=== PATIENT | male | born 1975 | race Caucasian/White ===

== ENCOUNTER 2021-07-09 10:58 | Emergency (ER) | payer MEDICARE, OTHER, SELFPAY ==
[2021-07-09 11:11] VITALS: BP 105/74; PULSE 68; RESP 16; TEMP 36.2; O2SAT 98
--- NOTE | 2021-07-09 11:12 | ED.GENADULT ---
HPI - General Adult General Chief complaint: Upper Respiratory Infection Stated complaint: sinus infection Time Seen by Provider: 07/09/21 11:20 Source: patient, family (mother) and RN notes reviewed Mode of arrival: ambulatory Limitations: other (Down's Syndrome) History of Present Illness HPI narrative: 46-year-old male presents with mother, who complains of upper respiratory infection, sneezing, some facial congestion, facial pressure, and intermittent headache (not the worst of his life) for the past 2 days. Mother reports Armin has constant URI symptoms with increasing sore throat and sinus drainage. Advil and Sinus PE last given today at 02:00 with relief until medication wear off. No facial swelling. Dry cough, intermittent productive cough, without chest congestion. Nasal congestion and rhinorrhea. Sore throat. Pain is bilateral. Hurts to swallow. No high fevers, drooling, neck or throat swelling. No voice change. No nausea, vomiting, or abdominal pain. Tolerating liquids well. Denies chills, dyspnea, difficulty swallowing, jaw pain, dental pain, foreign body sensation, and rash. No chest pain or shortness of breath. Immunizations up-to-date. Remains active. The patient's mother reports they were diagnosed with COVID-20 July 2020 in which her spouse . The patient's mother reports they received 2 Moderna COVID-19 vaccines. The patient's mother reports they are not waiting for the results of a COVID-19 lab test. The patient's mother reports Armin was COVID-19 tested at home on 07/08/2021 with a NEGATIVE result. The patient's mother reports they do not have weakness, fatigue, or myalgia. The patient's mother reports they do not have a worsening cough. The patient's mother reports they do not have any loss of taste or smell and diarrhea. Denies recent traveling. Denies concerns for COVID-19 or exposures. At this time, the patient is not suspected of having COVID-19. Some parts of this dictation were generated by voice recognition software and may contain typographical and/or grammatical inaccuracies. Related Data Home Medications Medication Instructions Recorded Confirmed aspirin 81 mg PO DAILY 07/09/21 07/09/21 cetirizine [Zyrtec] 10 mg PO DAILY 07/09/21 07/09/21 Allergies Allergy/AdvReac Type Severity Reaction Status Date / Time meperidine [From Demerol] Allergy Fainting Verified 07/09/21 11:24 morphine Allergy Anaphylaxis Verified 07/09/21 11:24 Review of Systems Review of Systems: CONSTITUTIONAL: Denies chills, sweats. Complains of low-grade fever. EYES: Denies visual changes, redness, discharge. ENT: Complains of rhinorrhea, congestion, facial congestion and pressure, sore throat. Denies otalgia. CARDIOVASCULAR: Denies chest pain, palpitations, edema. RESPIRATORY: Denies dyspnea, wheezing. Complaints of dry cough. GASTROINTESTINAL: Denies abdominal pain, nausea, vomiting, diarrhea. GENITOURINARY: Denies dysuria, hematuria, abnormal discharge SKIN: Denies rash or itching. MUSCULOSKELETAL: Denies acute back pain, joint pain, or myalgia. NEUROLOGIC: Denies numbness or focal weakness. Complains of intermittent WRIGHT. PSYCHIATRIC: Denies anxiety or depression. All other systems reviewed & are unremarkable except as noted in HPI and below. [facility] Past Medical History Medical History (Updated 07/10/21 @ 00:01 by Mauro Wilder) Acute sinus infection COVID-19 07/2020 Down syndrome VSD (ventricular septal defect) Surgical History Surgical History (Updated 07/09/21 @ 12:03 by HEMANT Portillo) History of adenoidectomy History of cholecystectomy History of hand surgery extra digit removed from right hand History of tonsillectomy History of tympanostomy Family History Family History (Updated 07/09/21 @ 12:04 by HEMANT Portillo) Father , related to COVID-19 per spouse Heart disease COVID-19 Mother COVID-19 Social History Social History (Updated
== END 2021-07-09 11:47 | disposition home or self-care (01) ==
PROVIDERS: Emergency Provider Nurse Practitioner Family; PCP Family Medicine
DX: J01.90 Acute sinusitis, unspecified (principal); Z86.16 Personal history of COVID-19; Q90.9 Down syndrome, unspecified; Z79.82 Long term (current) use of aspirin
CPT/HCPCS: 99202; G0463

== ENCOUNTER 2021-09-07 10:02 | Emergency (ER) | payer MEDICARE, OTHER, SELFPAY ==
--- NOTE | ~2021-09-07 | XR_ITS ---
EXAMINATION: XR tibia fibula LT 2V DATE: 09/07/2021 10:35 INDICATION: Left lower leg pain. TECHNIQUE: 2 views of left tibia and fibula were obtained. COMPARISON: None. FINDINGS: Bone alignment is normal. No fracture. There is mild osteoarthritis of left knee joint. The re is mild midfoot osteoarthritis. Prominent superficial veins are noted. IMPRESSION: 1. Mild polyarticular osteoarthritis. Reviewed, dictated and finalized at location A.
[2021-09-07 10:13] VITALS: BP 104/73; PULSE 69; RESP 18; TEMP 36.5; O2SAT 98
--- NOTE | 2021-09-07 10:53 | ED.LOWEXIN ---
HPI - Extremity Injury (Lower) General Chief Complaint: Extremity Injury, Lower Stated Complaint: Lt leg pain Time Seen by Provider: 09/07/21 10:30 Source: patient, family and RN notes reviewed Mode of arrival: ambulatory Limitations: no limitations History of Present Illness HPI Narrative: Mother presents patient today complaining of left lateral leg pain intermittently x1 month. Denies any traumatic injury, but does report increased pain while walking and exercising. Patient has been elevating and taking ibuprofen for pain, which does help. Mother is concerned because family is getting ready to go on vacation with lots of walking and wanted to make sure patient was okay. History of Down syndrome MD complaint: leg injury Related Data Home Medications Medication Instructions Recorded Confirmed aspirin 81 mg PO DAILY 07/09/21 09/07/21 cetirizine [Zyrtec] 10 mg PO DAILY 07/09/21 09/07/21 ergocalciferol (vitamin D2) 1,000 unit PO DAILY 09/07/21 09/07/21 Allergies Allergy/AdvReac Type Severity Reaction Status Date / Time morphine Allergy Severe Anaphylaxis Verified 09/07/21 10:20 meperidine [From Demerol] Allergy Intermediate Fainting Verified 09/07/21 10:20 Review of Systems Review of Systems: CONSTITUTIONAL: Denies body aches, fever, chills, or sweats. EYES: Denies visual changes, redness, or discharge. ENT: Denies rhinorrhea, congestion, sore throat, or otalgia. CARDIOVASCULAR: Denies chest pain, palpitations, or edema. RESPIRATORY: Denies cough or dyspnea. GASTROINTESTINAL: Denies abdominal pain, nausea, vomiting, or diarrhea. GENITOURINARY: Denies dysuria or hematuria. SKIN: Denies rash, itching, or wounds. MUSCULOSKELETAL: Denies back pain, joint pain. + Left leg pain NEUROLOGIC: Denies headache, numbness, tingling, or weakness. PSYCH: Denies depression or anxiety. [facility] Past Medical History Medical History Acute sinus infection COVID-19 07/2020 Down syndrome VSD (ventricular septal defect) Surgical History Surgical History History of adenoidectomy History of cholecystectomy History of hand surgery extra digit removed from right hand History of tonsillectomy History of tympanostomy Family History Family History Father , related to COVID-19 per spouse Heart disease COVID-19 Mother COVID-19 Social History Social History Social History: Mother denies smoke expsoure Smoking status: Never smoker Tobacco type: cigarettes Second hand tobacco smoke exposure: No Alcohol intake: never Substance use: never Substance use type: does not use Additional occupation/education comments: disable Gender identity (if verbalized by the patient): Male Comments At time of signature, I have reviewed and agree with nursing past medical, surgical, social and family history unless otherwise noted. Please see nursing chart for further information. There is no relevant family history pertinent to the presenting complaint Exam Narrative: GENERAL: Well-appearing, well-nourished, and in no acute distress. HEAD: Normocephalic, atraumatic. EYES: EOMI. No redness or drainage. Conjunctivae normal. ENT: Mucous membranes pink and moist. NECK: Normal AROM. Supple. No lymphadenopathy. CHEST: No respiratory distress. Clear to auscultation. HEART: Regular rate and rhythm. No murmur appreciated. Normal peripheral pulses. ABDOMEN: Soft, nontender, nondistended, normal active bowel sounds. MUSCULOSKELETAL: No bony tenderness. EXTREMITIES: Left leg: Muscular tenderness along the lateral left calf. No bony tenderness to the tibia or fibula. No edema noted. No erythema or ecchymosis noted. Full range of motion of the ankle and knee without pain. Distal sen
== END 2021-09-07 11:05 | disposition home or self-care (01) ==
PROVIDERS: Emergency Provider Nurse Practitioner; PCP Family Medicine
DX: S86.912A Strain of unspecified muscle(s) and tendon(s) at lower leg level, left leg, initial encounter (principal); X58.XXXA Exposure to other specified factors, initial encounter; Q90.9 Down syndrome, unspecified; Z86.16 Personal history of COVID-19
CPT/HCPCS: 73590; 99213; G0463

== ENCOUNTER 2021-11-23 13:44 | Emergency (ER) | payer MEDICARE, OTHER, SELFPAY ==
[2021-11-23 14:25] VITALS: BP 112/45; PULSE 81; RESP 20; TEMP 36.6; O2SAT 98
--- NOTE | 2021-11-23 15:38 | ED.EAR ---
HPI - Ear Problem General Chief complaint: Ear Stated complaint: Rt Ear Pain Time Seen by Provider: 11/23/21 15:20 Source: patient, family and RN notes reviewed Mode of arrival: ambulatory Limitations: no limitations History of Present Illness HPI Narrative: 46 year old male who has Downs syndrome accompanied by his mother with complaints of 3 day history of right ear discomfort with decreased hearing. 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 She also reports that he is presently on Doxycycline for sinus infection and has 4 days left of his antibiotic. Mother reports that son still has some nasal drainage which is clear but symptoms have improved. Patient did have COVID in 2019. He has been vaccinated for COVID and Flu and mother reports home COVID test today which was negative. MD Complaint: ear pain and decreased hearing Location: right ear Related Data Home Medications Medication Instructions Recorded Confirmed aspirin 81 mg PO DAILY 07/09/21 11/23/21 cetirizine [Zyrtec] 10 mg PO DAILY 07/09/21 11/23/21 ergocalciferol (vitamin D2) 1,000 unit PO DAILY 09/07/21 11/23/21 Allergies Allergy/AdvReac Type Severity Reaction Status Date / Time morphine Allergy Severe Anaphylaxis Verified 11/23/21 14:36 meperidine [From Demerol] Allergy Intermediate Fainting Verified 11/23/21 14:36 Review of Systems Review of Systems: CONSTITUTIONAL: Denies fever, chills, or sweats. EYES: Denies visual changes, redness, or discharge. ENT:Positive rhinorrhea,no congestion, sore throat, mild right otalgia, positive for decreased hearing in right ear, left ear mother reports he is deaf. CARDIOVASCULAR: Denies chest pain, palpitations, or edema. RESPIRATORY: Denies cough or dyspnea. GASTROINTESTINAL: Denies abdominal pain, nausea, vomiting, or diarrhea. GENITOURINARY: Denies dysuria or hematuria. SKIN: Denies rash or itching. MUSCULOSKELETAL: Denies back pain, joint pain, or myalgia. NEUROLOGIC: Denies headache, numbness, or weakness. PSYCHIATRIC: Denies anxiety or depression. All systems reviewed & are unremarkable except as noted in HPI and below PMFSH Past Medical History Medical History Acute sinus infection COVID-19 07/2020 Down syndrome VSD (ventricular septal defect) Surgical History Surgical History History of adenoidectomy History of cholecystectomy History of hand surgery extra digit removed from right hand History of tonsillectomy History of tympanostomy Family History Family History Father , related to COVID-19 per spouse Heart disease COVID-19 Mother COVID-19 Social History Social History Social History: Mother denies smoke expsoure Smoking status: Never smoker Tobacco type: cigarettes Second hand tobacco smoke exposure: No Alcohol intake: never Substance use: never Substance use type: does not use Additional occupation/education comments: disable Gender identity (if verbalized by the patient): Male Comments At time of signature, agree with nursing past medical, surgical, social and family history. There is no relevant family history pertinent to the presenting complaint Exam Narrative: GENERAL: Well-appearing, well-nourished, and in no acute distress. HEAD: Normocephalic, atraumatic. EYES: PERRLA and EOMI. ENT: Nares mild redness with some clear rhinorrhea no epistaxis. Mucous membranes moist.TM's impacted with wax, once cleansed no redness or bulging of TM;s noted, throat pink with no exudates or lesions, tonsils absent. NECK: Supple.no lymphadenopathy CHEST: Clear to auscultation. No respiratory distress.SAO2 98% on room air, no cough noted or dyspnea. HEART: Regular rate and rhythm. No murmur heard. Normal peripheral pulses. ABDOMEN: Soft, nonte
== END 2021-11-23 16:18 | disposition home or self-care (01) ==
PROVIDERS: Emergency Provider Registered Nurse; PCP Family Medicine
DX: H61.23 Impacted cerumen, bilateral (principal); Q90.9 Down syndrome, unspecified; Z86.16 Personal history of COVID-19
CPT/HCPCS: 69210; 99213; A9270; G0463

== ENCOUNTER 2021-11-28 18:22 | Inpatient (IN) | payer MEDICARE, OTHER, SELFPAY ==
[2021-11-28] VITALS (30 sets, daily range): BP systolic 88–158; BP diastolic 55–132; PULSE 88–115; RESP 16–33; TEMP 36.4–37.9; O2SAT 91–100
--- NOTE | ~2021-11-28 | XR_ITS ---
EXAMINATION: XR chest 1V portable EXAM DATE: 11/29/2021 11:46 INDICATION: Possible COVID. TECHNIQUE: Portable AP frontal chest x-ray was obtained. Correlation is made to CT abdomen pelvis fro m yesterday. FINDINGS: Possible development of small amount of ill-defined bibasilar airspace disease. Mid and upp er lung zones are clear. No pneumothorax or pleural effusion. The cardiomediastinal silhouette is pro minent but magnified on this AP technique. There are no osseous abnormalities identified. IMPRESSION: Possible developing pneumonia. Follow-up can be obtained if symptoms persist. Reviewed, dictated and finalized at location A. PRESIDENT OF SALES IMPRESSION: Possible developing pneumonia. Follow-up can be obtained if sympto ms persist.
--- NOTE | ~2021-11-28 | XR_ITS ---
EXAMINATION: XR lumbar spine min 4V DATE: 11/28/2021 19:13 INDICATION: Low back pain TECHNIQUE: Anteroposterior, lateral, and bilateral oblique views of the lumbar spine, and cone-down l ateral view of the lumbosacral junction were obtained. COMPARISON: None. FINDINGS: There are 3 mm of anterolisthesis of L5 on S1. Vertebral body alignment is otherwise mainta ined. No fracture is identified. There is mild loss of intervertebral disc space height at L1-2, L2-3 , and L5-S1. The vertebral body heights are maintained. There is severe bilateral facet osteoarthriti s at L5-S1. Surgical clips in the right upper quadrant are likely from prior cholecystectomy. IMPRESSION: 1. Mild lumbar spondylosis without acute findings. Reviewed, dictated and finalized at location F. ETCHER HELPER
--- NOTE | ~2021-11-28 | CT_ITS ---
EXAMINATION: CT abdomen pelvis w con INDICATION: Abdominal pain TECHNIQUE: Computed tomographic images of the abdomen and pelvis were obtained after the administrati on of 100 cc of Omnipaque 350 intravenous contrast. The dose-length product (DLP) was 502.17 mGy-cm. Automated exposure control and iterative reconstruction technique were employed. COMPARISON: None available FINDINGS: The lung bases are clear. The heart size is normal. The gallbladder is surgically absent. T here is mild enlargement of the common bile duct and central intrahepatic ducts which is likely due t o post cholecystectomy state. The liver, spleen, pancreas, adrenal glands, and kidneys are unremarkab le. No pathologically enlarged abdominal or pelvic lymph nodes are identified. There is no free intra peritoneal gas or evidence of bowel obstruction. There is diffuse circumferential wall thickening of the urinary bladder. There is mild lumbar spondylosis. IMPRESSION: 1. Circumferential wall thickening of the urinary bladder which could reflect cystitis. Reviewed, dictated and finalized at location F. S MAINTAINER IMPRESSION: 1. Circumferential wall thickening of the urinary bladder which could reflect c ystitis.
--- NOTE | 2021-11-28 18:52 | ED.GENADULT ---
HPI - General Adult General Chief complaint: Nausea/Vomiting/Diarrhea Stated complaint: Vomiting, diarrhea, back pain Time Seen by Provider: 11/28/21 18:34 History of Present Illness HPI narrative: 46-year-old male with history of Down syndrome presents emergency department for evaluation of nausea vomiting diarrhea and back pain. Patient does have multiple sick contacts that had similar illness of nausea vomiting and diarrhea. Patient brother and another member of the household had the illness and improved. They were tested for Covid and were negative. Patient did have Covid previously and is currently vaccinated. At approximately 330 patient had onset of nausea vomiting and diarrhea. At approximately 445 patient was sitting on the toilet and fell to the floor complaining of pain. Related Data Home Medications Medication Instructions Recorded Confirmed aspirin 81 mg PO DAILY 07/09/21 11/23/21 cetirizine [Zyrtec] 10 mg PO DAILY 07/09/21 11/23/21 ergocalciferol (vitamin D2) 1,000 unit PO DAILY 09/07/21 11/23/21 Allergies Allergy/AdvReac Type Severity Reaction Status Date / Time morphine Allergy Severe Anaphylaxis Verified 11/28/21 18:41 meperidine [From Demerol] Allergy Intermediate Fainting Verified 11/28/21 18:41 Review of Systems Review of Systems: CONSTITUTIONAL: Denies fever, chills, or sweats. EYES: Denies visual changes, redness, or discharge. ENT: Denies rhinorrhea, congestion, sore throat, or otalgia. CARDIOVASCULAR: Denies chest pain RESPIRATORY: Denies cough or dyspnea. GASTROINTESTINAL: Patient has had nausea vomiting diarrhea and does report abdominal pain GENITOURINARY: No hematuria. MUSCULOSKELETAL: Reports lower back pain NEUROLOGIC: Denies headache, numbness, or weakness. [facility] Past Medical History Medical History Acute sinus infection COVID-19 07/2020 Down syndrome VSD (ventricular septal defect) Surgical History Surgical History History of adenoidectomy History of cholecystectomy History of hand surgery extra digit removed from right hand History of tonsillectomy History of tympanostomy Family History Family History Father , related to COVID-19 per spouse Heart disease COVID-19 Mother COVID-19 Social History Social History Social History: Mother denies smoke expsoure Smoking status: Never smoker Tobacco type: cigarettes Second hand tobacco smoke exposure: No Alcohol intake: never Substance use: never Substance use type: does not use Additional occupation/education comments: disable Gender identity (if verbalized by the patient): Male Exam Narrative: APPEARANCE: Well appearing, well-nourished. HEAD: normocephalic, atraumatic. EYES: PERRLA/EOMI, conjunctivae clear. NECK: Supple. No adenopathy, no masses. RESPIRATORY: Airway patent, respirations nonlabored. Clear to auscultation bilaterally, no rales, rhonchi, wheezing. CARDIOVASCULAR: Regular rate and rhythm without murmurs rubs or gallops. ABDOMINAL: Soft, nondistended, normal bowel sounds-generalized abdominal pain to palpation MUSCULOSKELETAL: Moves all extremities. Strength/ROM intact, No edema, No calf tenderness. NEURO: Alert. Cranial nerves II through XII intact. Good gait. Good coordination SKIN: Warm, dry. Normal Color PSYCHIATRIC: Normal affect/mood. Course Course Emergency Course: Patient and mother were updated on the plan for labs and imaging. CT scan did show some circumferential thickening of the bladder. Mother stated that he has had this finding before. Urine did not reflect any evidence of cystitis. Patient did have a moderate leukocytosis. Patient did have a lactic acid of 2.0 but was treated with 2 L of lactated Ringer's for rehydration. Patient is deedee
[2021-11-28] MEDS: LACTATED RINGERS 1,000 ML 999 ML IV CONT ×2 (19:36→21:32)
[2021-11-28] MEDS: ONDANSETRON INJ 4 MG/2 ML VIAL IV PUSH ×2 (19:39→23:06)
[2021-11-28 19:42] LABS: Basophils Absolute Auto 0.1 K/mm3 (0.0-0.1); Basophils Percent Auto 0.5 % (0.2-1.2); Eosinophils Absolute Auto 0.1 K/mm3 (0-0.3); Eosinophils Percent Auto 0.5 % (0-4.4); Hematocrit 49.1 % (42.0-52.0); Hemoglobin 17.2 g/dL (14.0-18.0); Immature Granulocyte Absolute 0.05 K/mm3 (0.00-0.031); Immature Granulocyte Percent A 0.5 % (0-0.5); Lymphocytes Absolute Auto 0.74 K/mm3 (0.9-3.2); Lymphocytes Percent Auto 7.2 % (18.3-44.2); Mean Corpuscular Hemoglobin 33.5 pg (26-34); Mean Corpuscular Volume 95.7 fl (80-100); Mean Platelet Volume 9.1 fl (7.4-10.4); Monocytes Absolute Auto 0.7 K/mm3 (0.1-0.6); Monocytes Percent Auto 6.4 % (2.6-8.5); Neutrophils Absolute Auto 8.7 K/mm3 (1.3-6.7); Neutrophils Percent Auto 84.9 % (45.5-73.1); Platelet Count Result 232 k/mm3 (150-375); Red Blood Count 5.13 M/mm3 (4.6-6.20); Red Cell Distribution Width 13.6 % (11.5-14.5); White Blood Count 10.2 K/mm3 (4.5-10.0)
[2021-11-28 20:03] LABS: Alanine Aminotransferase 38 U/L (4-50); Albumin Level 4.1 g/dL (3.5-5.1); Alkaline Phosphatase 89 U/L (38-126); Anion Gap 4 mmol/L (8-16); Aspartate Amino Transferase 40 U/L (17-59); Bilirubin,Total 0.5 mg/dL (0.2-1.3); Blood Urea Nitrogen 17 mg/dL (9-20); Calcium 8.5 mg/dL (8.4-10.2); Carbon Dioxide 26 mmol/L (22-30); Chloride 107 mmol/L (98-107); Estimated Glomerular Filt Rate > 60; Glucose 123 mg/dL (65-110); Lipase 55 U/L (23-300); Potassium 4.2 mmol/L (3.4-5.0); Sodium 137 mmol/L (137-145)
[2021-11-28 20:04] LABS: Lactic Acid Reflex 2.2 mmol/L (0.7-2.1)
[2021-11-28 21:39] LABS: Add Urine Microscopic? NO; Appearance Urine Clear (Clear); Bilirubin Urine Negative (Negative); Blood Urine Negative (Negative); Color Urine Yellow (Yellow); Glucose Urine UA Negative (Negative); Ketones Urine Negative (Negative); Leukocyte Esterase Ur Negative LEU/UL (Negative); Nitrate Urine Negative (Negative); Protein Urine Negative (Negative); Urobilinogen Urine Negative mg/dL (<2.0)
[2021-11-28 21:49] LABS: Specific Grav Ur > 1.060 (1.001-1.035)
[2021-11-28 22:47] LABS: Reflex Lactic Acid Yes or No Add Lactic
[2021-11-28 23:21] LABS: Lactic Acid 3.7 mmol/L (0.7-2.1)
[2021-11-29] VITALS (20 sets, daily range): BP systolic 96–116; BP diastolic 55–77; PULSE 91–113; RESP 16–34; TEMP 36.6–36.8; O2SAT 90–98; BMI 34.0
[2021-11-29] MEDS: SODIUM CHLORIDE 0.9% IV 1,000 ML 999 ML IV CONT (00:22)
[2021-11-29] MEDS: METOCLOPRAMIDE HCL INJ 10 MG/2 ML VIAL IV PUSH (00:22)
[2021-11-29 00:27] LABS: EDCOVIDSCREEN Negative (Negative)
[2021-11-29] MEDS: SODIUM CHLORIDE 0.9% IV 1,000 ML 125 ML IV CONT ×3 (03:19→21:11)
--- NOTE | 2021-11-29 03:36 | ADMGEN ---
This patient, Armin Rico, was admitted to [facility] Surg Room 333-01. Patient/family oriented to hospital policies and general routines including ID bracelet, bed and alarms, visiting hours, pain management, procedures, bathroom and other care routines, personal items, smoking policy, room service/diet, and visiting hours. Information on how to activate the Rapid Response Team has been discussed. Patient/Family are encouraged to report perceived risks to care and to ask questions if they do not understand what they are told or what they should do.
--- NOTE | 2021-11-29 08:42 | PM.IMHP ---
H&P: HPI History of Present Illness Date/Time: 11/29/21 08:42 Chief Complaint: Nausea/Vomiting/Diarrhea Narrative: Armin Rico is a 46 year old man with a Down's Syndrome, VSD, and COVID-19 who has been admitted after presenting to the ED with complaints of nausea, vomiting and diarrhea. The patient is a poor historian and history obtained per chart review. His symtoms began around 0330 this morning and about an hour later he was found sitting on the toilet and fell to the floor complaining of pain. Apparently he has had multiple sick contacts in the household with similar symptoms.They were all tested for COVID and results were negative. The patient was diagnosed with COVID-19 last year and since then has been fully vaccinated. While in the ED the patient had worsening symptoms and an elevated Lactic. He denied any chills, WRIGHT, SOB, CP, N/VD during interview and exam. ED evaluation included and revealed: He was febrile and Lactic acid was elevated at 2.2-->3.7. WBC slightly elevated at 10.2; Neut elevated at 84.9; CT of A/P showed circumferential wall thickening of the urinary bladder which could reflect cystitis; UA was not suggestive of infection. COVID -19 pcr was collected and the patient has been admitted to observation status for further evaluation and treatment. Review of Systems Review of Systems: All systems reviewed & are unremarkable except as noted in HPI and below PMFSH Past Medical History Medical History Acute sinus infection COVID-19 07/2020 Down syndrome VSD (ventricular septal defect) Surgical History Surgical History History of adenoidectomy History of cholecystectomy History of hand surgery extra digit removed from right hand History of tonsillectomy History of tympanostomy Family History Family History Father , related to COVID-19 per spouse Heart disease COVID-19 Mother COVID-19 Social History Social History Social History: Mother denies smoke expsoure Smoking status: Never smoker Tobacco type: cigarettes Second hand tobacco smoke exposure: No Alcohol intake: never Substance use: never Substance use type: does not use Additional occupation/education comments: disable Gender identity (if verbalized by the patient): Male Spiritual care concerns: No Meds Home Medications and Allergies Home Medications Medication Instructions Recorded Confirmed Type aspirin 81 mg PO DAILY 07/09/21 11/29/21 History cetirizine [Zyrtec] 10 mg PO DAILY 07/09/21 11/29/21 History ergocalciferol (vitamin D2) 1,000 unit PO DAILY 09/07/21 11/29/21 History ondansetron 4 mg PO Q8H PRN #14 tablet 11/28/21 Rx Allergies Allergy/AdvReac Type Severity Reaction Status Date / Time morphine Allergy Severe Anaphylaxis Verified 11/28/21 18:41 meperidine [From Demerol] Allergy Intermediate Fainting Verified 11/28/21 18:41 Vital Signs Vital Signs - 24 hr 11/28/21 18:37 11/28/21 19:22 11/28/21 19:23 Temperature 36.4 C L Pulse Rate 88 95 96 Respiratory Rate 20 33 H 21 H Blood Pressure 158/132 H 106/69 Pulse Oximetry 93 100 99 11/28/21 19:30 11/28/21 19:31 11/28/21 19:45 Temperature Pulse Rate 115 H 104 H 97 Respiratory Rate 16 24 H 21 H Blood Pressure 129/95 H Pulse Oximetry 98 96 96 11/28/21 20:00 11/28/21 20:25 11/28/21 20:26 Temperature Pulse Rate 102 H 110 H 112 H Respiratory Rate 18 26 H Blood Pressure 117/55 L Pulse Oximetry 91 94 93 11/28/21 20:31 11/28/21 20:35 11/28/21 20:45 Temperature 37.9 C H Pulse Rate 110 H 101 H Respiratory Rate 22 H 25 H Blood Pressure 99/74 L Pulse Oximetry 100 97 11/28/21 20:46 11/28/21 20:49 11/28/21 20:50 Temperature Pulse Rate 105 H 102 H 102 H
[2021-11-29 13:33] LABS: SARS-CoV-2 RNA PCR Positive
[2021-11-29] MEDS: ACETAMINOPHEN 325 MG TABLET 650 MG PO (19:04)
[2021-11-30] VITALS: BP 108/75; PULSE 91; RESP 18; TEMP 36.8; O2SAT 96
[2021-11-30] MEDS: ACETAMINOPHEN 325 MG TABLET 650 MG PO (03:10)
[2021-11-30 06:00] VITALS: BP 112/82; PULSE 89; RESP 18; TEMP 36.8; O2SAT 96
[2021-11-30 08:00] VITALS: BP 108/67; PULSE 58; RESP 19; TEMP 36.2; O2SAT 96
[2021-11-30 08:52] LABS: Hematocrit 42.3 % (42.0-52.0); Hemoglobin 14.5 g/dL (14.0-18.0); Mean Corpuscular HGB Conc 34.3 g/dl (32-36); Mean Corpuscular Hemoglobin 33.5 pg (26-34); Mean Corpuscular Volume 97.7 fl (80-100); Mean Platelet Volume 9.6 fl (7.4-10.4); Platelet Count Result 167 k/mm3 (150-375); Red Blood Count 4.33 M/mm3 (4.6-6.20); Red Cell Distribution Width 13.9 % (11.5-14.5); White Blood Count 4.9 K/mm3 (4.5-10.0)
[2021-11-30] MEDS: ENOXAPARIN 40 MG/0.4 ML SYRINGE SUB-Q (08:58)
[2021-11-30 09:02] LABS: Lactic Acid Reflex 0.8 mmol/L (0.7-2.1)
[2021-11-30 09:05] LABS: Anion Gap 6 mmol/L (8-16); Blood Urea Nitrogen 6 mg/dL (9-20); Calcium 7.2 mg/dL (8.4-10.2); Carbon Dioxide 26 mmol/L (22-30); Chloride 108 mmol/L (98-107); Estimated CRCL calculation 80 ml/min; Estimated Glomerular Filt Rate > 60; Glucose 92 mg/dL (65-110); Potassium 3.4 mmol/L (3.4-5.0); Sodium 140 mmol/L (137-145)
--- NOTE | 2021-11-30 11:56 | PM.DS ---
DS: Admitting Diagnosis Discharge Date 11/30/21 Admitting Diagnosis Gastroenteritis COVID-19 PUI Lactic acidosis DS: Discharge Diagnosis Discharge Diagnosis (1) COVID-19: Code(s): U07.1 - COVID-19 Status: Acute Assessment and Plan: Despite having COVID-19 last year and being vaccinated COVID-19. Patient PCR resulted positive for COVID-19. With no respiratory symptoms only requires supportive care. (2) Lactic acidosis: Code(s): E87.2 - Acidosis Status: Acute Assessment and Plan: Secondary to dehydration from gastroenteritis. Lactic acid normalized by discharge 0.8 (3) Gastroenteritis and colitis, viral: Code(s): A08.4 - Viral intestinal infection, unspecified Status: Acute Assessment and Plan: Likely secondary to viral infection, COVID-19 positive. Patient is clinically stable to go, advised to stay hydrated. DS: Summary Hospital Course Reason for hospitalization: Lactic acidosis, nausea vomiting diarrhea Hospital Course: Patient is a 46-year-old male past medical history of Down syndrome, VSD, COVID-19 last year presents to the ED with complaints of nausea vomiting diarrhea. His COVID-19 PCR test resulted in positive which would mean he has a reinfection. Whole household has similar symptoms however they tested negative. Since patient had COVID-19 last year and he has been vaccinated, is unclear accurate his PCR test is. Either way supportive care is indicated as he is not having respiratory symptoms. Lactic acid was elevated up to 3.7 improved with IV fluids. At time of discharge his labs stabilized, vitals stable, patient stable for discharge home. Patient advised of supportive care continue staying hydrated. He will follow-up with PCP in 1-2 weeks. Family understand adn agree with plan. Status at Discharge Cognitive/behavioral status at discharge: At baseline, down syndrome Functional status at discharge: independent ambulation Overall status at discharge: patient is back to baseline Time Spent with Patient Time attestation: Total time spent providing and/or coordinating discharge services:35 Time spent: Greater than 30 minutes Exam Narrative: - GENERAL: No acute distress. Well-nourished. Down syndrome features - EYES: EOMI. Anicteric. Dysconjugate gaze - HENT: Moist mucous membranes. No scleral icterus. Webbed neck - LUNGS: Clear to auscultation bilaterally, no wheezing, rhonchi, or rales. - CARDIOVASCULAR: Regular rate and rhythm. - ABDOMEN: Soft, non-tender and non-distended. No palpable masses. - EXTREMITIES: No edema. Peripheral pulses 2+. Non-tender. - NEUROLOGIC: No focal neurological deficits. CN II-XII grossly intact. - PSYCHIATRIC: Awake, Alert. Appropriate mood and affect. At baseline - SKIN: No rashes or lesions. Warm. - LYMPH: No cervical lymphadenopathy. DS: Data Data Completed and Pending Labs on day of discharge: Labs from last 24 hours 11/30/21 11/30/21 11/30/21 08:11 08:11 08:11 WBC 4.9 RBC 4.33 L Hgb 14.5 Hct 42.3 MCV 97.7 MCH 33.5 MCHC 34.3 RDW 13.9 Plt Count 167 MPV 9.6 Sodium 140 Potassium 3.4 Chloride 108 H Carbon Dioxide 26 Anion Gap 6 L BUN 6 L D Creatinine 0.90 Estim Creat Clear Calc 80 Estimated GFR > 60 Glucose 92 Lactic Acid 0.8 Calcium 7.2 L SARS-CoV-2 RNA (RT-PCR) 11/29/21 05:12 WBC RBC Hgb Hct MCV MCH MCHC RDW Plt Count MPV Sodium Potassium Chloride Carbon Dioxide Anion Gap BUN Creatinine Estim Creat Clear Calc Estimated GFR Glucose Lactic Acid Calcium SARS-CoV-2 RNA (RT-PCR) Positive A Preliminary micro results at discharge 11/29/21 00:33 Blood Culture - Preliminary Blood 11/29/21 00:33 Blood Culture - Preliminary Blood Discharge Plan Discharge Attending physician on discharge: Arpita Hayes Discharging Clinician: Arpita Hayes Anticipate
== END 2021-11-30 12:40 | disposition home or self-care (01) | DRG 178 ==
LOC: ANHED 23:30 → ANH3MEDSUR 11-29 00:19
PROVIDERS: Admitting Provider Internal Medicine; Emergency Provider Emergency Medicine; PCP Family Medicine; Visit Provider Student in an Organized Health Care Education/Training Program
DX: U07.1 COVID-19 (principal); E87.2 Acidosis; A08.39 Other viral enteritis; Q21.0 Ventricular septal defect; A08.4 Viral intestinal infection, unspecified; E86.0 Dehydration; Q90.9 Down syndrome, unspecified; Z90.49 Acquired absence of other specified parts of digestive tract
CPT/HCPCS: 36415; 71045; 72110; 74177; 80048; 80053; 81003; 83605; 83690; 85025; 85027; 87015; 87040; 87269; 87272; 87324; 87426; 87804; 96361; 96375; 96376; 99285; A9270; C9803; G0378; J0131; J1650; J2405; J2765; J7030; J7120; Q9967; U0003; U0005

== ENCOUNTER 2021-12-13 10:04 | Outpatient (CLI) | payer MEDICARE, OTHER, SELFPAY ==
--- NOTE | ~2021-12-13 | XR_ITS ---
EXAMINATION: XR chest 2V DATE: 12/13/2021 10:24 INDICATION: COVID with possible pneumonia. TECHNIQUE: PA and lateral views of the chest were obtained. COMPARISON: Chest radiograph dated 11/29/2021 FINDINGS: Mild streaky opacity left midlung zone with appearance favoring atelectasis/scarring over pneumonia. Resolution of prior opacities at the lung bases. No pulmonary edema, pleural effusion or pneumothorax . The cardiomediastinal silhouette is normal. Mild thoracic spondylosis. IMPRESSION: 1. Resolution of prior basilar opacities which may have represented atelectasis or pneumonia. 2. Mild streaky opacities at the lateral left midlung zone with appearance favoring atelectasis over pneumonia. Reviewed, dictated and finalized at location A. IC[employer] THER[employer]IST TECHNICIAN IMPRESSION: 1. Resolution of prior basilar opacities which may have represented atelectasis or pneumonia. 2. Mild streaky opacities at the lateral left midlung zone with appearance favo ring atelectasis over pneumonia.
== END 2021-12-13 10:05 | disposition home or self-care (01) ==
PROVIDERS: PCP Family Medicine; Visit Provider Family Medicine
DX: U07.1 COVID-19 (principal); J12.82 Pneumonia due to coronavirus disease 2019; M47.816 Spondylosis without myelopathy or radiculopathy, lumbar region
CPT/HCPCS: 71046

== ENCOUNTER 2022-02-01 10:02 | Emergency (ER) | payer MEDICARE, OTHER, SELFPAY ==
[2022-02-01 10:12] VITALS: BP 105/66; PULSE 87; RESP 18; TEMP 36.1; O2SAT 98
--- NOTE | 2022-02-01 10:19 | ED.EAR ---
HPI - Ear Problem General Chief complaint: Ear Stated complaint: Rt Ear Irritation Time Seen by Provider: 02/01/22 10:19 Source: patient Mode of arrival: ambulatory Limitations: no limitations History of Present Illness HPI Narrative: 46 yo M with hx of down syndrome presents with Mom with c/o sinus congestion/pressure, runny nose, mild cough for 2 to 3 days. Mom has been giving zyrtec and flonase. Last night pt began c/o bilateral ear pain, worse to R ear. afebrile. pt has his of sinusitis/seasonal allergies. he is alert and talkative. All systems reviewed and negative except as noted above. Related Data Home Medications Medication Instructions Recorded Confirmed aspirin 81 mg PO DAILY 07/09/21 02/01/22 cetirizine [Zyrtec] 10 mg PO DAILY 07/09/21 02/01/22 ergocalciferol (vitamin D2) 1,000 unit PO DAILY 09/07/21 02/01/22 fluticasone propionate 50 mcg INTRANASAL DAILY PRN 02/01/22 02/01/22 Allergies Allergy/AdvReac Type Severity Reaction Status Date / Time morphine Allergy Severe Anaphylaxis Verified 02/01/22 10:09 meperidine [From Demerol] Allergy Intermediate Fainting Verified 02/01/22 10:09 Review of Systems Review of Systems: CONSTITUTIONAL: Denies fever, chills, or sweats. EYES: Denies visual changes, redness, or discharge. ENT: Reports rhinorrhea, congestion, sore throat, or otalgia, sinus pressure. CARDIOVASCULAR: Denies chest pain, palpitations, or edema. RESPIRATORY: Reports cough. Denies dyspnea. GASTROINTESTINAL: Denies abdominal pain, nausea, vomiting, or diarrhea. GENITOURINARY: Denies dysuria or hematuria. SKIN: Denies rash or itching. MUSCULOSKELETAL: Denies back pain, joint pain, or myalgia. NEUROLOGIC: Denies headache, numbness, or weakness. PSYCHIATRIC: Denies anxiety or depression. All other systems reviewed are negative, except as documented in HPI. [facility] Past Medical History Medical History Acute sinus infection COVID-19 07/2020 Down syndrome VSD (ventricular septal defect) Surgical History Surgical History History of adenoidectomy History of cholecystectomy History of hand surgery extra digit removed from right hand History of tonsillectomy History of tympanostomy Family History Family History Father , related to COVID-19 per spouse Heart disease COVID-19 Mother COVID-19 Social History Social History Social History: Mother denies smoke expsoure Smoking status: Never smoker Tobacco type: cigarettes Second hand tobacco smoke exposure: No Alcohol intake: never Substance use: never Substance use type: does not use Additional occupation/education comments: disable Gender identity (if verbalized by the patient): Male Spiritual care concerns: No Comments At time of signature, agree with nursing past medical, surgical, social and family history. There is no relevant family history pertinent to the presenting complaint. Exam Narrative: GENERAL: This is a well-nourished, well-developed patient, in no apparent distress. HEAD: normocephalic, atraumatic. EYES: PERRL. Sclera clear/white. Vision is grossly intact. EARS: External ears normal, auditory canals clear and without drainage. Hearing grossly intact. Fluid to bilateral TMs with air bubbles. TMs mildly injected. NOSE: External nose normal. Clear nasal drainage with erythematous nares. THROAT: Mucous membranes moist, posterior pharynx clear. NECK: Neck supple, non-tender without lymphadenopathy, masses or thyromegaly. CARDIOVASCULAR: Regular rate and rhythm without murmurs, gallops, or rubs. RESPIRATORY: Clear to auscultation. Breath sounds equal bilaterally. No wheezes, rales, or rhonchi. GASTROINTESTINAL: Abdomen soft, non-tender, nondistended. [place]
== END 2022-02-01 10:31 | disposition home or self-care (01) ==
PROVIDERS: Emergency Provider Nurse Practitioner Family; PCP Family Medicine
DX: H65.03 Acute serous otitis media, bilateral (principal); J01.91 Acute recurrent sinusitis, unspecified; Q90.9 Down syndrome, unspecified; Z86.16 Personal history of COVID-19; Q21.0 Ventricular septal defect; Z79.82 Long term (current) use of aspirin
CPT/HCPCS: 99213; G0463

== ENCOUNTER 2022-06-19 10:01 | Emergency (ER) | payer MEDICARE, OTHER, SELFPAY ==
--- NOTE | 2022-06-19 10:08 | ED.URI ---
HPI - URI/Sore Throat General Chief Complaint: Upper Respiratory Infection Stated Complaint: cough,nasal congestion Time Seen by Provider: 06/19/22 10:08 Source: patient Mode of arrival: ambulatory Limitations: no limitations History of Present Illness HPI Narrative: Mr. Rico is a 46-year-old male patient presenting to the clinic today with complaints of cough and nasal congestion times. Mother reports that she thinks that he may have a sinus infection as he gets this every year Related Data Home Medications Medication Instructions Recorded Confirmed aspirin 81 mg tablet 81 mg PO DAILY 07/09/21 06/19/22 cetirizine 10 mg tablet (Zyrtec) 10 mg PO DAILY 07/09/21 06/19/22 ergocalciferol (vitamin D2) 1,000 1,000 unit PO DAILY 09/07/21 06/19/22 unit capsule fluticasone propionate 50 50 mcg intranasal DAILY PRN Sinus 02/01/22 06/19/22 mcg/actuation nasal Symptoms spray,suspension Allergies Allergy/AdvReac Type Severity Reaction Status Date / Time morphine Allergy Severe Anaphylaxis Verified 06/19/22 10:09 meperidine [From Demerol] Allergy Intermediate Fainting Verified 06/19/22 10:09 Review of Systems Review of Systems: Pertinent positives per HPI. Patient denies any fever, chills, rash, headache, visual changes, dizziness, sore throat, shortness of breath, chest pain, palpitations, nausea, vomiting, diarrhea, constipation, abdominal pain, or any urinary issues. PMFSH Past Medical History Medical History Acute sinus infection COVID-19 07/2020 Down syndrome VSD (ventricular septal defect) Surgical History Surgical History History of adenoidectomy History of cholecystectomy History of hand surgery extra digit removed from right hand History of tonsillectomy History of tympanostomy Family History Family History Father , related to COVID-19 per spouse Heart disease COVID-19 Mother COVID-19 Social History Social History Social History: Mother denies smoke expsoure Smoking status: Never smoker Tobacco type: cigarettes Second hand tobacco smoke exposure: No Alcohol intake: never Substance use: never Substance use type: does not use Additional occupation/education comments: disable Gender identity (if verbalized by the patient): Male Spiritual care concerns: No Comments At the time of my signature, I reviewed and agree with the nursing past medical, surgical, social, and family history. There is no relevant family history pertinent to the patient complaint. Exam Narrative: General: Well-developed, well nourished, in no apparent distress Head: Normocephalic, atraumatic, down syndrome facial features Eyes: Pupils equally round and reactive to light bilaterally, EOM intact, sclera and conjunctive clear, no discharge, lids normal Ears: TMs intact and opaque, ear canals clear, no drainage, grossly hearing normal. Nose: Nares patent, clear nasal discharge, moderate inflammation to anterior and posterior turbinates, no sinus tenderness. Mouth: Oropharynx without lesions or masses, good dentition, MMM. PND Neck: Supple, trachea midline, no enlargement of anterior or posterior cervical nodes, no thyroid masses or goiter palpable. Cardio: Regular rate and rhythm, s1 and s2 normal, no murmur appreciated. Resp: Clear to auscultation bilaterally anteriorly and posteriorly, no rhonchi, rales, wheezing or rubs Course Course Emergency Course: Portions of this record may have been created with voice recognition software. Level of Care: Express Care Visit Vital Signs Vital signs: Vital signs reviewed MDM - URI/Sore Throat MDM Narrative Medical decision making narrative: At the time of visit patient is resting comfortably on t
[2022-06-19 10:17] VITALS: BP 109/55; PULSE 81; RESP 18; TEMP 36.6; O2SAT 98
== END 2022-06-19 10:28 | disposition home or self-care (01) ==
PROVIDERS: Emergency Provider Nurse Practitioner Family; PCP Family Medicine
DX: R09.82 Postnasal drip (principal); J06.9 Acute upper respiratory infection, unspecified; Q90.9 Down syndrome, unspecified; Z86.16 Personal history of COVID-19; Z79.82 Long term (current) use of aspirin
CPT/HCPCS: 99213; G0463

== ENCOUNTER 2022-08-27 10:12 | Outpatient (CLI) | payer MEDICARE, OTHER, SELFPAY ==
--- NOTE | ~2022-08-27 | XR_ITS ---
EXAMINATION: XR chest 2V 08/27/2022 10:35 INDICATION: History of Covid pneumonia. PROCEDURE: 2 view chest COMPARISON: Comparison to multiple prior studies sequentially, with oldest reviewed study dated 11/02. FINDINGS: Decreased linear atelectasis/scarring left mid lung. No focal pneumonia, edema, pleural eff usion. The cardiomediastinal silhouette is within normal limits. There are no pleural effusions. Th ere is no pneumothorax suspected. IMPRESSION: 1: Decreased linear atelectasis/scarring left mid lung. 2: No acute cardiopulmonary disease. Reviewed, dictated and finalized at location B.
== END 2022-08-27 10:13 | disposition home or self-care (01) ==
PROVIDERS: PCP Family Medicine; Visit Provider Family Medicine
DX: R93.89 Abnormal findings on diagnostic imaging of other specified body structures (principal)
CPT/HCPCS: 71046

== ENCOUNTER 2022-09-18 17:57 | Emergency (ER) | payer MEDICARE, OTHER, SELFPAY ==
[2022-09-18 18:09] VITALS: BP 117/71; PULSE 83; RESP 18; TEMP 36.3; O2SAT 100
--- NOTE | 2022-09-18 18:51 | ED.URI ---
HPI - URI/Sore Throat General Chief Complaint: Upper Respiratory Infection Stated Complaint: congestion,cough Source: family Mode of arrival: ambulatory Limitations: language barrier and physical limitation History of Present Illness HPI Narrative: This is a 47-year-old male patient has down syndrome he has been sick for the past 6 day nasal drainage cough ear pain mom who had copious secretions he was here with his nieces and nephews last week because they were sick of bronchitis the following day he got sick in his legs get any better study coughing he has been taking cough medicine allergy medicine the decongestants Related Data Home Medications Medication Instructions Recorded Confirmed albuterol 90 mcg/actuation aerosol 90 mcg inhalation DIRECTED 09/18/22 09/18/22 inhaler loratadine 10 mg tablet 10 mg DAILY 09/18/22 09/18/22 Allergies Allergy/AdvReac Type Severity Reaction Status Date / Time morphine Allergy Severe Anaphylaxis Verified 09/18/22 18:17 meperidine [From Demerol] Allergy Intermediate Fainting Verified 09/18/22 18:17 Review of Systems Review of Systems: Cough congestion All systems reviewed & are unremarkable except as noted in HPI and below PMFSH Past Medical History Medical History Acute sinus infection COVID-19 07/2020 Down syndrome VSD (ventricular septal defect) Surgical History Surgical History History of adenoidectomy History of cholecystectomy History of hand surgery extra digit removed from right hand History of tonsillectomy History of tympanostomy Family History Family History Father , related to COVID-19 per spouse Heart disease COVID-19 Mother COVID-19 Social History Social History Social History: Mother denies smoke expsoure Smoking status: Never smoker Tobacco type: cigarettes Second hand tobacco smoke exposure: No Alcohol intake: never Substance use: never Substance use type: does not use Additional occupation/education comments: disable Gender identity (if verbalized by the patient): Male Spiritual care concerns: No Comments At time as signature, I have reviewed and agree with nursing past medical, social, surgical and family history. Please see nursing chart for further information. There is no relevant family history pertinent to the presenting complaint. Exam Narrative: GENERAL:Well-appearing, well-nourished, and in no acute distress. HEAD:Normocephalic, EYES: PERRLA ENT: Nares clear, copious rhinorrhea Mucous membranes moist. Pharyngeal erythema no tonsil uvula swollen and erythema with sore noted CHEST: Clear to auscultation. No respiratory distress. HEART: Regular rate and rhythm. EXTREMITIES: Normal range of motion. No edema. SKIN: Warm, dry, no rash. NEURO: No focal deficits. Alert and oriented x3. Course Course Level of Care: Express Care Visit Vital Signs Vital signs: Vital Signs Temperature 97.3 F L 09/18/22 18:09 Pulse Rate 83 09/18/22 18:09 Respiratory Rate 18 09/18/22 18:09 Blood Pressure 117/71 09/18/22 18:09 Pulse Oximetry 100 09/18/22 18:09 Oxygen Delivery Room Air 09/18/22 18:09 Temperature 97.3 F L 09/18/22 18:09 Pulse Rate 83 09/18/22 18:09 Respiratory Rate 18 09/18/22 18:09 Blood Pressure 117/71 09/18/22 18:09 Pulse Oximetry 100 09/18/22 18:09 Oxygen Delivery Room Air 09/18/22 18:09 MDM - URI/Sore Throat Differential Diagnosis Differential diagnosis: Likely upper respiratory infection, sinusitis, viral infection, bronchitis, influenza and pharyngitis Lab Data Labs: Influenza A Screen Negative Reference Range: Negative Influenza B Screen Negat
== END 2022-09-18 19:02 | disposition home or self-care (01) ==
PROVIDERS: Emergency Provider Nurse Practitioner Family; PCP Family Medicine
DX: B34.9 Viral infection, unspecified (principal); J02.9 Acute pharyngitis, unspecified; K12.2 Cellulitis and abscess of mouth; J06.9 Acute upper respiratory infection, unspecified; Q90.9 Down syndrome, unspecified; Q21.0 Ventricular septal defect; Z86.16 Personal history of COVID-19
CPT/HCPCS: 87804; 99213; G0463

== ENCOUNTER 2023-02-19 00:11 | Emergency (ER) | payer MEDICARE, OTHER, SELFPAY ==
--- NOTE | ~2023-02-19 | CT_ITS ---
CT scan of the Neck And Chest Technique: 2.5 mm axial scans were obtained through the neck and chest after intravenous administrati on of 100 cc Omnipaque 350. Coronal and sagittal reconstructions of the neck were obtained. Dose redu ction technique was used on this scan by utilizing automated exposure control and iterative reconstru ction technique. The dose-length product (DLP) was 1067.35 mGy-cm. Clinical History: Food bolus stuck in throat CT neck Findings: There is no evidence of any significant cervical lymphadenopathy. Several small, no nenlarged jugulo- digastric and posterior cervical lymph nodes are noted bilaterally. Parapharyngeal spaces appear normal bilaterally. The parotid and submandibular glands appear normal. The pharyngeal mucosal spaces appear normal. No soft tissue masses are seen in the neck. Visualized a erodigestive tract is unremarkable. The thyroid gland appears normal. There is reversal normal cervical lordosis with diffuse degenerativ e disc disease in the cervical spine. CT chest findings: No mediastinal, hilar, or axillary lymphadenopathy. Aberrant right subclavian rasheed ry is incidentally noted. There is suggestion of mild esophageal wall thickening diffusely, which cou ld reflect esophagitis. Minimal pericardial fluid noted. No pleural effusions. There is probable minimal pulmonary scarring at the right lung base. No consolidation or pulmonary no dule seen. No endobronchial lesion or foreign body identified. Visualized upper abdomen is unremarkable. Impression: No foreign body/food bolus identified in the airways or esophagus. Findings suggestive of esophagitis. Minimal pericardial fluid. Reviewed, dictated and finalized at [facility]. Impression: No foreign body/food bolus identified in the airways or esophagus. Findings suggestive of esophagitis. Minimal pericardial fluid.
[2023-02-19 00:16] VITALS: BP 116/70; PULSE 84; RESP 20; TEMP 36.7; O2SAT 95
[2023-02-19 00:38] VITALS: PULSE 71; RESP 18; O2SAT 98
--- NOTE | 2023-02-19 00:45 | ED.GENADULT ---
HPI - General Adult General Chief complaint: Unspecified Stated complaint: SOB/something in throat Time Seen by Provider: 02/19/23 00:45 History of Present Illness HPI narrative: Is a 47-year-old male with Down syndrome and developmental delay presenting to ED with possible food impaction. The patient had dinner around 730 which include ice cream and ice cream cone. He then went to bed and was awoke around 11 30. That time he was retching and complaining of a sensation in his throat. Now complaining if patient is complaining of pain in his chest. The patient has Down syndrome and has a child-like mentation and is unable to characterize his symptoms very well. He denies fever URI symptoms abdominal pain. There is a family member in the household who has strep throat. Related Data Home Medications Medication Instructions Recorded Confirmed albuterol 90 mcg/actuation aerosol 90 mcg inhalation DIRECTED 09/18/22 09/18/22 inhaler loratadine 10 mg tablet 10 mg DAILY 09/18/22 09/18/22 Allergies Allergy/AdvReac Type Severity Reaction Status Date / Time morphine Allergy Severe Anaphylaxis Verified 09/18/22 18:17 meperidine [From Demerol] Allergy Intermediate Fainting Verified 09/18/22 18:17 [facility] Past Medical History Medical History Acute sinus infection COVID-19 07/2020 Down syndrome VSD (ventricular septal defect) Surgical History Surgical History History of adenoidectomy History of cholecystectomy History of hand surgery extra digit removed from right hand History of tonsillectomy History of tympanostomy Family History Family History Father , related to COVID-19 per spouse Heart disease COVID-19 Mother COVID-19 Social History Social History Social History: Mother denies smoke expsoure Smoking status: Never smoker Tobacco type: cigarettes Second hand tobacco smoke exposure: No Alcohol intake: never Substance use: never Substance use type: does not use Living arrangements: with family Occupation/Education: other Additional occupation/education comments: disable Gender identity (if verbalized by the patient): Male Spiritual care concerns: No Exam Narrative: APPEARANCE: No apparent distress. Head: atraumatic. EYES: [place] NOSE: Atraumatic NECK: Trachea midline, no areas of tenderness, there is redundant skin but no masses, no stridor in the neck RESPIRATORY: No increased rate of breathing , clear auscultation CARDIOVASCULAR: RRR, normal pulses ABDOMINAL: Non-distended soft nontender no guarding or rebound MUSCULOSKELETAl: No obvious deformities NEURO: Alert. Moving 4/4 extremities SKIN:: Warm, dry. Normal color PSYCHIATRIC: Normal affect Course Vital Signs Vital signs: Vital Signs Temperature 98.1 F 02/19/23 00:16 Pulse Rate 84 02/19/23 00:16 Respiratory Rate 20 02/19/23 00:16 Blood Pressure 116/70 02/19/23 00:16 Pulse Oximetry 95 02/19/23 00:16 Oxygen Delivery Room Air 02/19/23 00:16 Temperature 98.1 F 02/19/23 00:16 Pulse Rate 71 02/19/23 05:02 Respiratory Rate 18 02/19/23 05:02 Blood Pressure 102/67 02/19/23 05:02 Pulse Oximetry 97 02/19/23 05:02 Oxygen Delivery Room Air 02/19/23 00:16 Medical Decision Making [facility] Narrative Medical decision making narrative: -Presentation: 47-year-old male with Down syndrome and developmental delay presenting with retching at home. Possible food impaction. Patient is unable to provide much history due to Down syndrome and developmental delay So a CT of the neck and chest has been ordered to evaluate for impaction. Patient will be swabbed for COVID flu and strep as well as he has a sick family members home. -DDX includes but is not limited to: Food
[2023-02-19] MEDS: SODIUM CHLORIDE 0.9% IV 1,000 ML 999 ML IV CONT (01:46)
[2023-02-19 01:51] VITALS: BP 111/71; PULSE 76; RESP 18; O2SAT 97
[2023-02-19 01:58] LABS: Basophils Absolute Auto 0.1 K/mm3 (0.0-0.1); Basophils Percent Auto 1.6 % (0.2-1.2); Eosinophils Absolute Auto 0.1 K/mm3 (0-0.3); Eosinophils Percent Auto 1.9 % (0-4.4); Hematocrit 47.9 % (42.0-52.0); Hemoglobin 16.5 g/dL (14.0-18.0); Immature Granulocyte Absolute 0.02 K/mm3 (0.00-0.031); Immature Granulocyte Percent A 0.5 % (0-0.5); Lymphocytes Absolute Auto 1.89 K/mm3 (0.9-3.2); Lymphocytes Percent Auto 44.3 % (18.3-44.2); Mean Corpuscular HGB Conc 34.4 g/dl (32-36); Mean Corpuscular Hemoglobin 33.1 pg (26-34); Mean Corpuscular Volume 96.2 fl (80-100); Mean Platelet Volume 9.3 fl (7.4-10.4); Monocytes Absolute Auto 0.6 K/mm3 (0.1-0.6); Monocytes Percent Auto 14.3 % (2.6-8.5); Neutrophils Absolute Auto 1.6 K/mm3 (1.3-6.7); Neutrophils Percent Auto 37.4 % (45.5-73.1); Platelet Count Result 260 k/mm3 (150-375); Red Blood Count 4.98 M/mm3 (4.6-6.20); Red Cell Distribution Width 13.7 % (11.5-14.5); White Blood Count 4.3 K/mm3 (4.5-10.0)
[2023-02-19 02:10] LABS: Anion Gap 5 mmol/L (8-16); Blood Urea Nitrogen 20 mg/dL (9-20); Calcium 8.9 mg/dL (8.4-10.2); Carbon Dioxide 28 mmol/L (22-30); Chloride 106 mmol/L (98-107); Estimated CRCL calculation 77 ml/min; Estimated Glomerular Filt Rate > 60; Glucose 97 mg/dL (65-110); Potassium 4.4 mmol/L (3.4-5.0); Sodium 139 mmol/L (137-145)
[2023-02-19 02:23] LABS: Strep Group A RT-PCR NOT DETECTED (Negative)
[2023-02-19 02:35] LABS: Influenza A QL RT-PCR Negative (Negative); Influenza B QL RT-PCR Negative (Negative); RSV RNA, RT-PCR Negative (Negative); SARS-CoV-2 RNA PCR Negative
--- NOTE | 2023-02-19 03:16 | PC.NURSE ---
Pt states It went down and reports his throat doesn't hurt anymore.
[2023-02-19 04:00] VITALS: PULSE 64; RESP 16; O2SAT 94
[2023-02-19 05:02] VITALS: BP 102/67; PULSE 71; RESP 18; O2SAT 97
[2023-02-19 05:33] VITALS: BP 102/67; PULSE 78; O2SAT 99
== END 2023-02-19 05:34 | disposition home or self-care (01) ==
PROVIDERS: Emergency Provider Emergency Medicine; PCP Family Medicine
DX: T18.128A Food in esophagus causing other injury, initial encounter (principal); Q90.9 Down syndrome, unspecified; Q21.0 Ventricular septal defect; Z79.51 Long term (current) use of inhaled steroids; Z20.822 Contact with and (suspected) exposure to COVID-19
CPT/HCPCS: 36415; 70491; 71260; 80048; 85025; 87637; 87651; 96360; 99284; J2405; J7030; Q9967

== ENCOUNTER 2023-03-11 14:08 | Emergency (ER) | payer MEDICARE, OTHER, SELFPAY ==
[2023-03-11 14:21] VITALS: BP 114/58; PULSE 66; RESP 16; TEMP 36.4; O2SAT 97
--- NOTE | 2023-03-11 14:46 | ED.URI ---
HPI - URI/Sore Throat General Chief Complaint: Upper Respiratory Infection Stated Complaint: cough,nasal drainage Time Seen by Provider: 03/11/23 14:46 Source: patient and RN notes reviewed Mode of arrival: ambulatory Limitations: no limitations History of Present Illness HPI Narrative: 47-year-old male with history of Down's Syndrome presented with mother for complaint of sinus congestion and cough for almost a week. Mother reports she is given [id number] medication without relief. He is also scheduled for an EGD next week after recent choking episode. Denies shortness of breath, wheezing, nausea, vomiting, diarrhea, fevers or chills. MD elicited complaint: cough Related Data Home Medications Medication Instructions Recorded Confirmed albuterol 90 mcg/actuation aerosol 90 mcg inhalation DIRECTED 09/18/22 03/11/23 inhaler loratadine 10 mg tablet 10 mg DAILY 09/18/22 03/11/23 aspirin 81 mg capsule 81 mg PO DAILY 03/11/23 03/11/23 Allergies Allergy/AdvReac Type Severity Reaction Status Date / Time morphine Allergy Severe Anaphylaxis Verified 03/11/23 14:29 meperidine [From Demerol] Allergy Intermediate Fainting Verified 03/11/23 14:29 Review of Systems Review of Systems: CONSTITUTIONAL: Denies malaise, chills, sweats, fever EYES: Denies visual changes, redness, or discharge ENT: Reports rhinorrhea, congestion, sinus pain, otalgia CARDIOVASCULAR: Denies chest pain, palpitations, edema RESPIRATORY: Reports cough, post nasal drainage. Denies dyspnea GASTROINTESTINAL: Denies abdominal pain, nausea, vomiting, diarrhea SKIN: Denies rash or itching MUSCULOSKELETAL: Denies myalgia NEUROLOGIC: Denies headache PMFSH Past Medical History Medical History Acute sinus infection COVID-19 07/2020 Down syndrome Down syndrome Dysphagia Regurgitation and rechewing VSD (ventricular septal defect) Surgical History Surgical History History of adenoidectomy History of cholecystectomy History of hand surgery extra digit removed from right hand History of tonsillectomy History of tympanostomy Family History Family History Father , related to COVID-19 per spouse Heart disease COVID-19 Mother COVID-19 Social History Social History Social History: Mother denies smoke expsoure Smoking status: Never smoker Tobacco type: cigarettes Second hand tobacco smoke exposure: No Alcohol intake: never Substance use: never Substance use type: does not use Living arrangements: with family Occupation/Education: other Additional occupation/education comments: disable Gender identity (if verbalized by the patient): Male Spiritual care concerns: No Exam Narrative: GENERAL: mildly Ill-appearing, nontoxic EYES: PERRLA, conjunctivae clear ENT: Mucous membranes moist. TMs pearly hilliard with dull light reflex bilaterally; no tragal tenderness. Oropharynx erythematous without lesions or exudate, tonsils absent; no drooling, no hoarseness, no trismus, uvula midline. CHEST: Clear to auscultation, breath sounds equal. Frequent moist nonproductive cough. no wheezing, rhonchi, rales, or stridor. No respiratory distress, speaks in full sentences. HEART: Regular rate and rhythm. No murmur heard. SKIN: Warm, dry, no rash. NEURO: Alert and oriented x3. PSYCH: Normal mood and affect Course Course Emergency Course: Patient is aware of diagnosis, understands and agrees to treatment plan. Anticipatory guidance given. Patient agrees to follow-up as directed and is aware of reasons to seek care at the emergency department. Portions of this record may have been created with voice recognition software Level of Care: Express Care Visit Vital Signs Vital signs: Vital Signs T
== END 2023-03-11 15:00 | disposition home or self-care (01) ==
PROVIDERS: Emergency Provider Nurse Practitioner Family; PCP Family Medicine
DX: J06.9 Acute upper respiratory infection, unspecified (principal); Q90.9 Down syndrome, unspecified; Q21.0 Ventricular septal defect; Z86.16 Personal history of COVID-19; Z79.82 Long term (current) use of aspirin
CPT/HCPCS: 99213; G0463

== ENCOUNTER 2023-03-13 16:52 | Emergency (ER) | payer MEDICARE, OTHER, SELFPAY ==
[2023-03-13 17:01] VITALS: BP 118/65; PULSE 72; RESP 16; TEMP 36.6; O2SAT 98
--- NOTE | 2023-03-13 17:32 | ED.EAR ---
HPI - Ear Problem General Chief complaint: Ear Stated complaint: Bilateral Ear Irritation Time Seen by Provider: 03/13/23 17:14 Source: patient and family (mother) Mode of arrival: ambulatory Limitations: no limitations History of Present Illness HPI Narrative: With mother presents patient today complaining of bilateral ear pain since yesterday with blood in the left ear since this morning. Patient was seen at [facility] 2 days ago and placed on azithromycin and prednisone related to cough and sinus issues. Patient continues to take this. Mother states she has been attempting to clean wax out of patient's ears as well. History of down syndrome Related Data Home Medications Medication Instructions Recorded Confirmed albuterol 90 mcg/actuation aerosol 90 mcg inhalation DIRECTED PRN 09/18/22 03/13/23 inhaler Shortness Of Breath loratadine 10 mg tablet 10 mg PO DAILY 09/18/22 03/13/23 aspirin 81 mg capsule 81 mg PO DAILY 03/11/23 03/13/23 fluticasone propionate 50 2 spray intranasal DAILY PRN 03/12/23 03/13/23 mcg/actuation nasal Allergy Symptoms spray,suspension (Flonase Allergy Relief) azithromycin 250 mg tablet 250 mg DIRECTED 03/13/23 03/13/23 prednisone 50 mg tablet 50 mg DIRECTED 03/13/23 03/13/23 Allergies Allergy/AdvReac Type Severity Reaction Status Date / Time morphine Allergy Severe Anaphylaxis Verified 03/12/23 15:53 meperidine [From Demerol] Allergy Intermediate Fainting Verified 03/12/23 15:53 Review of Systems Review of Systems: CONSTITUTIONAL: Denies body aches, fever, chills, or sweats. EYES: Denies visual changes, redness, or discharge. ENT: Denies rhinorrhea, congestion, sore throat. + bilateral ear pain CARDIOVASCULAR: Denies chest pain, palpitations, or edema. RESPIRATORY: Denies cough or dyspnea. GASTROINTESTINAL: Denies abdominal pain, nausea, vomiting, or diarrhea. GENITOURINARY: Denies dysuria or hematuria. SKIN: Denies rash, itching, or wounds. MUSCULOSKELETAL: Denies back pain, joint pain, or myalgia. NEUROLOGIC: Denies headache, numbness, tingling, or weakness. PSYCH: Denies depression or anxiety. [facility] [place] Past Medical History Medical History Acute sinus infection COVID-19 07/2020 Down syndrome Down syndrome Dysphagia Regurgitation and rechewing VSD (ventricular septal defect) Surgical History Surgical History History of adenoidectomy History of cholecystectomy History of hand surgery extra digit removed from right hand History of tonsillectomy History of tympanostomy Family History Family History Father , related to COVID-19 per spouse Heart disease COVID-19 Mother COVID-19 Social History Social History Social History: Mother denies smoke expsoure Smoking status: Never smoker Tobacco type: cigarettes Second hand tobacco smoke exposure: No Alcohol intake: never Substance use: never Substance use type: does not use Living arrangements: with family Occupation/Education: other Additional occupation/education comments: disable Gender identity (if verbalized by the patient): Male Spiritual care concerns: No Comments At time of signature, I have reviewed and agree with nursing past medical, surgical, social and family history unless otherwise noted. Please see nursing chart for further information. There is no relevant family history pertinent to the presenting complaint Exam Narrative: GENERAL: Well-appearing, well-nourished, and in no acute distress. HEAD: Normocephalic, atraumatic. EYES: EOMI. No redness or drainage. Conjunctivae normal. ENT: Mucous membranes pink and moist. Nares clear. No rhinorrhea. TMs normal bilaterally with mild bilateral effusions without evidence
== END 2023-03-13 17:40 | disposition home or self-care (01) ==
PROVIDERS: Emergency Provider Nurse Practitioner; PCP Family Medicine
DX: S00.412A Abrasion of left ear, initial encounter (principal); X58.XXXA Exposure to other specified factors, initial encounter; H65.03 Acute serous otitis media, bilateral; Q90.9 Down syndrome, unspecified; Z86.16 Personal history of COVID-19
CPT/HCPCS: 99211; 99212; G0463

== ENCOUNTER 2023-03-19 13:23 | Emergency (ER) | payer MEDICARE, OTHER, SELFPAY ==
--- NOTE | 2023-03-19 13:34 | ED.URI ---
HPI - URI/Sore Throat General Chief Complaint: Upper Respiratory Infection Stated Complaint: cough,rt ear pain,wheezing Time Seen by Provider: 03/19/23 13:34 Source: patient Mode of arrival: ambulatory Limitations: no limitations History of Present Illness HPI Narrative: 47-year-old male with history of down syndrome presents with mom today with complaint of bilateral ear pain, nasal congestion, sinus congestion, intermittent headaches for the past several weeks. Mother reports that patient was on a Z-Lew and steroids symptoms got a little bit better and then worse again. Patient has no chest pain or shortness of breath. Afebrile. All systems reviewed and negative except as noted above. Related Data Home Medications Medication Instructions Recorded Confirmed albuterol 90 mcg/actuation aerosol 90 mcg inhalation DIRECTED PRN 09/18/22 03/13/23 inhaler Shortness Of Breath loratadine 10 mg tablet 10 mg PO DAILY 09/18/22 03/13/23 aspirin 81 mg capsule 81 mg PO DAILY 03/11/23 03/13/23 fluticasone propionate 50 2 spray intranasal DAILY PRN 03/12/23 03/13/23 mcg/actuation nasal Allergy Symptoms spray,suspension (Flonase Allergy Relief) azithromycin 250 mg tablet 250 mg DIRECTED 03/13/23 03/13/23 prednisone 50 mg tablet 50 mg DIRECTED 03/13/23 03/13/23 Allergies Allergy/AdvReac Type Severity Reaction Status Date / Time morphine Allergy Severe Anaphylaxis Verified 03/19/23 13:32 meperidine [From Demerol] Allergy Intermediate Fainting Verified 03/19/23 13:32 Review of Systems Review of Systems: CONSTITUTIONAL: Denies fever, chills, or sweats. EYES: Denies visual changes, redness, or discharge. ENT: Report rhinorrhea, congestion, sinus congestion, sinus headaches, bilateral ear pain. Denies sore throat CARDIOVASCULAR: Denies chest pain, palpitations, or edema. RESPIRATORY: Denies cough or dyspnea. GASTROINTESTINAL: Denies abdominal pain, nausea, vomiting, or diarrhea. GENITOURINARY: Denies dysuria or hematuria. SKIN: Denies rash or itching. MUSCULOSKELETAL: Denies back pain, joint pain, or myalgia. NEUROLOGIC: Denies headache, numbness, or weakness. PSYCHIATRIC: Denies anxiety or depression. All other systems reviewed are negative, except as documented in HPI. [facility] Past Medical History Medical History Acute sinus infection COVID-19 07/2020 Down syndrome Down syndrome Dysphagia Regurgitation and rechewing VSD (ventricular septal defect) Surgical History Surgical History History of adenoidectomy History of cholecystectomy History of hand surgery extra digit removed from right hand History of tonsillectomy History of tympanostomy Family History Family History Father , related to COVID-19 per spouse Heart disease COVID-19 Mother COVID-19 Social History Social History Social History: Mother denies smoke expsoure Smoking status: Never smoker Tobacco type: cigarettes Second hand tobacco smoke exposure: No Alcohol intake: never Substance use: never Substance use type: does not use Living arrangements: with family Occupation/Education: other Additional occupation/education comments: disable Gender identity (if verbalized by the patient): Male Spiritual care concerns: No Comments At time of signature, agree with nursing past medical, surgical, social and family history. There is no relevant family history pertinent to the presenting complaint. Exam Narrative: GENERAL: This is a well-nourished, well-developed patient, in no apparent distress. HEAD: normocephalic, atraumatic. EYES: PERRL. Sclera clear/white. Vision is grossly intact. EARS: External ears normal, auditory canals clear and without drainage, fluid bi
[2023-03-19 13:36] VITALS: BP 116/67; PULSE 77; RESP 18; TEMP 36.6; O2SAT 100
== END 2023-03-19 13:54 | disposition home or self-care (01) ==
PROVIDERS: Emergency Provider Nurse Practitioner Family; PCP Family Medicine
DX: J01.90 Acute sinusitis, unspecified (principal); H65.03 Acute serous otitis media, bilateral; Q90.9 Down syndrome, unspecified; Z86.16 Personal history of COVID-19
CPT/HCPCS: 99213; G0463

== ENCOUNTER 2023-04-23 00:17 | Day surgery (SDC) | payer MEDICARE, OTHER, SELFPAY ==
[2023-03-12 15:55] VITALS: BMI 31.4
--- NOTE | 2023-03-20 16:05 | PC.NURSE ---
pts mother trang called. requests egd be rescheduled due to she and patient both have bronchitis. pt is still coughing and she said he is on his second round of antibiotics. she requests that we call back in the afternoon in the next few days to reschedule sons procedure.
[2023-04-08 09:06] VITALS: BMI 31.4
[2023-04-23 08:19] VITALS: BP 108/67; PULSE 73; RESP 18; TEMP 36.2; O2SAT 98; BMI 31.5
[2023-04-23] MEDS: LACTATED RINGERS 1,000 ML 150 ML IV CONT (08:29)
--- NOTE | 2023-04-23 08:45 | WPDANESEPPF ---
Anes - Initial Pre Proc Eval Procedure: Operation Date: 04/23/23 09:30 Proposed Procedures p Esophagogastroduodenoscopy - Emerson Ortega MD Date/Time: 04/23/23 08:45 Surgeon: Emerson Ortega MD Pre Op Diagnosis: dysphagia Patient Data Age: 47 Gender: M Height: 1.52 m Weight: 73.3 kg Last Vital Signs Temp 97.2 F L 04/23/23 08:19 Pulse 73 04/23/23 08:19 Resp 18 04/23/23 08:19 BP 108/67 04/23/23 08:19 Pulse Ox 98 04/23/23 08:19 O2 Del Method Room Air 04/23/23 08:19 Allergies Allergy/AdvReac Type Severity Reaction Status Date / Time morphine Allergy Severe Anaphylaxis Verified 04/08/23 09:04 meperidine [From Demerol] Allergy Intermediate Fainting Verified 04/08/23 09:04 Home Medications Medication Instructions Recorded Confirmed Type albuterol 90 mcg/actuation aerosol 90 mcg inhalation DIRECTED PRN 09/18/22 04/08/23 History inhaler Shortness Of Breath loratadine 10 mg tablet 10 mg PO DAILY 09/18/22 04/08/23 History pantoprazole 40 mg tablet,delayed 40 mg PO QAM #30 tabs 02/27/23 04/08/23 Rx release aspirin 81 mg capsule 81 mg PO DAILY 03/11/23 04/08/23 History fluticasone propionate 50 2 spray intranasal DAILY PRN 03/12/23 04/08/23 History mcg/actuation nasal Allergy Symptoms spray,suspension (Flonase Allergy Relief) Vitamin D3 1 tab-cap PO DAILY 04/08/23 04/08/23 History Patient hx anesthesia problems: none Family hx anesthesia problems: none Results Review: All pre-operative results and documents have been reviewed as part of the pre-operative evaluation. [facility] Past Medical History Medical History Acute sinus infection COVID-19 07/2020 Down syndrome Down syndrome Dysphagia Regurgitation and rechewing VSD (ventricular septal defect) Surgical History Surgical History History of adenoidectomy History of cholecystectomy History of hand surgery extra digit removed from right hand History of tonsillectomy History of tympanostomy Family History Family History Father , related to COVID-19 per spouse Heart disease COVID-19 Mother COVID-19 Social History Social History Social History: Mother denies smoke expsoure Smoking status: Never smoker Tobacco type: cigarettes Second hand tobacco smoke exposure: No Alcohol intake: never Substance use: never Substance use type: does not use Living arrangements: with family Occupation/Education: other Additional occupation/education comments: disable Gender identity (if verbalized by the patient): Male Spiritual care concerns: No Anes - Eval Final PreProcedure Day of Procedure 04/23/23 08:45 Patient weight: obese Heart: regular rate and rhythm and murmur Lungs: clear to auscultation Airway: Mallampati scale class III Neurological: alert and oriented Last oral intake: >/= 8 hours ASA classification: III Emergent: no Anesthetic plan: proceed Anesthesia type and monitoring: general GIVS and standard monitoring Results Review: All pre-operative results and documents have been reviewed as part of the pre-operative evaluation. Informed Consent: The patient's anesthetic plan and its attendant risks and benefits were discussed with the patient/family/POA. Questions were solicited and answers provided to the satisfaction of the patient/family/POA.
--- NOTE | 2023-04-23 08:51 | PM.HPGS ---
History of Present Illness History of Present Illness Consent: Risks, benefits, and alternatives have been discussed and questions answered. Patient agrees to proceed with procedure. Chief complaint: dysphagia Narrative: Armin Rico is a 47 year old male Presents for EGD. Patient has a history of Down syndrome. Patient has been noted to have frequent regurgitation. No specific complaints of heartburn or noted. Over the last 2 months patient has been treated empirically with pantoprazole 40mg p.o. daily. Patient did have 1 episode of difficulty swallowing. It was felt as though a piece of food was caught. Patient pointed to his throat. He went to the emergency room but it passed spontaneously. For this reason patient is referred for ENT to evaluate for possible esophageal narrowing. Patient currently comfortable at rest. As in child patient swallowed a battery. An endoscopy was performed at that time patient was described as having a bezoar. Patient's mother states no specific therapy was given at that time. Review of Systems Review of Systems: Review of systems noncontributory. [facility] Past Medical History Medical History Acute sinus infection COVID-19 07/2020 Down syndrome Down syndrome Dysphagia Regurgitation and rechewing VSD (ventricular septal defect) Surgical History Surgical History History of adenoidectomy History of cholecystectomy History of hand surgery extra digit removed from right hand History of tonsillectomy History of tympanostomy Family History Family History Father , related to COVID-19 per spouse Heart disease COVID-19 Mother COVID-19 Social History Social History Social History: Mother denies smoke expsoure Smoking status: Never smoker Tobacco type: cigarettes Second hand tobacco smoke exposure: No Alcohol intake: never Substance use: never Substance use type: does not use Living arrangements: with family Occupation/Education: other Additional occupation/education comments: disable Gender identity (if verbalized by the patient): Male Spiritual care concerns: No Meds Home Medications and Allergies Home Medications Medication Instructions Recorded Confirmed Type albuterol 90 mcg/actuation aerosol 90 mcg inhalation DIRECTED PRN 09/18/22 04/08/23 History inhaler Shortness Of Breath loratadine 10 mg tablet 10 mg PO DAILY 09/18/22 04/08/23 History pantoprazole 40 mg tablet,delayed 40 mg PO QAM #30 tabs 02/27/23 04/08/23 Rx release aspirin 81 mg capsule 81 mg PO DAILY 03/11/23 04/08/23 History fluticasone propionate 50 2 spray intranasal DAILY PRN 03/12/23 04/08/23 History mcg/actuation nasal Allergy Symptoms spray,suspension (Flonase Allergy Relief) Vitamin D3 1 tab-cap PO DAILY 04/08/23 04/08/23 History Allergies Allergy/AdvReac Type Severity Reaction Status Date / Time morphine Allergy Severe Anaphylaxis Verified 04/08/23 09:04 meperidine [From Demerol] Allergy Intermediate Fainting Verified 04/08/23 09:04 Vital Signs Vital Signs - 24 hr 04/23/23 08:19 Temperature 97.2 F L Pulse Rate 73 Respiratory Rate 18 Blood Pressure 108/67 Pulse Oximetry 98 Oxygen Delivery Room Air Exam Narrative: Physical exam reveals patient be alert comfortable. Vital signs stable. HEENT exam reveals Wide set eyes. Lungs are clear. Heart without murmur. Abdomen bowel sounds present soft nontender with no organomegaly. Assessment and Plan Assessment and plan (1) Dysphagia: Code(s): R13.10 - Dysphagia, unspecified Status: Acute Assessment and Plan: Patient with episode of dysphagia. Plan for EGD to exclude esophageal narrowing. (2) Regu
[2023-04-23 09:49] VITALS: BP 89/60; PULSE 74; RESP 22; O2SAT 95
[2023-04-23 09:59] VITALS: BP 94/74; PULSE 66; RESP 18; O2SAT 100
[2023-04-23 10:09] VITALS: BP 110/78; PULSE 70; RESP 18; O2SAT 100
== END 2023-04-23 10:29 | disposition home or self-care (01) ==
PROVIDERS: PCP Family Medicine; Visit Provider Internal Medicine Gastroenterology
PROC: 0DJ08ZZ Inspection of Upper Intestinal Tract, Via Natural or Artificial Opening Endoscopic (ICD-10-PCS; CPT 43235; principal; 2023-04-23 09:30)
DX: R13.10 Dysphagia, unspecified (principal); R11.10 Vomiting, unspecified; Q90.9 Down syndrome, unspecified; Q21.0 Ventricular septal defect; Z90.49 Acquired absence of other specified parts of digestive tract; Z79.82 Long term (current) use of aspirin
CPT/HCPCS: 43239; 43450; 87081; J2704; J7120

== ENCOUNTER 2023-10-31 09:40 | Emergency (ER) | payer MEDICARE, OTHER, SELFPAY ==
--- NOTE | 2023-10-31 09:41 | ED.URI ---
HPI - URI/Sore Throat General Chief Complaint: Upper Respiratory Infection Stated Complaint: Cough,Runny Nose Time Seen by Provider: 10/31/23 09:41 Source: patient and family Mode of arrival: ambulatory Limitations: no limitations History of Present Illness HPI Narrative: Armin is a 48-year-old male patient presenting to the clinic today with complaints of a cough and runny nose x4 days. Mother/patient reports they have done 2 at home COVID test last 1 was yesterday and was negative. MD elicited complaint: cough, rhinorrhea and nasal congestion Related Data Home Medications Medication Instructions Recorded Confirmed albuterol 90 mcg/actuation aerosol 90 mcg inhalation DIRECTED PRN 09/18/22 04/08/23 inhaler Shortness Of Breath loratadine 10 mg tablet 10 mg PO DAILY 09/18/22 04/08/23 aspirin 81 mg capsule 81 mg PO DAILY 03/11/23 04/08/23 fluticasone propionate 50 2 spray intranasal DAILY PRN 03/12/23 04/08/23 mcg/actuation nasal Allergy Symptoms spray,suspension (Flonase Allergy Relief) Vitamin D3 1 tab-cap PO DAILY 04/08/23 04/08/23 Allergies Allergy/AdvReac Type Severity Reaction Status Date / Time morphine Allergy Severe Anaphylaxis Verified 04/08/23 09:04 meperidine [From Demerol] Allergy Intermediate Fainting Verified 04/08/23 09:04 Review of Systems Review of Systems: Pertinent positives per HPI. Patient denies any fever, chills, rash, headache, visual changes, dizziness, shortness of breath, chest pain, palpitations, nausea, vomiting, diarrhea, constipation, abdominal pain, or any urinary issues. [facility] Past Medical History Medical History Acute sinus infection COVID-19 07/2020 Down syndrome Down syndrome Dysphagia Regurgitation and rechewing VSD (ventricular septal defect) Surgical History Surgical History History of adenoidectomy History of cholecystectomy History of hand surgery extra digit removed from right hand History of tonsillectomy History of tympanostomy Family History Family History Father , related to COVID-19 per spouse Heart disease COVID-19 Mother COVID-19 Social History Social History Social History: Mother denies smoke expsoure Smoking status: Never smoker Tobacco type: cigarettes Second hand tobacco smoke exposure: No Alcohol intake: never Substance use: never Substance use type: does not use Living arrangements: with family Occupation/Education: other Additional occupation/education comments: disable Gender identity (if verbalized by the patient): Male Spiritual care concerns: No Comments At the time of my signature, I reviewed and agree with the nursing past medical, surgical, social, and family history. There is no relevant family history pertinent to the patient complaint. Exam Narrative: General: Well-developed, well nourished, in no apparent distress Head: Normocephalic, atraumatic Eyes: Pupils equally round and reactive to light bilaterally, EOM intact, sclera and conjunctive clear, no discharge, lids normal Ears: TMs intact and clear, ear canals clear, no drainage, grossly hearing normal. Nose: Nares patent, clear nasal discharge, moderate inflammation, no sinus tenderness. Mouth: Oral pharynx without lesions or masses, good dentition, MMM. Postnasal drip Neck: Supple, trachea midline, no enlargement of anterior or posterior cervical nodes, no thyroid masses or goiter palpable. Cardio: Regular rate and rhythm, s1 and s2 normal, no murmur appreciated. Resp: Clear to auscultation bilaterally, no rhonchi, rales, wheezing or rubs Course Course Emergency Course: Portions of this record may have been created with voice recognition software. Level of Care: Express Care
[2023-10-31 09:50] VITALS: BP 109/65; PULSE 75; RESP 18; TEMP 36.2; O2SAT 97
== END 2023-10-31 10:07 | disposition home or self-care (01) ==
PROVIDERS: Emergency Provider Nurse Practitioner Family; PCP Family Medicine
DX: J06.9 Acute upper respiratory infection, unspecified (principal); R09.82 Postnasal drip; Q90.9 Down syndrome, unspecified; Z86.16 Personal history of COVID-19; Z79.82 Long term (current) use of aspirin
CPT/HCPCS: 99213; G0463

== ENCOUNTER 2023-10-31 21:18 | Emergency (ER) | payer MEDICARE, OTHER, SELFPAY ==
--- NOTE | ~2023-10-31 | XR_ITS ---
EXAMINATION: XR chest 2V DATE: 10/31/2023 21:52 INDICATION: Productive cough and congestion TECHNIQUE: PA and lateral views of the chest were obtained. COMPARISON: Chest radiograph dated 08/27/2022 FINDINGS: Mild elevation of the left hemidiaphragm which is new since prior study. No focal airspace opacities, pulmonary edema, pleural effusion or pneumothorax. The cardiomediastinal silhouette is normal. Demi cystectomy clips in right upper quadrant. Unchanged mild reversal of the normal thoracic kyphosis wit h mild spondylosis. IMPRESSION: 1. New mild elevation the left hemidiaphragm. No other acute cardiopulmonary disease. Reviewed, dictated and finalized at location A. R RACER IMPRESSION: 1. New mild elevation the left hemidiaphragm. No other acute cardiopulmonary di sease.
[2023-10-31 21:22] VITALS: BP 129/71; PULSE 63; RESP 15; TEMP 36.1; O2SAT 98
--- NOTE | 2023-10-31 23:21 | PC.NURSE ---
THis RN assumed care of patient. This RN took patient report from VICKY Hayden.
[2023-10-31 23:38] VITALS: O2SAT 98
[2023-10-31 23:56] LABS: Influenza A QL RT-PCR Negative (Negative); Influenza B QL RT-PCR Negative (Negative); RSV RNA, RT-PCR Positive (Negative); SARS-CoV-2 RNA PCR Negative (Negative)
[2023-11-01] MEDS: BENZONATATE 100 MG CAPSULE 200 MG PO (00:34)
[2023-11-01] MEDS: IPRATROPIUM BR 0.02% INH SOLN 0.5 MG/2.5 ML VIAL INHALATION (00:51)
[2023-11-01] MEDS: LEVALBUTEROL NEB 1.25 MG/3 ML INHALATION (00:51)
--- NOTE | 2023-11-01 01:13 | ED.URI ---
HPI - URI/Sore Throat General Chief Complaint: Upper Respiratory Infection Stated Complaint: cough Time Seen by Provider: 10/31/23 23:08 Source: patient and family Mode of arrival: ambulatory Limitations: clinical condition History of Present Illness HPI Narrative: Patient is a 48-year-old male with past medical history of Down syndrome, who presents the ED with report of URI symptoms. Patient's mother at bedside assisted in providing information. Mother reports patient has had URI symptoms for the past 4 days. Complains of cough, congestion, sore throat, intermittent wheezing. Patient was seen at an urgent care and diagnosed with a sinus infection, started on prednisone. Mother reports today, patient coughed up slightly pink tinged sputum. Then prompted here for further evaluation. Denies any fever. Denies nausea, vomiting, shortness of breath. Related Data Home Medications Medication Instructions Recorded Confirmed albuterol 90 mcg/actuation aerosol 90 mcg inhalation DIRECTED PRN 09/18/22 04/08/23 inhaler Shortness Of Breath loratadine 10 mg tablet 10 mg PO DAILY 09/18/22 04/08/23 aspirin 81 mg capsule 81 mg PO DAILY 03/11/23 04/08/23 fluticasone propionate 50 2 spray intranasal DAILY PRN 03/12/23 04/08/23 mcg/actuation nasal Allergy Symptoms spray,suspension (Flonase Allergy Relief) Vitamin D3 1 tab-cap PO DAILY 04/08/23 04/08/23 Allergies Allergy/AdvReac Type Severity Reaction Status Date / Time morphine Allergy Severe Anaphylaxis Verified 04/08/23 09:04 meperidine [From Demerol] Allergy Intermediate Fainting Verified 04/08/23 09:04 Review of Systems Review of Systems: CONSTITUTIONAL: Denies fever, chills, or sweats. ENT: See HPI. CARDIOVASCULAR: Denies chest pain, palpitations, or edema. RESPIRATORY: See HPI. GASTROINTESTINAL: Denies abdominal pain, nausea, vomiting, or diarrhea. All systems reviewed & are unremarkable except as noted in HPI and below PMFSH Past Medical History Medical History Acute sinus infection COVID-19 07/2020 Down syndrome Down syndrome Dysphagia Regurgitation and rechewing VSD (ventricular septal defect) Surgical History Surgical History History of adenoidectomy History of cholecystectomy History of hand surgery extra digit removed from right hand History of tonsillectomy History of tympanostomy Family History Family History Father , related to COVID-19 per spouse Heart disease COVID-19 Mother COVID-19 Social History Social History Social History: Mother denies smoke expsoure Smoking status: Never smoker Tobacco type: cigarettes Second hand tobacco smoke exposure: No Alcohol intake: never Substance use: never Substance use type: does not use Living arrangements: with family Occupation/Education: other Additional occupation/education comments: disable Gender identity (if verbalized by the patient): Male Spiritual care concerns: No Exam Narrative: GENERAL: Well appearing, well-nourished, non-toxic, in no acute distress. HEAD: Normocephalic, atraumatic. Dysmorphology, consistent with known Hx of Down Syndrome. EENT: R eye strabismus. Mucous membranes slightly dry. No significant posterior pharynx erythema. NECK: Supple. No adenopathy, no masses. RESPIRATORY: Airway patent, respirations nonlabored. Lung sounds are coarse bilaterally, no significant wheezing. CARDIOVASCULAR: Regular rate and rhythm without murmurs, rubs, or gallops. Radial pulses 2+ and equal bilaterally. MUSCULOSKELETAL: Moves all extremities. No gross deformities. SKIN: Warm, dry, normal color. No rashes. NEURO: A&O X3. Speech clear. Cranial nerves II-XII grossly intact. Steady gait. No ataxic movement
== END 2023-11-01 01:40 | disposition home or self-care (01) ==
PROVIDERS: Emergency Provider Physician Assistant; PCP Family Medicine
DX: R05.1 Acute cough (principal); B97.4 Respiratory syncytial virus as the cause of diseases classified elsewhere; Q90.9 Down syndrome, unspecified; Z20.822 Contact with and (suspected) exposure to COVID-19
CPT/HCPCS: 71046; 87637; 94640; 99283; A9270

== ENCOUNTER 2023-11-02 15:07 | Emergency (ER) | payer MEDICARE, OTHER, SELFPAY ==
--- NOTE | ~2023-11-02 | XR_ITS ---
XR chest 2V 11/02/2023 15:38 Indication: Productive cough. RSV. Procedure: 2 view chest Comparison: Comparison to multiple prior studies sequentially, with oldest reviewed study dated 11/02. Findings: Heart size normal. No focal air space disease, pulmonary edema, pleural effusion or suspect ed pneumothorax. Impression: 1: No acute cardiopulmonary disease. Reviewed, dictated and finalized at location A. PECTING OBSERVER Impression: 1: No acute cardiopulmonary disease.
[2023-11-02 15:18] VITALS: BP 110/73; PULSE 77; RESP 18; TEMP 36.4
--- NOTE | 2023-11-02 16:02 | ED.URI ---
HPI - URI/Sore Throat General Chief Complaint: Upper Respiratory Infection Stated Complaint: Cough,Wheezing,RSV Time Seen by Provider: 11/02/23 15:24 Source: patient, family (mother) and RN notes reviewed Mode of arrival: ambulatory Limitations: no limitations History of Present Illness HPI Narrative: Mother presents patient today complaining of cough. Patient was diagnosed with RSV 2 days ago in the ER. Earlier that day he was seen at [facility] and placed on Prednisone for URI. He was discharged from the ER with albuterol inhaler and nebs. Chest xray at that time was negative. Mother states since that time, patient continues to cough during the day, but not much at night. States the albuterol isn't helping much and she has noticed some wheezing. No recent fever. States patient is eating and drinking normally. She has been using Vicks Vaporub and cough drops, which have been helping with the cough. Mother states patient's symptoms initially began 6-7 days ago. She is requesting a chest x-ray today. Related Data Home Medications Medication Instructions Recorded Confirmed loratadine 10 mg tablet 10 mg PO DAILY 09/18/22 11/02/23 aspirin 81 mg capsule 81 mg PO DAILY 03/11/23 11/02/23 fluticasone propionate 50 2 spray intranasal DAILY PRN 03/12/23 11/02/23 mcg/actuation nasal Allergy Symptoms spray,suspension (Flonase Allergy Relief) albuterol sulfate 90 mcg/actuation 2 puff inhalation PRN PRN 11/02/23 11/02/23 aerosol inhaler Shortness Of Breath Or Wheezing prednisone 20 mg tablet 40 mg PO DAILY 11/02/23 11/02/23 Allergies Allergy/AdvReac Type Severity Reaction Status Date / Time morphine Allergy Severe Anaphylaxis Verified 11/02/23 15:11 meperidine [From Demerol] AdvReac Intermediate Fainting Verified 11/02/23 15:11 Review of Systems Review of Systems: CONSTITUTIONAL: Denies body aches, fever, chills, or sweats. EYES: Denies visual changes, redness, or discharge. ENT: Denies rhinorrhea, congestion, sore throat, or otalgia. CARDIOVASCULAR: Denies chest pain, palpitations, or edema. RESPIRATORY: + cough, wheezing GASTROINTESTINAL: Denies abdominal pain, nausea, vomiting, or diarrhea. GENITOURINARY: Denies dysuria or hematuria. SKIN: Denies rash, itching, or wounds. MUSCULOSKELETAL: Denies back pain, joint pain, or myalgia. NEUROLOGIC: Denies headache, numbness, tingling, or weakness. PSYCH: Denies depression or anxiety. [facility] Past Medical History Medical History Acute sinus infection COVID-19 07/2020 Down syndrome Down syndrome Dysphagia Regurgitation and rechewing VSD (ventricular septal defect) Surgical History Surgical History History of adenoidectomy History of cholecystectomy History of hand surgery extra digit removed from right hand History of tonsillectomy History of tympanostomy Family History Family History Father , related to COVID-19 per spouse Heart disease COVID-19 Mother COVID-19 Social History Social History Social History: Mother denies smoke expsoure Smoking status: Never smoker Tobacco type: cigarettes Second hand tobacco smoke exposure: No Alcohol intake: never Substance use: never Substance use type: does not use Living arrangements: with family Occupation/Education: other Additional occupation/education comments: disable Gender identity (if verbalized by the patient): Male Spiritual care concerns: No Comments At time of signature, I have reviewed and agree with nursing past medical, surgical, social and family history unless otherwise noted. Please see nursing chart for further information. There is no relevant family history pertinent to the presenting complaint Exam Narrative
== END 2023-11-02 16:06 | disposition home or self-care (01) ==
PROVIDERS: Emergency Provider Nurse Practitioner; PCP Family Medicine
DX: R05.9 Cough, unspecified (principal); B97.4 Respiratory syncytial virus as the cause of diseases classified elsewhere; Q90.9 Down syndrome, unspecified; Z79.82 Long term (current) use of aspirin
CPT/HCPCS: 71046; 99213; G0463

== ENCOUNTER 2024-11-23 05:09 | Emergency (ER) | payer MEDICARE, OTHER, SELFPAY ==
--- NOTE | ~2024-11-23 | CT_ITS ---
EXAMINATION: CT abdomen pelvis w con DATE: 11/23/2024 06:21 INDICATION: Epigastric abdominal pain. TECHNIQUE: Computed tomography (CT) of the abdomen and pelvis was performed with 100 mL Omnipaque 350 intravenous contrast. Automated exposure control and iterative reconstruction technique were employe d. The dose-length product was 630.30 mGy-cm. COMPARISON: CT abdomen and pelvis 11/28/2021 FINDINGS: The visualized portions of the lung bases demonstrate minimal atelectasis. No pleural effus ion. The heart size is normal. No pericardial effusion. The liver is normal. There are changes of cho lecystectomy. The spleen, pancreas, adrenal glands, and kidneys are normal. There are bilateral ingui nal hernias containing fat. There is diffuse bladder wall thickening. There are no dilated loops of b owel. The appendix is normal. There are no pathologically enlarged lymph nodes. There is no free intr aperitoneal fluid. There is mild thoracic and lumbar spondylosis. Thoracolumbar levoscoliosis is note d. IMPRESSION: 1. Bladder wall thickening again noted, which may be seen with cystitis or neurogenic bladder. 2. Bilateral inguinal hernias containing fat. Reviewed, dictated and finalized at location A. [employer] IMPRESSION: 1. Bladder wall thickening again noted, which may be seen with cystitis or neur ogenic bladder. 2. Bilateral inguinal hernias containing fat.
[2024-11-23 05:12] VITALS: BP 122/78; PULSE 105; RESP 20; TEMP 36.3; O2SAT 99
[2024-11-23] MEDS: ONDANSETRON INJ 4 MG/2 ML VIAL IV PUSH (05:31)
[2024-11-23] MEDS: FAMOTIDINE 20 MG/2 ML VIAL IV PUSH (05:33)
[2024-11-23] MEDS: SODIUM CHLORIDE 0.9% IV 1,000 ML 999 ML IV CONT (05:33)
[2024-11-23 05:36] LABS: Basophils Percent Auto 0.4 % (0.2-1.2); Eosinophils Absolute Auto 0.1 K/mm3 (0-0.3); Eosinophils Percent Auto 0.9 % (0-4.4); Hemoglobin 17.4 g/dL (14.0-18.0); Immature Granulocyte Absolute 0.04 K/mm3 (0.00-0.031); Immature Granulocyte Percent A 0.5 % (0-0.5); Lymphocytes Percent Auto 9.4 % (18.3-44.2); Mean Corpuscular HGB Conc 34.8 g/dl (32-36); Mean Corpuscular Hemoglobin 33.4 pg (26-34); Mean Platelet Volume 9.6 fl (7.4-10.4); Monocytes Absolute Auto 0.5 K/mm3 (0.1-0.6); Monocytes Percent Auto 7.2 % (2.6-8.5); Neutrophils Absolute Auto 6.1 K/mm3 (1.3-6.7); Neutrophils Percent Auto 81.6 % (45.5-73.1); Platelet Count Result 213 k/mm3 (150-375); Red Blood Count 5.21 M/mm3 (4.6-6.20); Red Cell Distribution Width 13.5 % (11.5-14.5); White Blood Count 7.5 K/mm3 (4.5-10.0)
--- NOTE | 2024-11-23 05:37 | ED_ITS ---
HPI - Abdominal Pain General Chief Complaint: Abdominal Pain Stated Complaint: ABD pain Time Seen by Provider: 11/23/24 05:11 History of Present Illness HPI narrative: Patient is a 49-year-old male who presents to the emergency department this morning complaining of epigastric abdominal pain, nausea and vomiting. Patient states that the pain will come up from sleep. The mother is present with patient at bedside. Patient does have a history of a down a syndrome. Admits that he did have a bowel movement this morning before coming into the emergency department. Mother was present at bedside denies any additional symptoms and states that the patient was feeling well prior to going to sleep. No sick contacts at home. No additional symptoms or concerns at this time. Related Data Home Medications ?Medication ?Instructions ?Recorded ?Confirmed ?Last Taken ?Type loratadine 10 mg tablet 10 mg PO DAILY 09/18/22 11/02/23 Unknown History aspirin 81 mg capsule 81 mg PO DAILY 03/11/23 11/02/23 Unknown History fluticasone propionate 50 2 spray intranasal DAILY PRN 03/12/23 11/02/23 Unknown History mcg/actuation nasal Allergy Symptoms spray,suspension (Flonase Allergy Relief) albuterol sulfate 90 mcg/actuation 2 puff inhalation PRN PRN 11/02/23 11/02/23 Unknown History aerosol inhaler Shortness Of Breath Or Wheezing prednisone 20 mg tablet 40 mg PO DAILY 11/02/23 11/02/23 Unknown History Allergies Allergy/AdvReac Type Severity Reaction Status Date / Time morphine Allergy Severe Anaphylaxis Verified 11/02/23 15:11 meperidine (From Demerol) AdvReac Intermediate Fainting Verified 11/02/23 15:11 Review of Systems 2 Review of Systems: All systems are reviewed and are negative unless stated otherwise in the HPI. [facility] Past Medical History Medical History Down syndrome Regurgitation and rechewing Dysphagia VSD (ventricular septal defect) COVID-19 07/2020 Acute sinus infection Down syndrome Surgical History Surgical History History of hand surgery extra digit removed from right hand History of adenoidectomy History of tonsillectomy History of tympanostomy History of cholecystectomy Family History Family History Father , related to COVID-19 per spouse Heart disease COVID-19 Mother COVID-19 Social History Social History Social History: Mother denies smoke expsoure Smoking status: Never smoker Tobacco type: cigarettes Second hand tobacco smoke exposure: No Alcohol intake: never Substance use: never Substance use type: does not use Living arrangements: with family Occupation/Education: other Additional occupation/education comments: disable Gender identity (if verbalized by the patient): Male Spiritual care concerns: No Exam 2 Narrative: General: Alert, awake, afebrile, in mild distress. HEENT: PERRL, no rhinorrhea, no post nasal drip, oropharynx clear. Neck: Trachea midline, no JVD, no lymphadenopathy. Cardiovascular: Regular rate and rhythm, no murmurs, rubs or gallops, no peripheral edema. Respiratory: Clear to auscultation bilaterally, no tachypnea, no wheezing, no rhonchi, no rubs, no respiratory distress. Abdomen: Soft, nontender, mildly distended, no rebound, no guarding, no peritoneal signs. Musculoskeletal: No joint swelling or deformity, normal muscle tone. Skin: No rashes or petechia, no signs of infection. Psychiatric: Alert and oriented, normal behavior and judgment for situation. Neurological: Alert and oriented to person, place, and time. Follows all commands. No focal deficits, speech is clear and fluent. Course Vital Signs Vital signs: Vital Signs Temperature 97.4 F L 11/23/24 05:12 Pulse Rate 105 H 11/23/24 05:12 Respiratory Rate 20 11/23/24 05:12 Blood Pressure 122/78 11/23/24 05:12 Pulse Oximetry 99 11/23/24 05:12 Oxygen Delivery Room Air 11/23/24 05:12 Temperature 97.4 F L 11/23/24 05:12 Pulse Rate 89 11/23/24 06:50 Respiratory Rate 15 11/23/24 06:50 Blood Pressure 96/56 L 11/23/24 06:50 Pulse Oximetry 99 11/23/24 06:50 Oxygen Delivery Room Air 11/23/24 05:12 MDM - Abdominal Pain MDM Narrative Medical decision making narrative: The patient was evaluated by myself in the emergency department. History is obtained from patient who is an independent historian and physical exam was performed. External medical records were reviewed at this time. IV was established and pertinent tests were ordered. Patient was administered 20 mg of IV Pepcid, 4 mg of IV Zofran and 1 L IV fluid bolus with normal saline. Patient continues to complain of nausea and at this time he was administered 10 mg of IV Reglan and 25 mg of IV Benadryl with improvement of his symptoms. Laboratory results obtained revealing no acute process. Urinalysis unremarkable. Imaging studies obtained included CT abdomen pelvis with IV contrast which was independently interpreted by me revealin. Bladder wall thickening again noted, which may be seen with cystitis or neurogenic bladder. 2. Bilateral inguinal hernias containing fat. Patient and mother were informed of these findings at bedside, mother did states that his bladder has always looked this way. Differential diagnosis considerations include peptic ulcer disease, pancreatitis, gastritis, small-bowel obstruction, pancreatitis. Comorbidities impacting this visit include none. I have evaluated and discussed social determinants of health with the patient that could potentially impact subsequent diagnosis and treatment plans. On repeat assessment of the patient, reevaluation revealed that the patient is doing well and is in no acute distress. Patient symptoms have improved since arrived to our emergency department. Patient is now resting comfortably in bed denying any abdominal pain. Repeat vital signs were all reviewed and noted to be stable. Differential diagnosis and treatment plan were discussed with the patient at bedside. Patient agrees with discussion and after shared medical decision making agrees with discharge. All questions were answered to the patient's satisfaction. Patient will follow up with his PCP in 3-5 days. Script for Zofran was sent to patient's pharmacy to use as needed for nausea /vomiting. Patient was provided with strict return precautions and instructed to return to the emergency department if any new or worsening symptoms develop. The patient was discharged in stable condition. Lab Data 11/23/24 05:25 11/23/24 05:25 Labs: Lab Results 11/23/24 11/23/24 Range/Units 05:25 06:54 WBC 7.5 (4.5-10.0) K/mm3 RBC 5.21 (4.6-6.20) M/mm3 Hgb 17.4 (14.0-18.0) g/dL Hct 50.0 (42.0-52.0) % MCV 96.0 (80-100) fl MCH 33.4 (26-34) pg MCHC 34.8 (32-36) g/dl RDW 13.5 (11.5-14.5) % Plt Count 213 (150-375) k/mm3 MPV 9.6 (7.4-10.4) fl Immature Gran % (Auto) 0.5 (0-0.5) % Neut % (Auto) 81.6 H (45.5-73.1) % Lymph % (Auto) 9.4 L (18.3-44.2) % [place] % (Auto) 7.2 (2.6-8.5) % Eos % (Auto) 0.9 (0-4.4) % Baso % (Auto) 0.4 (0.2-1.2) % Lymph # (Auto) 0.70 L (0.9-3.2) K/mm3 [place] # (Auto) 0.5 (0.1-0.6) K/mm3 Eos # (Auto) 0.1 (0-0.3) K/mm3 Baso # (Auto) 0.0 (0.0-0.1) K/mm3 Abs Immat Gran (auto) 0.04 H (0.00-0.031) K/mm3 Absolute Neuts (auto) 6.1 (1.3-6.7) K/mm3 Absolute Nucleated RBC 0.000 (0.0-0.012) K/mm3 Nucleated RBC % 0.0 (0.0-0.2) % Sodium 141 (137-145) mmol/L Potassium 3.8 (3.4-5.0) mmol/L Chloride 109 H (98-107) mmol/L Carbon Dioxide 27 (22-30) mmol/L Anion Gap 5 (4-12) mmol/L BUN 21 H (9-20) mg/dL Creatinine 1.10 (0.7-1.3) mg/dL Estim Creat Clear Calc Not Reportable Estimated GFR > 60 (59 - ) Glucose 109 (65-110) mg/dL Calcium 8.7 (8.4-10.2) mg/dL Total Bilirubin 0.8 (0.2-1.3) mg/dL AST 26 (17-59) U/L ALT 22 (6-50) U/L Alkaline Phosphatase 78 (38-126) U/L Total Protein 7.0 (6.3-8.2) g/dL Albumin 4.0 (3.5-5.1) g/dL Lipase 91 (23-300) U/L Urine Color Yellow (Yellow) Urine Appearance Clear (Clear) Urine pH 6.0 (5.0-9.0) Ur Specific [place] > 1.045 H (1.001-1.035) Urine Protein Negative (Negative) mg/dL Urine Glucose (UA) Negative (Negative) mg/dL Urine Ketones Negative (Negative) mg/dL Ur Blood (Man) Negative (Negative) Urine Nitrate Negative (Negative) Urine Bilirubin Negative (Negative) Urine Urobilinogen 0.2 (<2.0) mg/dL Leukocyte Esterase Rfl Negative (Negative) JULIET/UL Imaging Data Radiologist's impression: ITS Impressions Abdomen/Pelvis CT 11/23/24 06:25 IMPRESSION: 1. Bladder wall thickening again noted, which may be seen with cystitis or neurogenic bladder. 2. Bilateral inguinal hernias containing fat. Discharge Plan Discharge Clinical Impression: Abdominal pain Nausea & vomiting Qualifiers: Vomiting type: unspecified Qualified Code(s): R11.2 - Nausea with vomiting, unspecified Patient Disposition: Home, Self-Care Condition: Improved Instructions: Antibiotic Form, Acute Nausea and Vomiting (DC), Abdominal Pain (ED) Additional Instructions: Please follow-up with your family doctor in the next 3-5 days. Return to the emergency department if any new or worsening symptoms develop. Use the prescribed Zofran as needed for nausea and vomiting. Patient Language: Kyrgyz Prescriptions: No Action loratadine 10 mg tablet 10 mg PO DAILY aspirin 81 mg Capsule 81 mg PO DAILY prednisone 20 mg tablet 40 mg PO DAILY albuterol sulfate 90 mcg/actuation HFA aerosol inhaler 2 puff INHALATION PRN PRN (Reason: Shortness Of Breath Or Wheezing) pantoprazole 40 mg tablet,delayed release (DR/EC) 40 mg PO QAM Qty: 30 3RF fluticasone propionate [Flonase Allergy Relief] 50 mcg/actuation spray,suspension 2 spray intranasal DAILY PRN (Reason: Allergy Symptoms) Rx Instructions: administer into each nostril Follow-up/Referrals: Salvador,MD Zoraida [Primary Care Provider] - 3 Days Time of Disposition: 06:55
[2024-11-23 05:48] LABS: Alanine Aminotransferase 22 U/L (6-50); Alkaline Phosphatase 78 U/L (38-126); Anion Gap 5 mmol/L (4-12); Aspartate Amino Transferase 26 U/L (17-59); Bilirubin,Total 0.8 mg/dL (0.2-1.3); Blood Urea Nitrogen 21 mg/dL (9-20); Calcium 8.7 mg/dL (8.4-10.2); Carbon Dioxide 27 mmol/L (22-30); Chloride 109 mmol/L (98-107); Estimated Glomerular Filt Rate > 60; Glucose 109 mg/dL (65-110); Lipase 91 U/L (23-300); Potassium 3.8 mmol/L (3.4-5.0); Sodium 141 mmol/L (137-145)
--- NOTE | 2024-11-23 06:37 | PC.NURSE ---
Patient denies nausea at this time. Mother requests holding off on medications for nausea. This RN drops the Benadryl on the ground; to which it cracked- disposed of correctly. Shell returned to [facility].
[2024-11-23 06:50] VITALS: BP 96/56; PULSE 89; RESP 15; O2SAT 99
[2024-11-23 07:00] LABS: Add Urine Microscopic? NO; Appearance Urine Clear (Clear); Bilirubin Urine Negative (Negative); Blood Urine Negative (Negative); Color Urine Yellow (Yellow); Glucose Urine UA Negative (Negative); Ketones Urine Negative (Negative); Leukocyte Esterase Ur Negative LEU/UL (Negative); Nitrate Urine Negative (Negative); Protein Urine Negative (Negative); Specific Grav Ur > 1.045 (1.001-1.035); Urobilinogen Urine 0.2 mg/dL (<2.0)
--- OUTSIDE RECORDS SUMMARY | 2024-11-30 06:07 | XMS_ITS | Referral Summary ---
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 Name Role Phone Zoraida Franco MD Primary Care Provi selvin Encounters Date Type Department Care Team Description 11/17/2024 1:30 PM FACULTY I ON CALL MEDICAL ASSISTANT - 11/17/2024 11:59 PM FACULTY I ON CALL MEDICAL ASSISTANT Hospital Encounter [facility] [address] [place] [address] VSD (ventricular septal defect) Discharge Disposition: Discharge to home or self care 10/15/2024 8:40 AM FACULTY I ON CALL MEDICAL ASSISTANT Lab [facility] OP Lab [address] [place] [id number] Encounter for Medicare annual wellness exam; Elevated glucose; Screening for thyroid disorder; Need for hepatitis C screening test; Screening for prostate cancer 10/15/2024 7:30 AM FACULTY I ON CALL MEDICAL ASSISTANT Office Visit [facility] [address] [place] [phone] Zoraida Franco MD Encounter for Medicare annual wellness exam (Primary Dx); Down syndrome; Other decreased white blood cell (WBC) count; Vasomotor rhinitis; VSD (ventricular septal defect); NILA (obstructive sleep apnea); PLMD (periodic limb movement disorder); Elevated glucose; Bilateral impacted cerumen; Class 1 obesity due to excess calories without serious comorbidity with body mass index (BMI) of 31.0 to 31.9 in adult; Screening for prostate cancer; Need for hepatitis C screening test; Screening for thyroid disorder 09/30/2024 Telephone [facility] Family [facility] [address] [phone] Zoraida Franco MD Labs Only from Last 3 Months Allergies Active Allergy Reactions Criticality Noted Date Comments Atropine Hives Medium 09/28/2022 Was told not to have by product assurance engineer Meperidine Unknown 10/26/2020 Morphine Sulfate Unknown 10/26/2020 Medications cholecalciferol , vitamin D3, (VITAMIN D3 ORAL) Take 2,000 Units by mouth daily Active ipratropium (ATROVENT) 21 mcg (0.03 %) nasal spray Administer 2 sprays into each nostril 2 (two) times a day 4 Active Active Problems Problem Noted Date Diagnosed Date Vasomotor rhinitis 08/23/2022 Assessment & Plan (10/15/2023 3:12 PM FACULTY I ON CALL MEDICAL ASSISTANT): Chronic, stable Continue Flonase as needed Assessment & Plan (08/23/2022 10:02 AM CDT): Chronic, stable Continue current regimen Class 1 obesity due to exces s calories without serious comorbidity with body mass index (BMI) of 31.0 to 31.9 in adult 08/23/2022 Assessment & Plan (10/15/2024 7:50 AM FACULTY I ON CALL MEDICAL ASSISTANT): Chronic, slight progression BMI Follow-up includes: nutrition counseling and exercise counseling. Assessment & Plan (10/15/2023 3:13 PM FACULTY I ON CALL MEDICAL ASSISTANT): Chronic, stable BMI Follow-up includes: nutrition counseling. Assessment & Plan (08/23/2022 10:26 AM CDT): BMI Follow-up includes: nutrition counseling. Down syndrome 07/21/2021 Assessment & Plan (10/15/2023 3:11 PM FACULTY I ON CALL MEDICAL ASSISTANT): Chronic, stable Continue to monitor Update me with any changes in his behavior or health Assessment & Plan (08/23/2022 9:59 AM CDT): Chronic, stable Continue to monitor Encounter for Medicare annual wellness exam 07/02 Overview (10/15/2024): Encouraged healthy habits He has a guardianship, but reviewed POA/living will PMH updated: Last colonoscopy/cologuard:cologuard 08/23- Neg Last PSA: 08/24- WNL Last Tdap: encouraged Last Flu: up to date Last COVID: encouraged Assessment & Plan (10/15/2024 7:45 AM FACULTY I ON CALL MEDICAL ASSISTANT): Encouraged healthy habits He has a guardianship, but reviewed POA/living will PMH updated: Last colonoscopy/cologuard:cologuard 08/23- Neg Last PSA: 08/24- WNL Last Tdap: encouraged Last Flu: up to date Last COVID: encouraged Assessment & Plan (10/15/2023 3:52 PM FACULTY I ON CALL MEDICAL ASSISTANT): Encouraged healthy habits He has a guardianship PMH updated: Last colonoscopy/cologuard:cologuard 08/23- Neg Last PSA: WNL Last Tdap: encouraged Last Flu: up to date Last COVID: encouraged Assessment & Plan (08/23/2022 9:58 AM CDT): Encouraged a healthy diet, and regular physical activity to his level Wear sun screen, seat belts No texting/drinking and driving PMH updated: Last colonoscopy/cologuard:@45-we discussed the options Last PSA: @45 Last Tdap: check with the pharmacist Last Flu: encouraged Last COVID: encouraged Assessment & Plan (07/20/2021 2:37 PM CDT): Encouraged a healthy diet, and regular physical activity to his level Wear sun screen, seat belts No texting/drinking and driving PMH updated: Last colonoscopy/cologuard:@45 Last PSA: @45 Last Tdap: check with the pharmacist Last Flu: encouraged Last COVID: encouraged Joint pain 03/07/2021 Assessment & Plan (10/15/2023 3:12 PM FACULTY I ON CALL MEDICAL ASSISTANT): Chronic, stable Continue to monitor symptoms Assessment & Plan (08/23/2022 10:00 AM CDT): Chronic, stable Continue to monitor Assessment & Plan (07/20/2021 2:40 PM CDT): Doing well Will recheck labs Assessment & Plan (03/07/2021 2:08 PM CDT): I did order an iron and ferritin level. NILA (obstructive sleep apnea) 03/07/2021 Assessment & Plan (10/15/2023 3:12 PM FACULTY I ON CALL MEDICAL ASSISTANT): Chronic, stable Unable to tolerate CPAP Reviewed a referral to sleep Medicine Assessment & Plan (08/23/2022 10:01 AM CDT): Chronic, but is not using it We discussed a referral to sleep medicine-mom will consider Assessment & Plan (07/20/2021 2:41 PM CDT): Continue to follow with sleep medicine Assessment & Plan (07/18/2021 10:52 AM CDT): Patient continue to wear CPAP at 6 cm water pressure while sleeping. His DME is [employer]. I have ordered new supplies. Assessment & Plan (03/07/2021 2:08 PM CDT): Due to the patient's difficulty adjusting to the CPAP I will decrease the pressure to 6 cm of water pressure while sleeping. His DME is [employer]. The patient was encouraged to try his CPAP at the new pressure. The patient verbalized understanding. PLMD (periodic limb movement disorder) Assessment & Plan (10/15/2023 3:13 PM FACULTY I ON CALL MEDICAL ASSISTANT): Chronic, stable Currently not on medication Consider referral to sleep Medicine for further guidance Call for questions Assessment & Plan (08/23/2022 10:00 AM CDT): Chronic, stable Continue to monitor Assessment & Plan (07/20/2021 2:40 PM CDT): Continue to monitor Assessment & Plan (07/18/2021 10:52 AM CDT): Patient is unaware that his limbs are moving at night when he sleeps. Assessment & Plan (03/07/2021 2:07 PM CDT): The patient's limb movements are not affecting his sleep at night. VSD (ventricular septal defect) 10/26/2020 Assessment & Plan (10/15/2023 3:53 PM FACULTY I ON CALL MEDICAL ASSISTANT): Chronic, stable Will be due repeat echo in 2023 Update me with any concerns Assessment & Plan (08/23/2022 10:01 AM CDT): Chronic, stable Continue to monitor Assessment & Plan (07/20/2021 2:42 PM CDT): Echo reviewed Assessment & Plan (10/26/2020 1:29 PM FACULTY I ON CALL MEDICAL ASSISTANT): Will refer to cardiology- Dr Campo Will be due for an echo Continue aspirin Update me with any changes Call for questions or concerns Leukopenia 10/26/2020 Assessment & Plan (10/15/2023 3:12 PM FACULTY I ON CALL MEDICAL ASSISTANT): Chronic, stable Managed by Hematology Update me with any changes or concerns Assessment & Plan (08/23/2022 10:00 AM CDT): Chronic, stable Continue to follow with heme Assessment & Plan (07/20/2021 2:40 PM CDT): Will check labs Assessment & Plan (10/26/2020 1:33 PM FACULTY I ON CALL MEDICAL ASSISTANT): Referral placed to [facility] Will consider labs for further guidance Update me after the visit Call for questions or concerns Resolved Problems Problem Noted Date Diagnosed Date Resolved Date Other acute sinusitis 09/03/20232022 Assessment & Plan (10/15/2023 3:12 PM FACULTY I ON CALL MEDICAL ASSISTANT): Acute, resolved Update me if symptoms reoccur Assessment & Plan (09/03/2023 11:40 AM CDT): Will start Doxy Tylenol/ibuprofen as needed, and can use medicine like mucinex or robitussin to help with the cough Increase fluids, rest and handwashing Warm saltwater gargles Consider a hot drink with honey Cool mist humidifier Please call if symptoms change or worsen, to the ER for anything emergent Immunizations Name Administration Dates Next Due Influenza, Quadrivalent, Yumi l Culture-based MDCK, Preservative Free, Antibiotic Free, Intramuscular 08/27/2022,09/04/2017 Influenza, Quadrivalent, Rec ombinant, Egg Free, Preservative Free, Intramuscular 09/22/2020 Influenza, Quadrivalent, Spl it, Intramuscular 10/09/2019 Influenza, Quadrivalent, Spl it, Preservative Free, Intramuscular 09/16/2023,09/18/2021,09/09/2018 Influenza, Trivalent, Preser vative Free, Intramuscular 09/11/2024 Influenza, Unspecified 09/03/2023(Deferred: Ashley ent Refused) Moderna SARS-CoV-2 Monovalen t Vaccination (12+ YRS) 02/06/2021,01/10/2021 Pneumococcal Conjugate PCV 13 02/27/2022 TD Preservative Free 11/27/2023 Social History Tobacco Use Types Packs/Day Years Used Date Smoking Tobacco: Never Smokeless Tobacco: Never Tobacco Cessation:Counseling Given: Not Answered Alcohol Use Standard Drinks/Week Comments Not Currently 0 (1 standard drink = 0.6 oz pur e alcohol) AUDIT-C Answer Date Recorded Q1: How often do you have a drink containing alcohol? Never 10/15/2024 Q2: How many drinks containi ng alcohol do you have on a typical day when you are drinking? Patient does not drink Q3: How often do you have si x or more drinks on one occasion? Never 10/15/2024 PHQ-2 Answer Date Recorded PHQ-2 Total Score (If total score is 3 or more points, staff should administer the PHQ-9) 0 10/15/2024 Sex and Gender Information Value Date Recorded Sex Assigned at Not on file Legal Sex Male 7:51 PM FACULTY I ON CALL MEDICAL ASSISTANT Gender Identity Not on file Sexual Orientation Not on file Occupation Industry Job Start Date Job End Date Disabled Not on file Not on file Not on file Last Filed Vital Signs Vital Sign Reading Time Taken Comments Blood Pressure 118/72 10/15/2024 7:21 AM FACULTY I ON CALL MEDICAL ASSISTANT Pulse 88 10/15/2024 7:21 AM FACULTY I ON CALL MEDICAL ASSISTANT Temperature 36.6 ??C (97.9 ??F) 10/15/2024 7:21 AM CS T Respiratory Rate 16 10/15/2024 7:21 AM FACULTY I ON CALL MEDICAL ASSISTANT Oxygen Saturation 98% 10/15/2024 7:21 AM FACULTY I ON CALL MEDICAL ASSISTANT Inhaled Oxygen Concentration - - Weight 71.8 kg (158 lb 4.8 oz) 10/15/2024 7:21 A M FACULTY I ON CALL MEDICAL ASSISTANT Height 153.7 cm (5' 0.5 ) 10/15/2024 7:21 AM FACULTY I ON CALL MEDICAL ASSISTANT Body Mass Index 30.41 10/15/2024 7:21 AM FACULTY I ON CALL MEDICAL ASSISTANT Plan of Treatment Not on file Procedures Procedure Name Priority Date/Time Associated Diagnosis Comments TRANSTHORACIC ECHO (TTE) LIMITED/FOLLOW UP W LTD DOPPLER/CF WO CONTRAST Routine 11/17/2024 2:31 PM FACULTY I ON CALL MEDICAL ASSISTANT VSD (ventricular septal defect) PSA SCREEN Routine 10/15/2024 8:46 AM FACULTY I ON CALL MEDICAL ASSISTANT Screening for prostate cancer HEMOGLOBIN A1C Routine 10/15/2024 8:46 AM FACULTY I ON CALL MEDICAL ASSISTANT Encounter for Medicare annual wellness exam Elevated glucose LIPID PANEL Routine 10/15/2024 8:46 AM FACULTY I ON CALL MEDICAL ASSISTANT Encounter for Medicare annual wellness exam Elevated glucose Screening for thyroid disorder THYROID FUNCTION CASCADE Routine 10/15/2024 8:46 AM FACULTY I ON CALL MEDICAL ASSISTANT Encounter for Medicare annual wellness exam Elevated glucose HEPATITIS C ANTIBODY Routine 10/15/2024 8:46 AM FACULTY I ON CALL MEDICAL ASSISTANT Need for hepatitis C screening test COMPREHENSIVE METABOLIC PANEL Routine 10/05/2024 7:17 AM FACULTY I ON CALL MEDICAL ASSISTANT Screening for diabetes mellitus STOOL DNA ? COLOGUARD Routine 08/30/2022 12:55 PM CDT Colon cancer screening from Last 3 Months or Most Recently Relevant to Health Maintenance Results * TRANSTHORACIC ECHO (TTE) LIMITED/FOLLOW UP W LTD DOPPLER/CF WO CONTRAST (11/17/2024 2:31 PM FACULTY I ON CALL MEDICAL ASSISTANT) Anatomical Region Laterality Modality Ultrasound 11/17/2024 2:00 PM FACULTY I ON CALL MEDICAL ASSISTANT Narrative 11/23/2024 8:17 AM FACULTY I ON CALL MEDICAL ASSISTANT ? Adult Echocardiogram + ----- ---+ :Name: HAL FERNANDO Luz ?Study Date: 11/17/2024 ?Status: MHE ?: : ?[facility] ?: : ?Weight: 158 lbBP: 118/72 mmHg: :: 1975 ? Gender: Male ?BSA: 1.7 m2 ?: :Reason For Study: Ventricular Septal Defect ?: :Ordering Physician: ?: :ZORAIDA FRANCO ? : :Referring Physician: ? : :ZORAIDA FRANCO TRISTAN ? : :Performed By: Tena ? : :Tesfaye, RDCS ? : + ----- ---+ Procedure A two-dimensional transthoracic echocardiogram with color flow and Doppler was performed in limited views only. The study was technically difficult. Left Ventricle Left ventricular chamber size is normal. Left ventricular systolic function is normal. The left ventricular ejection fraction is normal. Ejection Fraction = 55-60%. The left ventricular wall motion is normal. There is no ventricular septal defect visualized. Right Ventricle The right ventricle is normal in size and function. Atria The left atrial size is normal. Right atrial size is normal. There is no Doppler evidence for an atrial septal defect. Mitral Valve The mitral valve is normal. Tricuspid Valve The tricuspid valve is not well visualized, but is grossly normal. TR noted by spectral doppler but not seen with color flow. Right ventricular systolic pressure is normal. Aortic Valve The aortic valve is not well visualized. No aortic stenosis . No aortic regurgitation is present. Pulmonic Valve The pulmonic valve is not well visualized. Great Vessels The aortic root is normal size. Interpretation Summary The study was technically difficult. Left ventricular systolic function is normal. Ejection Fraction = 55-60%. TR noted by spectral doppler but not seen with color flow. Right ventricular systolic pressure is normal. There is no ventricular septal defect visualized. + + :Measurements with Normals ?: :IVSd: ?(0.6-1.2 ?? LVIDd: ?(3.5-5.7 ? : :0.72 cm ?cm) ?4.4 cm ?cm) ?: :LVPWd: ? (0.6-1.1 ?? LVIDs: ?(3.1-4.6 ?? LA dimension: ?(1.9-4.0 ?? : :0.77 cm ?cm) ?2.6 cm ?cm) ?2.9 cm ? cm) ?: + + MMode/2D Measurements & Calculations RVDd: 1.7 cm ? FS: 40.3 % ?LVOT diam: 2.1 cm ? EDV(Teich): 88.6 ml ? ESV(Teich): 25.6 ml ? LVOT area: 3.5 cm2 Doppler Measurements & Calculations Ao V2 max: ? LV V1 max PG: ? SV(LVOT): ?TR max castillo: 97.4 cm/sec ?2.2 mmHg ?47.8 ml ?250.0 cm/sec Ao max P.8 mmHg ??LV V1 mean PG: ? TR max P.0 mmHg Ao V2 mean: ?1.0 mmHg ? RVSP(TR): 28.0 mmHg 73.0 cm/sec ?LV V1 max: Ao mean P.0 mmHg 73.8 cm/sec Ao V2 VTI: 17.7 cm ?? LV V1 mean: ? 51.5 cm/sec JARRETT(I,D): 2.7 cm2 ?LV V1 VTI: 13.8 cm JARRETT(V,D): 2.6 cm2 ? RAP systole: 3.0 mmHg Electronically signed by: Zev Campo MD 11/23/2024 08:17 AM Procedure Note Zev Campo MD - 11/23/2024 Adult Echocardiogram + ----- ---+ :Name: HAL FERNANDO Study Date: 11/17/2024 Status: JANESSA: : Patient Location: [facility]^^^MHEHeight: 60 in: : Weight: 158lbBP: 118/72 mmHg: :: 1975 Gender: Male BSA: 1.7 m2: :Reason For Study: Ventricular Septal Defect: :Ordering Physician:: :ZORAIDA FRANCO: :Referring Physician:: :ZORAIDA FRANCO: :Performed By: Tena: :MANE Carlin: + ----- ---+ Procedure A two-dimensional transthoracic echocardiogram with color flow and Dopplerwas performed in limited views only. The study was technically difficult. Left Ventricle Left ventricular chamber size is normal. Left ventricular systolicfunction is normal. The left ventricular ejection fraction is normal. EjectionFraction = 55-60%. The left ventricular wall motion is normal. There is noventricular septal defect visualized. Right Ventricle The right ventricle is normal in size and function. Atria The left atrial size is normal. Right atrial size is normal. There is no Doppler evidence for an atrial septal defect. Mitral Valve The mitral valve is normal. Tricuspid Valve The tricuspid valve is not well visualized, but is grossly normal. TRnoted by spectral doppler but not seen with color flow. Right ventricularsystolic pressure is normal. Aortic Valve The aortic valve is not well visualized. No aortic stenosis . No aortic regurgitation is present. Pulmonic Valve The pulmonic valve is not well visualized. Great Vessels The aortic root is normal size. Interpretation Summary The study was technically difficult. Left ventricular systolic function is normal. Ejection Fraction = 55-60%. TR noted by spectral doppler but not seen with color flow. Right ventricular systolic pressure is normal. There is no ventricular septal defect visualized. + + :Measurements with Normals: :IVSd: (0.6-1.2 LVIDd: (3.5-5.7: :0.72 cm cm) 4.4 cm cm): :LVPWd: (0.6-1.1 LVIDs: (3.1-4.6 LA dimension:(1.9-4.0 : :0.77 cm cm) 2.6 cm cm) 2.9 cm cm): + + MMode/2D Measurements & Calculations RVDd: 1.7 cm FS: 40.3 % LVOT diam: 2.1 cm EDV(Teich): 88.6 ml ESV(Teich): 25.6 ml LVOT area: 3.5 cm2 Doppler Measurements & Calculations Ao V2 max: LV V1 max PG: SV(LVOT): TR max castillo: 97.4 cm/sec 2.2 mmHg 47.8 ml 250.0 cm/sec Ao max P.8 mmHg LV V1 mean PG: TR max P.0mmHg Ao V2 mean: 1.0 mmHg RVSP(TR): 28.0mmHg 73.0 cm/sec LV V1 max: Ao mean P.0 mmHg 73.8 cm/sec Ao V2 VTI: 17.7 cm LV V1 mean: 51.5 cm/sec JARRETT(I,D): 2.7 cm2 LV V1 VTI: 13.8 cm JARRETT(V,D): 2.6 cm2 RAP systole: 3.0 mmHg Electronically signed by: Zev Campo MD 11/23/2024 08:17 AM us Zoraida Franco MD CV ECHO PROCEDURES Final Result * Thyroid Function [place] (10/15/2024 8:46 AM FACULTY I ON CALL MEDICAL ASSISTANT) Pathologist [facility] [place] TSH 4.08 0.30 - 4.20 mcIUnit/mL Comment:Testing performed by : [facility], [address] [place] [address]., [id number] Blood 10/15/2024 8:46 AM FACULTY I ON CALL MEDICAL ASSISTANT 10/15/2024 12:25 PM FACULTY I ON CALL MEDICAL ASSISTANT us Zoraida Franco MD LAB BLOOD ORDERABLE S Final Result Performing Organization Address City/State/[facility] Phone Number [phone] [place] [address] * PSA screen (10/15/2024 8:46 AM FACULTY I ON CALL MEDICAL ASSISTANT) PSA-Total 0.26 ng/mL Comment: Interpretive Data ?AGE ? SEX ?REFERENCE INTERVAL 0 minutes-150 years ?Female ?None 0 minutes-49 years ? Male ?None ? 50-59 years ? Male ?0-3.90 ? 60-69 years ? Male ?0-5.40 ? 70-79 years ? Male ?0-6.20 ? 80-150 years ?Male ?0-6.20 The Brayan PSA Total assay procedure was used. Results from different manufacturers or methods may not be comparable. Serial testing should be performed using the same method. Current interpretive data last revised 22. Testing performed by: [facility], [address] [place] [address]., [id number] Blood 10/15/2024 8:46 AM FACULTY I ON CALL MEDICAL ASSISTANT 10/15/2024 12:25 PM FACULTY I ON CALL MEDICAL ASSISTANT Zoraida Franco MD LAB BLOOD ORDERABLE S Final Result Performing Organization Address [facility] de Phone Number ANALIA [address] [place] [address] * Hepatitis C antibody Blood (10/15/2024 8:46 AM FACULTY I ON CALL MEDICAL ASSISTANT) Hep C Ab Nonreactive Nonreactive Comment: Antibodies to HCV not detected. Does NOT exclude the possibility of recent exposure to HCV. Current interpretive data was last revised on 22 Interpretive Data Nonreactive: Antibodies to HCV not detected. Does NOT exclude the possibility of recent exposure to HCV. Equivocal: Equivocal for HCV antibodies. Supplemental molecular testing will be automatically performed to determine infection status in accordance with current CDC screening recommendations. ?? Reactive: Positive for HCV antibodies. ??This may represent current or past HCV infection. Supplemental molecular testing will be automatically performed to determine ??current infection status in accordance with current CDC screening recommendations. Interpretive data was last revised on 2020. Blood 10/15/2024 8:46 AM FACULTY I ON CALL MEDICAL ASSISTANT 10/15/2024 2:28 PM FACULTY I ON CALL MEDICAL ASSISTANT Zoraida Franco MD LAB MICROBIOLOGY - GENERAL ORDERABLES Final Result ANALIA [address] Department [place] [address] * (ABNORMAL) Hemoglobin A1c (10/15/2024 8:46 AM FACULTY I ON CALL MEDICAL ASSISTANT) Pathologist [facility] [place] Hgb A1C 5.7(H) 4.0 - 5.6 % Comment:Testing performed by : [address] [address] Estimated Average Glucose 117 mg/dL ANALIA Comment: The ADA recommends reporting an estimated Average Glucose (eAG) with all Hemoglobin A1c results using the equation derived from a study of 507 normal and diabetic adults. ??Minority populations were underrepresented and children were not included. ?? (Diabetes Care 31:5896-8728, 2008). ??The eAG is not equivalent to a fasting glucose. Testing performed by: [address] [address] Blood 10/15/2024 8:46 AM FACULTY I ON CALL MEDICAL ASSISTANT 10/15/2024 12:21 PM FACULTY I ON CALL MEDICAL ASSISTANT us Zoraida Franco MD LAB BLOOD ORDERABLE S Final Result Performing Organization Address [facility]/State/[facility] Co de Phone Number ANALIA [facility] Department [place] [address] * Lipid panel (10/15/2024 8:46 AM FACULTY I ON CALL MEDICAL ASSISTANT) [facility] Cholesterol 171 30 - 199 mg/dL Comment: Interpretive Data Ages < or = 19 years ??Acceptable: ? <170 mg/dL ??Borderline high: ??170-199 mg/dL ??High: ? >or= 200 mg/dL Ages > or = 20 years ??Desirable: ?<200 mg/dL ??Borderline high: ??200-239 mg/dL ??High: ? >or= 240 mg/dL Literature References: 1. Expert Panel on Integrated Guidelines for Cardiovascular Health and Risk Reduction in Children and Adolescents. Pediatrics 2011;128:S213 2. NCEP Expert Panel. Circulation 2004;110:227 Current Interpretive Data was last revised on 2018. Testing performed by: [address] [address] Triglycerides 47 <=149 mg/dL ANALIA Comment: Interpretive Data Ages < or = 9 years ??Acceptable: ? <75 mg/dL ??Borderline high: ??75-99 mg/dL ??High: ? >or= 100 mg/dL Ages 10 to 20 years ??Acceptable: ? <90 mg/dL ??Borderline high: ??90-129 mg/dL ??High: ? >or= 130 mg/dL Ages > or = 20 years ??Desirable: ?<150 mg/dL ??Borderline high: ??150-199 mg/dL ??High: ? 200-499 mg/dL ?Very high: ?? >or= 499 mg/dL Literature References: 1. Expert Panel on Integrated Guidelines for Cardiovascular Health and Risk Reduction in Children and Adolescents. Pediatrics 2011;128:S213 2. NCEP Expert Panel. Circulation 2004;110:227 Current Interpretive Data was last revised on 2018. Testing performed by: [address] [address] HDL 79 >=40 mg/dL ANALIA Comment: Interpretive Data Ages < or = 19 years ??Acceptable: ? >45 mg/dL ??Borderline low: ?? 40-45 mg/dL ??Low: ? <40 mg/dL Ages > or = 20 years ??Desirable: ?>or= 60 mg/dL ??Low: ? <40 mg/dL Literature References: 1. Expert Panel on Integrated Guidelines for Cardiovascular Health and Risk Reduction in Children and Adolescents. Pediatrics 2011;128:S213 2. NCEP Expert Panel. Circulation 2004;110:227 Current Interpretive Data was last revised on 2018. Testing performed by: [address], [place]., [address] LDL, calculated 82 <=129 mg/dL ANALIA Comment: Interpretive Data Ages < or = 19 years ??Acceptable: ? <110 mg/dL ??Borderline high: ??110-129 mg/dL ??High: ?>or= 130 mg/dL Ages > or = 20 years ??Optimal: ? <100 mg/dL ??Near optimal: ?100-129 mg/dL ??Borderline high: ?? 130-159 mg/dL ??High: ?>160 mg/dL Calculated using the Zaire LDL-C estimating equation. This equation was implemented on 2024. Prior to this date LDL-C was estimated using the Friedewald equation. Literature References: 1. Expert Panel on Integrated Guidelines for Cardiovascular Health and Risk Reduction in Children and Adolescents. Pediatrics 2011;128:S213 2. NCEP Expert Panel. Circulation 2004;110:227 3. Zaire Blount et al. RAYMON Cardiol. 2020 April 01;5(5):540-548. doi: 10.1001/[email or web address].2020.0013 Current Interpretive Data was last revised on 2024. Testing performed by: [address] [address] Non-HDL Cholesterol 92 mg/dL [facility] Comment: Interpretive Data Ages < or = 19 years ??Acceptable: ?<120 mg/dL ??Borderline high: ??120-144 mg/dL ??High: ?>145 mg/dL Ages > or = 20 years ??When triglycerides are >200 mg/dL, Non-HDL cholesterol is a secondary target of ? therapy with treatment goals that are 30 mg/dL greater than the LDL cholesterol target. ? Literature References: 1. Expert Panel on Integrated Guidelines for Cardiovascular Health and Risk Reduction in Children and Adolescents. Pediatrics 2011;128:S213 2. NCEP Expert Panel. Circulation 2004;110:227 Current Interpretive Data was last revised on 2018. Testing performed by: [facility] [address] [place] [address]., [address] Chol/HDL ratio 2 [facility] Comment:Testing performed by : [facility], [address] [place] [address]., [address] Blood 10/15/2024 8:46 AM FACULTY I ON CALL MEDICAL ASSISTANT 10/15/2024 12:25 PM FACULTY I ON CALL MEDICAL ASSISTANT us Zoraida Franco MD LAB BLOOD ORDERABLE S Final Result [facility] [address] [place] [address] * (ABNORMAL) Comprehensive metabolic panel (10/05/2024 7:17 AM FACULTY I ON CALL MEDICAL ASSISTANT) Glucose 102(H) 65 - 99 mg/dL [facility] Comment: ? Fasting reference interval For someone without known diabetes, a glucose value between 100 and 125 mg/dL is consistent with prediabetes and should be confirmed with a follow-up test. BUN 16 7 - 25 mg/dL [facility] Creatinine 1.05 0.60 - 1.29 mg/dL [facility] eGFR 88 > OR = 60 mL/min/1.7 3m2 [facility] BUN/creat ratio SEE NOTE: 6 22 (calc) [facility] Comment: ?? Not Reported: BUN and Creatinine are within ?? reference range. ? Sodium 141 135 - 146 mmol/L [facility] Potassium, pl 4.0 3.5 - 5.3 mmol/L [facility] Chloride 105 98 - 110 mmol/L [facility] CO2 30 20 - 32 mmol/L [facility] Calcium 8.8 8.6 - 10.3 mg/dL [facility] Protein, sr 6.2 6.1 - 8.1 g/dL [facility] Albumin 3.9 3.6 - 5.1 g/dL [facility] GLOBULIN 2.3 1.9 - 3.7 g/dL (calc) [facility] Alb/glob ratio 1.7 1.0 - 2.5 (calc) [facility] Bilirubin, total 0.6 0.2 - 1.2 mg/dL [facility] Alk phos 66 36 - 130 U/L [facility] AST 21 10 - 40 U/L [facility] ALT (SGPT) 22 9 - 46 U/L [facility] Blood 10/05/2024 7:17 AM FACULTY I ON CALL MEDICAL ASSISTANT 10/05/2024 7:19 AM FACULTY I ON CALL MEDICAL ASSISTANT Narrative [facility] - 10/06/2024 5:26 AM FACULTY I ON CALL MEDICAL ASSISTANT FASTING:YES PATIENT REFUSED SOME TESTING; PATIENT ENCOURAGED TO RETURN. FASTING: YES us Zoraida Franco MD LAB BLOOD ORDERABLE S Final Result [facility] [address] [place] [address] * Stool DNA - Cologuard (08/30/2022 12:55 PM CDT) Stool DNA - Cologuard Negative Negative [facility] (CLIA #:[id number]) Comment: NEGATIVE TEST RESULT. A negative Cologuard result indicates a low likelihood that a colorectal cancer (CRC) or advanced adenoma (adenomatous polyps with more advanced pre-malignant features) ??is present. The chance that a person with a negative Cologuard test has a colorectal cancer is less than 1 in 1500 (negative predictive value >99.9%) or has an ??advanced adenoma is less than ??5.3% (negative predictive value 94.7%). These data are based on a prospective cross-sectional study of 10,000 individuals at average risk for colorectal cancer who were screened with both Cologuard and colonoscopy. (Ignacia Morales al, N Engl J Med 2014;370(14):1286- 1297) The normal value (reference range) for this assay is negative. COLOGUARD RE-SCREENING RECOMMENDATION: Periodic colorectal cancer screening is an important part of preventive healthcare for asymptomatic individuals at average risk for colorectal cancer. ??Following a negative Cologuard result, the [employer] and U.S. Multi-Society Task Force screening guidelines recommend a Cologuard re-screening interval of 3 years. References: [employer] Guideline for Colorectal Cancer Screening: https://www.cancer.org/cancer/qskff-rspfkz-trwdrj/bfxckrcld-oaekshmqh-aykoslp/ac s-rec ommendations.html.; Nicolas DK, Kylah CR, Madhu TerrazasK, Colorectal Cancer Screening: Recommendations for Physicians and Patients from the U.S. Multi-Society Task Force on Colorectal Cancer Screening , Am J Gastroenterology 2017; 112:5605-6570. TEST DESCRIPTION: Composite algorithmic analysis of stool DNA-biomarkers with hemoglobin immunoassay. ?? Quantitative values of individual biomarkers are not reportable and are not associated with individual biomarker result reference ranges. Cologuard is intended for colorectal cancer screening of adults of either sex, 45 years or older, who are at average-risk for colorectal cancer (CRC). Cologuard has been approved for use by the U.S. FDA. The performance of Cologuard was established in a cross sectional study of average-risk adults aged 50-84. Cologuard performance in patients ages 45 to 49 years was estimated by sub-group analysis of near-age groups. Colonoscopies performed for a positive result may find as the most clinically significant lesion: colorectal cancer [4.0%], advanced adenoma (including sessile serrated polyps greater than or equal to 1cm diameter) [20%] or non- advanced adenoma [31%]; or no colorectal neoplasia [45%]. These estimates are derived from a prospective cross-sectional screening study of 10,000 individuals at average risk for colorectal cancer who were screened with both Cologuard and colonoscopy. (Ignacia Morales al, N Engl J Med 2014;370(14):2630-2523.) Cologuard may produce a false negative or false positive result (no colorectal cancer or precancerous polyp present at colonoscopy follow up). A negative Cologuard test result does not guarantee the absence of CRC or advanced adenoma (pre-cancer). The current Cologuard screening interval is every 3 years. ([employer] and U.S. Multi-Society Task Force). Cologuard performance data in a 10,000 patient pivotal study using colonoscopy as the reference method can be accessed at the following location: www.Precyse.Glipho/results. Additional description of the Cologuard test process, warnings and precautions can be found at [email or web address]. Stool 08/30/2022 12:5 5 PM CDT 08/31/2022 12:25 PM CDT Zoraida Franco MD LAB BODY FLUIDS AND STOOLS ORDERABLES Final Result [facility] (CLIA #:[id number]) [address] [place] [address] from Last 3 Months or Most Recently Relevant to Health Maintenance Insurance MEDICARE [facility] MEDICARE [employer] [place] [employer]IC[employer] [place] Care Teams [employer] Relationship Specialty Start Date End Date Zoraida Franco MD [address] [place] [address] PCP - General Family Medicine 06/20/21
--- OUTSIDE RECORDS SUMMARY | 2024-11-30 06:07 | XMS_ITS | Encounter Summary ---
Author Organization [facility] Healthcare Address [address] [place] [address] Care Team Providers Care Deputy General Counsel Name Role Phone Zoraida Franco MD Primary Care Provi selvin Reason for Referral * Cardiology (Routine) - Closed Specialty Diagnoses / Procedures Referred By Contmarcelino t Referred To Contact Diagnoses VSD (ventricular septal defect) Procedures Transthoracic Echo (TTE) Limited/Followup Zoraida Franco MD [address] [place] [address] Phone: tel: fax: [address] [phone] Referral ID Status Reason Start Date Expiration Date Visits Re quested Visits Authorized [id number] Closed 10/15/2024 11/14/2025 1 1 MATIC QUILLING MACHINE OPERATOR Reason for Visit * Reason Comments Medicare Wellness Patient arrives for Medicare wellness. 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 Gender Identity Not on file Sexual Orientation Not on file Occupation Industry Job Start Date Job End Date Disabled Not on file Not on file Not on file documented as of this encounter Last Filed Vital Signs Vital Sign Reading Time Taken Comments Blood Pressure 118/72 10/15/2024 7:21 AM AUTOMATIC QUILLING MACHINE OPERATOR Pulse 88 10/15/2024 7:21 AM AUTOMATIC QUILLING MACHINE OPERATOR Temperature 36.6 ??C (97.9 ??F) 10/15/2024 7:21 AM CS T Respiratory Rate 16 10/15/2024 7:21 AM AUTOMATIC QUILLING MACHINE OPERATOR Oxygen Saturation 98% 10/15/2024 7:21 AM AUTOMATIC QUILLING MACHINE OPERATOR Inhaled Oxygen Concentration - - Weight 71.8 kg (158 lb 4.8 oz) 10/15/2024 7:21 A M AUTOMATIC QUILLING MACHINE OPERATOR Height 153.7 cm (5' 0.5 ) 10/15/2024 7:21 AM AUTOMATIC QUILLING MACHINE OPERATOR Body Mass Index 30.41 10/15/2024 7:21 AM AUTOMATIC QUILLING MACHINE OPERATOR documented in this encounter Patient Instructions * Patient Instructions* Zoraida Franco MD - 10/15/2024 7:30 AM AUTOMATIC QUILLING MACHINE OPERATOR Health Maintenance Topic Date Due Hepatitis C Screening Never done Hepatitis B Screening Never done DTaP/Tdap/Td Vaccine (1 - Tdap) 11/28/2023 Covid-19 Vaccine ( season) 2024 Colon Cancer Screening-DNA Stool 08/30/2025 Depression Screening 10/15/2025 Regular Well Visit/Exam 18-64 10/15/2025 Influenza Vaccine Completed Pneumococcal vaccine <65 Aged Out MATIC QUILLING MACHINE OPERATOR documented in this encounter Progress Notes * Zoraida Franco MD - 10/15/2024 7:30 AM CST Images from the original note were not included. Hal Fernando is a 49 y.o. year old White Non- male here an for Annual Wellness Visit. Medicare Health Risk Assessment Basic Information In general, would you say your health is: Excellent Do you have an advance directive, such as a living will or durable power of regulatory attorney?: (!) No Would you like information regarding Advanced Directive (Living Will) and/or Durable Power of Co Supervisor Grounds And Landscape?: No Do you have to strain or struggle to hear/understand conversations?: No Over the last 2 weeks, how often have you been bothered by any of the following problems? Little Interest or Pleasure in Doing Things: Not at all Feeling Down, Depressed, or Hopeless: Not at all PHQ-2 Total Score (If total score is 3 or more points, staff should administer the PHQ-9): 0 In the past year, patient experienced: One or more falls in the last year: No Do you feel unsteady when standing or walking?: No Do you worry about falling?: No Safety Do you have a working smoke detector in your home?: Yes Does your home have throw rugs, poor lighting, or a slippery bath tub/shower?: (!) Yes Do you always fasten your seatbelt when you are in a vehicle?: Yes What is your typical mode of transportation: Car Physical Activity How many days a week do you usually exercise?: 0 - I do not exercise How intense is your typical exercise?: I am currently not exercising Nutrition How would you rate your appetite?: Good How would you describe the condition of your mouth and teeth/dentures?: Good On a typical day, how many servings of fruits and vegetables do you eat?: 2 On a typical day, how many servings of high fiber/whole-grain foods do you eat?: 1 On a typical day, how many servings of high fat/fried foods do you eat?: 1 Have you experienced any of the following problems currently or recently? Eating: No Grooming: No Bathing: No Walking: No Using the toilet: No Memory problems: No Difficulty speaking: No Dressing: No Balance: No Pain: No Sexual Health: No Fatigue: No Depression: No Life Satisfaction: No Stress: No Anger: No Loneliness or Social Isolation: No Suicide: No Have you experienced any of the following problems currently or recently? Laundry and/or housekeeping: No Handling money: No Shopping: No Using the Phone: No Food preparation: No Transportation: No Taking and/or getting your own medications: No Do you use prescription drugs that are not prescribed for you?: No Based on my observation of the patient, review of Health Risk Assessment (HRA) and other records, this is my assessment and recommendation regarding fall risk, hearing impairment, home safety, ADLs, or any other issues identified in the HRA: reviewed POA/Living will History of Present Illness The patient, with Down syndrome, presents with his wellness The patient's guardian reports that the patient has been doing well overall. However, the patient has been experiencing a constant runny nose, which has been diagnosed as vasomotor rhinitis. Despite allergy testing, no allergies were identified. The patient also has leukopenia and is scheduled to see a blood specialist in December. The patient has a history of a ventricular septal defect, which appears to be getting smaller. The last echocardiogram was performed in 2019, and the next one is due this year. The patient has sleep apnea but has been resistant to using a CPAP machine, particularly after yosvany COVID-19. The patient's guardian also mentions that the patient has developed a sweet tooth recently. The patient's blood sugar was slightly elevated at 102, and the doctor suggests monitoring the patient's sugar intake. Problem List, Past Medical and Surgical History: Patient Active Problem List Diagnosis VSD (ventricular septal defect) Leukopenia Joint pain NILA (obstructive sleep apnea) PLMD (periodic limb movement disorder) Encounter for Medicare annual wellness exam Down syndrome Vasomotor rhinitis Class 1 obesity due to excess calories without serious comorbidity with body mass index (BMI) of 31.0 to 31.9 in adult Past Medical History: Diagnosis Date COVID-19 08/2020 Down syndrome History of laparoscopic cholecystectomy Past Surgical History: Procedure Laterality Date CATARACT EXTRACTION 11/2001 LAPAROSCOPIC CHOLECYSTECTOMY TONSILLECTOMY TYMPANOSTOMY TUBE PLACEMENT Family History: Family History Problem Relation Age of Onset Thyroid cancer Mother Other (heart issue s) Mother Coronary artery disease Father Other (covid) Father Breast cancer Other Lymphoma Other Social History: Social History Tobacco Use Smoking status: Never Smokeless tobacco: Never Substance and Sexual Activity Drug use: Never Sexual activity: Defer Alcohol Use: Not At Risk (10/15/2024) AUDIT-C Frequency of Alcohol Consumption: Never Average Number of Drinks: Patient does not drink Frequency of Binge Drinking: Never Allergies: Allergies Allergen Reactions Atropine Hives Was told not to have by cabinet worker Demerol [Meperidine] Unknown Morphine Sulfate Unknown Medications: Current Outpatient Medications: cholecalciferol, vitamin D3, (VITAMIN D3 ORAL), Take 2,000 Units by mouth daily, Disp: , Rfl: ipratropium (ATROVENT) 21 mcg (0.03 %) nasal spray, Administer 2 sprays into each nostril 2 (two) times a day, Disp: , Rfl: Depression Screen: PHQ Screening Over the past 2 weeks, how often have you been bothered by any of the following problems? Little Interest or Pleasure in Doing Things: Not at all Feeling Down, Depressed, or Hopeless: Not at all PHQ-2 Total Score (If total score is 3 or more points, staff should administer the PHQ-9): 0 Trouble Falling or Staying Asleep, or Sleeping too Much: Not at all Feeling Tired or Having Little Energy: Not at all Poor Appetite or Overeating: Not at all Feeling Bad About Yourself - or That You are a Failure or Have Let Yourself or Your Family Down: Not at all Trouble Concentrating on Things, Such as Reading the Newspaper or Watching Television: Not at all Moving or Speaking so Slowly That Other People Could Have Noticed, or the Opposite - Being so Fidgety or Restless That You Have Been Moving Around a lot More Than Usual: Not at all Thoughts That You Would be Better off , or of Hurting Yourself in Some Way: Not at all PHQ-9 Total Score: 0 Vitals: Vitals BP 118/72 (BP Location: Left arm, Patient Position: Sitting) Pulse 88 Temp 36.6 ??C (97.9 ??F) (Oral) Resp 16 Ht 153.7 cm (5' 0.5 ) Wt 71.8 kg (158 lb 4.8 oz) SpO2 98% BMI 30.41 kg/m?? Body mass index is 30.41 kg/m??. Exam: Physical Exam Vitals and nursing note reviewed. Constitutional: General: He is not in acute distress. Appearance: Normal appearance. He is well-developed. He is obese. He is not ill-appearing. HENT: Head: Normocephalic and atraumatic. Right Ear: Tympanic membrane, ear canal and external ear normal. Left Ear: Tympanic membrane, ear canal and external ear normal. Nose: Nose normal. Mouth/Throat: Mouth: Mucous membranes are moist. Eyes: Extraocular Movements: Extraocular movements intact. Cardiovascular: Rate and Rhythm: Normal rate and regular rhythm. Heart sounds: Normal heart sounds. No murmur heard. Pulmonary: Effort: Pulmonary effort is normal. No respiratory distress. Breath sounds: Normal breath sounds. Abdominal: General: Bowel sounds are normal. There is no distension. Palpations: Abdomen is soft. Tenderness: There is no abdominal tenderness. Musculoskeletal: Cervical back: Neck supple. Skin: General: Skin is warm and dry. Neurological: Mental Status: He is alert and oriented to person, place, and time. Motor: No abnormal muscle tone. Psychiatric: Mood and Affect: Mood normal. Behavior: Behavior normal. Thought Content: Thought content normal. Care Team Providers: Patient Care Team: Zoraida Franco MD as PCP - General (Family Medicine) Primary Pharmacy/DME suppliers: [id number] - [place], [place] - [address] [facility] [id number] I reviewed the patient???s home and community safety, including driving, and made the following recommendations he lives with his mother, who has guardianship. Detection of Cognitive Impairment: The patient does not have cognitive impairment based on direct observation, discussion with patientor family, or review of medical records. Health Maintenance: Health Maintenance Topics with due status: Overdue Topic Date Due Hepatitis C Screening Never done Hepatitis B Screening Never done DTaP/Tdap/Td Vaccine 11/28/2023 Covid-19 Vaccine 08/02/2024 Health Maintenance Topics with due status: Not Due Topic Last Completion Date Colon Cancer Screening-DNA Stool 08/30/2022 Depression Screening 10/15/2024 Regular Well Visit/Exam 18-64 10/15/2024 Health Maintenance Topics with due status: Completed Topic Last Completion Date Influenza Vaccine 09/11/2024 Health Maintenance Topics with due status: Aged Out Topic Date Due Pneumococcal vaccine <65 Aged Out Counseling and Referral of Preventative Services: Lifestyle Recommendations Increase Physical Activity, Increase Social Engagement, Reduce Weight, and Improve Diet Advanced Directive Durable Power of Co Supervisor Grounds And Landscape: No Living Will: No Assessment and Plan: Diagnoses and all orders for this visit: Encounter for Medicare annual wellness exam (Primary) Assessment & Plan: Encouraged healthy habits He has a guardianship, but reviewed POA/living will PMH updated: Last colonoscopy/cologuard:cologuard 08/23- Neg Last PSA: 08/24- WNL Last Tdap: encouraged Last Flu: up to date Last COVID: encouraged Orders: - Hemoglobin A1c; Future - Lipid panel; Future - Thyroid Function [place]; Future Down syndrome Other decreased white blood cell (WBC) count Vasomotor rhinitis VSD (ventricular septal defect) - Transthoracic Echo (TTE) Limited/Followup; Future NILA (obstructive sleep apnea) PLMD (periodic limb movement disorder) Elevated glucose - Hemoglobin A1c; Future - Lipid panel; Future - Thyroid Function [place]; Future Bilateral impacted cerumen Comments: acute, new mom will do debrox update me with any changes Class 1 obesity due to excess calories without serious comorbidity with body mass index (BMI) of 31.0 to 31.9 in adult Assessment & Plan: Chronic, slight progression BMI Follow-up includes: nutrition counseling and exercise counseling. Screening for prostate cancer - PSA screen; Future Need for hepatitis C screening test - Hepatitis C antibody Blood; Future Screening for thyroid disorder - Lipid panel; Future Assessment & Plan ncounter for Medicare annual wellness exam (Primary) Assessment & Plan: Encouraged healthy habits He has a guardianship, but reviewed POA/living will PMH updated: Last colonoscopy/cologuard:cologuard 08/23- Neg Last PSA: 08/24- WNL Last Tdap: encouraged Last Flu: up to date Last COVID: encouraged Down Syndrome Stable, no new concerns. -Continue current management and follow-up as needed. Leukopenia Follow-up with block cuber scheduled for December. -Continue current management and follow-up with block cuber. Vasomotor Rhinitis Chronic rhinitis with no identified allergies. CT of sinuses showed no abnormalities. -Continue Atrovent as needed. -Follow-up with outsole skiver in November. Ventricular Septal Defect Last echo in 2019 showed defect was getting smaller. -Next echo due in 2024. Sleep Apnea Non-compliant with CPAP therapy due to COVID-19 fears. -Encourage patient to try using CPAP mask again. Elevated Blood Sugar Recent blood sugar of 102. -Order A1C. -Encourage healthy diet, limit sweets. Class 1 obesity due to excess calories without serious comorbidity with body mass index (BMI) of 31.0 to 31.9 in adult Assessment & Plan: Chronic, slight progression BMI Follow-up includes: nutrition counseling and exercise counseling. Bilateral impacted cerumen Comments: acute, new mom will do debrox update me with any changes General Health Maintenance -Order labs including cholesterol and hepatitis C screening. -Continue healthy lifestyle habits including diet and exercise. -Plan for COVID-19 booster shot. -Consider adding daughter to guardianship papers. Patient here for annual Medicare wellness visit and for review of complete medical problem list. All the elements of the plan were completed as outlined by CMS. A copy of the prevention plan was given to the patient. I reviewed Medicare Wellness Questionnaire (other physicians involved in care, depression screen, advanced directives), cognitive/memory, and functional assessment. I reviewed and updated the complete problem list, medication list, family history, and immunization records with the patient. I provided preventive counseling and early detection interventions to the patient through health maintenance update and summary of today's office visit. Zoraida Franco MD MATIC QUILLING MACHINE OPERATOR documented in this encounter Miscellaneous Notes * Assessment & Plan Note - Zoraida Franco MD - 10/15/2024 7:50 AM CSTAssociated Problem(s): Class 1 obesity due to excess calories without serious comorbidity with bodymass index (BMI) of 31.0 to 31.9 in adult Chronic, slight progression BMI Follow-up includes: nutrition counseling and exercise counseling. MATIC QUILLING MACHINE OPERATOR * Assessment & Plan Note - Zoraida Franco MD - 10/15/2024 7:45 AM CSTAssociated Problem(s): Encounter for Medicare annual wellness exam Encouraged healthy habits He has a guardianship, but reviewed POA/living will PMH updated: Last colonoscopy/cologuard:cologuard 08/23- Neg Last PSA: 08/24- WNL Last Tdap: encouraged Last Flu: up to date Last COVID: encouraged MATIC QUILLING MACHINE OPERATOR documented in this encounter Plan of Treatment Not on file documented as of this encounter Results * TRANSTHORACIC ECHO (TTE) LIMITED/FOLLOW UP W LTD DOPPLER/CF WO CONTRAST (11/17/2024 2:31 PM AUTOMATIC QUILLING MACHINE OPERATOR) Anatomical Region Laterality Modality Ultrasound 11/17/2024 2:00 PM AUTOMATIC QUILLING MACHINE OPERATOR Narrative 11/23/2024 8:17 AM AUTOMATIC QUILLING MACHINE OPERATOR ? Adult Echocardiogram + ----- ---+ :Name: HAL FERNANDO ?Study Date: 11/17/2024 ?Status: MHE ?: : ?Patient Location: MHE CARD^^^MHEHeight: 60 in ?: : ?Weight: 158 lbBP: 118/72 mmHg: :: 1975 ? Gender: Male ?BSA: 1.7 m2 ?: :Reason For Study: Ventricular Septal Defect ?: :Ordering Physician: ?: :ZORAIDA FRANCO ? : :Referring Physician: ? : :ZORAIDA FRANCO TRISTAN ? : :Performed By: Tena ? : :MANE Carlin ? : + ----- ---+ Procedure A [...] :Name: HAL FERNANDO Study Date: 11/17/2024 Status: E: : Patient Location: [facility]^^^MHEHeight: 60 in: : Weight: 158lbBP: 118/72 mmHg: [...] ECHO PROCEDURES Final Result * Thyroid Function [place] (10/15/2024 8:46 AM AUTOMATIC QUILLING MACHINE OPERATOR) Pathologist [facility] TSH 4.08 0.30 - 4.20 mcIUnit/mL Comment:Testing performed by : [facility], [address] [place] [address], [id number] Blood 10/15/2024 8:46 AM AUTOMATIC QUILLING MACHINE OPERATOR 10/15/2024 12:25 PM AUTOMATIC QUILLING MACHINE OPERATOR us Zoraida Franco MD LAB BLOOD ORDERABLE S Final Result [facility] [id number] [facility] Department [place] [address] * Lipid panel (10/15/2024 8:46 AM AUTOMATIC QUILLING MACHINE OPERATOR) [facility] Signature Cholesterol 171 30 - 199 mg/dL Comment: [...] last revised on 2018. Testing performed by: [facility], [address] [place] [address]., [address] Triglycerides 47 <=149 mg/dL ANALIA DODD Comment: Interpretive Data Ages < or = [...] last revised on 2018. Testing performed by: [facility], [address] [place] [address]., [address] HDL 79 >=40 mg/dL ANALIA Comment: Interpretive [...] last revised on 2018. Testing performed by: [facility], [address] [place] [address]., [address] LDL, calculated 82 <=129 mg/dL ANALIA Comment: Interpretive Data Ages < or = 19 years ??Acceptable: ? <110 mg/dL ??Borderline high: ??110-129 mg/dL ??High: ?>or= 130 mg/dL Ages > or = 20 years ??Optimal: ? <100 mg/dL ??Near optimal: ?100-129 mg/dL ??Borderline high: ?? 130-159 mg/dL ??High: ?>160 mg/dL Calculated using the Tai LDL-C estimating equation. This equation was implemented on 2024. Prior to this date LDL-C was estimated using the Friedewald equation. Literature References: 1. Expert Panel on Integrated Guidelines for Cardiovascular Health and Risk Reduction in Children and Adolescents. Pediatrics 2011;128:S213 2. NCEP Expert Panel. Circulation 2004;110:227 3. Zaire M et al. RAYMON Cardiol. 2020 April 01;5(5):540-548. doi: 10.1001/jamacardio.2020.0013 Current Interpretive Data was last revised on 2024. Testing performed by: [address] [address] Non-HDL Cholesterol 92 mg/dL ANALIA DODD Comment: Interpretive Data Ages < or = [...] last revised on 2018. Testing performed by: [address] [address] Chol/HDL ratio 2 ANALIA Comment:Testing performed by : [address] [address] Blood 10/15/2024 8:46 AM AUTOMATIC QUILLING MACHINE OPERATOR 10/15/2024 12:25 PM AUTOMATIC QUILLING MACHINE OPERATOR us Zoraida Franco MD LAB BLOOD ORDERABLE S Final Result [facility] [address] [facility] Department [place] [address] * (ABNORMAL) Hemoglobin A1c (10/15/2024 8:46 AM AUTOMATIC QUILLING MACHINE OPERATOR) Hgb A1C 5.7(H) 4.0 - 5.6 % Comment:Testing performed by : [address] [address] Estimated Average Glucose 117 mg/dL ANALIA Comment: The ADA recommends reporting an estimated Average Glucose (eAG) with all Hemoglobin A1c results using the equation derived from a study of 507 normal and diabetic adults. ??Minority populations were underrepresented and children were not included. ?? (Diabetes Care 31:2502-3040, 2008). ??The eAG is not equivalent to a fasting glucose. Testing performed by: [facility], [address] [place] [address], [place]., [address] Blood 10/15/2024 8:46 AM AUTOMATIC QUILLING MACHINE OPERATOR 10/15/2024 12:21 PM AUTOMATIC QUILLING MACHINE OPERATOR us Zoraida Franco MD LAB BLOOD ORDERABLE S Final Result Performing Organization Address [facility] Co de Phone Number [place] [phone] [facility] [place] [address] * Hepatitis C antibody Blood (10/15/2024 8:46 AM AUTOMATIC QUILLING MACHINE OPERATOR) Hep C Ab Nonreactive Nonreactive Comment: Antibodies [...] revised on 2020. Blood 10/15/2024 8:46 AM AUTOMATIC QUILLING MACHINE OPERATOR 10/15/2024 2:28 PM AUTOMATIC QUILLING MACHINE OPERATOR us Zoraida Franco MD LAB MICROBIOLOGY - GENERAL ORDERABLES Final Result Performing Organization Address [facility] Co de Phone Number [facility] [address] [facility] [place] [address] * PSA screen (10/15/2024 8:46 AM AUTOMATIC QUILLING MACHINE OPERATOR) PSA-Total 0.26 ng/mL Comment: Interpretive Data ?AGE ? SEX ?REFERENCE INTERVAL 0 minutes-150 years ?Female ?None 0 minutes-49 years ? Male ?None ? 50-59 years ? Male ?0-3.90 ? 60-69 years ? Male ?0-5.40 ? 70-79 years ? Male ?0-6.20 ? 80-150 years ?Male ?0-6.20 The [employer] PSA Total assay procedure was used. Results from different manufacturers or methods may not be comparable. Serial testing should be performed using the same method. Current interpretive data last revised 22. Testing performed by: [facility], [address] [place] [address]., [id number] Blood 10/15/2024 8:46 AM AUTOMATIC QUILLING MACHINE OPERATOR 10/15/2024 12:25 PM AUTOMATIC QUILLING MACHINE OPERATOR us Zoraida Franco MD LAB BLOOD ORDERABLE S Final Result Performing Organization Address City/State/[facility] [place] Phone Number [facility] [phone] [facility] Department [place] [address] documented in this encounter Visit Diagnoses Diagnosis Encounter for Medicare annual wellness exam- Primary Down syndrome Down's syndrome Other decreased white blood cell (WBC) count Vasomotor rhinitis Allergic rhinitis, cause unspecified VSD (ventricular septal defect) Ventricular septal defect NILA (obstructive sleep apnea) Obstructive sleep apnea (adult) (pediatric) PLMD (periodic limb movement disorder) Periodic limb movement disorder Elevated glucose Other abnormal glucose Bilateral impacted cerumen Impacted cerumen Class 1 obesity due to excess calories without serious comorbidity with body mass index (BMI) of 31.0 to 31.9 in adult Screening for prostate cancer Special screening for malignant neoplasm of prostate Need for hepatitis C screening test Special screening examination for other specified viral diseases Screening for thyroid disorder VSD (ventricular septal defect) Ventricular septal defect documented in this encounter Discontinued Medications Medication Sig Discontinue Reason Start Date End Da te albuterol HFA (PROVENTIL HFA,VENTOLIN HFA,PROAIR HFA) 90 mcg/actuation inhaler INHALE 2 PUFFS BY MOUTH FOUR TIMES DAILY NEEDED FOR SHORTNESS OF BREATH OR WHEEZING Therapy completed 11/01/2023 10/15/2024 ascorbic acid (vitamin C) 1,000 mg tablet Take 1 tablet (1,000 mg total) by mouth daily Therapy completed 10/15/2024 azelastine (ASTELIN) 137 mcg (0.1 %) nasal sprayIndications:Chron ic rhinitis Administer 1 spray into each nostril 2 (two) times a day Use in each nostril as directed Therapy completed 08/18/2024 10/15/2024 cetirizine (ZyrTEC) 10 mg tablet Take 1 tablet (10 mg total) by mouth daily Therapy completed 10/15/2024 fluticasone propionate (FLONASE) 50 mcg/actuation nasal sprayIndications:Chron ic rhinitis Administer 2 sprays into each nostril daily Therapy completed 08/18/2024 10/15/2024 documented as of this encounter Historical Medications * This list may reflect changes made after this encounter. ipratropium (ATROVENT) 21 mcg (0.03 %) nasal spray Administer 2 sprays into each nostril 2 (two) times a day 09/28/2024 added in this encounter Care Teams Deputy General Counsel Relationship Specialty Start Date End Date Zoraida Franco MD [address] [place] [address] PCP - General Family Medicine 06/20/21 documented as of this encounter
--- OUTSIDE RECORDS SUMMARY | 2024-11-30 06:07 | XMS_ITS | Encounter Summary ---
Author Organization [facility] Healthcare Address [address] [place] [address] Care Team Providers Care Interactive Video Technician Name Role Phone Dennis Franco MD Primary Care Provi selvin Reason for Referral * Cardiology (Routine) - Closed Specialty Diagnoses / Procedures Referred By Contac t Referred To Contact Diagnoses VSD (ventricular septal defect) Procedures Transthoracic Echo (TTE) Limited/Followup Dennis Franco MD [address] [place] [address] Phone: tel: fax: [address] [phone] Referral ID Status Reason Start Date Expiration Date Visits Re quested Visits Authorized [id number] Closed 10/15/2024 11/14/2025 1 1 URAL ANTHROPOLOGY PROFESSOR Reason for Visit * Cardiology (Routine) - Closed Specialty Diagnoses / Procedures Referred By Contac t Referred To Contact Diagnoses VSD (ventricular septal defect) Procedures Transthoracic Echo (TTE) Limited/Followup Dennis Franco MD [address] [place] [address] Phone: tel: fax: [address] [phone] Referral ID Status Reason Start Date Expiration Date Visits Re quested Visits Authorized [id number] Closed 10/15/2024 11/14/2025 1 1 Encounter Details Date Type Department Care Team (Latest Contact Info) Description 11/17/2024 1:30 PM CULTURAL ANTHROPOLOGY PROFESSOR - 11/17/2024 11:59 PM CULTURAL ANTHROPOLOGY PROFESSOR Hospital Encounter [facility] Cardiac Testing [address] [place] [address] VSD (ventricular septal defect) Discharge Disposition: Discharge to home or self care Social History Tobacco Use Types Packs/Day Years Used Date Smoking Tobacco: Never Smokeless Tobacco: Never Alcohol Use Standard Drinks/Week Comments Not Currently [...] on file Legal Sex Male 7:51 PM CULTURAL ANTHROPOLOGY PROFESSOR Gender Identity Not on file Sexual Orientation Not on file Occupation Industry Job Start Date Job End Date Disabled Not on file Not on file Not on file documented as of this encounter Medications at Time of Discharge cholecalciferol, vitamin D3, (VITAMIN D3 ORAL) Take 2,000 Units by mouth daily ipratropium (ATROVENT) 21 mcg (0.03 %) nasal spray Administer 2 sprays into each nostril 2 (two) times a day 09/28/2024 documented as of this encounter Discharge Disposition Disposition Code Departure Means Destination Discharge to home or self care documented in this encounter Plan of Treatment Not on file documented as of this encounter Procedures Procedure Name Priority Date/Time Associated Diagnosis Comments TRANSTHORACIC ECHO (TTE) LIMITED/FOLLOW UP W LTD DOPPLER/CF WO CONTRAST Routine 11/17/2024 2:31 PM CULTURAL ANTHROPOLOGY PROFESSOR VSD (ventricular septal defect) documented in this encounter Results * TRANSTHORACIC ECHO (TTE) LIMITED/FOLLOW UP W LTD DOPPLER/CF WO CONTRAST (11/17/2024 2:31 PM CULTURAL ANTHROPOLOGY PROFESSOR) Anatomical Region Laterality Modality Ultrasound 11/17/2024 2:00 PM CULTURAL ANTHROPOLOGY PROFESSOR Narrative 11/23/2024 8:17 AM CULTURAL ANTHROPOLOGY PROFESSOR ? Adult Echocardiogram + ----- ---+ :Name: ARMIN FERNANDO ?Study Date: 11/17/2024 ?Status: MHE ?: : ?Patient Location: MHE CARD^^^MHEHeight: 60 in ?: : ?Weight: 158 lbBP: 118/72 mmHg: :: 1975 ? Gender: Male ?BSA: 1.7 m2 ?: :Reason For Study: Ventricular Septal Defect ?: :Ordering Physician: ?: :DENNIS FRANCO ? : :Referring Physician: ? : :DENNIS FRANCO TRISTAN ? : :Performed By: Tena [...] 11/23/2024 Adult Echocardiogram + ----- ---+ :Name: ARMIN FERNANDO Study Date: 11/17/2024 Status: [facility]: : Patient Location: [facility] CARD^^^MHEHeijarodt: 60 in: : Weight: 158lbBP: 118/72 mmHg: :: 1975 Gender: Male BSA: 1.7 m2: :Reason For Study: Ventricular Septal Defect: :Ordering Physician:: :DENNIS FRANCO: :Referring Physician:: :DENNIS FRANCO: :Performed By: Tena: :MANE Carlin: + [...] Zev Campo MD 11/23/2024 08:17 AM us Dennis Franco MD CV ECHO PROCEDURES Final Result documented in this encounter Visit Diagnoses Diagnosis VSD (ventricular septal defect) Ventricular septal defect documented in this encounter Care Teams Interactive Video Technician Relationship Specialty Start Date End Date Dennis Franco MD [address] [place] [address] PCP - General Family Medicine 06/20/21 documented as of this encounter
--- OUTSIDE RECORDS SUMMARY | 2024-11-30 06:07 | XMS_ITS | Continuity of Care Document ---
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 Atrial septal defect (disorder) Active Condition Leukopenia (disorder) Active Condition followed by Dr Cassidy Allergies, Adverse Reactions, Alerts Substance Category Reaction Severity Reaction type Status Date Reported Comments Source morphine Assertion Drug allergy Active [facility] Demerol Assertion Drug allergy Active [facility] Encounters Location Location Details Encounter Type Encounter Number Reason For Visit Attending Provider ADM Date DC Date Status Source PL10 PL10 Outpatient [id number] 23:59 :59 Discharge d [facility] Outpatient [id number] See Comments [facility] OUTPATIENT [id number] CHRONIC NEUTROPEN IA/RECS IMAG 10/15 Leonardo Goldberg [facility] Outpatient [id number] [facility] Pulmonol ogy LRLO LRLO Outpatient [id number] See Comments [facility] Outpatient [id number] [facility] Pulmonol ogy Procedures Procedure Code Date Perfomer Comments Source Cataract extraction [id number] [facility] Cholecystectomy [id number] [facility] ear tubes [facility] T and A (tonsillectomy and adenoidectomy) postoperative education [id number] [facility]
--- OUTSIDE RECORDS SUMMARY | 2024-11-30 06:07 | XMS_ITS | Encounter Summary ---
Author Organization [facility] Address [address] [place] [address] Care Team Providers Care Gauge Operator Name Role Phone Unavailable Primary Care Provider Unavailabl e Encounter Details Date Type Department Care Team (Late st Contact Info) Description 11/30/2021 Lab Requisition [facility] [address] [place], [place] [id number] Xander Sifuentes MD [address] [place] [address] [place] [address] Social History Tobacco Use Types Packs/Day Years Used Date Smoking Tobacco: Never Assessed Sex and Gender Information Value Date Recorded Sex Assigned at Not on file Legal Sex Male 12:22 PM ANESTHESIOLOGIST Gender Identity Not on file Sexual Orientation Not on file documented as of this encounter Plan of Treatment Not on file documented as of this encounter Procedures Procedure Name Priority Date/Time Associated Diagnosis Comments SARS-COV-2 PCR [facility] ONLY Routine 11/30/2021 3:21 PM ANESTHESIOLOGIST documented in this encounter Visit Diagnoses Not on filedocumented in this encounter
--- OUTSIDE RECORDS SUMMARY | 2024-11-30 06:07 | XMS_ITS | Clinical Summary ---
Author Organization [address] Address [address] [place] [phone] Care Team Providers Care Nuclear Radiologist Name Role Phone Zoraida Franco MD Primary Care Provi selvin Allergies Active Allergy Reactions Criticality Noted Date Comments Atropine Hives Medium 09/28/2022 Was told not to have by woodwind instrument repairer Meperidine Unknown 10/26/2020 Morphine Sulfate Unknown 10/26/2020 Medications cholecalciferol , vitamin D3, (VITAMIN D3 ORAL) Take 2,000 Units by mouth daily Active ipratropium (ATROVENT) 21 mcg (0.03 %) nasal spray Administer 2 sprays into each nostril 2 (two) times a day 4 Active Active Problems Problem Noted Date Diagnosed Date Vasomotor rhinitis 08/23/2022 Assessment & Plan (10/15/2023 3:12 PM SURGERY ATTENDANT): Chronic, stable Continue Flonase as needed Assessment & Plan (08/23/2022 10:02 AM CDT): Chronic, stable Continue current regimen Class 1 obesity due to exces s calories without serious comorbidity with body mass index (BMI) of 31.0 to 31.9 in adult 08/23/2022 Assessment & Plan (10/15/2024 7:50 AM SURGERY ATTENDANT): Chronic, slight progression BMI Follow-up includes: nutrition counseling and exercise counseling. Assessment & Plan (10/15/2023 3:13 PM SURGERY ATTENDANT): Chronic, stable BMI Follow-up includes: nutrition counseling. Assessment & Plan (08/23/2022 10:26 AM CDT): BMI Follow-up includes: nutrition counseling. Down syndrome 07/21/2021 Assessment & Plan (10/15/2023 3:11 PM SURGERY ATTENDANT): Chronic stable Continue to monitor Update me with any changes in his behavior or health Assessment & Plan (08/23/2022 9:59 AM CDT): Chronic stable Continue to monitor Encounter for Medicare annual wellness exam 07/02 Overview (10/15/2024): Encouraged healthy habits He has a guardianship, but reviewed POA/living will PMH updated: Last colonoscopy/cologuard:cologuard 08/23- Neg Last PSA: 08/24- WNL Last Tdap: encouraged Last Flu: up to date Last COVID: encouraged Assessment & Plan (10/15/2024 7:45 AM SURGERY ATTENDANT): Encouraged healthy habits He has a guardianship, but reviewed POA/living will PMH updated: Last colonoscopy/cologuard:cologuard 08/23- Neg Last PSA: 08/24- WNL Last Tdap: encouraged Last Flu: up to date Last COVID: encouraged Assessment & Plan (10/15/2023 3:52 PM SURGERY ATTENDANT): Encouraged healthy habits He has a guardianship [...] 03/07/2021 Assessment & Plan (10/15/2023 3:12 PM SURGERY ATTENDANT): Chronic, stable Continue to monitor symptoms Assessment & Plan (08/23/2022 10:00 AM CDT): Chronic, stable Continue to monitor Assessment & Plan (07/20/2021 2:40 PM CDT): Doing well Will recheck labs Assessment & Plan (03/07/2021 2:08 PM CDT): I did order an iron and ferritin level. NILA (obstructive sleep apnea) 03/07/2021 Assessment & Plan (10/15/2023 3:12 PM SURGERY ATTENDANT): Chronic, stable Unable to tolerate CPAP Reviewed [...] disorder) Assessment & Plan (10/15/2023 3:13 PM SURGERY ATTENDANT): Chronic, stable Currently not on medication Consider [...] 10/26/2020 Assessment & Plan (10/15/2023 3:53 PM SURGERY ATTENDANT): Chronic, stable Will be due repeat echo in 2023 Update me with any concerns Assessment & Plan (08/23/2022 10:01 AM CDT): Chronic, stable Continue to monitor Assessment & Plan (07/20/2021 2:42 PM CDT): Echo reviewed Assessment & Plan (10/26/2020 1:29 PM SURGERY ATTENDANT): Will refer to cardiology- Dr Campo Will be due for an echo Continue aspirin Update me with any changes Call for questions or concerns Leukopenia 10/26/2020 Assessment & Plan (10/15/2023 3:12 PM SURGERY ATTENDANT): Chronic, stable Managed by Hematology Update me with any changes or concerns Assessment & Plan (08/23/2022 10:00 AM CDT): Chronic, stable Continue to follow with heme Assessment & Plan (07/20/2021 2:40 PM CDT): Will check labs Assessment & Plan (10/26/2020 1:33 PM SURGERY ATTENDANT): [facility] Will consider labs for further guidance Update me after the visit Call for questions or concerns Resolved Problems Problem Noted Date Diagnosed Date Resolved Date Other acute sinusitis 09/03/20232022 Assessment & Plan (10/15/2023 3:12 PM SURGERY ATTENDANT): Acute, resolved Update me if symptoms reoccur Assessment & Plan (09/03/2023 11:40 AM CDT): Will start Doxy Tylenol/ibuprofen as needed, and can use medicine like mucinex or robitussin to help with the cough Increase fluids, rest and handwashing Warm saltwater gargles Consider a hot drink with honey Cool mist humidifier Please call if symptoms change or worsen, to the ER for anything emergent Encounters Date Type Department Care Team Description 11/17/2024 1:30 PM SURGERY ATTENDANT - 11/17/2024 11:59 PM SURGERY ATTENDANT Hospital Encounter [facility] Cardiac Testing [address] [place] [address] VSD (ventricular septal defect) Discharge Disposition: Discharge to home or self care 10/15/2024 8:40 AM SURGERY ATTENDANT Lab [facility] OP Lab [address] [place] [address] Encounter for Medicare annual wellness exam; Elevated glucose; Screening for thyroid disorder; Need for hepatitis C screening test; Screening for prostate cancer 10/15/2024 7:30 AM SURGERY ATTENDANT Office Visit [facility] Family Medicine [address] [phone] Zoraida Franco MD Encounter for Medicare annual [...] test; Screening for thyroid disorder 09/30/[address] [facility] Family Medicine [address] [place] [phone] Zoraida Franco MD Labs Only from Last 3 Months Immunizations Name Administration Dates Next Due Influenza, [...] PCV 13 02/27/2022 TD Preservative Free 11/27/2023 Surgical History Surgery Date Site/Laterality Comments LAPAROSCOPIC CHOLECYSTECTOMY TONSILLECTOMY TYMPANOSTOMY TUBE PLACEMENT CATARACT EXTRACTION 11/2001 Medical History Medical History Date Comments Down syndrome History of laparoscopic cholecystectomy Covid-19 08/2020 Family History Medical History Relation Name Comments Coronary artery disease Father covid Father Thyroid cancer Mother heart issue s Mother Breast cancer Other Lymphoma Other Relation Name Status Comments Father (Age 64) COVID Maternal Grandfather Maternal Grandmother Alive Mother Alive Other Paternal Grandfather Paternal Grandmother Sister Alive Social History Tobacco Use Types Packs/Day Years [...] on file Legal Sex Male 7:51 PM SURGERY ATTENDANT Gender Identity Not on file Sexual Orientation Not on file Occupation Industry Job Start Date Job End Date Disabled Not on file Not on file Not on file Obstetrics History Last Filed Vital Signs Vital Sign Reading Time Taken Comments Blood Pressure 118/72 10/15/2024 7:21 AM SURGERY ATTENDANT Pulse 88 10/15/2024 7:21 AM SURGERY ATTENDANT Temperature 36.6 ??C (97.9 ??F) 10/15/2024 7:21 AM CS T Respiratory Rate 16 10/15/2024 7:21 AM SURGERY ATTENDANT Oxygen Saturation 98% 10/15/2024 7:21 AM SURGERY ATTENDANT Inhaled Oxygen Concentration - - Weight 71.8 kg (158 lb 4.8 oz) 10/15/2024 7:21 A M SURGERY ATTENDANT Height 153.7 cm (5' 0.5 ) 10/15/2024 7:21 AM SURGERY ATTENDANT Body Mass Index 30.41 10/15/2024 7:21 AM SURGERY ATTENDANT Plan of Treatment Health Maintenance Due Date Last Done Comments Hepatitis B Screening 1995 DTaP/Tdap/Td Vaccine (1 - Tdap) 11/28/2023 11/27/2023 Covid-19 Vaccine ( season) 2024 12/09/2023, 02/06/2021, 01/10/2021 Colon Cancer Screening-DNA Stool 08/30/2025 08/30/2022 Depression Screening 10/15/2025 10/15/2024, 10/15/2024, 05/29/2024, Additional history exists Regular Well Visit/Exam 18-64 10/15/2025 10/15/2024, 10/15/2023, 10/15/2023, Additional history exists Pneumococcal vaccine <65 Aged Out 02/27/2022 No longer eligible based on patient's age to complete this topic Influenza Vaccine Completed 09/11/2024, , 08/27/2022, Additional history exists Hepatitis C Screening Completed 10/15/2024 Procedures Procedure Name Priority Date/Time Associated Diagnosis Comments TRANSTHORACIC ECHO (TTE) LIMITED/FOLLOW UP W LTD DOPPLER/CF WO CONTRAST Routine 11/17/2024 2:31 PM SURGERY ATTENDANT VSD (ventricular septal defect) PSA SCREEN Routine 10/15/2024 8:46 AM SURGERY ATTENDANT Screening for prostate cancer HEMOGLOBIN A1C Routine 10/15/2024 8:46 AM SURGERY ATTENDANT Encounter for Medicare annual wellness exam Elevated glucose LIPID PANEL Routine 10/15/2024 8:46 AM SURGERY ATTENDANT Encounter for Medicare annual wellness exam Elevated glucose Screening for thyroid disorder THYROID FUNCTION CASCADE Routine 10/15/2024 8:46 AM SURGERY ATTENDANT Encounter for Medicare annual wellness exam Elevated glucose HEPATITIS C ANTIBODY Routine 10/15/2024 8:46 AM SURGERY ATTENDANT Need for hepatitis C screening test COMPREHENSIVE METABOLIC PANEL Routine 10/05/2024 7:17 AM SURGERY ATTENDANT Screening for diabetes mellitus STOOL DNA ? COLOGUARD Routine 08/30/2022 12:55 PM CDT Colon cancer screening from Last 3 Months or Most Recently Relevant to Health Maintenance Results * TRANSTHORACIC ECHO (TTE) LIMITED/FOLLOW UP W LTD DOPPLER/CF WO CONTRAST (11/17/2024 2:31 PM SURGERY ATTENDANT) Anatomical Region Laterality Modality Ultrasound 11/17/2024 2:00 PM SURGERY ATTENDANT Narrative 11/23/2024 8:17 AM SURGERY ATTENDANT ? Adult Echocardiogram + ----- ---+ :Name: HAL FERNANDO ?Study Date: 11/17/2024 ?Status: MHE ?: : ?Patient Location: [facility] CARD^^^EHeijarodt: 60 in ?: : ?Weight: 158 lbBP: 118/72 mmHg: :: 1975 ? Gender: Male ?BSA: 1.7 m2 ?: :Reason For Study: Ventricular Septal Defect ?: :Ordering Physician: ?: :ZORAIDA FRANCO ? : :Referring Physician: ? : :ZORAIDA FRANCO ? : :Performed By: Tena ? : [...] Date: 11/17/2024 Status: E: : Patient Location: [facility] CARD^^^MHEHeight: 60 in: : Weight: 158lbBP: 118/72 [...] ECHO PROCEDURES Final Result * Thyroid Function [place] (10/15/2024 8:46 AM SURGERY ATTENDANT) Pathologist [facility] TSH 4.08 0.30 - 4.20 mcIUnit/mL Comment:Testing performed by : [facility], [address] [place] [address]., [id number] Blood 10/15/2024 8:46 AM SURGERY ATTENDANT 10/15/2024 12:25 PM SURGERY ATTENDANT us Zoraida Franco MD LAB BLOOD ORDERABLE S Final Result Performing Organization Address City/State/[facility] Co de Phone Number KENDRAUHZ [address] [facility] Department [place] [address] * PSA screen (10/15/2024 8:46 AM SURGERY ATTENDANT) Pathologist [facility] PSA-Total 0.26 ng/mL Comment: Interpretive Data ?AGE [...] revised 24. Testing performed by: [facility], [address] [place] [address]., [id number] Blood 10/15/2024 8:4 6 AM SURGERY ATTENDANT 10/15/2024 12:25 PM SURGERY ATTENDANT Zoraida Franco MD LAB BLOOD ORDERABLE S Final Result Performing Organization Address [facility] Co de Phone Number ANALIA [address] [place] [address] * Hepatitis C antibody Blood (10/15/2024 8:46 AM SURGERY ATTENDANT) Pathologist [facility] Hep C Ab Nonreactive Nonreactive Comment: Antibodies [...] revised on 2020. Blood 10/15/2024 8:46 AM SURGERY ATTENDANT 10/15/2024 2:28 PM SURGERY ATTENDANT Zoraida Franco MD LAB MICROBIOLOGY - GENERAL ORDERABLES Final Result Performing Organization Address [facility] Co de Phone Number [place] [address] [place] [address] * (ABNORMAL) Hemoglobin A1c (10/15/2024 8:46 AM SURGERY ATTENDANT) [facility] Hgb A1C 5.7(H) 4.0 - 5.6 % Comment:Testing performed by : [facility], [address] [place] [address]., [id number] Estimated Average Glucose 117 mg/dL ANALIA Comment: The ADA recommends reporting an estimated Average Glucose (eAG) with all Hemoglobin A1c results using the equation derived from a study of 507 normal and diabetic adults. ??Minority populations were underrepresented and children were not included. ?? (Diabetes Care 31:0874-1387, 2008). ??The eAG is not equivalent to a fasting glucose. Testing performed by: [facility], [address] [place] [address]., [id number] Blood 10/15/2024 8:46 AM SURGERY ATTENDANT 10/15/2024 12:21 PM SURGERY ATTENDANT us Zoraida Franco MD LAB BLOOD ORDERABLE S Final Result ANALIA [address] [facility] Department [place] [address] * Lipid panel (10/15/2024 8:46 AM SURGERY ATTENDANT) Cholesterol 171 30 - 199 mg/dL Comment: [...] last revised on 2018. Testing performed by: [facility], [address] [place] [address]., [id number] Triglycerides 47 <=149 mg/dL ANALIA Comment: Interpretive [...] last revised on 2018. Testing performed by: [address] [address] HDL 79 >=40 mg/dL ANALIA Comment: Interpretive [...] last revised on 2018. Testing performed by: [address] [address] LDL, calculated 82 <=129 mg/dL ANALIA Comment: [...] 3. Zaire Blount et al. RAYMON Cardiol. 2019April 01;5(5):540-548. doi: [email or web address] Current Interpretive Data was last revised on 2024. Testing performed by: [address] [address] Non-HDL Cholesterol 92 mg/dL ANALIA DODD Comment: [...] last revised on 2018. Testing performed by: [address] [address] Chol/HDL ratio 2 ANALIA DODD Comment:Testing performed by : [address] [address] Blood 10/15/2024 8:46 AM SURGERY ATTENDANT 10/15/2024 12:25 PM SURGERY ATTENDANT us Zoraida Franco MD LAB BLOOD ORDERABLE S Final Result ANALIA [address] [facility] Department [place] [address] * (ABNORMAL) Comprehensive metabolic panel (10/05/2024 7:17 AM SURGERY ATTENDANT) Pathologist [facility] Glucose 102(H) 65 - 99 mg/dL [facility] BUN/creat ratio SEE NOTE: 6 (calc) [facility] Comment: ?? Not [...] [facility] Blood 10/05/2024 7:17 AM SURGERY ATTENDANT 10/05/2024 7:19 AM SURGERY ATTENDANT Narrative [facility] - 10/06/2024 5:26 AM SURGERY ATTENDANT FASTING:YES PATIENT REFUSED SOME TESTING; PATIENT ENCOURAGED TO RETURN. FASTING: YES us Zoraida Franco MD LAB BLOOD ORDERABLE S Final Result [facility] [address] [place] [id number] * Stool DNA - Cologuard (08/30/2022 12:55 PM CDT) Stool DNA - Cologuard Negative Negative [facility] (CLIA #:[id number]) Comment: NEGATIVE TEST RESULT. A negative Cologuard [...] screened with both Cologuard and colonoscopy. (Ignacia T. et al, N Engl J Med 2014;370(14):1286- 1297) The normal value (reference range) for this assay is negative. COLOGUARD RE-SCREENING RECOMMENDATION: Periodic colorectal cancer screening is an important part of preventive healthcare for asymptomatic individuals at average risk for colorectal cancer. ??Following a negative Cologuard result, the [place] Cancer Society and U.S. Multi-Society Task Force screening guidelines recommend a Cologuard re-screening interval of 3 years. References: [place] [employer] Guideline for Colorectal Cancer Screening: https://www.cancer.org/cancer/xtfpf-rnpbum-nzfjpp/ltfgormlh-xkqdpnkvj-yoikeis/ac s-rec ommendations.html.; Nicolas CALDERON, Kylah QUINONEZ, Madhu TerrazasK, Colorectal Cancer Screening: Recommendations for Physicians and Patients from the U.S. Multi-Society Task Force on Colorectal Cancer Screening , Am J Gastroenterology 2017; 112:6034-7977. TEST DESCRIPTION: Composite algorithmic analysis of stool [...] screened with both Cologuard and colonoscopy. (Ignacia Ruano. et al, N Engl J Med 2014;370(14):7048-2594.) Cologuard may produce a false negative or false positive result (no colorectal cancer or precancerous polyp present at colonoscopy follow up). A negative Cologuard test result does not guarantee the absence of CRC or advanced adenoma (pre-cancer). The current Cologuard screening interval is every 3 years. ([place] Cancer Society and U.S. Multi-Society Task Force). Cologuard performance data in a 10,000 patient pivotal study using colonoscopy as the reference method can be accessed at the following location: www.[employer]/results. Additional description of the Cologuard test process, warnings and precautions can be found at www.[employer].com. Stool 08/30/2022 12:5 5 PM CDT 08/31/2022 12:25 PM CDT us Zoraida Franco MD LAB BODY FLUIDS AND STOOLS ORDERABLES Final Result [employer] (CLIA #:[id number]) [place] [place] [address] from Last 3 Months or Most Recently Relevant to Health Maintenance Insurance MEDICARE [facility] MEDICARE [facility] MEDICARE [employer] Care Teams Nuclear Radiologist Relationship Specialty Start Date End Date Zoraida Franco MD [address] [place] [address] PCP - General Family Medicine 06/20/21
--- OUTSIDE RECORDS SUMMARY | 2024-11-30 06:07 | XMS_ITS | Encounter Summary ---
Author Organization [facility] Healthcare Address [address] [place] [address] Care Team Providers Care Animal Control Supervisor Name Role Phone Zoraida Franco MD Primary Care Provi selvin Reason for Visit * Reason Onset Date Comments Symptom Based Call 06/05/2024 Encounter Details Date Type Department Care Team (Late st Contact Info) Description 06/05/2024 Telephone [facility] Family Medicine [address] [phone] Zoraida Franco MD [address] [place] [phone] Symptom Based Call Social History Tobacco Use Types Packs/Day Years Used Date Smoking Tobacco: Never Smokeless Tobacco: Never Alcohol Use Standard Drinks/Week Comments Not Currently 0 (1 standard drink = 0.6 oz pur e alcohol) AUDIT-C Answer Date Recorded Q1: How often do you have a drink containing alcohol? Never 12/25/2023 Q2: How many drinks containi ng alcohol do you have on a typical day when you are drinking? Patient does not drink Q3: How often do you have si x or more drinks on one occasion? 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 21 tablet 06/05/2024 4 azithromycin (ZITHROMAX) 250 mg tablet Take 2 tabs (500 mg) by mouth today, than 1 tab (250 mg) daily for 4 days. 6 tablet 06/05/2024 4 documented in this encounter Miscellaneous Notes * Telephone Encounter - Teresa Guerrero LPN - 06/05/2024 2:07 PM CDT Pt mom jimmy * Addendum Note - Nina Phan PA - 06/05/2024 12:57 PM CDTAddended by: NINA PHAN on: 06/05/2024 12:57 PM Modules accepted: Orders * Telephone Encounter - Teresa Guerrero LPN - 06/05/2024 12:55 PM CDT Patient mom jimmy, she is wondering if you think prednisone would be beneficial as well? * Telephone Encounter - Milka March - 06/05/2024 11:50 AM CDT Symptom Based Call Chief Complaint(s): still coughing and congested Duration: 05/29 What type of symptom(s) is the patient experiencing? Non-Emergent. Is this a new or reoccurring symptom(s)? New What have you tried to help your symptom(s)? N/a Why was appointment not scheduled? Requesting advice from clinical steam fitter. Additional Comments: pt was advised no antibiotics needed during visit and to call back if still having symptoms and he can get medication// pt leaving for camp tomorrow please send to [id number] - [place] - [address] Does message need to be routed? Yes-Action Needed documented in this encounter Plan of Treatment Not on file documented as of this encounter Visit Diagnoses Not on filedocumented in this encounter Care Teams Animal Control Supervisor Relationship Specialty Start Date End Date Zoraida Franco MD [address] [place] [address] PCP - General Family Medicine 06/20/21 documented as of this encounter
--- OUTSIDE RECORDS SUMMARY | 2024-11-30 06:07 | XMS_ITS | Encounter Summary ---
Author Organization [facility] Healthcare Address [address] [place] [address] Care Team Providers Care Corner Block Cutter Name Role Phone Zoraida Franco MD Primary Care Provi selvin Encounter Details Date Type Department Care Team (Late st Contact Info) Description 08/18/2024 Letter (Out) 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
--- OUTSIDE RECORDS SUMMARY | 2024-11-30 06:07 | XMS_ITS | Clinical Summary ---
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 Gender Identity Not on file Sexual Orientation Not on file Plan of Treatment Health Maintenance Due Date Last Done Comments Hepatitis C Virus (HCV) Screening 1975 TdaP Immunization 1975 Hepatitis B Immunization (1 of 3 - 19+ 3-dose series) 1996 Colonoscopy 2022 Colorectal Cancer Screening 2022 SARS-COV-2 Immunization (2022- season) 2023 02/06/2021, 01/14/2021 Influenza Immunization (Seas on Ended) 2024 09/18/2021, 09/22/2020, 11/03/2014 Meningococcal Immunization (ACWY) Aged Out No longer eligible b ased on patient's age to complete this topic Pneumococcal Immunization Combined Aged Out No longer eligible b ased on patient's age to complete this topic Rotavirus Immunization Aged Out No lo nger eligible based on patient's age to complete this topic
--- OUTSIDE RECORDS SUMMARY | 2024-11-30 06:07 | XMS_ITS | Encounter Summary ---
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
--- OUTSIDE RECORDS SUMMARY | 2024-11-30 06:07 | XMS_ITS | Encounter Summary ---
Author Organization [facility] Healthcare Address [address] [place] [address] Care Team Providers Care Refractory Repairer Name Role Phone Zoraida Franco MD Primary Care Provi selvin Reason for Visit * Reason Onset Date Comments Labs Only 09/30/2024 Encounter Details Date Type Department Care Team (Late st Contact Info) Description 09/30/2024 Telephone [facility] Medical Group Family Medicine [address] [phone] Zoraida Franco MD [address] [place] [address] Labs Only Social History Tobacco Use Types Packs/Day Years [...] on file Legal Sex Male 7:51 PM E COMMERCE DEVELOPER Gender Identity Not on file Sexual Orientation Not on file Occupation Industry Job Start Date Job End Date Disabled Not on file Not on file Not on file documented as of this encounter Miscellaneous Notes * Addendum Note - Lyly Webster LPN - 10/01/2024 3:28 PM CDTAddended by: LYLY WEBSTER on: 10/01/2024 03:28 PM Modules accepted: Orders * Telephone Encounter - Lyly Webster LPN - 10/01/2024 3:27 PM CDT Labs ordered, pt's mother informed to fast for 8 hours prior. * Telephone Encounter - Lyly Webster LPN - 09/30/2024 11:08 AM CDT Please advise on labs, thank you. * Telephone Encounter - Sera Sanders - 09/30/2024 8:52 AM CDT Pt is scheduled in Oct for his annual. Pts mother would like labs done prior to the appt. Pt uses [facility] [phone] Thanks mitesh documented in this encounter Plan of Treatment Scheduled Orders Name Type Priority Associated Diagnoses Orde r Schedule CBC with auto differential Lab Routine Screening for deficiency anemia Expected: 10/01/2024, Expires: 10/01/2025 documented as of this encounter Procedures Procedure Name Priority Date/Time Associated Diagnosis Comments COMPREHENSIVE METABOLIC PANEL Routine 10/05/2024 7:17 AM E COMMERCE DEVELOPER Screening for diabetes mellitus documented in this encounter Results * (ABNORMAL) Comprehensive metabolic panel (10/05/2024 7:17 AM E COMMERCE DEVELOPER) [facility] Glucose 102(H) 65 - 99 mg/dL [facility] [...] [facility] BUN/creat ratio SEE NOTE: (calc) [facility] Comment: ?? Not [...] [facility] Blood 10/05/2024 7:17 AM E COMMERCE DEVELOPER 10/05/2024 7:19 AM E COMMERCE DEVELOPER Narrative [facility] - 10/06/2024 5:26 AM E COMMERCE DEVELOPER FASTING:YES PATIENT REFUSED SOME TESTING; PATIENT ENCOURAGED TO RETURN. FASTING: YES us Zoraida Baylee Szalkowski MD LAB BLOOD ORDERABLE S Final Result [facility] [address] [place] [address] documented in this encounter Visit Diagnoses Diagnosis Screening for diabetes mellitus- Primary Screening for deficiency anemia Screening for other and unspecified deficiency anemia Screening, lipid Screening for thyroid disorder Screening for prostate cancer Special screening for malignant neoplasm of prostate documented in this encounter Care Teams Refractory Repairer Relationship Specialty Start Date End Date Zoraida Franco MD [address] [place] [address] PCP - General Family Medicine 06/20/21 documented as of this encounter
--- OUTSIDE RECORDS SUMMARY | 2024-11-30 06:07 | XMS_ITS | Encounter Summary ---
Author Organization [facility] Healthcare Address [address] [place] [address] Care Team Providers Care Wire Products Inspector Name Role Phone Zoraida Franco MD Primary Care Provi selvin Encounter Details Date Type Department Care Team (Late st Contact Info) Description 10/15/2024 8:40 AM HISTOLOGIC TECHNICIAN Lab [facility] OP Lab [address] [place] [address] Encounter for Medicare annual wellness exam; Elevated glucose; Screening for thyroid disorder; Need for hepatitis C screening test; Screening for prostate cancer Social History Tobacco Use Types Packs/Day Years [...] on file Legal Sex Male 7:51 PM HISTOLOGIC TECHNICIAN Gender Identity Not on file Sexual Orientation Not on file Occupation Industry Job Start Date Job End Date Disabled Not on file Not on file Not on file documented as of this encounter Plan of Treatment Not on file documented as of this encounter Procedures Procedure Name Priority Date/Time Associated Diagnosis Comments THYROID FUNCTION CASCADE Routine 10/15/2024 8:46 AM HISTOLOGIC TECHNICIAN Encounter for Medicare annual wellness exam Elevated glucose PSA SCREEN Routine 10/15/2024 8:46 AM HISTOLOGIC TECHNICIAN Screening for prostate cancer HEPATITIS C ANTIBODY Routine 10/15/2024 8:46 AM HISTOLOGIC TECHNICIAN Need for hepatitis C screening test HEMOGLOBIN A1C Routine 10/15/2024 8:46 AM HISTOLOGIC TECHNICIAN Encounter for Medicare annual wellness exam Elevated glucose LIPID PANEL Routine 10/15/2024 8:46 AM HISTOLOGIC TECHNICIAN Encounter for Medicare annual wellness exam Elevated glucose Screening for thyroid disorder documented in this encounter Results * PSA screen (10/15/2024 8:46 AM HISTOLOGIC TECHNICIAN) PSA-Total 0.26 ng/mL Comment: Interpretive Data ?AGE [...] data last revised 22. Testing performed by: [facility], [address] [place] [address]., [id number] Blood 10/15/2024 8:46 AM HISTOLOGIC TECHNICIAN 10/15/2024 12:25 PM HISTOLOGIC TECHNICIAN Zoraida Franco MD LAB BLOOD ORDERABLE S Final Result Performing Organization Address [facility] Co de Phone Number [facility] [address] [place] [address] * Hepatitis C antibody Blood (10/15/2024 8:46 AM HISTOLOGIC TECHNICIAN) Pathologist [facility] Hep C Ab Nonreactive Nonreactive Comment: Antibodies [...] revised on 2020. Blood 10/15/2024 8:46 AM HISTOLOGIC TECHNICIAN 10/15/2024 2:28 PM HISTOLOGIC TECHNICIAN Zoraida Franco MD LAB MICROBIOLOGY - GENERAL ORDERABLES Final Result Performing Organization Address [facility] Co de Phone Number [place] [phone] [place] [address] * (ABNORMAL) Hemoglobin A1c (10/15/2024 8:46 AM HISTOLOGIC TECHNICIAN) Hgb A1C 5.7(H) 4.0 - 5.6 % Comment:Testing performed by : [facility], [address] [place] [address]., [address] Estimated Average Glucose 117 mg/dL [facility] Comment: The ADA recommends reporting an estimated Average Glucose (eAG) with all Hemoglobin A1c results using the equation derived from a study of 507 normal and diabetic adults. ??Minority populations were underrepresented and children were not included. ?? (Diabetes Care 31:2453-3741, 2008). ??The eAG is not equivalent to a fasting glucose. Testing performed by: [address] [address] Blood 10/15/2024 8:46 AM HISTOLOGIC TECHNICIAN 10/15/2024 12:21 PM HISTOLOGIC TECHNICIAN us Zoraida Franco MD LAB BLOOD ORDERABLE S Final Result [facility] [address] [facility] Department [place] [address] * Lipid panel (10/15/2024 8:46 AM HISTOLOGIC TECHNICIAN) Cholesterol 171 30 - 199 mg/dL Comment: [...] revised on 2018. Testing performed by: [facility], [address] [place] [address]., [address] Triglycerides 47 <=149 mg/dL [facility] DODD Comment: [...] last revised on 2018. Testing performed by: [address] [address] HDL 79 >=40 mg/dL [facility] Comment: Interpretive [...] last revised on 2018. Testing performed by: [address] [address] LDL, calculated 82 <=129 mg/dL [facility] Comment: [...] last revised on 2024. Testing performed by: [address] [address] Non-HDL Cholesterol 92 mg/dL [facility] DODD Comment: [...] last revised on 2018. Testing performed by: [address] [address] Chol/HDL ratio 2 [facility] DODD Comment:Testing performed by : [address] [address] Blood 10/15/2024 8:46 AM HISTOLOGIC TECHNICIAN 10/15/2024 12:25 PM HISTOLOGIC TECHNICIAN us Zoraida Franco MD LAB BLOOD ORDERABLE S Final Result [facility] [address] [facility] Department [place] [address] * Thyroid Function [place] (10/15/2024 8:46 AM HISTOLOGIC TECHNICIAN) TSH 4.08 0.30 - 4.20 mcIUnit/mL Comment:Testing performed by : [facility], [address] [place] [address], [place]., [address] Blood 10/15/2024 8:46 AM HISTOLOGIC TECHNICIAN 10/15/2024 12:25 PM HISTOLOGIC TECHNICIAN us Zoraida Franco MD LAB BLOOD ORDERABLE S Final Result [facility] [address] [facility] Department of Laboratories [place], [place] [id number] documented in this encounter Visit Diagnoses Diagnosis Encounter for Medicare annual wellness exam Elevated glucose Other abnormal glucose Screening for thyroid disorder Need for hepatitis C screening test Special screening examination for other specified viral diseases Screening for prostate cancer Special screening for malignant neoplasm of prostate documented in this encounter Care Teams Wire Products Inspector Relationship Specialty Start Date End Date Zoraida Franco MD [address] [place] [address] PCP - General Family Medicine 06/20/21 documented as of this encounter
--- OUTSIDE RECORDS SUMMARY | 2024-11-30 06:07 | XMS_ITS | Encounter Summary ---
Author Organization [facility] Address [address] [place] [address] Care Team Providers Care Environmental Management Specialist Name Role Phone Unavailable Primary Care Provider Unavailabl e Encounter Details Date Type Department Care Team (Late st Contact Info) Description 11/30/2021 1:45 PM ECONOMIC RESEARCH ANALYST Rapid Evaluation [place] [facility] Community Testing [address] [address] Social History Tobacco Use Types Packs/Day Years Used Date Smoking Tobacco: Never Assessed Sex and Gender Information Value Date Recorded Sex Assigned at Not on file Legal Sex Male 12:22 PM ECONOMIC RESEARCH ANALYST Gender Identity Not on file Sexual Orientation Not on file documented as of this encounter Plan of Treatment Not on file documented as of this encounter Visit Diagnoses Not on filedocumented in this encounter
--- OUTSIDE RECORDS SUMMARY | 2024-11-30 06:07 | XMS_ITS | Encounter Summary ---
Author Organization [facility] Healthcare Address [address] [place] [address] Care Team Providers Care First Coat Sander Name Role Phone Zoraida Franco MD Primary Care Provi selvin Reason for Referral * Consultation (Routine) - Closed Specialty Diagnoses / Procedures Referred By Porfirio dodson Referred To Contact Diagnoses Chronic rhinitis Yudi Suggs PA [address] [place] [address] Phone: tel: fax: External Order Referral ID Status Reason Start Date Expiration Date V isits Requested Visits Authorized [id number] Closed Specialty Services Required 08/18/2024 09/17/2025 1 1 Question Answer Please select the performing region: External Order [171] # of visits: 1 Comments [facility] [place], [place] location Chronic rhinitis, suspected allergies * Consultation (Routine) - Closed Specialty Diagnoses / Procedures Referred By Porfirio dodson Referred To Contact Otolaryngology Diagnoses Chronic rhinitis Yudi Suggs PA [address] [place] [address] Phone: tel: fax: Francisco Young MD [address] [place] [address] Phone: tel: fax: Referral ID Status Reason Start Date Expiration Date V isits Requested Visits Authorized [id number] Closed Specialty Services Required 08/18/2024 09/17/2025 6 6 Question Answer Please select the performing region: External Order [171] To provider: FRANCISCO YOUNG [[id number]] # of visits: 6 Comments [place], [place] office location Chronic rhinitis Reason for Visit * Reason Comments Runny Nose Since June- patient is taking claritan, flonase, sudafed daily Encounter Details Date Type Department Care Team (Late st Contact Info) Description 08/18/2024 9:00 AM CDT Office Visit [facility] Medical Group Family Medicine [address] [phone] Yudi Suggs PA [address] [address] Chronic rhinitis (Primary Dx) Social History Tobacco Use Types Packs/Day Years [...] on file 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 Gender Identity Not on file Sexual Orientation Not on file Occupation Industry Job Start Date Job End Date Disabled Not on file Not on file Not on file documented as of this encounter Last Filed Vital Signs Vital Sign Reading Time Taken Comments Blood Pressure 94/62 08/18/2024 8:53 AM CDT Pulse 84 08/18/2024 8:53 AM CDT Temperature 36.2 ??C (97.2 ??F) 08/18/2024 8:53 AM CD T Respiratory Rate 18 08/18/2024 8:53 AM CDT Oxygen Saturation 97% 08/18/2024 8:53 AM CDT Inhaled Oxygen Concentration - - Weight 73 kg (161 lb) 08/18/2024 8:53 AM CDT Height 153.7 cm (5' 0.51 ) 08/18/2024 8:53 AM CD T Body Mass Index 30.91 08/18/2024 8:53 AM CDT documented in this encounter Ordered Prescriptions Prescription Sig Dispense Quantity Refills Last Filled Start Date End Date azelastine (ASTELIN) 137 mcg (0.1 %) nasal sprayIndications:C hronic rhinitis Administer 1 spray into each nostril 2 (two) times a day Use in each nostril as directed 30 mL 1 08/18/2024 4 fluticasone propionate (FLONASE) 50 mcg/actuation nasal sprayIndications:C hronic rhinitis Administer 2 sprays into each nostril daily 16 g 1 08/18/2024 4 documented in this encounter Progress Notes * Yudi Suggs PA - 08/18/2024 9:00 AM CDT Images from the original note were not included. Subjective/Objective Patient ID: Armin Rico is a 49 y.o. male. Chief Complaint Chief Complaint Patient presents with Runny Nose Since June- patient is taking claritan, flonase, sudafed daily HPI Patient presents today accompanied by mom for evaluation of chronic rhinorrhea. Mom states symptomshave been ongoing since June. He takes Claritin daily, this was switched from Zyrtec awhile back asZyrtec was not helping. No apparent improvement since switching to Claritin.) She started him on Flonase 3 weeks ago. Has also been taking Sudafed as needed. These medications improve his symptoms, but symptoms are still persisting. Rhinorrhea is always clear. No fevers. No known allergies. Review of Systems Constitutional: Negative for chills and fever. HENT: Positive for rhinorrhea and sneezing (once a day sneezing episoes). Negative for congestion, ear pain, postnasal drip and sore throat. Respiratory: Negative for cough, shortness of breath and wheezing. Neurological: Positive for headaches (occasional). BP 94/62 (BP Location: Left arm, Patient Position: Sitting) Pulse 84 Temp 36.2 ??C (97.2 ??F) (Temporal) Resp 18 Ht 153.7 cm (5' 0.51 ) Wt 73 kg (161 lb) SpO2 97% BMI 30.91 kg/m?? Physical Exam Vitals and nursing note reviewed. Constitutional: Appearance: He is well-developed. HENT: Head: Normocephalic and atraumatic. Right Ear: Hearing, tympanic membrane, ear canal and external ear normal. Left Ear: Hearing, tympanic membrane, ear canal and external ear normal. Nose: Rhinorrhea present. Rhinorrhea is clear. Mouth/Throat: Mouth: Mucous membranes are moist. Pharynx: Oropharynx is clear. No oropharyngeal exudate or posterior oropharyngeal erythema. Eyes: Extraocular Movements: Extraocular movements intact. Conjunctiva/sclera: Conjunctivae normal. Cardiovascular: Rate and Rhythm: Normal rate and regular rhythm. Heart sounds: Normal heart sounds. No murmur heard. Pulmonary: Effort: Pulmonary effort is normal. No respiratory distress. Breath sounds: Normal breath sounds. No decreased breath sounds, wheezing, rhonchi or rales. Skin: General: Skin is warm and dry. Neurological: Mental Status: He is alert and oriented to person, place, and time. Psychiatric: Behavior: Behavior normal. Assessment/Plan Diagnoses and all orders for this visit: Chronic rhinitis (Primary) - fluticasone propionate (FLONASE) 50 mcg/actuation nasal spray; Administer 2 sprays into each nostril daily - azelastine (ASTELIN) 137 mcg (0.1 %) nasal spray; Administer 1 spray into each nostril 2 (two) times a day Use in each nostril as directed - Ambulatory referral to ENT; Future - Ambulatory referral to Allergy and Immunology; Future Suspect allergies. Patient has tried both Claritin and Zyrtec without improvement, try switching to Ivanna. If still no improvement after 1 month then try Xyzal. Continue Flonase daily and add Astelin. Will refer patient to an design and sales consultant for allergy testing. Will also refer to ENT for evaluation and to rule out any other cause of chronic rhinitis. Mom in agreement with this plan. All questions answered. documented in this encounter Plan of Treatment Scheduled Referrals Name Type Priority Associated Diagnoses Order Schedule Ambulatory referral to ENT Outpatient Referral Routine Chronic rhinitis Expected: 09/01/2024 (Approximate), Expires: 08/18/2025 Ambulatory referral to Allergy and Immunology Outpatient Referral Routine Chronic rhinitis Expected: 09/01/2024 (Approximate), Expires: 08/18/2025 documented as of this encounter Visit Diagnoses Diagnosis Chronic rhinitis- Primary documented in this encounter Discontinued Medications Medication Sig Discontinue Reason Start Date End Da te fluticasone propionate (FLONASE) 50 mcg/actuation nasal sprayIndications:Acute non-recurrent pansinusitis SHAKE LIQUID AND USE 2 SPRAYS IN EACH NOSTRIL DAILY Reorder 03/19/2022 08/18/2024 documented as of this encounter Care Teams First Coat Sander Relationship Specialty Start Date End Date Zoraida Franco MD [facility] [address] [place] [address] PCP - General Family Medicine 06/20/21 documented as of this encounter
--- OUTSIDE RECORDS SUMMARY | 2024-11-30 06:07 | XMS_ITS | Encounter Summary ---
Author Organization [facility] Healthcare Address [address] [place] [address] Care Team Providers Care Veterinary X Ray Operator Name Role Phone Zoraida Franco MD Primary Care Provi selvin Reason for Visit * Reason Comments Cough Patient arrives with Head congestion and a cough x 2 days. 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 Gender Identity Not on file Sexual Orientation Not on file Occupation Industry Job Start Date Job End Date Disabled Not on file Not on file Not on file documented as of this encounter Last Filed Vital Signs Vital Sign Reading Time Taken Comments Blood Pressure 98/52 05/29/2024 11:03 AM CDT Pulse 75 05/29/2024 11:03 AM CDT Temperature 36.1 ??C (96.9 ??F) 05/29/2024 1 1:03 AM CDT Respiratory Rate 16 05/29/2024 11:0 3 AM CDT Oxygen Saturation 96% 05/29/2024 11: 03 AM CDT Inhaled Oxygen Concentration - - Weight 72.5 kg (159 lb 12.8 oz) 024 11:03 AM CDT Height 153.7 cm (5' 0.5 ) 05/29/2024 11 :03 AM CDT Body Mass Index 30.7 05/29/2024 11:03 AM CDT documented in this encounter Progress Notes * Nina Phan PA - 05/29/2024 11:00 AM CDT Images from the original note were not included. Subjective/Objective Patient ID: Armin Rico is a 48 y.o. male. Chief Complaint Cough (Patient arrives with Head congestion and a cough x 2 days.) HPI . Length of symptoms: 2 days, Fever/Chills: No Headache: yes, Eye swelling, itching or discharge: No Ear pain: No Nasal discharge, congestion: yes, Facial pain/sinus pressure: yes Sneezing: yes Post nasal drip: No Sore throat: No Cough: yes, Wheezing: No Productive cough: No Medications tried:. Otc meds. Covid test at home negative. Review of Systems Vitals: 05/29/24 1103 BP: 98/52 BP Location: Left arm Patient Position: Sitting Pulse: 75 Resp: 16 Temp: 36.1 ??C (96.9 ??F) TempSrc: Temporal SpO2: 96% Weight: 72.5 kg (159 lb 12.8 oz) Height: 153.7 cm (5' 0.5 ) Physical Exam Vitals and nursing note reviewed. Constitutional: General: He is not in acute distress. Appearance: Normal appearance. He is well-developed. HENT: Head: Normocephalic and atraumatic. Right Ear: Tympanic membrane, ear canal and external ear normal. Left Ear: Tympanic membrane, ear canal and external ear normal. Nose: Rhinorrhea present. Right Sinus: No maxillary sinus tenderness or frontal sinus tenderness. Left Sinus: No maxillary sinus tenderness or frontal sinus tenderness. Mouth/Throat: Mouth: Mucous membranes are moist. Pharynx: No oropharyngeal exudate or posterior oropharyngeal erythema. Eyes: General: Right eye: No discharge. Left eye: No discharge. Conjunctiva/sclera: Conjunctivae normal. Pupils: Pupils are equal, round, and reactive to light. Neck: Thyroid: No thyromegaly. Cardiovascular: Rate and Rhythm: Normal rate and regular rhythm. Heart sounds: Normal heart sounds. No murmur heard. Pulmonary: Effort: Pulmonary effort is normal. No respiratory distress. Breath sounds: Normal breath sounds. No wheezing, rhonchi or rales. Abdominal: General: Bowel sounds are normal. Palpations: Abdomen is soft. There is no mass. Tenderness: There is no abdominal tenderness. There is no guarding or rebound. Musculoskeletal: Cervical back: Neck supple. Lymphadenopathy: Cervical: No cervical adenopathy. Skin: General: Skin is warm and dry. Findings: No rash. Neurological: Mental Status: He is alert and oriented to person, place, and time. Assessment/Plan Diagnoses and all orders for this visit: URI with cough and congestion (Primary) Comments: New issue. Most likely viral. If no improvement in 7 days will consider an antibiotic Actions and side effects of meds discussed Take meds as directed Discussed viral nature of illness, treat symptomatically Increase fluids, rest and handwashing Hot water/hot tea with honey 1 teaspoon of honey every 4 hours for cough (age over than 2) No sharing cups or utensils May use vicks vaporub on chest and feet as needed to help with cough Good hand washing routine Tylenol or OTC NSAIDs for fever, body aches etc Use a humidifier, recommended steam inhalation, hot showers and vapor rub Using medication like guaifenesin can help loosen a cough. Saline/Salt water gargles, saline nose drops prn. Use nasal saline as a decongestant. Be cautious with oral decongestants as they can raise blood pressure and cause jitteriness. Watch for worsening symptoms, i.e.increasing fever, productive cough, WRIGHT, ST, lethargy, rash etc RTC prn or if symptoms worsen/change or don't improve in 3-4 days Pt verbalizes understanding and all questions have been answered If no improvement I will consider prescription for Z-Lew or amoxicillin Return if symptoms worsen or fail to improve. *This note is dictated using Si TV voice recognition software, variances in spelling and vocabulary are possible and unintentional.* JORDAN Gates documented in this encounter Plan of Treatment Not on file documented as of this encounter Visit Diagnoses Diagnosis URI with cough and congestion- Primary documented in this encounter Discontinued Medications Medication Sig Discontinue Reason Start Date End Da te loratadine (CLARITIN) 10 mg tabletIndications:Seasona l allergic rhinitis, unspecified trigger TAKE ONE TABLET BY MOUTH DAILY 10/02/2022 05/29/2024 documented as of this encounter Care Teams Veterinary X Ray Operator Relationship Specialty Start Date End Date Zoraida Franco MD [facility] [address] [place] [address] PCP - General Family Medicine 06/20/21 documented as of this encounter
--- OUTSIDE RECORDS SUMMARY | 2024-11-30 06:08 | XMS_ITS | Encounter Summary ---
Author Organization [facility] Healthcare Address [address] [place] [address] Care Team Providers Care Dining Service Inspector Name Role Phone Zoraida Franco MD Primary Care Provi selvin Encounter Details Date Type Department Care Team (Late st Contact Info) Description 12/25/2023 12:30 PM MOLECULAR TECHNOLOGIST Lab [facility] [place] [facility] [place] [address] Other decreased white blood cell (WBC) count Social History Tobacco Use Types Packs/Day Years [...] points, staff should administer the PHQ-9) 0 11/05/2023 Sex and Gender Information Value Date Recorded Sex Assigned at Not on file 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 Gender Identity Not on file Sexual Orientation Not on file Occupation Industry Job Start Date Job End Date Disabled Not on file Not on file Not on file documented as of this encounter Plan of Treatment Not on file documented as of this encounter Procedures Procedure Name Priority Date/Time Associated Diagnosis Comments DIFFERENTIAL AUTO Routine 12/25/2023 12: 14 PM MOLECULAR TECHNOLOGIST Other decreased white blood cell (WBC) count CBC WITH AUTO DIFFERENTIAL Routine 12/25/2023 12:14 PM MOLECULAR TECHNOLOGIST Other decreased white blood cell (WBC) count documented in this encounter Results * (ABNORMAL) Differential, auto (12/25/2023 12:14 PM MOLECULAR TECHNOLOGIST) Neutrophil abs 1.4(L) 1.5 - 6.5 K/cumm [facility] Comment:Testing performed by : [address] [address] Lymphocyte abs 2.7 0.8 - 3.3 K/cumm [facility] Comment:Testing performed by : [address] [address] Monocyte abs 0.6 0.2 - 0.8 K/cumm [facility] Comment:Testing performed by : [address] [address] Eosinophil abs 0.1 0.0 - 0.5 K/cumm [facility] Comment:Testing performed by : [address] [address] Basophil abs 0.1 0.0 - 0.1 K/cumm [facility] Comment:Testing performed by : [address] [address] Neutrophil pct 28.2 % [facility] Comment: Interpretive Data Percent cell count reference ranges are not reported, since discordance with absolute values may lead to misinterpretation of CBC data. Current Interpretive Data was last revised on 2018. Testing performed by: [address] [address] Imm gran pct 0.4 % [facility] Comment: Interpretive Data Percent cell count reference ranges are not reported, since discordance with absolute values may lead to misinterpretation of CBC data. Current Interpretive Data was last revised on 2018. Testing performed by: [address] [address] Lymphocyte pct 55.9 % [facility] Comment: Interpretive Data Percent cell count reference ranges are not reported, since discordance with absolute values may lead to misinterpretation of CBC data. Current Interpretive Data was last revised on 2018. Testing performed by: [address] [address] Monocyte pct 12.3 % [facility] Comment: Interpretive Data Percent cell count reference ranges are not reported, since discordance with absolute values may lead to misinterpretation of CBC data. Current Interpretive Data was last revised on 2018. Testing performed by: [address] [address] Eosinophil pct 1.2 % [facility] Comment: Interpretive Data Percent cell count reference ranges are not reported, since discordance with absolute values may lead to misinterpretation of CBC data. Current Interpretive Data was last revised on 2018. Testing performed by: [address] [address] Basophil pct 2.0 % [facility] Comment: Interpretive Data Percent cell count reference ranges are not reported, since discordance with absolute values may lead to misinterpretation of CBC data. Current Interpretive Data was last revised on 2018. Testing performed by: [address] [address] Blood 12/25/2023 12:1 4 PM MOLECULAR TECHNOLOGIST 12/25/2023 12:16 PM MOLECULAR TECHNOLOGIST Clemente Hamm DO LAB BLOOD ORDERABLES Final R esult [facility] [address] Department [place] [address] * CBC with auto differential (12/25/2023 12:14 PM MOLECULAR TECHNOLOGIST) WBC 4.9 3.8 - 9.9 K/cumm [facility] Comment:Testing performed by : [address] [address] Hgb 16.4 13.0 - 17.5 g/dL [facility] Comment:Testing performed by : [address] [address] Hct 48.4 38.9 - 50.3 % [facility] Comment:Testing performed by : [address] [address] Plt 291 150 - 400 K/cumm [facility] Comment:Testing performed by : [address] [address] MPV 9.2 9.1 - 12.3 fL [facility] Comment:Testing performed by : [address] [address] RBC 5.14 4.30 - 5.80 M/cumm [facility] Comment:Testing performed by : [address] [address] MCV 94.2 81.3 - 96.4 fL [facility] Comment:Testing performed by : [address] [address] MCH 31.9 27.1 - 33.3 pg [facility] Comment:Testing performed by : [address] [address] MCHC 33.9 32.3 - 35.7 g/dL [facility] Comment:Testing performed by : [address], [address] RDW CV 13.6 11.1 - 14.9 % [facility] Comment:Testing performed by : [address] [address] RDW SD 47.3 35.7 - 48.1 fL [facility] Comment:Testing performed by : [address] [address] Blood 12/25/2023 12:1 4 PM MOLECULAR TECHNOLOGIST 12/25/2023 12:16 PM MOLECULAR TECHNOLOGIST Clemente Hamm DO LAB BLOOD ORDERABLES Final R esult [facility] Department of Laboratories [place], [place] [id number] documented in this encounter Visit Diagnoses Diagnosis Other decreased white blood cell (WBC) count documented in this encounter Care Teams Dining Service Inspector Relationship Specialty Start Date End Date Zoraida Franco MD [address] [place] [address] PCP - General Family Medicine 06/20/21 documented as of this encounter
--- OUTSIDE RECORDS SUMMARY | 2024-11-30 06:08 | XMS_ITS | Encounter Summary ---
Author Organization [facility] Address [address] [facility] [address] [place] [address] Care Team Providers Care Singe Machine Operator Name Role Phone Zoraida Franco MD Primary Care Provi selvin Encounter Details Date Type Department Care Team (Late st Contact Info) Description 08/30/2023 Orders Only [facility] Family Medicine [address] [phone] Zoraida Franco MD [address] [address] Screening, lipid (Primary Dx); Encounter for Medicare annual wellness exam; Screening for diabetes mellitus; Screening for thyroid disorder; Screening for prostate cancer; Other decreased white blood cell (WBC) count Social History Tobacco Use Types Packs/Day Years Used Date Smoking Tobacco: Never Smokeless Tobacco: Never Alcohol Use Standard Drinks/Week Comments Not Currently 0 (1 standard drink = 0.6 oz pur e alcohol) AUDIT-C Answer Date Recorded Q1: How often do you have a drink containing alc ohol? 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 Gender Identity Not on file Sexual Orientation Not on file Occupation Industry Job Start Date Job End Date Disabled Not on file Not on file Not on file documented as of this encounter Plan of Treatment Scheduled Orders Name Type Priority Associated Diagnoses Orde r Schedule PSA screen Lab Routine Encounter for Medicare annual wellness exam Screening for prostate cancer Expected: 08/30/2023, Expires: 08/30/2024 Lipid panel Lab Routine Screening, lipid Encounter for Medicare annual wellness exam Expected: 08/30/2023, Expires: 08/30/2024 CBC with auto differential Lab Routine Encounter for Medicare annual wellness exam Other decreased white blood cell (WBC) count Expected: 08/30/2023, Expires: 08/30/2024 TSH reflex to free T4 Lab Routine Encounter for Medicare annual wellness exam Screening for thyroid disorder Expected: 08/30/2023, Expires: 08/30/2024 Comprehensive metabolic panel Lab Routine Encounter for Medicare annual wellness exam Screening for diabetes mellitus Expected: 08/30/2023, Expires: 08/30/2024 documented as of this encounter Visit Diagnoses Diagnosis Screening, lipid- Primary Encounter for Medicare annual wellness exam Screening for diabetes mellitus Screening for thyroid disorder Screening for prostate cancer Special screening for malignant neoplasm of prostate Other decreased white blood cell (WBC) count documented in this encounter Care Teams Singe Machine Operator Relationship Specialty Start Date End Date Zoraida Franco MD [address] [place] [address] PCP - General Family Medicine 06/20/21 documented as of this encounter
--- OUTSIDE RECORDS SUMMARY | 2024-11-30 06:08 | XMS_ITS | Encounter Summary ---
Author Organization [facility] Address [address] [place] [address] Phone Care Team Providers Care Experimental Rocketsled Mechanic Name Role Phone Zoraida Franco MD Primary Care Provi selvin Encounter Details Date Type Department Care Team (Late st Contact Info) Description 12/25/2023 12:15 PM CPC Lab [facility] Oncology [address] [place] [phone] Social History Tobacco Use Types Packs/Day Years [...] on file Legal Sex Male 7:51 PM CPC Gender Identity Not on file Sexual Orientation Not on file Occupation Industry Job Start Date Job End Date Disabled Not on file Not on file Not on file documented as of this encounter Plan of Treatment Not on file documented as of this encounter Visit Diagnoses Not on filedocumented in this encounter Care Teams Experimental Rocketsled Mechanic Relationship Specialty Start Date End Date Zoraida Franco MD [address] [place] [address] PCP - General Family Medicine 06/20/21 documented as of this encounter
--- OUTSIDE RECORDS SUMMARY | 2024-11-30 06:08 | XMS_ITS | Encounter Summary ---
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 * Telephone Encounter - Kaylie Mendez MA - 09/04/2023 9:25 AM CDT good evening, Armin's labs were overall normal, but do show some abnormalities. These include: -a mildly low calcium -a low white blood cell count and neutrophil count. He can continue to follow with hematology For now, he can continue his current plan. Please call the office to set up an appointment to review everything together. If you have any questions, please reach out to me. Sincerely, Zoraida Franco MD * Telephone Encounter - Kaylie Mendez MA - 09/04/2023 9:24 AM CDT ----- Message from Zoraida Franco MD sent at 09/04/2023 7:10 AM CDT ----- Please call the patient. I received notification that the patient did not review their Gamifyt message. If we could please relay this message, I would be appreciative. documented in this encounter Plan of Treatment Not on file documented as of this encounter Visit Diagnoses Not on filedocumented in this encounter Care Teams Training Manager Relationship Specialty Start Date End Date Zoraida Franco MD [address] [place] [address] PCP - General Family Medicine 06/20/21 documented as of this encounter
--- OUTSIDE RECORDS SUMMARY | 2024-11-30 06:08 | XMS_ITS | Encounter Summary ---
Author Organization [facility] Address [address] [facility] [address] [place] [address] Care Team Providers Care Wildlife Enforcement Major Name Role Phone Zoraida Franco MD Primary Care Provi selvin Encounter Details Date Type Department Care Team (Late st Contact Info) Description 08/27/2022 Telephone [facility] Family Medicine [address] [phone] Zoraida Franco MD [address] [address] Social History Tobacco Use Types Packs/Day Years [...] more points, staff should administer the PHQ-9) 1 08/23/2022 Sex and Gender Information Value Date Recorded Sex Assigned at Not on file 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 Thank you! documented in this encounter Plan of Treatment Not on file documented as of this encounter Visit Diagnoses Not on filedocumented in this encounter Care Teams Wildlife Enforcement Major Relationship Specialty Start Date End Date Zoraida Franco MD [address] [place] [address] PCP - General Family Medicine 06/20/21 documented as of this encounter
--- OUTSIDE RECORDS SUMMARY | 2024-11-30 06:08 | XMS_ITS | Encounter Summary ---
Author Organization [facility] Address [address] [facility] [address] [place] [address] Care Team Providers Care Assistant Business Manager Name Role Phone Zoraida Franco MD Primary Care Provi selvin Encounter Details Date Type Department Care Team (Late st Contact Info) Description 08/27/2022 Orders Only [facility] Family Medicine [address] [phone] Zoraida Franco MD [address] [address] Abnormal chest x-ray Social History Tobacco Use Types Packs/Day Years [...] on file 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 Gender Identity Not on file Sexual Orientation Not on file Occupation Industry Job Start Date Job End Date Disabled Not on file Not on file Not on file documented as of this encounter Plan of Treatment Not on file documented as of this encounter Visit Diagnoses Diagnosis Abnormal chest x-ray Nonspecific (abnormal) findings on radiological and other examination of lung field documented in this encounter Care Teams Assistant Business Manager Relationship Specialty Start Date End Date Zoraida Franco MD [address] [place] [address] PCP - General Family Medicine 06/20/21 documented as of this encounter
--- OUTSIDE RECORDS SUMMARY | 2024-11-30 06:08 | XMS_ITS | Encounter Summary ---
Author Organization [facility] Address [address] [place] [address] Phone Care Team Providers Care Fiberglass Machine Operator Name Role Phone Zoraida Franco MD Primary Care Provi selvin Reason for Visit * Reason Comments Follow-up Encounter Details Date Type Department Care Team (Late st Contact Info) Description 12/25/2023 12:45 PM WOODEN BOX MAKER Office Visit [facility] Oncology [address] [place] [phone] Lionel Jeffers DO [address] [place] [address] [address] [place], [place] [id number] Other decreased white blood cell (WBC) count (Primary Dx) Social History Tobacco Use Types [...] on file Legal Sex Male 7:51 PM WOODEN BOX MAKER Gender Identity Not on file Sexual Orientation Not on file Occupation Industry Job Start Date Job End Date Disabled Not on file Not on file Not on file documented as of this encounter Last Filed Vital Signs Vital Sign Reading Time Taken Comments Blood Pressure 105/70 12/25/2023 12:46 PM WOODEN BOX MAKER Pulse 70 12/25/2023 12:46 PM WOODEN BOX MAKER Temperature 36.4 ??C (97.6 ??F) 12/25/2023 12:[address] Respiratory Rate 18 12/25/2023 12:46 PM WOODEN BOX MAKER Oxygen Saturation 98% 12/25/2023 12:46 PM WOODEN BOX MAKER Inhaled Oxygen Concentration - - Weight 71.8 kg (158 lb 3.2 oz) 12/25/2023 12:46 PM WOODEN BOX MAKER Height 153.7 cm (5' 0.5 ) 12/25/2023 12:46 PM CS T Body Mass Index 30.39 12/25/2023 12:46 PM WOODEN BOX MAKER documented in this encounter Progress Notes * Lionel Jeffers, DO - 12/25/2023 12:45 PM CST Patient ID: Armin Rico is a 48 y.o. male. Primary Care Provider: Zoraida Franco MD Assessment/Plan Cyclic leukopenia and neutropenia 1. Asymptomatic. 2. Trisomy 21 Recommendations: 1. This visit, his white blood cell count is normal with borderline neutropenia. He has no other abnormalities with his blood counts. 2. Therefore, continue with surveillance CBC once a year. I will see him back here in 2024. 3. No further therapeutic or diagnostic intervention is necessary at this time. My total encounter time on 12/25/2023 was 20 minutes which was spent in the activities documented inthe note. This includes time spent prior to the visit and after the visit in direct care of the patient. This time does not include time spent in any separately reportable services. Patient Active Problem List Diagnosis VSD (ventricular septal defect) Leukopenia Joint pain NILA (obstructive sleep apnea) PLMD (periodic limb movement disorder) Encounter for Medicare annual wellness exam Down syndrome Non-seasonal allergic rhinitis due to pollen Overweight (BMI 25.0-29.9) Diagnoses and all orders for this visit: Other decreased white blood cell (WBC) count (Primary) - CBC with auto differential; Future - Clinic Appointment Request Follow up; LIONEL JEFFERS MD; Clinic Appointment Location: [facility] IM ONC MHE2 180; Future - Lab Draw Appt Request Arm Draw or Central Line Draw? Arm; Ordering location: IM Onc/Hem/BMT; Treatment location: [facility]; Future - CBC with auto differential; Future Subjective Interval History: Cyclic leukopenia/neutropenia. 1. 2017-present: Mild leukopenia and intermittent neutropenia 2. August 2020: COVID-19 viremia/pneumonia requiring hospitalization. 3. October 2020: CBC showed white count 3.2 with a neutrophil count 778. 4. December 2020: Initial consultation with myself regarding leukopenia/neutropenia. 5. Yearly follow-up visit with me today. He is asymptomatic. 2020- Diagnostic studies: -- CT scan of the abdomen pelvis showed circumferential thickening of the bladder suggesting cystitis. No other evidence of abnormalities. 1. JACIEL is positive with titers of 1:160 2. Comprehensive in a autoantibody panel shows a detected or positive double- stranded DNA antibody of IgG and an elevated are positive chromatin antibody IgG. 3. LDH is normal 128. 4. SPEP is negative for paraprotein. 5. ESR slightly elevated 21. Interval Notes: I have reviewed: allergies, current medications, past family history, past medical history, past social history, past surgical history, and problem list HPI Review of Systems Constitutional: Negative. Negative for appetite change and chills. HENT: Negative. Eyes: Negative. Respiratory: Negative. Cardiovascular: Negative. Gastrointestinal: Negative. Endocrine: Negative. Genitourinary: Negative. Musculoskeletal: Negative. Skin: Negative. Neurological: Negative. Hematological: Negative. Psychiatric/Behavioral: Negative. Objective Physical Exam: Vital Signs for this encounter: BSA: 1.75 meters squared BP 105/70 (BP Location: Right arm) Pulse 70 Temp 36.4 ??C (97.6 ??F) (Oral) Resp 18 Ht 153.7 cm (5' 0.5 ) Wt 71.8 kg (158 lb 3.2 oz) SpO2 98% BMI 30.39 kg/m?? Physical Exam Vitals and nursing note reviewed. Constitutional: General: He is not in acute distress. Appearance: He is well-developed. He is not ill-appearing. Comments: Physical features of trisomy 21 HENT: Head: Normocephalic and atraumatic. Right Ear: External ear normal. Left Ear: External ear normal. Nose: Nose normal. Mouth/Throat: Pharynx: No oropharyngeal exudate. Eyes: General: No scleral icterus. Conjunctiva/sclera: Conjunctivae normal. Pupils: Pupils are equal, round, and reactive to light. Comments: Right eye muscle atrophy noted. Cardiovascular: Rate and Rhythm: Normal rate and regular rhythm. Heart sounds: Normal heart sounds. No murmur heard. Pulmonary: Effort: Pulmonary effort is normal. No respiratory distress. Breath sounds: Normal breath sounds. Abdominal: General: Bowel sounds are normal. Palpations: Abdomen is soft. Tenderness: There is no abdominal tenderness. Musculoskeletal: General: Normal range of motion. Cervical back: Normal range of motion and neck supple. Skin: General: Skin is warm and dry. Neurological: Mental Status: He is alert and oriented to person, place, and time. Psychiatric: Behavior: Behavior normal. Performance Status: ECOG 2 Results: Lab Results Component Value Date WBC 4.9 12/25/2023 HGB 16.4 12/25/2023 HCT 48.4 12/25/2023 LABPLAT 291 12/25/2023 MCV 94.2 12/25/2023 NEUTROABS 1.4 (L) 12/25/2023 SODIUM 143 08/30/2023 POTASSIUM 5.1 08/30/2023 CHLORIDE 106 08/30/2023 BUNSER 17 08/30/2023 CREATININE 0.98 08/30/2023 GLUCOSE 85 08/30/2023 CALCIUM 8.4 (L) 08/30/2023 BILITOT 0.5 08/30/2023 PROT 6.6 04/22/2016 ALBUMIN 3.7 08/30/2023 ALKPHOS 68 08/30/2023 ALT 14 08/30/2023 AST 16 08/30/2023 LDH 128 12/19/2020 PSA 0.19 08/30/2023 EN BOX MAKER documented in this encounter Plan of Treatment Scheduled Orders Name Type Priority Associated Diagnoses Orde r Schedule CBC with auto differential Lab Routine Other decreased white blood cell (WBC) count Expected: 01/01/2025, Expires: 01/01/2026 documented as of this encounter Results * CBC with auto differential (12/25/2023 12:14 PM WOODEN BOX MAKER) [facility] Signature WBC 4.9 3.8 - 9.9 K/cumm [facility] Comment:Testing performed by : [address] [address] Hgb 16.4 13.0 - 17.5 g/dL [facility] Comment:Testing performed by : [address] [address] Hct 48.4 38.9 - 50.3 % [facility] Comment:Testing performed by : [address] [address] Plt 291 150 - 400 K/cumm [facility] Comment:Testing performed by : [address] [address] MPV 9.2 9.1 - 12.3 fL [facility] Comment:Testing performed by : [address] [address] RBC 5.14 4.30 - 5.80 M/cumm [facility] Comment:Testing performed by : [address] [address] MCV 94.2 81.3 - 96.4 fL [facility] Comment:Testing performed by : [address] [address] MCH 31.9 27.1 - 33.3 pg [facility] Comment:Testing performed by : [address] [address] MCHC 33.9 32.3 - 35.7 g/dL [facility] Comment:Testing performed by : [address] [address] RDW CV 13.6 11.1 - 14.9 % [facility] Comment:Testing performed by : [address] [address] RDW SD 47.3 35.7 - 48.1 fL [facility] Comment:Testing performed by : [address], [place]., [address] Blood 12/25/2023 12:1 4 PM WOODEN BOX MAKER 12/25/2023 12:16 PM WOODEN BOX MAKER us Lionel Jeffers DO LAB BLOOD ORDERABLES Final R esult [facility] [address] [facility] Department [place] [address] documented in this encounter Visit Diagnoses Diagnosis Other decreased white blood cell (WBC) count- Primary documented in this encounter Orders Appointment Requests Count Last Ordered Date Fi rst Ordered Date ONCBCN CLINIC APPOINTMENT REQUEST 1 024 ONCBCN LAB APPOINTMENT 1 12/25/2023 documented in this encounter Care Teams Fiberglass Machine Operator Relationship Specialty Start Date End Date Zoraida Franco MD [address] [place] [address] PCP - General Family Medicine 06/20/21 documented as of this encounter
--- OUTSIDE RECORDS SUMMARY | 2024-11-30 06:08 | XMS_ITS | Encounter Summary ---
Author Organization [facility] Address [address] [facility] [address] [place] [address] Care Team Providers Care Water Maintenance Supervisor Name Role Phone Zoraida Franco MD Primary Care Provi selvin Reason for Visit * Reason Onset Date Comments Forms Request 04/30/2023 Encounter Details Date Type Department Care Team (Late st Contact Info) Description 04/30/2023 Telephone [facility] Family Medicine [address] [phone] Zoraida Franco MD [address] [place] [address] Forms Request Social History Tobacco Use Types Packs/Day Years [...] on file Legal Sex Male 7:51 PM FOOD VENDOR Gender Identity Not on file Sexual Orientation Not on file Occupation Industry Job Start Date Job End Date Disabled Not on file Not on file Not on file documented as of this encounter Miscellaneous Notes * Telephone Encounter - Teresa Guerrero LPN - 05/03/2023 8:43 AM CDT Letter sent via Milk * Telephone Encounter - Madisyn Nair - 05/03/2023 8:40 AM CDT Spoke to Mom and she is requesting the letter to be available on Sand Sign for her to print, she cannot come in to pick it up. * Telephone Encounter - Zoraida Franco MD - 05/02/2023 5:55 PM CDT Letter completed. Thank you * Telephone Encounter - Lyly Webster LPN - 05/02/2023 4:36 PM CDT Spoke to pt's mother, he is doing fine, he had a EGD done last Saturday, no more issues since then. Released from gastro to do normal activities. Per pt's mother he is breathing good, joints are fine as well. No further concerns at this time. * Telephone Encounter - Zoraida Franco MD - 05/02/2023 4:35 PM CDT Can we se ehow he is doing? * Telephone Encounter - Madisyn Nair - 05/02/2023 3:10 PM CDT Spoke to pt's mom, she stated that the only day she can bring him in or is available is 05.03.2023. Otherwise pt. Starts Summer Camp this Saturday05.05.2023. * Telephone Encounter - Zoraida Franco MD - 05/01/2023 4:19 PM CDT Would they be able to do a video visit or in-person visit? He is had a lot go on since his last visit and I want to make sure there are no worries about him going to [facility]. Thank you * Telephone Encounter - Teresa Guerrero LPN - 05/01/2023 1:40 PM CDT There is a recent EGD in his chart. * Telephone Encounter - Zoraida Franco MD - 05/01/2023 12:48 PM CDT I believe he is also having an EGD done for a foreign body or possible stricture? * Telephone Encounter - Teresa Guerrero LPN - 05/01/2023 10:16 AM CDT Acute URI, abrasion of L ear canal, acute serous otitis media and acute sinusitis * Telephone Encounter - Zoraida Franco MD - 04/30/2023 3:57 PM CDT He has been seen at urgent care several times. We would need to get a list of his most recent urgent care concerns so that we can add those to the letter. Thank you * Telephone Encounter - Rocco Henderson - 04/30/2023 12:44 PM CDT Forms Request Form requested: Other Form Form Name: letter clearing him for summer camp Date needed: 05/03/23 How is patient delivering to office: created by provider Who is form being returned to? Patient How to return form to patient:sending to patient as attachment via Sand Sign Caller's Callback #: [phone] Additional Comments: the letter just needs to indicate that he has no ongoing maggie issues that would prevent him from being able to go , they would accept visit within the last year Does message need to be routed? Yes-Action Needed documented in this encounter Plan of Treatment Not on file documented as of this encounter Visit Diagnoses Not on filedocumented in this encounter Care Teams Water Maintenance Supervisor Relationship Specialty Start Date End Date Zoraida Franco MD [address] [place] [address] PCP - General Family Medicine 06/20/21 documented as of this encounter
--- OUTSIDE RECORDS SUMMARY | 2024-11-30 06:08 | XMS_ITS | Encounter Summary ---
Author Organization [facility] Address [address] [facility] [address] [place] [address] Care Team Providers Care Welder Setter Electron Beam Machine Name Role Phone Zoraida Franco MD Primary Care Provi selvin Encounter Details Date Type Department Care Team (Late st Contact Info) Description 07/25/2023 Telephone [facility] Family Medicine [address] [phone] Zoraida Franco MD [address] [address] Social History Tobacco Use Types [...] points, staff should administer the PHQ-9) 0 05/24/2023 Sex and Gender Information Value Date Recorded Sex Assigned at Not on file Legal Sex Male 7:51 PM METROLOGY SPECIALIST Gender Identity Not on file Sexual Orientation Not on file Occupation Industry Job Start Date Job End Date Disabled Not on file Not on file Not on file documented as of this encounter Miscellaneous Notes * Addendum Note - Trish Guerreor LPN - 08/30/2023 9:46 AM CDTAddended by: TRISH GUERRERO on: 08/30/2023 09:46 AM Modules accepted: Orders * Telephone Encounter - Lyly Webster LPN - 07/25/2023 9:43 AM CDT Pt's mother made aware. * Telephone Encounter - Zoraida Franco MD - 07/25/2023 9:35 AM CDT Labs ordered, thank you * Addendum Note - Zoraida Franco MD - 07/25/2023 9:35 AM CDT Addended by: ZORAIDA FRANCO on: 07/25/2023 09:35 AM Modules accepted: Orders * Telephone Encounter - Lyly Webster LPN - 07/25/2023 9:18 AM CDT [facility]. * Addendum Note - Zoraida Franco MD - 07/25/2023 8:58 AM CDT Addended by: ZORAIDA FRANCO on: 07/25/2023 08:58 AM Modules accepted: Orders * Telephone Encounter - Zoraida Franco MD - 07/25/2023 8:57 AM CDT Which lab? * Telephone Encounter - Lyly Webster LPN - 07/25/2023 8:34 AM CDT Spoke with Maya, she states hold off of that she doesn't have to pay it. * Telephone Encounter - Zoraida Franco MD - 07/25/2023 8:16 AM CDT With medicare, they can be iffy on cholesterol yearly, does she want to try to order it? It was normal last year * Telephone Encounter - Lyly Webster LPN - 07/25/2023 7:[address] Paris, pt is scheduled for his annual visit 10/15/23, what labs would you like ordered, if any? documented in this encounter Plan of Treatment Not on file documented as of this encounter Procedures Procedure Name Priority Date/Time Associated Diagnosis Comments THYROID FUNCTION CASCADE Routine 08/30/2023 9:25 AM CDT PSA SCREEN Routine 08/30/2023 9:25 AM CDT CBC WITH AUTO DIFFERENTIAL Routine 08/30/2023 9:25 AM CDT LIPID PANEL Routine 08/30/2023 9:25 AM CDT COMPREHENSIVE METABOLIC PANEL Routine 08/30/2023 9:25 AM CDT documented in this encounter Results * TSH reflex to free T4 (08/30/2023 9:25 AM CDT) Pathologist [facility] [place] TSH 2.96 0.40 - 4.50 mIU/L [facility] 08/30/2023 9:25 AM CDT 08/30/2023 9:28 AM CDT Narrative [facility] - 09/01/2023 2:52 PM CDT FASTING:YES FASTING: YES us Zoraida Franco MD LAB BLOOD ORDERABLE S Final Result [facility] [address] [place] [address] * (ABNORMAL) CBC with auto differential (08/30/2023 9:25 AM CDT) Pathologist [facility] WBC 3.6(L) 3.8 - 10.8 Thousand/u L [facility] RBC, POC 5.15 4.20 - 5.80 Million/uL [facility] Hgb 16.6 13.2 - 17.1 g/dL [facility] Hct 48.7 38.5 - 50.0 % [facility] MCV 94.6 80.0 - 100.0 fL [facility] MCH 32.2 27.0 - 33.0 pg [facility] MCHC 34.1 32.0 - 36.0 g/dL [facility] Rdw 14.1 11.0 - 15.0 % [facility] Platelets 249 140 - 400 Thousand/u L [facility] MPV 9.5 7.5 - 12.5 fL [facility] Neutrophils, abs 1,080(L) 1,500 - 7,800 cells/uL [facility] Lymphocytes, abs 1,847 850 - 3,900 cells/uL [facility] Monocyte abs 482 200 - 950 cells/uL [facility] Eosinophils, abs 79 15 - 500 cells/uL [facility] Basophils, abs 112 0 - 200 cells/uL [facility] Neutrophils 30 % [facility] Lymphocyte pct 51.3 % [facility] Monocytes 13.4 % [facility] Eosinophils 2.2 % [facility] Basophils 3.1 % [facility] 08/30/2023 9:25 AM CDT 08/30/2023 9:28 AM CDT Narrative [facility] - 09/01/2023 2:52 PM CDT FASTING:YES FASTING: YES us Zoraida Franco MD LAB BLOOD ORDERABLE S Final Result [facility] [address] [place] [address] * (ABNORMAL) Comprehensive metabolic panel (08/30/2023 9:25 AM CDT) Pathologist [facility] [place] Glucose 85 65 - 99 mg/dL [facility] Comment: ? Fasting reference interval BUN 17 7 - 25 mg/dL [facility] Creatinine 0.98 0.60 - 1.29 mg/dL [facility] eGFR 96 > OR = 60 mL/min/1.7 3m2 [facility] BUN/creat ratio SEE NOTE: 6 - 22 (calc) [facility] Comment: ?? Not Reported: BUN and Creatinine are within ?? reference range. ? Sodium 143 135 - 146 mmol/L [facility] Potassium, pl 5.1 3.5 - 5.3 mmol/L [facility] Chloride 106 98 - 110 mmol/L [facility] CO2 30 20 - 32 mmol/L [facility] Calcium 8.4(L) 8.6 - 10.3 mg/dL [facility] Protein, sr 6.2 6.1 - 8.1 g/dL [facility] Albumin 3.7 3.6 - 5.1 g/dL [facility] GLOBULIN 2.5 1.9 - 3.7 g/dL (calc) [facility] Alb/glob ratio 1.5 1.0 - 2.5 (calc) [facility] Bilirubin, total 0.5 0.2 - 1.2 mg/dL [facility] Alk phos 68 36 - 130 U/L [facility] AST 16 10 - 40 U/L [facility] ALT (SGPT) 14 9 - 46 U/L [facility] 08/30/2023 9:25 AM CDT 08/30/2023 9:28 AM CDT Narrative [facility] - 09/01/2023 2:52 PM CDT FASTING:YES FASTING: YES us Zoraida Franco MD LAB BLOOD ORDERABLE S Final Result [facility] [address] [place] [address] * Lipid panel (08/30/2023 9:25 AM CDT) Pathologist [facility] [place] Cholesterol 168 <200 mg/dL [facility] HDL 65 > OR = 40 mg/dL [facility] Triglycerides 57 <150 mg/dL [facility] LDL 89 mg/dL (calc) [facility] Comment: Reference range: <100 Desirable range <100 mg/dL for primary prevention; ?? <70 mg/dL for patients with CHD or diabetic patients with > or = 2 CHD risk factors. LDL-C is now calculated using the Rene-Arnel calculation, which is a validated novel method providing better accuracy than the Friedewald equation in the estimation of LDL-C. Rene SS et al. RAYMON. 2013;310(19): 8716-3285 (http://education.[employer].Hostel Rocket/faq/ZEG175) Chol/HDL ratio 2.6 <5.0 (calc) [facility] Non-HDL, (LDL+VLDL) 103 <130 mg/dL (calc) [facility] Comment: For patients with diabetes plus 1 major ASCVD risk factor, treating to a non-HDL-C goal of <100 mg/dL (LDL-C of <70 mg/dL) is considered a therapeutic option. 08/30/2023 9:25 AM CDT 08/30/2023 9:28 AM CDT [facility] - 09/01/2023 2:52 PM CDT FASTING:YES FASTING: YES us Zoraida Franco MD LAB BLOOD ORDERABLE S Final Result Performing Organization Address [facility] Co de Phone Number [facility] [address] [place] [address] * PSA screen (08/30/2023 9:25 AM CDT) PSA 0.19 < OR = 4.00 ng/mL [facility] Comment: The total PSA value from this assay system is standardized against the WHO standard. The test result will be approximately 20% lower when compared to the equimolar-standardized total PSA (J[place]). Comparison of serial PSA results should be interpreted with this fact in mind. This test was performed using the Siemens chemiluminescent method. Values obtained from different assay methods cannot be used interchangeably. PSA levels, regardless of value, should not be interpreted as absolute evidence of the presence or absence of disease. 08/30/2023 9:25 AM CDT 08/30/2023 9:28 AM CDT [facility] - 09/01/2023 2:52 PM CDT FASTING:YES FASTING: YES us Zoraida Franco MD LAB BLOOD ORDERABLE S Final Result Performing Organization Address [facility] Co de Phone Number [facility] [address] [place] [address] documented in this encounter Visit Diagnoses Diagnosis Screening for diabetes mellitus- Primary Screening for thyroid disorder Screening for prostate cancer Special screening for malignant neoplasm of prostate documented in this encounter Care Teams Welder Setter Electron Beam Machine Relationship Specialty Start Date End Date Zoraida Franco MD [address] [place] [address] PCP - General Family Medicine 06/20/21 documented as of this encounter
--- OUTSIDE RECORDS SUMMARY | 2024-11-30 06:08 | XMS_ITS | Encounter Summary ---
Author Organization [facility] Address [address] [place] [address] Care Team Providers Care Enterprise Account Executive Name Role Phone Zoraida Franco MD Primary Care Provi selvin Encounter Details Date Type Department Care Team (Late st Contact Info) Description 03/11/2024 Orders Only [facility] Family Medicine [address] [phone] Zoraida Franco MD [address] [address] Social History Tobacco Use Types [...] on file Legal Sex Male 7:51 PM DIRECTOR OF SCIENCE Gender Identity Not on file Sexual Orientation Not on file Occupation Industry Job Start Date Job End Date Disabled Not on file Not on file Not on file documented as of this encounter Plan of Treatment Not on file documented as of this encounter Visit Diagnoses Not on filedocumented in this encounter Care Teams Enterprise Account Executive Relationship Specialty Start Date End Date Zoraida Franco MD [address] [place] [address] PCP - General Family Medicine 06/20/21 documented as of this encounter
--- OUTSIDE RECORDS SUMMARY | 2024-11-30 06:08 | XMS_ITS | Encounter Summary ---
Author Organization [facility] Address [address] [place] [address] Care Team Providers Care Russian Teacher Name Role Phone Zoraida Franco MD Primary Care Provi selvin Reason for Visit * Reason Onset Date Comments form for metaline 05/15/2024 Encounter Details Date Type Department Care Team (Late st Contact Info) Description 05/15/2024 Telephone [facility] Family Medicine [address] [phone] Zoraida Franco MD [address] [place] [address] form for metaline Social History Tobacco Use Types Packs/Day Years [...] on file Legal Sex Male 7:51 PM ENT PHYSICIAN Gender Identity Not on file Sexual Orientation Not on file Occupation Industry Job Start Date Job End Date Disabled Not on file Not on file Not on file documented as of this encounter Miscellaneous Notes * Telephone Encounter - Kaylie Mendez MA - 05/20/2024 9:26 AM CDT I talked to pt mother and let her know pt's form was at check in desk and if he is not having any symptoms he does not need appt * Telephone Encounter - Kaylie Mendez MA - 05/19/2024 1:30 PM CDT Called and left message for pt mom to bean picker form and let her know chest xray was negative, if he is having symptoms to call and Dr Trejo can do a further evaluation * Telephone Encounter - Zoraida Franco MD - 05/19/2024 12:24 PM CDT Form completed. It looks like his last chest x-ray from urgent care said negative. If he is having any symptoms though we could certainly do a further evaluation. Thank you * Telephone Encounter - Jackie Ford MA - 05/18/2024 2:23 PM CDT Called and spoke with patient's mom. She reports no changes in health history. Does not have any concerns at this time. She does have a question in regards to the last two chest XRs after Armin had RSV. Does he need follow up imaging? He is not having any symptoms now. Mom just wanted to be clear. * Telephone Encounter - Zoraida Franco MD - 05/15/2024 5:11 PM CDT We did his wellness six months ago. Has he had any changes or concerns to his health? Thank you * Telephone Encounter - Jackie Ford MA - 05/15/2024 1:22 PM CDT In your inbox * Telephone Encounter - Sendy Da Silva - 05/15/2024 12:30 PM CDT Pt's mother dropped off form to be completed for Armin to go to [place]. Please let mom know when completed. She is concerned she may not be able to print it from [employer] He needs as soon as possible. Placed in the blue folder for JDS to complete Thank you Mom/ Maya [phone] documented in this encounter Plan of Treatment Not on file documented as of this encounter Visit Diagnoses Not on filedocumented in this encounter Care Teams Russian Teacher Relationship Specialty Start Date End Date Zoraida Franco MD [address] [place], [place] [id number] PCP - General Family Medicine 06/20/21 documented as of this encounter
--- OUTSIDE RECORDS SUMMARY | 2024-11-30 06:08 | XMS_ITS | Encounter Summary ---
Author Organization [facility] Address [address] [place] [address] Care Team Providers Care Computer Compositor Name Role Phone Zoraida Franco MD Primary Care Provi selvin Encounter Details Date Type Department Care Team (Late st Contact Info) Description 11/01/2023 Orders Only [facility] Family Medicine [address] [phone] Provider, MD Deepak [address] [place] [address] Social History Tobacco Use Types Packs/Day Years Used Date Smoking Tobacco: Never Smokeless Tobacco: Never Alcohol Use Standard Drinks/Week Comments Not Currently 0 (1 standard drink = 0.6 oz pur e alcohol) AUDIT-C Answer Date Recorded Q1: How often do you have a drink containing alcohol? Never 11/05/2023 Q2: How many drinks containi ng alcohol do you have on a typical day when you are drinking? Patient does not drink Q3: How often do you have si x or more drinks on one occasion? 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 Gender Identity Not on file Sexual Orientation Not on file Occupation Industry Job Start Date Job End Date Disabled Not on file Not on file Not on file documented as of this encounter Plan of Treatment Not on file documented as of this encounter Procedures Procedure Name Priority Date/Time Associated Diagnosis Comments XR CHEST PA LATERAL 2 VIEWS Schedule Routine, Read Routine (OP Routine) 10/31/2023 3:14 PM TELECOMMUNICATIONS ANALYST documented in this encounter Results * XR Chest Pa Lateral 2 Views (10/31/2023 3:14 PM TELECOMMUNICATIONS ANALYST) Anatomical Region Laterality Modality Body, Chest N/A Radiographic Ashley ging us Historical Provider MD FONTANEZ XR PROCEDURES Final R esult documented in this encounter Visit Diagnoses Not on filedocumented in this encounter Care Teams Computer Compositor Relationship Specialty Start Date End Date Zoraida Franco MD [address] [place] [address] PCP - General Family Medicine 06/20/21 documented as of this encounter
--- OUTSIDE RECORDS SUMMARY | 2024-11-30 06:08 | XMS_ITS | Encounter Summary ---
Author Organization [facility] Address [address] [facility] [address] [place] [address] Care Team Providers Care Legal Instruments Examiner Name Role Phone Zoraida Franco MD Primary Care Provi selvin Reason for Visit * Reason Onset Date Comments Medical Question/Miscellaneous 11/06/2022 Encounter Details Date Type Department Care Team (Late st Contact Info) Description 11/06/2022 Telephone [facility] Family Medicine [address] [phone] Zoraida Franco MD [address] [place] [address] Medical Question/Miscellaneous Social History Tobacco Use Types Packs/Day Years [...] on file 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 Medicare denied payment dueto incorrect code. It is for his TSH and PSA blood draw. She relayed it needs to be sent to [employer] were declined payment Caller???s Call back #: [phone] Does message need to be routed?Yes-Action Needed OR SOLUTIONS WORKFLOW CONSULTANT documented in this encounter Plan of Treatment Not on file documented as of this encounter Visit Diagnoses Not on filedocumented in this encounter Care Teams Legal Instruments Examiner Relationship Specialty Start Date End Date Zoraida Franco MD [address] [place] [address] PCP - General Family Medicine 06/20/21 documented as of this encounter
--- OUTSIDE RECORDS SUMMARY | 2024-11-30 06:08 | XMS_ITS | Encounter Summary ---
Author Organization [facility] Address [address] [facility] [address] [place] [address] Care Team Providers Care Irrigation Specialist Name Role Phone Zoraida Farnco MD Primary Care Provi selvin Reason for Visit * Reason Onset Date Comments Appointment Request 03/19/2023 Encounter Details Date Type Department Care Team (Late st Contact Info) Description 03/19/2023 Telephone [facility] Family Medicine [address] [phone] Zoraida Franco MD [address] [place] [address] Appointment Request Social History Tobacco Use Types Packs/Day [...] on file 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 Spoke with a woman. I explained there were no openings. I offered the phone numberto the Angel ALBERTO. She declined, states she would take the pt to urgent care. * Telephone Encounter - Rachael Hui - 03/19/2023 10:25 AM CDT Images from the original note were not included. Appointment Request What visit type does the patient need? Visit Type: Same Day What is the reason for the visit? What is the reason we were unable to schedule the appointment? Appointments for all providers showing up at 03/21 only, wanted to be seen today If applicable, were all members of the patient's PCP care team offered (e.g., nurse practioner(s), physician kindergarten teacher assistant(s)) ? Yes Caller's Callback #: [phone] Additional Comments: Maya called and stated she had an appointment but when she arrived she saw office was closed so she took him to urgent care, they gave him antibiotics and prednisone and completed this Saturday stillhaving ear ache in right ear, wanted to know if they can be seen today. Does message need to be routed? Yes-Action Needed documented in this encounter Plan of Treatment Not on file documented as of this encounter Visit Diagnoses Not on filedocumented in this encounter Care Teams Irrigation Specialist Relationship Specialty Start Date End Date Zoraida Franco MD [facility] [address] [place] [address] PCP - General Family Medicine 06/20/21 documented as of this encounter
--- OUTSIDE RECORDS SUMMARY | 2024-11-30 06:08 | XMS_ITS | Encounter Summary ---
Author Organization [facility] Healthcare Address [address] [place] [address] Care Team Providers Care Residency Program Coordinator Name Role Phone Zoraida Franco MD Primary Care Provi selvin Reason for Visit * Reason Comments Cough Patient arrives for a cough, runny nose, and congestion x 8 days. 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 Gender Identity Not on file Sexual Orientation Not on file Occupation Industry Job Start Date Job End Date Disabled Not on file Not on file Not on file documented as of this encounter Last Filed Vital Signs Vital Sign Reading Time Taken Comments Blood Pressure 90/62 09/03/2023 11:29 AM CDT Pulse 72 09/03/2023 11:29 AM CDT Temperature 36.2 ??C (97.1 ??F) 09/03/2023 11:29 AM C DT Respiratory Rate 16 09/03/2023 11:29 AM CDT Oxygen Saturation 96% 09/03/2023 11:29 AM CDT Inhaled Oxygen Concentration - - Weight 71.8 kg (158 lb 6.4 oz) 09/03/2023 11:29 AM CDT Height 165.1 cm (5' 5 ) 09/03/2023 11:29 AM CDT Body Mass Index 26.36 09/03/2023 11:29 AM CDT documented in this encounter Ordered Prescriptions Prescription Sig Dispense Quantity Refills Last Filled Start Date End Date carbamide peroxide (DEBROX) 6.5 % otic solutionIndication s:Impacted Cerumen Administer 5 drops into each ear 2 (two) times a day 15 mL 09/03/2023 3 doxycycline (VIBRAMYCIN) 100 mg capsuleIndications :Acute non-recurrent sinusitis of other sinus Take 1 tablet/capsule (100 mg total) by mouth 2 (two) times a day for 10 days 20 tablet/capsul e 09/03/2023 3 documented in this encounter Progress Notes * Zoraida Franco MD - 09/03/2023 11:00 AM CDT Images from the original note were not included. Patient ID: Armin Rico is a 48 y.o. male. Chief Complaint. Chief Complaint Patient presents with Cough Patient arrives for a cough, runny nose, and congestion x 8 days. HPI. Patient is a 48 y.o. male URI This is a new problem. The current episode started 1 to 4 weeks ago (9 days). The problem has been unchanged. There has been no fever. Associated symptoms include congestion, coughing and a sore throat. Pertinent negatives include no abdominal pain, chest pain, ear pain, nausea, shortness of breathor vomiting. He has tried decongestant and antihistamine for the symptoms. The treatment provided no relief. Review of Systems: Review of Systems Constitutional: Negative for appetite change, chills and fever. HENT: Positive for congestion and sore throat. Negative for ear pain. Respiratory: Positive for cough. Negative for shortness of breath. Cardiovascular: Negative for chest pain. Gastrointestinal: Negative for abdominal pain, nausea and vomiting. BP 90/62 (BP Location: Left arm, Patient Position: Sitting) Pulse 72 Temp 36.2 ??C (97.1 ??F) (Temporal) Resp 16 Ht 165.1 cm (5' 5 ) Wt 71.8 kg (158 lb 6.4 oz) SpO2 96% BMI 26.36 kg/m?? Physical Exam: Physical Exam Constitutional: General: He is not in acute distress. Appearance: Normal appearance. He is well-developed. He is not ill-appearing. HENT: Head: Normocephalic and atraumatic. Right Ear: External ear normal. There is impacted cerumen. Left Ear: External ear normal. There is impacted cerumen. Nose: No rhinorrhea. Mouth/Throat: Mouth: Mucous membranes are moist. Pharynx: Oropharynx is clear. Eyes: Extraocular Movements: Extraocular movements intact. Cardiovascular: Rate and Rhythm: Normal rate and regular rhythm. Heart sounds: Normal heart sounds. Pulmonary: Effort: Pulmonary effort is normal. No respiratory distress. Breath sounds: Normal breath sounds. No stridor. No wheezing or rales. Musculoskeletal: Cervical back: Neck supple. Skin: General: Skin is warm and dry. Neurological: Mental Status: He is alert and oriented to person, place, and time. Mental status is at baseline. Psychiatric: Behavior: Behavior normal. Thought Content: Thought content normal. Assessment/Plan Diagnoses and all orders for this visit: Acute non-recurrent sinusitis of other sinus (Primary) Assessment & Plan: Will start Doxy Tylenol/ibuprofen as needed, and can use medicine like mucinex or robitussin to help with the cough Increase fluids, rest and handwashing Warm saltwater gargles Consider a hot drink with honey Cool mist humidifier Please call if symptoms change or worsen, to the ER for anything emergent Orders: - doxycycline (VIBRAMYCIN) 100 mg capsule; Take 1 tablet/capsule (100 mg total) by mouth 2 (two) times a day for 10 days Bilateral impacted cerumen - carbamide peroxide (DEBROX) 6.5 % otic solution; Administer 5 drops into each ear 2 (two) times aday Patient/parent was counseled on medication risk, side effects, and possible complications. Patient/parent was counseled on how to properly take the medication and to call with any adverse reactions. Patient/parent was advised that if anything changes or worsens, to contact the office. Patient/parent stated understanding. Zoraida Franco MD documented in this encounter Miscellaneous Notes * Assessment & Plan Note - Zoraida Franco MD - 09/03/2023 11:40 AM CDTAssociated Problem(s): Other acute sinusitis (Resolved 10/15/2023) Will start Doxy Tylenol/ibuprofen as needed, and can use medicine like mucinex or robitussin to help with the cough Increase fluids, rest and handwashing Warm saltwater gargles Consider a hot drink with honey Cool mist humidifier Please call if symptoms change or worsen, to the ER for anything emergent documented in this encounter Plan of Treatment Not on file documented as of this encounter Visit Diagnoses Diagnosis Acute non-recurrent sinusitis of other sinus- Primary Bilateral impacted cerumen Impacted cerumen documented in this encounter Discontinued Medications Medication Sig Discontinue Reason Start Date End Da te terbinafine (LamiSIL) 250 mg tablet Take 1 tablet (250 mg total) by mouth daily Therapy completed 05/24/2023 09/03/2023 terbinafine (LamISIL) 1 % cream Apply topically 2 (two) times a day Therapy completed 05/24/2023 09/03/[address] (PROTONIX) 40 mg EC tablet Take 1 tablet (40 mg total) by mouth every morning Therapy completed 02/27/2023 09/03/2023 documented as of this encounter Care Teams Residency Program Coordinator Relationship Specialty Start Date End Date Zoraida Franco MD [address] [place] [address] PCP - General Family Medicine 06/20/21 documented as of this encounter
--- OUTSIDE RECORDS SUMMARY | 2024-11-30 06:08 | XMS_ITS | Encounter Summary ---
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 Gender Identity Not on file Sexual Orientation Not on file Occupation Industry Job Start Date Job End Date Disabled Not on file Not on file Not on file documented as of this encounter Plan of Treatment Not on file documented as of this encounter Visit Diagnoses Diagnosis NILA (obstructive sleep apnea)- Primary Obstructive sleep apnea (adult) (pediatric) Esophagitis Unspecified esophagitis Other decreased white blood cell (WBC) count documented in this encounter Care Teams Chummer Relationship Specialty Start Date End Date Zoraida Franco MD [facility] [address] [place] [id number] PCP - General Family Medicine 06/20/21 documented as of this encounter
--- OUTSIDE RECORDS SUMMARY | 2024-11-30 06:08 | XMS_ITS | Encounter Summary ---
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 This patient was seen at [facility] on 10/31 and tested positive for RSV. Per mother he is on day 12 of his symptoms. Prior to being tested for RSV he was seen at the and given a round of steroids for a possible sinus infection. The pt's symptoms continue to worsen. He is having a productive cough, off and on fever, o2 stats around 97%. He is currently taking mucinex and an inhaler. Pt was scheduled for ER FU with [facility]XE this afternoon OR MECHANICAL ENGINEER * Telephone Encounter - Andrez Smith - 11/05/2023 12:48 PM CST Call Back Caller???s Concern: Patients mom returning phone call, transferred to the back line. Does message need to be routed? No OR MECHANICAL ENGINEER * Telephone Encounter - Evelia Elizabeth - 11/01/2023 1:36 PM CST Call Back Caller???s Concern: Patient mother asking to speak with a nurse about previous encounter. Does message need to be routed? Yes-Action Needed OR MECHANICAL ENGINEER * Telephone Encounter - Shamika Schwarz - 11/01/2023 7:38 AM CST Medical Question/Miscellaneous Caller???s Concern: Had him in the ED and was diagnosed with RSV. He was given steroids, an inhalerand cough medication. She is wanting to speak with the nurse as she has questions. Does message need to be routed? Yes-Action Needed OR MECHANICAL ENGINEER documented in this encounter Plan of Treatment Not on file documented as of this encounter Visit Diagnoses Not on filedocumented in this encounter Care Teams Supervisor Baking Relationship Specialty Start Date End Date Zoraida Franco MD [address] [place] [address] PCP - General Family Medicine 06/20/21 documented as of this encounter
--- OUTSIDE RECORDS SUMMARY | 2024-11-30 06:08 | XMS_ITS | Encounter Summary ---
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 Gender Identity Not on file Sexual Orientation Not on file Occupation Industry Job Start Date Job End Date Disabled Not on file Not on file Not on file documented as of this encounter Plan of Treatment Not on file documented as of this encounter Visit Diagnoses Diagnosis Leukopenia, unspecified type documented in this encounter Orders Appointment Requests Count Last Ordered Date Fi rst Ordered Date ONCBCN LAB APPOINTMENT 1 12/19/2022 documented in this encounter Care Teams Occup Therapist Relationship Specialty Start Date End Date Zoraida Franco MD [address] [place] [address] PCP - General Family Medicine 06/20/21 documented as of this encounter
--- OUTSIDE RECORDS SUMMARY | 2024-11-30 06:08 | XMS_ITS | Encounter Summary ---
Author Organization [facility] Healthcare Address [address] [place] [address] Care Team Providers Care Paper Roll Machine Operator Name Role Phone Zoraida Franco MD Primary Care Provi selvin Reason for Visit * Reason Comments Follow-up ER follow up/ [facility]/ RSV x 12 days Encounter Details Date Type Department Care Team (Late st Contact Info) Description 11/05/2023 2:00 PM SENIOR NAVAL PARACHUTIST Office Visit [facility] Family Medicine [address] [phone] Ava Loja PA [address] [place] [address] [phone] RSV (respiratory syncytial virus infection) (Primary Dx); Acute non-recurrent pansinusitis Social History Tobacco Use Types Packs/Day Years [...] file Legal Sex Male 7:51 PM SENIOR NAVAL PARACHUTIST Gender Identity Not on file Sexual Orientation Not on file Occupation Industry Job Start Date Job End Date Disabled Not on file Not on file Not on file documented as of this encounter Last Filed Vital Signs Vital Sign Reading Time Taken Comments Blood Pressure 102/66 11/05/2023 1:45 PM SENIOR NAVAL PARACHUTIST Pulse 91 11/05/2023 1:45 PM SENIOR NAVAL PARACHUTIST Temperature 36.4 ??C (97.5 ??F) 11/05/2023 1:45 PM CS T Respiratory Rate 18 11/05/2023 1:45 PM SENIOR NAVAL PARACHUTIST Oxygen Saturation 95% 11/05/2023 1:45 PM SENIOR NAVAL PARACHUTIST Inhaled Oxygen Concentration - - Weight 71.7 kg (158 lb) 11/05/2023 1:45 PM SENIOR NAVAL PARACHUTIST Height 153.7 cm (5' 0.5 ) 11/05/2023 1:45 PM SENIOR NAVAL PARACHUTIST Body Mass Index 30.35 11/05/2023 1:45 PM SENIOR NAVAL PARACHUTIST documented in this encounter Ordered Prescriptions Prescription Sig Dispense Quantity Refills Last Filled Start Date End Date doxycycline (ADOXA) 100 mg tabletIndications: RSV (respiratory syncytial virus infection),Acute non-recurrent pansinusitis Take 1 tablet (100 mg total) by mouth 2 (two) times a day for 10 days 20 tablet 11/05/2023 11/15/2023 documented in this encounter Progress Notes * Ava Loja PA - 11/05/2023 2:00 PM CST Images from the original note were not included. Subjective/Objective Patient ID: Armin Rico is a 48 y.o. male. Chief Complaint Follow-up (ER follow up/ [facility]/ RSV x 12 days) HPI Here today for ER follow up Low grade temp day after thanksgiving Cough Congested Went to [facility] and got a round of prednsione no abx Thurs went to ER at [facility] [place], cxr nml, + rsv Up and down since then Finished prednisone on Saturday Using mucinex and sinus medication He has been using an albuterol inhaler SpO2 96-98% Occ wheezing Uses IS often Does not seem to be improving, on day 11 of illness H/o sinus problems Review of Systems Constitutional: Positive for fever (resolved now). Negative for chills, fatigue and unexpected weight change. HENT: Positive for congestion, sinus pressure and sinus pain. Negative for ear discharge, ear pain and sore throat. Respiratory: Positive for cough and wheezing. Negative for shortness of breath. Cardiovascular: Negative for chest pain and leg swelling. Skin: Negative for rash. Neurological: Positive for headaches. Physical Exam Vitals reviewed. Constitutional: Appearance: Normal appearance. He is well-developed. HENT: Head: Normocephalic and atraumatic. Right Ear: Hearing, tympanic membrane, ear canal and external ear normal. There is no impacted cerumen. Left Ear: Hearing, tympanic membrane, ear canal and external ear normal. There is no impacted cerumen. Nose: Congestion present. Right Sinus: Maxillary sinus tenderness and frontal sinus tenderness present. Left Sinus: Maxillary sinus tenderness and frontal sinus tenderness present. Mouth/Throat: Mouth: Mucous membranes are moist. Pharynx: Uvula midline. No oropharyngeal exudate or posterior oropharyngeal erythema. Tonsils: No tonsillar exudate. 0 on the right. 0 on the left. Eyes: Extraocular Movements: Extraocular movements intact. Conjunctiva/sclera: Conjunctivae normal. Pupils: Pupils are equal, round, and reactive to light. Neck: Thyroid: No thyromegaly. Vascular: No JVD. Cardiovascular: Rate and Rhythm: Normal rate and regular rhythm. Heart sounds: Normal heart sounds. No murmur heard. No friction rub. No gallop. Pulmonary: Effort: Pulmonary effort is normal. No respiratory distress. Breath sounds: Normal breath sounds. No decreased air movement. No wheezing, rhonchi or rales. Comments: cough Musculoskeletal: General: Normal range of motion. Cervical back: Normal range of motion and neck supple. No rigidity. Right lower leg: No edema. Left lower leg: No edema. Lymphadenopathy: Cervical: No cervical adenopathy. Skin: General: Skin is warm and dry. Findings: No rash. Neurological: General: No focal deficit present. Mental Status: He is alert. Mental status is at baseline. Deep Tendon Reflexes: Reflexes are normal and symmetric. Psychiatric: Mood and Affect: Mood normal. Behavior: Behavior normal. Thought Content: Thought content normal. Judgment: Judgment normal. Assessment/Plan Diagnoses and all orders for this visit: RSV (respiratory syncytial virus infection) (B33.8) (Primary) - doxycycline (ADOXA) 100 mg tablet; Take 1 tablet (100 mg total) by mouth 2 (two) times a day for 10 days Acute non-recurrent pansinusitis (J01.40) - doxycycline (ADOXA) 100 mg tablet; Take 1 tablet (100 mg total) by mouth 2 (two) times a day for 10 days 1-2. Due to length of illness we will treat with antibiotic, please complete the whole course of antibiotics-no leftovers Actions and side effects of meds discussed Take meds as directed Increase fluids, rest and handwashing Hot water/hot tea with honey No sharing cups or utensils Breathing in cold air maybe helpful May use vicks vaporub on chest as needed to help with cough Good hand washing routine Tylenol or OTC NSAIDs for fever, body aches etc Use a humidifier, recommended steam inhalation, hot showers and vapor rub Saline/Salt water gargles, saline nose drops prn Watch for worsening symptoms, i.e.increasing fever, productive cough, WRIGHT, ST, lethargy, rash etc RTC prn or if symptoms worsen/change or don't improve in 3-4 days Pt verbalizes understanding and all questions have been answered Return if symptoms worsen or fail to improve. There may be grammatical errors in this note due to use of voice recognition software. Cosigned by Zoraida Franco MD at 11/05/2023 4:24 PM SENIOR NAVAL PARACHUTIST OR NAVAL PARACHUTIST OR NAVAL PARACHUTIST documented in this encounter Plan of Treatment Not on file documented as of this encounter Visit Diagnoses Diagnosis RSV (respiratory syncytial virus infection)- Primary Respiratory syncytial virus (RSV) Acute non-recurrent pansinusitis documented in this encounter Discontinued Medications Medication Sig Discontinue Reason Start Date End Da te carbamide peroxide (DEBROX) 6.5 % otic solutionIndications:Im pacted Cerumen Administer 5 drops into each ear 2 (two) times a day 09/03/2023 11/05/2023 documented as of this encounter Historical Medications * This list may reflect changes made after this encounter. ascorbic acid (vitamin C) 1,000 mg tablet Take 1 tablet (1,000 mg total) by mouth daily 4 cetirizine (ZyrTEC) 10 mg tablet Take 1 tablet (10 mg total) by mouth daily 4 albuterol HFA (PROVENTIL HFA,VENTOLIN HFA,PROAIR HFA) 90 mcg/actuation inhaler INHALE 2 PUFFS BY MOUTH FOUR TIMES DAILY NEEDED FOR SHORTNESS OF BREATH OR WHEEZING 11/01/2023 4 added in this encounter Care Teams Paper Roll Machine Operator Relationship Specialty Start Date End Date Zoraida Franco MD [facility] [address] [place] [id number] PCP - General Family Medicine 06/20/21 documented as of this encounter
--- OUTSIDE RECORDS SUMMARY | 2024-11-30 06:08 | XMS_ITS | Encounter Summary ---
Author Organization [facility] Healthcare Address [address] [place] [address] Care Team Providers Care Account Executive Metalworking Name Role Phone Zoraida Franco MD Primary Care Provi selvin Reason for Visit * Reason Comments Medicare Wellness Encounter Details Date Type Department Care Team (Late st Contact Info) Description 10/15/2023 3:00 PM BRICK SHADER Office Visit [facility] Family Medicine [address] [phone] Zoraida Franco MD [address] [phone] Encounter for Medicare annual wellness exam (Primary Dx); Down syndrome; Arthralgia of both knees; Other decreased white blood cell (WBC) count; Non-seasonal allergic rhinitis due to pollen; NILA (obstructive sleep apnea); Acute non-recurrent sinusitis of other sinus; PLMD (periodic limb movement disorder); Overweight (BMI 25.0-29.9); VSD (ventricular septal defect); Belching; Hypotension, unspecified hypotension type Social History Tobacco Use Types Packs/Day Years Used Date Smoking Tobacco: Never Smokeless Tobacco: Never Tobacco Cessation:Counseling Given: Not Answered Alcohol Use Standard Drinks/Week Comments Not Currently 0 (1 standard drink = 0.6 oz pur e alcohol) AUDIT-C Answer Date Recorded Q1: How often do you have a drink containing alcohol? Never 10/15/2023 Q2: How many drinks containi ng alcohol do you have on a typical day when you are drinking? Patient does not drink Q3: How often do you have si x or more drinks on one occasion? Never 10/15/2023 PHQ-2 Answer Date Recorded PHQ-2 Total Score (If total score is 3 or more points, staff should administer the PHQ-9) 0 10/15/2023 Sex and Gender Information Value Date Recorded Sex Assigned at Not on file Legal Sex Male 7:51 PM BRICK SHADER Gender Identity Not on file Sexual Orientation Not on file Occupation Industry Job Start Date Job End Date Disabled Not on file Not on file Not on file documented as of this encounter Last Filed Vital Signs Vital Sign Reading Time Taken Comments Blood Pressure 86/58 10/15/2023 2:49 PM BRICK SHADER Pulse 78 10/15/2023 2:49 PM BRICK SHADER Temperature 36.4 ??C (97.5 ??F) 10/15/2023 2:49 PM CS T Respiratory Rate 14 10/15/2023 2:49 PM BRICK SHADER Oxygen Saturation 95% 10/15/2023 2:49 PM BRICK SHADER Inhaled Oxygen Concentration - - Weight 73.1 kg (161 lb 3.2 oz) 10/15/2023 2:49 P M BRICK SHADER Height 162.6 cm (5' 4 ) 10/15/2023 2:49 PM BRICK SHADER Body Mass Index 27.67 10/15/2023 2:49 PM BRICK SHADER documented in this encounter Patient Instructions * Patient Instructions* Zoraida Franco MD - 10/15/2023 3:00 PM BRICK SHADER - Due for Tdap, please obtain at local pharmacy Health Maintenance Topic Date Due DTaP/Tdap/Td Vaccine (1 - Tdap) Never done Covid-19 Vaccine (3 - season) 2023 Depression Screening-PHQ 10/15/2024 Regular Well Visit/Exam 18-64 10/15/2024 Colon Cancer Screening-DNA Stool 08/30/2025 Influenza Vaccine Completed Pneumococcal vaccine <65 Aged Out K SHADER K SHADER documented in this encounter Progress Notes * Zoraida Franco MD - 10/15/2023 3:00 PM CST Images from the original note were not included. Armin Rico is a 48 y.o. year old White Non- male here an for Annual Wellness Visit. Medicare Health Risk Assessment Basic Information In general, would you say your health is: Excellent Do you have an advance directive, such as a living will or durable power of field marketing director?: Yes Do you have to strain or struggle to hear/understand conversations?: (!) Yes Over the last 2 weeks, how often [...] days a week do you usually exercise?: > 5 days per week How intense is your typical exercise?: Moderate (like brisk walking) Nutrition How would you rate your appetite?: Good How would you describe the condition of your mouth and teeth/dentures?: Fair On a typical day, how many servings of fruits and vegetables do you eat?: 2 On a typical day, how many servings of high fiber/whole-grain foods do you eat?: 2 On a typical day, how many servings of high fat/fried foods do you eat?: 2 Have you experienced any of the following problems currently or recently? Eating: No Grooming: No Bathing: No Walking: No Using the toilet: No Memory problems: No Difficulty speaking: No Dressing: No Balance: No Pain: No Sexual Health: No Fatigue: No Have you experienced any of the following problems currently or recently? Laundry and/or housekeeping: No Handling money: No Shopping: No Using the Phone: No Food preparation: No Transportation: No Taking and/or getting your own medications: No Do you use prescription drugs that are not prescribed for you?: No Do you struggle with any of the following: depression, stress, anger, loneliness or social isolation?: No Based on my observation of the patient, review of Health Risk Assessment (HRA) and other records, this is my assessment and recommendation regarding fall risk, hearing impairment, home safety, ADLs, or any other issues identified in the HRA: See below -patient with hearing loss -patient reports throw rug/slippery tabs- actually does not have these Chronic conditions: -down syndrome. He is stable. -joint pain. Intermittent pain. He is currently doing well -leukopenia. He follows with Oncology -none seasonal allergic rhinitis. He is currently on Flonase -acute sinusitis. This has resolved -periodic limb movement disorder. He is not on medication. -VSD. He is currently off aspirin. He does follow with Cardiology -he has belching frequently. He has completed his EGD without a source Problem List, Past Medical and Surgical History: Patient Active Problem List Diagnosis VSD (ventricular septal defect) Leukopenia Joint pain NILA (obstructive sleep apnea) PLMD (periodic limb movement disorder) Encounter for Medicare annual wellness exam Down syndrome Non-seasonal allergic rhinitis due to pollen Overweight (BMI 25.0-29.9) Past Medical History: Diagnosis Date COVID-19 08/2020 [...] activity: Defer Alcohol Use: Not At Risk (10/15/2023) AUDIT-C Frequency of Alcohol Consumption: Never Average Number of Drinks: Patient does not drink Frequency of Binge Drinking: Never Allergies: Allergies Allergen Reactions Atropine Hives Was told not to have by integrative medicine physician Demerol [Meperidine] Unknown Morphine Sulfate Unknown Medications: Current Outpatient Medications: carbamide peroxide (DEBROX) 6.5 % otic solution, Administer 5 drops into each ear 2 (two) times a day, Disp: 15 mL, Rfl: 0 cholecalciferol, vitamin D3, (VITAMIN D3 ORAL), Take by mouth, Disp: , Rfl: fluticasone propionate (FLONASE) 50 mcg/actuation nasal spray, SHAKE LIQUID AND USE 2 SPRAYS IN EACH NOSTRIL DAILY (Patient taking differently: As needed), Disp: 16 g, Rfl: 1 loratadine (CLARITIN) 10 mg tablet, TAKE ONE TABLET BY MOUTH DAILY, Disp: 90 tablet, Rfl: 1 Depression Screen: PHQ Screening Over the past 2 weeks, how often have you been bothered by any of the following problems? Little Interest or Pleasure in Doing Things: Not at all Feeling Down, Depressed, or Hopeless: Not at all PHQ-2 Total Score (If total score is 3 or more points, staff should administer the PHQ-9): 0 Vitals: Vitals BP (!) 86/58 (BP Location: Left arm, Patient Position: Sitting) Pulse 78 Temp 36.4 ??C (97.5 ??F) (Temporal) Resp 14 Ht 162.6 cm (5' 4 ) Wt 73.1 kg (161 lb 3.2 oz) SpO2 95% BMI 27.67 kg/m?? Body mass index is 27.67 kg/m??. Exam: Physical Exam Vitals and nursing [...] distress. Breath sounds: Normal breath sounds. No wheezing or rales. Abdominal: General: Bowel sounds are normal. There is no distension. Palpations: Abdomen is soft. There is no mass. Tenderness: There is no abdominal tenderness. There is no guarding. Musculoskeletal: Cervical back: Neck supple. Skin: General: Skin is warm and dry. Neurological: Mental Status: He is alert and oriented to person, place, and time. Motor: No abnormal muscle tone. Psychiatric: Mood and Affect: Mood normal. Behavior: Behavior normal. Thought Content: Thought content normal. Care Team Providers: Patient Care Team: Zoraida Franco MD as PCP - General (Family Medicine) Primary Pharmacy/DME suppliers: [id number] - [place], [place] - [address] [facility] [address] [facility] [id number] [id number] - [place], [place] - [address] [facility] [id number] Detection of Cognitive Impairment: The patient does not have cognitive impairment based on direct observation, discussion with patientor family, or review of medical records. Health Maintenance: Health Maintenance Topics with due status: Overdue Topic Date Due DTaP/Tdap/Td Vaccine Never done Covid-19 Vaccine 08/02/2023 Health Maintenance Topics with due status: Not Due Topic Last Completion Date Colon Cancer Screening-DNA Stool 08/30/2022 Depression Screening-PHQ 10/15/2023 Regular Well Visit/Exam 18-64 10/15/2023 Health Maintenance Topics with due status: Completed Topic Last Completion Date Influenza Vaccine 09/16/2023 Health Maintenance Topics with due status: Aged Out Topic Date Due Pneumococcal vaccine <65 Aged Out Counseling and Referral of Preventative Services: Lifestyle Recommendations Improve Diet Advanced Directive Durable Power of Shotgun Shell Assembly Machine Adjuster: Yes Living Will: No Assessment and Plan: Diagnoses and all orders for this visit: Encounter for Medicare annual wellness exam (Primary) Assessment & Plan: Encouraged healthy habits He has a guardianship PMH updated: Last colonoscopy/cologuard:cologuard 08/23- Neg Last PSA: 08/24- WNL Last Tdap: encouraged Last Flu: up to date Last COVID: encouraged Down syndrome Assessment & Plan: Chronic, stable Continue to monitor Update me with any changes in his behavior or health Arthralgia of both knees Assessment & Plan: Chronic, stable Continue to monitor symptoms Other decreased white blood cell (WBC) count Assessment & Plan: Chronic, stable Managed by Hematology Update me with any changes or concerns Non-seasonal allergic rhinitis due to pollen Assessment & Plan: Chronic, stable Continue Flonase as needed NILA (obstructive sleep apnea) Assessment & Plan: Chronic, stable Unable to tolerate CPAP Reviewed a referral to sleep Medicine Acute non-recurrent sinusitis of other sinus Assessment & Plan: Acute, resolved Update me if symptoms reoccur PLMD (periodic limb movement disorder) Assessment & Plan: Chronic, stable Currently not on medication Consider referral to sleep Medicine for further guidance Call for questions Overweight (BMI 25.0-29.9) Assessment & Plan: Chronic, stable BMI Follow-up includes: nutrition counseling. VSD (ventricular septal defect) Assessment & Plan: Chronic, stable Will be due repeat echo in 2023 Update me with any concerns Belching Comments: chronic, stable encouraged eating slower consider beano update me with any changes Hypotension, unspecified hypotension type Comments: acute, new will have mom keep tracj of blood pressure update me with any changes Patient here for annual Medicare wellness visit [...] of today's office visit. Zoraida Franco MD K SHADER documented in this encounter Miscellaneous Notes * Assessment & Plan Note - Zoraida Franco MD - 10/15/2023 3:52 PM CSTAssociated Problem(s): Encounter for Medicare annual wellness exam Encouraged healthy habits He has a guardianship PMH updated: Last colonoscopy/cologuard:cologuard 08/23- Neg Last PSA: 08/24- WNL Last Tdap: encouraged Last Flu: up to date Last COVID: encouraged K SHADER * Assessment & Plan Note - Zoraida Franco MD - 10/15/2023 3:13 PM CSTAssociated Problem(s): VSD (ventricular septal defect) Chronic, stable Will be due repeat echo in 2023 Update me with any concerns K SHADER K SHADER * Assessment & Plan Note - Zoraida Franco MD - 10/15/2023 3:13 PM CSTAssociated Problem(s): PLMD (periodic limb movement disorder) Chronic, stable Currently not on medication Consider referral to sleep Medicine for further guidance Call for questions K SHADER * Assessment & Plan Note - Zoraida Franco MD - 10/15/2023 3:13 PM CSTAssociated Problem(s): Class 1 obesity due to excess calories without serious comorbidity with bodymass index (BMI) of 31.0 to 31.9 in adult Chronic, stable BMI Follow-up includes: nutrition counseling. K SHADER * Assessment & Plan Note - Zoraida Franco MD - 10/15/2023 3:12 PM CSTAssociated Problem(s): Other acute sinusitis (Resolved 10/15/2023) Acute, resolved Update me if symptoms reoccur K SHADER * Assessment & Plan Note - Zoraida Franco MD - 10/15/2023 3:12 PM CSTAssociated Problem(s): NILA (obstructive sleep apnea) Chronic, stable Unable to tolerate CPAP Reviewed a referral to sleep Medicine K SHADER * Assessment & Plan Note - Zoraida Franco MD - 10/15/2023 3:12 PM CSTAssociated Problem(s): Vasomotor rhinitis Chronic, stable Continue Flonase as needed K SHADER * Assessment & Plan Note - Zoraida Franco MD - 10/15/2023 3:12 PM CSTAssociated Problem(s): Leukopenia Chronic, stable Managed by Hematology Update me with any changes or concerns K SHADER * Assessment & Plan Note - Zoraida Franco MD - 10/15/2023 3:12 PM CSTAssociated Problem(s): Joint pain Chronic, stable Continue to monitor symptoms K SHADER * Assessment & Plan Note - Zoraida Franco MD - 10/15/2023 3:11 PM CSTAssociated Problem(s): Down syndrome Chronic, stable Continue to monitor Update me with any changes in his behavior or health K SHADER documented in this encounter Plan of Treatment Not on file documented as of this encounter Visit Diagnoses Diagnosis Encounter for Medicare annual wellness exam- Primary Down syndrome Down's syndrome Arthralgia of both knees Other decreased white blood cell (WBC) count Non-seasonal allergic rhinitis due to pollen NILA (obstructive sleep apnea) Obstructive sleep apnea (adult) (pediatric) Acute non-recurrent sinusitis of other sinus PLMD (periodic limb movement disorder) Periodic limb movement disorder Overweight (BMI 25.0-29.9) Overweight VSD (ventricular septal defect) Ventricular septal defect Belching Flatulence, eructation, and gas pain Hypotension, unspecified hypotension type documented in this encounter Discontinued Medications Medication Sig Discontinue Reason Start Date End Da te aspirin 81 mg enteric coated tablet Take 1 tablet (81 mg total) by mouth daily Therapy completed 10/15/2023 documented as of this encounter Care Teams Account Executive Metalworking Relationship Specialty Start Date End Date Zoraida Franco MD [facility] [address] [place] [id number] PCP - General Family Medicine 06/20/21 documented as of this encounter
--- OUTSIDE RECORDS SUMMARY | 2024-11-30 06:08 | XMS_ITS | Encounter Summary ---
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 * Addendum Note - Fanny Kramer LPN - 02/20/2023 9:24 AM CDTAddended by: FANNY KRAMER on: 02/20/2023 09:24 AM Modules accepted: Orders * Telephone Encounter - Fanny Kramer LPN - 02/20/2023 9:23 AM CDT I spoke with the pt's mother and made her aware. The pt would like to proceed with GI referral. Order placed to requested provider. * Telephone Encounter - Zoraida Franco MD - 02/20/2023 7:03 AM CDT Good morning, the patient was at [facility]. He had a CT of his neck completed which was concerning for esophagitis. Does he have a state patrol officer? documented in this encounter Plan of Treatment Not on file documented as of this encounter Visit Diagnoses Diagnosis Esophagitis- Primary Unspecified esophagitis documented in this encounter Care Teams Hand Shaper Relationship Specialty Start Date End Date Zoraida Franco MD [address] [place] [address] PCP - General Family Medicine 06/20/21 documented as of this encounter
--- OUTSIDE RECORDS SUMMARY | 2024-11-30 06:08 | XMS_ITS | Encounter Summary ---
Author Organization [facility] Address [address] [facility] [address] [place] [id number] Care Team Providers Care Blade Sharpener Name Role Phone Zoraida Franco MD Primary Care Provi selvin Reason for Visit * Reason Onset Date Comments Medical Question/Miscellaneous 02/27/2023 Encounter Details Date Type Department Care Team (Late st Contact Info) Description 02/27/2023 Telephone [facility] Family Medicine [address] [phone] Teresa Guerrero LPN Medical Question/Miscellaneous Social History Tobacco Use Types [...] on file Legal Sex Male 7:51 PM LMFT Gender Identity Not on file Sexual Orientation Not on file Occupation Industry Job Start Date Job End Date Disabled Not on file Not on file Not on file documented as of this encounter Miscellaneous Notes * Telephone Encounter - Zoraida Franco MD - 02/27/2023 4:31 PM CDT Noted, thank you * Telephone Encounter - Joanna Leyva - 02/27/2023 2:53 PM CDT Call Back Caller???s Concern: Patient's Mom, Maya, called back in. Armin was seen by GI today and they will be doing an upper endoscopy. Mom states no follow up appointment needed at this time. Caller???s Call back #: [phone] Does message need to be routed? Yes-FYI Only * Telephone Encounter - Teresa Guerrero LPN - 02/27/2023 9:28 AM CDT LM, awaiting return call Patient was seen in the emergency room for food impaction. If we could check with mom and see if weneed to schedule a follow-up visit, I would be appreciative. Thank you ----- Message ----- From: Sera Sanders Sent: 02/26/2023 2:27 PM CDT To: Zoraida Franco MD Subject: Edit The scan below was edited by Sera Sanders [[id number]] on 02/26/2023 at 2:27 PM; it is attached to the following: Abstract on 02/26/2023 with Zoraida Franco Md. documented in this encounter Plan of Treatment Not on file documented as of this encounter Visit Diagnoses Not on filedocumented in this encounter Care Teams Blade Sharpener Relationship Specialty Start Date End Date Zoraida Franco MD [facility] [address] [place] [address] PCP - General Family Medicine 06/20/21 documented as of this encounter
--- OUTSIDE RECORDS SUMMARY | 2024-11-30 06:08 | XMS_ITS | Encounter Summary ---
Author Organization [facility] Healthcare Address [address] [place] [address] Care Team Providers Care Architecture Instructor Name Role Phone Zoraida Franco MD Primary Care Provi selvin Encounter Details Date Type Department Care Team (Late st Contact Info) Description 12/19/2022 3:30 PM HIGH PRESSURE KETTLE OPERATOR Lab [facility] Lab [facility] [place] [address] Leukopenia, unspecified type Social History Tobacco Use [...] on file Legal Sex Male 7:51 PM HIGH PRESSURE KETTLE OPERATOR Gender Identity Not on file Sexual Orientation Not on file Occupation Industry Job Start Date Job End Date Disabled Not on file Not on file Not on file documented as of this encounter Plan of Treatment Not on file documented as of this encounter Procedures Procedure Name Priority Date/Time Associated Diagnosis Comments DIFFERENTIAL AUTO Routine 12/19/2022 3:3 4 PM HIGH PRESSURE KETTLE OPERATOR Leukopenia, unspecified type CBC WITH AUTO DIFFERENTIAL Routine 12/19/2022 3:34 PM HIGH PRESSURE KETTLE OPERATOR Leukopenia, unspecified type documented in this encounter Results * (ABNORMAL) Differential, auto (12/19/2022 3:34 PM HIGH PRESSURE KETTLE OPERATOR) Neutrophil abs 1.4(L) 1.7 - 6.5 K/cumm [facility] Comment:Testing performed by : [address] [address] Lymphocyte abs 1.8 0.8 - 3.3 K/cumm ANALIA Comment:Testing performed by : [address] [address] Monocyte abs 0.5 0.2 - 0.8 K/cumm ANALIA Comment:Testing performed by : [address] [address] Eosinophil abs 0.1 0.0 - 0.5 K/cumm ANALIA Comment:Testing performed by : [address] [address] Basophil abs 0.1 0.0 - 0.1 K/cumm A[facility]IA Comment:Testing performed by : [address] [address] Neutrophil pct 36.1 % [facility] Comment: Interpretive Data Percent cell count reference ranges are not reported, since discordance with absolute values may lead to misinterpretation of CBC data. Current Interpretive Data was last revised on 2018. Testing performed by: [address] [address] Imm gran pct 0.3 % [facility] Comment: Interpretive Data Percent cell count reference ranges are not reported, since discordance with absolute values may lead to misinterpretation of CBC data. Current Interpretive Data was last revised on 2018. Testing performed by: [address] [address] Lymphocyte pct 47.3 % [facility] Comment: Interpretive Data Percent cell count reference ranges are not reported, since discordance with absolute values may lead to misinterpretation of CBC data. Current Interpretive Data was last revised on 2018. Testing performed by: [address] [address] Monocyte pct 12.9 % [facility] Comment: Interpretive Data Percent cell count reference ranges are not reported, since discordance with absolute values may lead to misinterpretation of CBC data. Current Interpretive Data was last revised on 2018. Testing performed by: [address] [address] Eosinophil pct 1.3 % [facility] Comment: Interpretive Data Percent cell count reference ranges are not reported, since discordance with absolute values may lead to misinterpretation of CBC data. Current Interpretive Data was last revised on 2018. Testing performed by: [address] [address] Basophil pct 2.1 % [facility] Comment: Interpretive Data Percent cell count reference ranges are not reported, since discordance with absolute values may lead to misinterpretation of CBC data. Current Interpretive Data was last revised on 2018. Testing performed by: [address] [address] Blood 12/19/2022 3:34 PM HIGH PRESSURE KETTLE OPERATOR 12/19/2022 3:42 PM HIGH PRESSURE KETTLE OPERATOR Clemente Hamm DO LAB BLOOD ORDERABLES Final R esult [facility] [address] [facility] Department of Laboratories [place], [place] [id number] * CBC with auto differential (12/19/2022 3:34 PM HIGH PRESSURE KETTLE OPERATOR) WBC 3.9 3.8 - 9.9 K/cumm [facility] Comment:Testing performed by : [address] [address] Hgb 15.8 13.0 - 17.5 g/dL [facility]NALIA DODD Comment:Testing performed by : [address] [address] Hct 46.3 38.9 - 50.3 % [facility] Comment:Testing performed by : [address] [place]., [address] Plt 246 150 - 400 K/cumm [facility] Comment:Testing performed by : [address] [address] MPV 9.2 9.1 - 12.3 fL [facility] Comment:Testing performed by : [address] [address] RBC 4.91 4.30 - 5.80 M/cumm [facility]IA Comment:Testing performed by : [address] [address] MCV 94.3 81.3 - 96.4 fL [facility] Comment:Testing performed by : [address] [address] MCH 32.2 27.1 - 33.3 pg [facility] Comment:Testing performed by : [address] [address] MCHC 34.1 32.3 - 35.7 g/dL [facility] Comment:Testing performed by : [address] [address] RDW CV 13.4 11.1 - 14.9 % [facility] Comment:Testing performed by : [address] [address] RDW SD 46.7 35.7 - 48.1 fL [facility] Comment:Testing performed by : [address] [address] Blood 12/19/2022 3:34 PM HIGH PRESSURE KETTLE OPERATOR 12/19/2022 3:42 PM HIGH PRESSURE KETTLE OPERATOR us Clemente Hamm DO LAB BLOOD ORDERABLES Final R esult [facility] [address] [facility] Department [place] [address] documented in this encounter Visit Diagnoses Diagnosis Leukopenia, unspecified type documented in this encounter Care Teams Architecture Instructor Relationship Specialty Start Date End Date Zoraida Franco MD [facility] [address] [place] [address] PCP - General Family Medicine 06/20/21 documented as of this encounter
--- OUTSIDE RECORDS SUMMARY | 2024-11-30 06:08 | XMS_ITS | Encounter Summary ---
Author Organization [facility] Healthcare Address [address] [place] [address] Care Team Providers Care Media Relations Manager Name Role Phone Dennis Franco MD Primary Care Provi selvin Encounter Details Date Type Department Care Team (Late st Contact Info) Description 11/08/2023 Telephone [facility] Medical [facility] Family Medicine [address] [address] Dennis Franco MD [address] [address] Social History Tobacco Use Types [...] on file Legal Sex Male 7:51 PM TRAUMA THERAPIST Gender Identity Not on file Sexual Orientation Not on file Occupation Industry Job Start Date Job End Date Disabled Not on file Not on file Not on file documented as of this encounter Miscellaneous Notes * Telephone Encounter - Jackie Ford MA - 11/11/2023 11:03 AM CST Still cough, wheezing last week until Saturday- no wheezing yesterday or today. Inhaler helping some. Still congested. Patient's mom feels like he is doing better. Notified her that chest XR was ordered to complete in 4-6 weeks. MA THERAPIST * Telephone Encounter - Dennis Franco MD - 11/08/2023 3:41 PM TRAUMA THERAPIST Chest xray ordered- thank you MA THERAPIST * Addendum Note - Dennis Franco MD - 11/08/2023 3:41 PM TRAUMA THERAPIST Addended by: DENNIS FRANCO on: 11/08/2023 03:41 PM Modules accepted: Orders MA THERAPIST * Telephone Encounter - Mable Meneses LPN - 11/08/2023 2:10 PM TRAUMA THERAPIST Mom states, breathing is fine. Still coughing a lot, he has RSV. Agrees to additional imaging 4-6 weeks MA THERAPIST * Telephone Encounter - Dennis Franco MD - 11/08/2023 1:43 PM TRAUMA THERAPIST We can, but I would want to at least wait 4-6 weeks. Is he still coughing? MA THERAPIST * Telephone Encounter - Teresa Guerrero LPN - 11/08/2023 12:25 PM CST Patient is doing okay, still has cough. They would like patient to get more imaging at [facility]. Pt's xray showed a possible elevated robyn-diaphragm- how is his breathing doing? We could consider a follow up imaging? ----- Message ----- From: Sera Sanders Sent: 11/07/2023 3:46 PM TRAUMA THERAPIST To: Dennis Franco MD Subject: Edit The scan below was edited by Sera Sanders on 11/07/2023 at 15:46; it is attached to the following: the 11/07/2023 Abstract with Dennis Franco MD MA THERAPIST documented in this encounter Plan of Treatment Not on file documented as of this encounter Visit Diagnoses Diagnosis Acute cough- Primary documented in this encounter Care Teams Media Relations Manager Relationship Specialty Start Date End Date Dennis Franco MD [address] [place] [address] PCP - General Family Medicine 06/20/21 documented as of this encounter
--- OUTSIDE RECORDS SUMMARY | 2024-11-30 06:08 | XMS_ITS | Encounter Summary ---
Author Organization [facility] Address [address] [facility] [address] [place] [address] Care Team Providers Care Wound Care Rn Name Role Phone Zoraida Franco MD Primary Care Provi selvin Reason for Visit * Reason Onset Date Comments Additional Services Or Orders 08/27/2023 Encounter Details Date Type Department Care Team (Late st Contact Info) Description 08/27/2023 Telephone [facility] Family Medicine [address] [phone] Zoraida Franco MD [address] [place] [address] Additional Services Or Orders Social History Tobacco Use Types Packs/Day Years [...] on file Legal Sex Male 7:51 PM HAND BINDER STRIPPER Gender Identity Not on file Sexual Orientation Not on file Occupation Industry Job Start Date Job End Date Disabled Not on file Not on file Not on file documented as of this encounter Miscellaneous Notes * Addendum Note - Trish Guerrero LPN - 08/30/2023 9:46 AM CDTAddended by: TRISH GUERRERO on: 08/30/2023 09:46 AM Modules accepted: Orders * Telephone Encounter - Lyly Webster LPN - 08/27/2023 3:09 PM CDT Pt's mother informed of orders placed. * Telephone Encounter - Dulce Patterson - 08/27/2023 2:41 PM CDT Call Back Caller???s Concern: Caller would also like a lipid panel ordered with pending blood work and let her know if order is placed and if fasting. Patient is her son. Caller???s Call back #: [phone] Does message need to be routed? Yes-Action Needed * Telephone Encounter - Joanna Leyva - 08/27/2023 2:38 PM CDT Images from the original note were not included. Additional Services or Orders Type of Service Requested:Labs Reason for Request (e.g. condition/symptom, date of COVID exposure if applicable): Has been watching White Blood Count Details Regarding Additional Services (e.g. type of home health, type of equipment, type of test, etc.): Wanting to know if a CBC can be ordered along with current labs that were sent to [facility]. Where will services be performed? (if outside of the practice, facility name, address, phone/fax offacility): Caller's Callback #: [phone] Additional Comments: none Does message need to be routed? Yes-Action Needed documented in this encounter Plan of Treatment Not on file documented as of this encounter Visit Diagnoses Diagnosis Encounter for Medicare annual wellness exam- Primary Screening, lipid Screening for diabetes mellitus Other decreased white blood cell (WBC) count documented in this encounter Care Teams Wound Care Rn Relationship Specialty Start Date End Date Zoraida Franco MD [facility] [address] [place] [address] PCP - General Family Medicine 06/20/21 documented as of this encounter
--- OUTSIDE RECORDS SUMMARY | 2024-11-30 06:08 | XMS_ITS | Encounter Summary ---
Author Organization [facility] Healthcare Address [address] [place] [address] Care Team Providers Care Cocoa Roaster Name Role Phone Zoraida Franco MD Primary Care Provi selvin Reason for Visit * Reason Onset Date Comments Medical Question/Miscellaneous 12/09/2023 Encounter Details Date Type Department Care Team (Late st Contact Info) Description 12/09/2023 Telephone [facility] Family Medicine [address] [phone] Zoraida Franco MD [address] [place] [address] Medical Question/Miscellaneous Social History Tobacco Use [...] on file Legal Sex Male 7:51 PM CEMENT BASED MATERIALS PUMP TENDER Gender Identity Not on file Sexual Orientation Not on file Occupation Industry Job Start Date Job End Date Disabled Not on file Not on file Not on file documented as of this encounter Miscellaneous Notes * Telephone Encounter - Madisyn Nair - 12/10/2023 3:03 PM CST Called and spoke to Mom and explained. She vu. NT BASED MATERIALS PUMP TENDER * Telephone Encounter - Grecia Hilario - 12/09/2023 10:56 AM CST Medical Question/Miscellaneous Caller???s Concern: Patient and Mom called regarding chart note on 11/28/23 @ 9:26 AM. Maya stated [facility] would not administer the RSV vaccination to the patient today because patient's age is outside of the CDC guidelines for approval. Patient would like to have it administered at the practice. Does message need to be routed? Yes-Action Needed NT BASED MATERIALS PUMP TENDER documented in this encounter Plan of Treatment Not on file documented as of this encounter Visit Diagnoses Not on filedocumented in this encounter Care Teams Cocoa Roaster Relationship Specialty Start Date End Date Zoraida Franco MD [address] [place] [address] PCP - General Family Medicine 06/20/21 documented as of this encounter
--- OUTSIDE RECORDS SUMMARY | 2024-11-30 06:08 | XMS_ITS | Encounter Summary ---
Author Organization [facility] Address [address] [place] [address] Phone Care Team Providers Care Organ Tuner Name Role Phone Zoraida Franco MD Primary Care Provi selvin Encounter Details Date Type Department Care Team (Late st Contact Info) Description 11/04/2023 Telephone [facility] Oncology [address] [facility] [address] [place] [address] Joanna Alcantara MA Social History Tobacco Use Types Packs/Day Years [...] on file Legal Sex Male 7:51 PM HYBRID POWERTRAIN DEVELOPMENT ENGINEER Gender Identity Not on file Sexual Orientation Not on file Occupation Industry Job Start Date Job End Date Disabled Not on file Not on file Not on file documented as of this encounter Miscellaneous Notes * Telephone Encounter - Joanna Tompkins RMA - 11/04/2023 11:49 AM HYBRID POWERTRAIN DEVELOPMENT ENGINEER Patient mom called and asked if she can schedule to the earlier appt time because she forgot she has to pickling solution maker her grandson on 12/25. Patient appt rescheduled and left voicemail regarding time change. ID POWERTRAIN DEVELOPMENT ENGINEER documented in this encounter Plan of Treatment Not on file documented as of this encounter Visit Diagnoses Not on filedocumented in this encounter Care Teams Organ Tuner Relationship Specialty Start Date End Date Zoraida Franco MD [address] [place] [address] PCP - General Family Medicine 06/20/21 documented as of this encounter
--- OUTSIDE RECORDS SUMMARY | 2024-11-30 06:08 | XMS_ITS | Encounter Summary ---
Author Organization [facility] Address [address] [place] [address] Phone Care Team Providers Care Plant General Manager Name Role Phone Zoraida Franco MD Primary Care Provi selvin Reason for Visit * Reason Comments Follow-up Encounter Details Date Type Department Care Team (Late st Contact Info) Description 12/19/2022 3:45 PM SCRAP METAL BURNER Office Visit [facility] Physicians [facility] Oncology [address] [address] Tayla Martinez, DEANDRA [address] [phone] Other decreased white blood cell (WBC) count (Primary Dx); Leukopenia, unspecified type Social History Tobacco Use [...] on file Legal Sex Male 7:51 PM SCRAP METAL BURNER Gender Identity Not on file Sexual Orientation Not on file Occupation Industry Job Start Date Job End Date Disabled Not on file Not on file Not on file documented as of this encounter Last Filed Vital Signs Vital Sign Reading Time Taken Comments Blood Pressure 106/73 12/19/2022 3:41 PM SCRAP METAL BURNER Pulse 72 12/19/2022 3:41 PM SCRAP METAL BURNER Temperature 36.8 ??C (98.2 ??F) 12/19/2022 3 :41 PM SCRAP METAL BURNER Respiratory Rate 17 12/19/2022 3:41 PM SCRAP METAL BURNER Oxygen Saturation 98% 12/19/2022 3:4 1 PM SCRAP METAL BURNER Inhaled Oxygen Concentration - - Weight 75.2 kg (165 lb 12.8 oz) 023 3:41 PM SCRAP METAL BURNER with shoes Height 165.1 cm (5' 5 ) 12/19/2022 3:41 PM SCRAP METAL BURNER Body Mass Index 27.59 12/19/2022 3:41 PM SCRAP METAL BURNER documented in this encounter Progress Notes * Tayla Martinez, GROUP FITNESS INSTRUCTOR - 12/19/2022 3:45 PM CST Patient ID: Armin Rico is a 45 y.o. male. 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 1. Leukopenia/neutropenia is not usually seen in individuals with trisomy 21. Patients w/ trisomy 21 can have delayed bone marrow suppression w/ infection. He will continue to follow up annually. 2. I will repeat a CBC and office visit annually. Patient Active Problem List Diagnosis ??? VSD (ventricular septal defect) ??? Leukopenia Diagnoses and all orders for this visit: Leukopenia, unspecified type (Primary) - Ambulatory referral to Hematology - Lab Draw Appt Request Arm Draw or Central Line Draw? Arm; What is your ordering location? [facility] Onc/Hem/BMT; Where will this patient receive treatment? [facility]; Future - Protein Electrophoresis, With Reflex, Serum; Future - Lactate dehydrogenase (LD); Future - Erythrocyte sedimentation rate; Future - CBC with auto differential; Future - JACIEL W/ HEP-2 SUBSTRATE,IGG BY IFA WITH REFLEX PATTERN NDUP CODE [id number] - Miscellaneous Test; Future - Clinic Appointment Request Follow up; [facility]; Clinic Appointment Location: [facility] IM ONC MHE2 180; Future - Lab Draw Appt Request Arm Draw or Central Line Draw? Arm; What is your ordering location? IM Onc/Hem/BMT; Where will this patient receive treatment? [facility]; Future - CBC with auto differential; Future Subjective History of Present Illness: Armin is a 45-year-old male with trisomy 21 who presents to my office for further evaluation of his leukopenia. According to his mother, he has had a mildly low white blood cell count for the past 3 years due tosurveillance laboratory testing by his PCP. Patient was diagnosed with COVID-19 infection in August of this past year and recovered quite well. When he was hospitalized for the COVID-19 pneumonia,he had a normal white blood cell count at the higher limit of normal. This could have been as a result of the steroids that were given to him for treatment of the COVID-19. Subsequently thereafter over the past 2 months, surveillance CBCs by the primary care physician have shown a low white blood cell count. At the end of October, the white blood cell count was 3.2 with a neutrophil count of 778. Currently, he recently had a sinus infection but seems to be recovering from that very easily. According to the mother, patient has had no recurrent infections over his life. He has not been placed on any new medications. He denies any fevers, chills, night sweats, weight loss or change in appetite. He denies any lymphadenopathy. 12/19/22: He did a telehealth visit last year. He is here in person for his annual visit this year. He is doing well. His ANC is 1.4. Mother notes he has been healthy. He did have COVID in Nov, but not since. He has no B symptoms. Past Medical History: Diagnosis Date ??? COVID-19 08/2020 ??? Down syndrome ??? History of laparoscopic cholecystectomy Past Surgical History: Procedure Laterality Date ??? CATARACT EXTRACTION 11/2001 ??? LAPAROSCOPIC CHOLECYSTECTOMY ??? TONSILLECTOMY ??? TYMPANOSTOMY TUBE PLACEMENT Family History Problem Relation Age of Onset ??? Thyroid cancer Mother ??? Other (heart issue s) Mother ??? Coronary artery disease Father ??? Other (covid) Father ??? Breast cancer Other ??? Lymphoma Other Family Status Relation Name Status ??? Mother Alive ??? Father at age 64 COVID ??? Sister Alive ??? MGM Alive ??? MGF ??? PGM ??? PGF ??? Other (Not Specified) Social History Occupational History ??? Occupation: Disabled Tobacco Use ??? Smoking status: Never Smoker ??? Smokeless tobacco: Never Used Substance and Sexual Activity ??? Alcohol use: Not Currently Frequency: Never ??? Drug use: Never ??? Sexual activity: Defer Allergies Allergen Reactions ??? Demerol [Meperidine] Unknown ??? Morphine Sulfate Unknown Current Outpatient Medications Medication Sig Dispense Refill ??? aspirin 81 mg enteric coated tablet Take 81 mg by mouth daily ??? cholecalciferol, vitamin D3, (VITAMIN D3 ORAL) Take by mouth ??? clotrimazole 1 % cream Apply topically 2 (two) times a day (Patient not taking: Reported on 12/19/2020) 60 g 2 ??? fluticasone propionate (FLONASE) 50 mcg/actuation nasal spray Administer 2 sprays into each nostril daily (Patient not taking: Reported on 12/19/2020) 16 g 1 No current facility-administered medications for this visit. I have reviewed: allergies, current medications, past family history, past medical history, past social history, past surgical history and problem list HPI Review of Systems Constitutional: Negative. Negative for appetite change and chills. HENT: Negative. Eyes: Negative. Respiratory: Negative. Cardiovascular: Negative. Gastrointestinal: Negative. Endocrine: Negative. Genitourinary: Negative. Musculoskeletal: Negative. Skin: Negative. Neurological: Negative. Hematological: Negative. Psychiatric/Behavioral: Negative. Objective Physical Exam: Vital Signs for this encounter: BSA: 1.81 meters squared BP 99/58 (BP Location: Left arm) Pulse 76 Temp 36.6 ??C (97.9 ??F) (Oral) Resp 14 Ht 153.7 cm (5' 0.5 ) Wt 76.9 kg (169 lb 9.6 oz) Comment: with shoes SpO2 99% BMI 32.58 kg/m?? Physical Exam Vitals and nursing note [...] time. Psychiatric: Behavior: Behavior normal. Performance Status: Asymptomatic Results: WBC Date Value Ref Range Status 12/19/2020 3.9 3.8 - 9.9 X10 3/ul Final 10/28/2020 3.2 (L) 3.8 - 10.8 Thousand/uL Final Hgb Date Value Ref Range Status 10/28/2020 16.1 13.2 - 17.1 g/dL Final Hemoglobin Date Value Ref Range Status 12/19/2020 16.4 13.0 - 17.5 g/dL Final Hct Date Value Ref Range Status 12/19/2020 47.0 38.9 - 50.3 % Final 10/28/2020 47.1 38.5 - 50.0 % Final Platelets Date Value Ref Range Status 10/28/2020 257 140 - 400 Thousand/uL Final Plt Count Date Value Ref Range Status 12/19/2020 257 150 - 400 x10 3/ul Final Lactate Dehydrogenase Date Value Ref Range Status 12/19/2020 128 100 - 250 U/L Final Creatinine Date Value Ref Range Status 10/28/2020 1.07 0.60 - 1.35 mg/dL Final AST Date Value Ref Range Status 10/28/2020 17 10 - 40 U/L Final P METAL BURNER documented in this encounter Plan of Treatment Not on file documented as of this encounter Visit Diagnoses Diagnosis Other decreased white blood cell (WBC) count- Primary Leukopenia, unspecified type documented in this encounter Orders Appointment Requests Count Last Ordered Date Fi rst Ordered Date [facility] CL[facility]IC APPOINTMENT REQUEST 1 023 documented in this encounter Care Teams Plant General Manager Relationship Specialty Start Date End Date Zoraida Franco MD [address] [place] [address] PCP - General Family Medicine 06/20/21 documented as of this encounter
--- OUTSIDE RECORDS SUMMARY | 2024-11-30 06:08 | XMS_ITS | Encounter Summary ---
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 * Telephone Encounter - Madisyn Nair - 03/10/2024 10:20 AM CDT Please see encounter below. * Telephone Encounter - Grecia Hilario - 03/10/2024 9:57 AM CDT Medical Question/Miscellaneous Caller???s Concern: Per Yvonne, labs completed on 08/24/23 were missing some diagnosis codes that caused the patient to be billed the entire amount. Yvonne stated the practice needs to contact them at [phone] to provide the additional diagnosis codes so the patient's bill can be corrected. Pleasecontact Maya (HIPAA confirmed) only if you have additional questions regarding the bill. Does message need to be routed? Yes-Action Needed documented in this encounter Plan of Treatment Not on file documented as of this encounter Visit Diagnoses Not on filedocumented in this encounter Care Teams Service Desk Technician Relationship Specialty Start Date End Date Zoraida Franco MD [address] [place] [address] PCP - General Family Medicine 06/20/21 documented as of this encounter
--- OUTSIDE RECORDS SUMMARY | 2024-11-30 06:08 | XMS_ITS | Encounter Summary ---
Author Organization [facility] Medical Group Address [address] [facility] [address] [place] [address] Care Team Providers Care Branch Chief Name Role Phone Zoraida Franco MD Primary Care Provi selvin Reason for Visit * Reason Comments Foot Problem Pt has a patch of dr y skin on right foot and possible fungus in Encounter Details Date Type Department Care Team (Late st Contact Info) Description 05/24/2023 11:00 AM CDT Office Visit [facility] Family Medicine [address] [phone] Laure Mims, JORDAN [address] [address] Tinea pedis of both feet (Primary Dx) Social History Tobacco Use Types [...] on file 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 Gender Identity Not on file Sexual Orientation Not on file Occupation Industry Job Start Date Job End Date Disabled Not on file Not on file Not on file documented as of this encounter Last Filed Vital Signs Vital Sign Reading Time Taken Comments Blood Pressure 100/70 05/24/2023 10:28 AM CDT Pulse 76 05/24/2023 10:28 AM CDT Temperature 36.6 ??C (97.9 ??F) 05/24/2023 10:28 AM C DT Respiratory Rate 16 05/24/2023 10:28 AM CDT Oxygen Saturation 96% 05/24/2023 10:28 AM CDT Inhaled Oxygen Concentration - - Weight 74.7 kg (164 lb 9.6 oz) 05/24/2023 10:28 AM CDT Height 165.1 cm (5' 5 ) 05/24/2023 10:28 AM CDT Body Mass Index 27.39 05/24/2023 10:28 AM CDT documented in this encounter Ordered Prescriptions Prescription Sig Dispense Quantity Refills Last Filled Start Date End Date terbinafine (LamISIL) 1 % cream Apply topically 2 (two) times a day 30 g 1 05/24/2023 3 terbinafine (LamiSIL) 250 mg tablet Take 1 tablet (250 mg total) by mouth daily 14 tablet 05/24/2023 3 documented in this encounter Progress Notes * Laure Mims, JORDAN - 05/24/2023 11:00 AM CDT Images from the original note were not included. Subjective/Objective Patient ID: Armin Rico is a 47 y.o. male. Chief Complaint Foot Problem (Pt has a patch of dry skin on right foot and possible fungus in ) HPI Patient presents today for evaluation and management of foot rash. He has Down syndrome and mother provides most of the history. She reports white scaling rash over bilateral feet starting several weeks ago. States that previously he was given an oral medication for this. The rash is not itchy or red. Review of Systems Constitutional: Negative for chills and fever. HENT: Negative for congestion and sore throat. Respiratory: Negative for cough and shortness of breath. Gastrointestinal: Negative for abdominal pain, nausea and vomiting. Musculoskeletal: Negative for myalgias. Skin: Positive for rash. Neurological: Negative for headaches. Vitals: 05/24/23 1028 BP: 100/70 BP Location: Right arm Patient Position: Sitting Pulse: 76 Resp: 16 Temp: 36.6 ??C (97.9 ??F) TempSrc: Temporal SpO2: 96% Weight: 74.7 kg (164 lb 9.6 oz) Height: 165.1 cm (5' 5 ) Physical Exam Vitals and nursing note reviewed. Constitutional: General: He is not in acute distress. Appearance: Normal appearance. HENT: Head: Normocephalic and atraumatic. Eyes: Conjunctiva/sclera: Conjunctivae normal. Pulmonary: Effort: Pulmonary effort is normal. Skin: General: Skin is warm and dry. Findings: Rash present. Comments: Bilateral feet with white scaling cracked skin along the medial and lateral surfaces and on the toes. 1 in circular area quite scaling cracked skin below the medial malleolus of the left ankle. No erythema, no tenderness, no macerated skin between the toes. Several toenails are thickened and discolored. Neurological: Mental Status: He is alert and oriented to person, place, and time. Psychiatric: Mood and Affect: Mood normal. Behavior: Behavior normal. Assessment/Plan Diagnoses and all orders for this visit: Tinea pedis of both feet (Primary) Other orders - terbinafine (LamiSIL) 250 mg tablet; Take 1 tablet (250 mg total) by mouth daily - terbinafine (LamISIL) 1 % cream; Apply topically 2 (two) times a day Acute. Start treatment with oral terbinafine and topical cream as directed. Recommend cleaning bathtub or shower with bleach a couple of times a week. Keep feet clean and dry. Wear sandals, change sweaty socks often. Return if symptoms worsen or fail to improve. *This note is dictated using [employer] voice recognition software, variances in spelling and vocabulary are possible and unintentional.* JORDAN Webb documented in this encounter Plan of Treatment Not on file documented as of this encounter Visit Diagnoses Diagnosis Tinea pedis of both feet- Primary documented in this encounter Discontinued Medications Medication Sig Discontinue Reason Start Date End Da te azelastine (ASTELIN) 137 mcg (0.1 %) nasal sprayIndications:Season al allergic rhinitis, unspecified trigger Administer 1 spray into each nostril 2 (two) times a day Use in each nostril as directed Therapy completed 03/27/2022 05/24/2023 documented as of this encounter Historical Medications * This list may reflect changes made after this encounter. pantoprazole DR (PROTONIX) 40 mg EC tablet Take 1 tablet (40 mg total) by mouth every morning 02/27/2023 09/03/2023 added in this encounter Care Teams Branch Chief Relationship Specialty Start Date End Date Zoraida Franco MD [address] [place] [address] PCP - General Family Medicine 06/20/21 documented as of this encounter
--- OUTSIDE RECORDS SUMMARY | 2024-11-30 06:08 | XMS_ITS | Encounter Summary ---
Author Organization [facility] Address [address] [facility] [address] [place] [address] Care Team Providers Care Farm Helper Name Role Phone Zoraida Franco MD Primary Care Provi selvin Reason for Visit * Reason Onset Date Comments Symptom Based Call 08/12/2023 Encounter Details Date Type Department Care Team (Late st Contact Info) Description 08/12/2023 Telephone [facility] Family Medicine [address] [phone] Zoraida Franco MD [address] [place] [address] Symptom Based Call Social History Tobacco [...] on file 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 At this time will continue OTC medications,and let us know if they become interested in paxlovid in the future. * Telephone Encounter - Nandini Mitchell - 08/12/2023 9:00 AM CDT Medical Question/Miscellaneous Caller???s Concern: Mom of Patient (HIPAA verified) calling about her son that has Down Syndrome and tested positive for the Covid Test via home test on 08/11/23. Currently vacationing in [facility]). Caller???s Call back #: [phone], Mom mentioned that they are an hour ahead of [place] currently. Does message need to be routed? Yes-Action Needed Symptom Based Call Caller's Callback #: [phone] Chief Complaint(s): Cough, Runny Nose (yesterday he had a fever and sore throat but nothing today) Duration: Since yesterday What type of symptom(s) is the patient experiencing? Non-Emergent. Is this a new or reoccurring symptom(s)? New What have you tried to help your symptom(s)? Dayquil Why was appointment not scheduled? Requesting advice from clinical garment steamer. Patient is currently in another state and looking to hear back from a clinician soon; was requesting to speak directly with Dr Paris. Additional Comments: Verified with Mom the pharmacy in the area that a medication can be sent to ifprescribed would be the [facility] in [place], [place], added to the patient's chart. Does message need to be routed? Yes-Action Needed documented in this encounter Plan of Treatment Not on file documented as of this encounter Visit Diagnoses Not on filedocumented in this encounter Care Teams Farm Helper Relationship Specialty Start Date End Date Zoraida Franco MD [address] [place] [address] PCP - General Family Medicine 06/20/21 documented as of this encounter
--- OUTSIDE RECORDS SUMMARY | 2024-11-30 06:08 | XMS_ITS | Encounter Summary ---
Author Organization [facility] Medical Group Address [address] [facility] [address] [place] [address] Care Team Providers Care Admin Asst Name Role Phone Zoraida Franco MD Primary Care Provi selvin Reason for Visit * Reason Onset Date Comments Additional Services Or Orders 03/01/2023 Encounter Details Date Type Department Care Team (Late st Contact Info) Description 03/01/2023 Telephone [facility] Family Medicine [address] [phone] Zoraida Franco MD [address] [place] [address] Additional Services Or Orders Social History [...] on file 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 * Telephone Encounter - Zita Richey - 03/01/2023 11:03 AM CDT Medical Question/Miscellaneous Caller???s Concern: Last pneumonia vaccine was 3.29.22. Is pt due for another. Please advise Mom. Caller???s Call back #: [phone] Does message need to be routed?Yes-Action Needed documented in this encounter Plan of Treatment Not on file documented as of this encounter Visit Diagnoses Not on filedocumented in this encounter Care Teams Admin Asst Relationship Specialty Start Date End Date Zoraida Franco MD [address] [place] [address] PCP - General Family Medicine 06/20/21 documented as of this encounter
--- OUTSIDE RECORDS SUMMARY | 2024-11-30 06:08 | XMS_ITS | Encounter Summary ---
Author Organization [facility] Address [address] [facility] [address] [place] [address] Care Team Providers Care Assistant Professor Of Art Name Role Phone Zoraida Franco MD Primary Care Provi selvin Reason for Visit * Reason Onset Date Comments Additional Services Or Orders 08/30/2023 Encounter Details Date Type Department Care Team (Late st Contact Info) Description 08/30/2023 Telephone [facility] Family Medicine [address] [phone] Zoraida Franco MD [address] [place] [address] Additional Services Or Orders Social History [...] on file 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 * Telephone Encounter - Zoraida Franco MD - 08/30/2023 12:17 PM CDT I am not certain why she would have had to sign an ABN for PSA, lipid, TSH. The only diagnosis codeI know for a screening PSA is screening for prostate cancer, for TSH would be screening for thyroiddisease. For the cholesterol, Medicare may only cover it with out a diagnosis of high cholesterol every few years. If we can look into this, we can certainly try to do different codes, but we can also check to see if she is actually had the blood work done. We can always re- evaluate. Thank you * Telephone Encounter - Lyly Webster LPN - 08/30/2023 10:08 AM CDT Please review. * Telephone Encounter - Milka Keisha - 08/30/2023 9:32 AM CDT Medical Question/Miscellaneous Caller???s Concern: pt mother called and the ICD10 code is not valid // the mother had to sign a ABN for the lipid panel , psa and TSH// asked for the correct coding and she stated that the provider should know that// please correct the code and call the pt mother Caller???s Call back #: Does message need to be routed? Yes-Action Needed documented in this encounter Plan of Treatment Not on file documented as of this encounter Visit Diagnoses Not on filedocumented in this encounter Care Teams Assistant Professor Of Art Relationship Specialty Start Date End Date Zoraida Franco MD [address] [place] [address] PCP - General Family Medicine 06/20/21 documented as of this encounter
--- OUTSIDE RECORDS SUMMARY | 2024-11-30 06:08 | XMS_ITS | Encounter Summary ---
Author Organization [facility] Healthcare Address [address] [place] [address] Care Team Providers Care Lean Manager Name Role Phone Zoraida Franco MD Primary Care Provi selvin Reason for Visit * Reason Onset Date Comments Medical Question/Miscellaneous 11/27/2023 Additional Services Or Orders 11/27/2023 Encounter Details Date Type Department Care Team (Late st Contact Info) Description 11/27/[address] [facility] Family Medicine [address] [phone] Zoraida Franco MD [address] [address] Medical Question/Miscellaneous ; Additional Services Or Orders Social History Tobacco [...] on file Legal Sex Male 7:51 PM TRACK WATCHMAN Gender Identity Not on file Sexual Orientation Not on file Occupation Industry Job Start Date Job End Date Disabled Not on file Not on file Not on file documented as of this encounter Ordered Prescriptions Prescription Sig Dispense Quantity Refills Last Filled Start Date End Date respiratory syncytial virus vaccine (Arexvy, PF,) 120 mcg/0.5 mL vaccineIndications :History of RSV infection,Down syndrome Inject 0.5 mL into the muscle as instructed once for 1 dose 0.5 mL 11/28/2023 documented in this encounter Miscellaneous Notes * Telephone Encounter - Mable Mneeses LPN - 11/28/2023 9:50 AM TRACK WATCHMAN [facility] [place] [facility] Mom's request K WATCHMAN * Telephone Encounter - Joy Scott - 11/28/2023 9:24 AM CST Additional Services or Orders Type of Service Requested:Injection Reason for Request (e.g. condition/symptom, date of COVID exposure if applicable): RSV vaccine/Preventative Details Regarding Additional Services (e.g. type of home health, type of equipment, type of test, etc.): RSV Vaccine Where will services be performed? (if outside of the practice, facility name, address, phone/fax offacility): [id number] AT [facility] [address] Additional Comments: Maya returning Teresa's . FINISH OPENER relayed message below. Maya requesting to please send RSV script to [facility] on file in [place]. Maya states that she will pay out of pocket for vaccine if not covered by insurance. Does message need to be routed? Yes-Action Needed K WATCHMAN * Telephone Encounter - Teresa Guerrero LPN - 11/28/2023 8:59 AM CST Would recommend vaccine if insurance will cover it, uncertain r/t patient age. Pt mom will need to touch base with pharmacy K WATCHMAN * Telephone Encounter - Wendy Luong - 11/27/2023 1:31 PM CST Medical Question/Miscellaneous Caller???s Concern: Received call from pt's mother Maya (non-HIPAA verified), calling to inquire about the pt receiving the RSV vaccine. She stated since the patient is high risk and has had RSV once this year, she would like to know the doctor's recommendation and advise regarding the patient receiving the vaccine. Please call and advise Does message need to be routed? Yes-Action Needed K WATCHMAN documented in this encounter Plan of Treatment Not on file documented as of this encounter Visit Diagnoses Diagnosis History of RSV infection- Primary Down syndrome Down's syndrome documented in this encounter Care Teams Lean Manager Relationship Specialty Start Date End Date Zoraida Franco MD [facility] [address] [place] [address] PCP - General Family Medicine 06/20/21 documented as of this encounter
--- OUTSIDE RECORDS SUMMARY | 2024-11-30 06:09 | XMS_ITS | Encounter Summary ---
Author Organization [facility] Address [address] [facility] [address] [place] [address] Care Team Providers Care Boat Cleaning Supervisor Name Role Phone Zoraida Franco MD Primary Care Provi selvin Reason for Visit * Reason Onset Date Comments Acute Visit Reqeust 07/10/2021 Encounter Details Date Type Department Care Team (Late st Contact Info) Description 07/10/2021 Telephone [facility] Family Medicine [address] [phone] Zoraida Franco MD [address] [place] [address] Acute Visit Reqeust Social History Tobacco Use Types Packs/Day Years [...] more points, staff should administer the PHQ-9) 4 12/14/2020 Sex and Gender Information Value Date Recorded Sex Assigned at Not on file Legal Sex Male 7: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 Spoke with mother and I [facility] was [facility] to the [facility] if needed also * Telephone Encounter - Zoraida Franco MD - 07/10/2021 7:56 AM CDT If we have an opening, we can see him as a SDS, otherwise [facility] * Telephone Encounter - Laure Carmona - 07/10/2021 7:49 AM CDT Received call from pt mother asking to schedule appt for her son. Pt started with symptoms of stuffy nose, cough with congestion and sore throat on 07/07/21. Pt was tested for covid and results came back negative. Pt does not have any other covid symptoms per mother. Please advise. Pt mother Maya ph # is [phone]. Thank you documented in this encounter Plan of Treatment Not on file documented as of this encounter Visit Diagnoses Not on filedocumented in this encounter Care Teams Boat Cleaning Supervisor Relationship Specialty Start Date End Date Zoraida Franco MD [facility] [address] [place] [address] PCP - General Family Medicine 06/20/21 documented as of this encounter
--- OUTSIDE RECORDS SUMMARY | 2024-11-30 06:09 | XMS_ITS | Encounter Summary ---
Author Organization [facility] [facility] Address [address] [place] [address] Phone Care Team Providers Care Cashier Name Role Phone Zoraida Franco MD Primary Care Provi selvin Encounter Details Date Type Department Care Team (Late st Contact Info) Description 12/22/2021 9:45 AM BANK SECRECY ACT OFFICER Telemedicine [facility] [address] [phone] Clemente Hamm DO [address] [facility] [address] [place], [place] [id number] Leukopenia, unspecified type (Primary Dx) Social History Tobacco Use Types [...] points, staff should administer the PHQ-9) 1 07/20/2021 Sex and Gender Information Value Date Recorded Sex Assigned at Not on file Legal Sex Male 7:51 PM BANK SECRECY ACT OFFICER Gender Identity Not on file Sexual Orientation Not on file Occupation Industry Job Start Date Job End Date Disabled Not on file Not on file Not on file documented as of this encounter Progress Notes * Clemente Hamm, - 12/22/2021 9:45 AM CST This was a telemedicine visit with Armin aguirre which took place via Telephone Inability or lack of knowledge to set up audio/visual visit. During the visit, I was located in the office at [facility] and the patient was located at home in the [facility]. The patient visitstarted at 9:47 a.m. and ended at 9:55 a.m.. My total encounter time on 12/22/2021 was 10 minutes which was spent in the activities documented in the note. This includes time spent prior to the visit and after the visit in direct care of the patient. This time does not include time spent in any separately reportable services. The patient: has been informed that the visit may not be secure and acknowledged the information. The option of participating in a telephone or video visit during the COVID-19 public health emergencywas explained to them. After being given an opportunity to ask questions about and discuss this type of visit, they verbally consented to proceeding with the telephone/video visit and understand thatthis service replaces an office visit. HPI: 1. Cyclic leukopenia/neutropenia. 2. Recent COVID-19 pneumonia requiring monoclonal antibody infusion. 3. Fully recovered from the viral infection as of this telemedicine visit. He has no other issues or concerns. Diagnostic studies: CBC yesterday showed white count of 4.4 with a neutrophil count close to 1500. CT scan of the abdomen pelvis performed 3 weeks ago showed circumferential thickening of the bladder suggesting cystitis. No other evidence of abnormalities. Impression: Cyclic leukopenia/neutropenia. 1. Infrequent infections. 2. Recent COVID-19 viremia. Recommendations: 1. Continue monitor CBC every 6 months to year. 2. I will see the patient back in 1 year. 3. Over the course of this next 12 months, I will monitor frequency of infections. 4. Patient to receive his booster COVID-19 immunization in 3 months since he received monoclonal antibody infusion in the past couple weeks. Patient and mother voiced understanding. Clemente Hamm D.O. Housing Manager Division of medical oncology [facility] [employer] [facility] SECRECY ACT OFFICER documented in this encounter Plan of Treatment Not on file documented as of this encounter Procedures Procedure Name Priority Date/Time Associated Diagnosis Comments CBC WITH AUTO DIFFERENTIAL Routine 12/21/2021 1:17 PM BANK SECRECY ACT OFFICER Leukopenia, unspecified type documented in this encounter Results * (ABNORMAL) CBC with auto differential (12/21/2021 1:17 PM BANK SECRECY ACT OFFICER) WBC 4.4 3.8 - 10.8 Thousand/u L [facility] RBC, POC 4.79 4.20 - 5.80 Million/uL [facility] Hgb 15.2 13.2 - 17.1 g/dL [facility] Hct 44.8 38.5 - 50.0 % [facility] MCV 93.5 80.0 - 100.0 fL [facility] MCH 31.7 27.0 - 33.0 pg [facility] MCHC 33.9 32.0 - 36.0 g/dL [facility] Rdw 13.8 11.0 - 15.0 % [facility] Platelets 286 140 - 400 Thousand/u L [facility] MPV 9.8 7.5 - 12.5 fL [facility] Neutrophils, abs 1,470(L) 1,500 - 7,800 cells/uL [facility] Lymphocytes, abs 2,248 850 - 3,900 cells/uL [facility] Monocyte abs 515 200 - 950 cells/uL [facility] Eosinophils, abs 79 15 - 500 cells/uL [facility] Basophils, abs 88 0 - 200 cells/uL [facility] Neutrophils 33.4 % [facility] Lymphocyte pct 51.1 % [facility] Monocytes 11.7 % [facility] Eosinophils 1.8 % [facility] Basophils 2.0 % [facility] Blood specimen (specimen) 12/21/2021 1:17 PM BANK SECRECY ACT OFFICER 12/21/2021 1:18 PM BANK SECRECY ACT OFFICER Clemente Hamm DO LAB BLOOD ORDERABLES Final R esult [facility] [address] [place] [phone] documented in this encounter Visit Diagnoses Diagnosis Leukopenia, unspecified type- Primary documented in this encounter Care Teams Cashier Relationship Specialty Start Date End Date Zoraida Franco MD [address] [place], [place] [id number] PCP - General Family Medicine 06/20/21 documented as of this encounter
--- OUTSIDE RECORDS SUMMARY | 2024-11-30 06:09 | XMS_ITS | Encounter Summary ---
Author Organization [facility] Medical [facility] Address [address] [facility] [address] [place] [id number] Care Team Providers Care Special Education Teaching Assistant Name Role Phone Zoraida Franco MD Primary Care Provi selvin Reason for Referral * Diagnostic Imaging (Routine) - Closed Specialty Diagnoses / Procedures Referred By Porfirio dodson Referred To Contact Diagnoses Abnormal chest x-ray Procedures XR Chest Pa Lateral 2 Vw Zoraida Franco MD [address] [place] [address] Phone: tel: fax: External Order Referral ID Status Reason Start Date Expiration Date Visits Re quested Visits Authorized [id number] Closed 08/23/2022 09/22/2023 1 1 Reason for Visit * Reason Comments Medicare Wellness Patient arrives for his Medicare wellness. Encounter Details Date Type Department Care Team (Late st Contact Info) Description 08/23/2022 10:00 AM CDT Office Visit [facility] Medical [facility] Family Medicine [address] [phone] Zoraida Franco MD [address] [place] [address] Encounter for Medicare annual wellness exam (Primary Dx); Down syndrome; Arthralgia of both knees; Other decreased white blood cell (WBC) count; PLMD (periodic limb movement disorder); NILA (obstructive sleep apnea); VSD (ventricular septal defect); Non-seasonal allergic rhinitis due to pollen; Screening for cardiovascular condition; Screening for prostate cancer; Colon cancer screening; Screening for diabetes mellitus; Abnormal chest x-ray; Overweight (BMI 25.0-29.9); Screening for thyroid disorder Social History Tobacco [...] on file 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 Gender Identity Not on file Sexual Orientation Not on file Occupation Industry Job Start Date Job End Date Disabled Not on file Not on file Not on file documented as of this encounter Last Filed Vital Signs Vital Sign Reading Time Taken Comments Blood Pressure 100/70 08/23/2022 9:38 AM CDT Pulse 88 08/23/2022 9:38 AM CDT Temperature 36.1 ??C (96.9 ??F) 08/23/2022 9:38 AM CD T Respiratory Rate 16 08/23/2022 9:38 AM CDT Oxygen Saturation 94% 08/23/2022 9:38 AM CDT Inhaled Oxygen Concentration - - Weight 77.3 kg (170 lb 6.4 oz) 08/23/2022 9:38 A M CDT Height 165.1 cm (5' 5 ) 08/23/2022 9:38 AM CDT Body Mass Index 28.36 08/23/2022 9:38 AM CDT documented in this encounter Patient Instructions * Patient Instructions* Zoraida Franco MD - 08/23/2022 10:00 AM CDT Health Maintenance Topic Date Due Colon Cancer Screening-DNA Stool Never done DTaP/Tdap/Td Vaccine (1 - Tdap) Never done Covid-19 Vaccine (3 - Booster) 07/09/2021 Influenza Vaccine (1) 08/02/2022 Depression Screening-PHQ 08/23/2023 Regular Well Visit/Exam 18-64 08/23/2023 Pneumococcal vaccine <65 Aged Out documented in this encounter Progress Notes * Zoraida Franco MD - 08/23/2022 10:00 AM CDT Images from the original note were not included. MEDICARE SUBSEQUENT ANNUAL WELLNESS VISIT Patient ID: Armin Rico is a 47 y.o. male. Visit date: 08/23/2022 Medicare Health Risk Assessment Basic Information In general, would you say your health is: Excellent Do you have an advance directive, such as a living will or durable power of hotel or motel cleaning supervisor?: No Would you like information regarding Advanced Directiv (Living Will) and/or Durable Power of System Development Engineer?: No Do you have to strain or struggle to hear/understand conversations?: No Have you experienced any of the following problems currently or recently? Eating: No Grooming: No Bathing: No Walking: No Using the toilet: No Memory problems: No Difficulty speaking: No Pain: No Sexual Health: No Fatigue: No Have you experienced any of the following problems currently or recently? Laundry and/or housekeeping: No Handling Money: No Shopping: No Food preparation: No Transportation: No Taking and/or getting your own medications: No Do you use prescription drugs that are not prescribed for you?: No Depression Screen: PHQ Screening Over the last 2 weeks, how often have you been bothered by any of the following problems? Little Interest or Pleasure in Doing Things: Not at all Feeling Down, Depressed, or Hopeless: Several days PHQ-2 Total Score (If total score is 3 or more points, staff should administer the PHQ-9): 1 Over the past 2 weeks, how often have you been bothered by any of the following problems? Little Interest or Pleasure in Doing Things: Not at all Feeling Down, Depressed, or Hopeless: Several days PHQ-2 Total Score (If total score is 3 or more points, staff should administer the PHQ-9): 1 Trouble Falling or Staying Asleep, or Sleeping [...] Way: Not at all PHQ-9 Total Score: 1 If you checked off any problems, how difficult have these problems made it for you to do your work,take care of things at home, or get along with other people?: Not difficult at all Audio/Visual screen: Not indicated Is the patient having any problems with hearing and/or vision? No STEADI Fall Risk Screening: In the past year, patient experienced: One or more falls in the last year: (!) Yes How many times?: 1 Was the patient injured in the fall?: No Has trouble stepping up onto a curb: No Advised to use a cane or walker to get around safely: No Often has to goff to the toilet: No Feels unsteady when walking: No Has lost some feeling in feet: No Steadies self on furniture while walking at home: No Takes medicine that makes him/her feel lightheaded or more tired than usual: No Worried about falling: No Takes medicine to sleep or improve mood: No Needs to push with hands when rising from a chair: No Often feels sad or depressed: No STEADI Score Total: 2 Up and Go Test: Patient was unsteady or time test was longer than 30 seconds? No Chief complaint: Medicare Wellness (Patient arrives for his Medicare wellness.) HPI: Diet: healthy Physical Activities: Never Functional Capacity Patient is able to perform the following: ambulation, bathing and hygiene, feeding, grooming, toileting, and dressing Pain Concerns:No Sexual Health Concerns:No Fatigue concerns:No Chronic Medical Issues: -down's syndrome- stable -joint pain- he has pain occasionally. He has seen ortho in the past, but is doing better currently -leukopenia- he does follow with oncology -NILA- he has done CPAP in the past, but has not used it regularly -PLMD-Currently monitoring -VSD- he had an echo through cardiology, and has not had to see one recently -allergies- he is on claritin, astelin Incontinence: Are you experiencing or have concern about urine leakage? No Problem List, Past Medical and Surgical History: Patient Active Problem List Diagnosis VSD (ventricular septal defect) Leukopenia Joint pain NILA (obstructive sleep apnea) PLMD (periodic limb movement disorder) Encounter for Medicare annual wellness exam Down syndrome Non-seasonal allergic rhinitis due to pollen Past Medical History: Diagnosis Date COVID-19 08/2020 [...] Never Sexual activity: Defer Alcohol Use: Not on file Allergies: Allergies Allergen Reactions Demerol [Meperidine] Unknown Morphine Sulfate Unknown Medications: Current Outpatient Medications: aspirin 81 mg enteric coated tablet, Take 81 mg by mouth daily, Disp: , Rfl: azelastine (ASTELIN) 137 mcg (0.1 %) nasal spray, Administer 1 spray into each nostril 2 (two) times a day Use in each nostril as directed, Disp: 30 mL, Rfl: 0 cholecalciferol, vitamin D3, (VITAMIN D3 ORAL), Take by mouth, Disp: , Rfl: fluticasone propionate (FLONASE) 50 mcg/actuation nasal spray, SHAKE LIQUID AND USE 2 SPRAYS IN EACH NOSTRIL DAILY, Disp: 16 g, Rfl: 1 loratadine (CLARITIN) 10 mg tablet, Take 1 tablet (10 mg total) by mouth daily, Disp: 90 tablet, Rfl: 1 Review of Systems: Review of Systems Constitutional: Negative for chills and fever. HENT: Negative for hearing loss. Eyes: Negative for visual disturbance. Respiratory: Negative for shortness of breath. Cardiovascular: Negative for chest pain. Gastrointestinal: Negative for abdominal pain, constipation and diarrhea. Neurological: Negative for headaches. Psychiatric/Behavioral: Negative for dysphoric mood. No results found for this or any previous visit (from the past 1008 hour(s)). Vitals: Vitals BP 100/70 (BP Location: Left arm, Patient Position: Sitting) Pulse 88 Temp 36.1 ??C (96.9 ??F) (Temporal) Resp 16 Ht 165.1 cm (5' 5 ) Wt 77.3 kg (170 lb 6.4 oz) SpO2 94% BMI 28.36 kg/m?? Body mass index is 28.36 kg/m??. Exam: Physical Exam Vitals and nursing note reviewed. Constitutional: General: He is not in acute distress. Appearance: Normal appearance. He is well-developed. He is not ill-appearing. HENT: Head: Normocephalic and atraumatic. Right Ear: Tympanic membrane, ear canal and external ear normal. Left Ear: Tympanic membrane, ear canal and external ear normal. Nose: Nose normal. Mouth/Throat: Mouth: Mucous membranes are moist. Pharynx: Oropharynx is clear. Eyes: Extraocular Movements: Extraocular movements intact. Conjunctiva/sclera: Conjunctivae normal. Pupils: Pupils are equal, round, and reactive to light. Neck: Thyroid: No thyromegaly. Cardiovascular: Rate and Rhythm: Normal rate and regular rhythm. Heart sounds: Normal heart sounds. No murmur heard. No friction rub. No gallop. Pulmonary: Effort: Pulmonary effort is normal. Breath sounds: Normal breath sounds. No wheezing or rales. Abdominal: General: Bowel sounds are normal. There is no distension. Palpations: Abdomen is soft. There is no mass. Tenderness: There is no abdominal tenderness. There is no guarding or rebound. Musculoskeletal: Cervical back: Normal range of motion and neck supple. Lymphadenopathy: Cervical: No cervical adenopathy. Skin: General: Skin is warm and dry. Neurological: Mental Status: He is alert and oriented to person, place, and time. Motor: No abnormal muscle tone. Psychiatric: Mood and Affect: Mood normal. Behavior: Behavior normal. Thought Content: Thought content normal. Judgment: Judgment normal. Care Team Providers: Patient Care Team: Zoraida Franco MD as PCP - General (Family Medicine) Primary Pharmacy/DME suppliers: [id number] - [place], [place] - [address] [place] [address] [place] [phone] Detection of Cognitive Impairment: The patient does not have cognitive impairment based on direct observation, discussion with patientor family, or review of medical records. Health Maintenance: Health Maintenance Topics with due status: Overdue Topic Date Due Colon Cancer Screening-DNA Stool Never done DTaP/Tdap/Td Vaccine Never done Covid-19 Vaccine 07/09/2021 Health Maintenance Topics with due status: Due On Topic Date Due Influenza Vaccine 08/02/2022 Health Maintenance Topics with due status: Not Due Topic Last Completion Date Depression Screening-PHQ 08/23/2022 Regular Well Visit/Exam 18-64 08/23/2022 Health Maintenance Topics with due status: Aged Out Topic Date Due Pneumococcal vaccine <65 Aged Out Counseling and Referral of Preventative Services: Opioid Use: No Lifestyle Recommendations Increase Physical Activity and Improve Diet Advanced Directive Durable Power of AttorneyYes Living Will No Assessment and Plan: Diagnoses and all orders for this visit: Encounter for Medicare annual wellness exam (Primary) Assessment & Plan: Encouraged a healthy diet, and regular physical activity to his level Wear sun screen, seat belts No texting/drinking and driving PMH updated: Last colonoscopy/cologuard:@45-we discussed the options Last PSA: @45 Last Tdap: check with the pharmacist Last Flu: encouraged Last COVID: encouraged Down syndrome Assessment & Plan: Chronic, stable Continue to monitor Arthralgia of both knees Assessment & Plan: Chronic, stable Continue to monitor Other decreased white blood cell (WBC) count Assessment & Plan: Chronic, stable Continue to follow with heme PLMD (periodic limb movement disorder) Assessment & Plan: Chronic, stable Continue to monitor NILA (obstructive sleep apnea) Assessment & Plan: Chronic, but is not using it We discussed a referral to sleep medicine-mom will consider Orders: - TSH reflex to free T4; Future VSD (ventricular septal defect) Assessment & Plan: Chronic, stable Continue to monitor Non-seasonal allergic rhinitis due to pollen Assessment & Plan: Chronic, stable Continue current regimen Screening for cardiovascular condition - Lipid panel; Future Screening for prostate cancer - PSA screen; Future Colon cancer screening - Stool DNA - Cologuard; Future Screening for diabetes mellitus - Comprehensive metabolic panel; Future Abnormal chest x-ray - XR Chest Pa Lateral 2 Vw; Future Patient here for annual Medicare wellness visit and for review of complete medical problem list. All the elements of the plan were completed as outlined by [facility]. A copy of the prevention plan was given to the patient. I reviewed Medicare Wellness Questionnaire (other physicians involved in care, depression screen, advanced directives), cognitive/memory, and functional assessment. Forms scanned in progress notes. I reviewed and updated the complete problem list, medication list, family history, and immunization records with the patient. I provided preventive counseling and early detection interventions to the patient through health maintenance update and summary of today's office visit. Zoraida Franco MD documented in this encounter Miscellaneous Notes * Assessment & Plan Note - Zoraida Franco MD - 08/23/2022 10:26 AM CDTAssociated Problem(s): Class 1 obesity due to excess calories without serious comorbidity with bodymass index (BMI) of 31.0 to 31.9 in adult BMI Follow-up includes: nutrition counseling. * Assessment & Plan Note - Zoraida Franco MD - 08/23/2022 10:02 AM CDTAssociated Problem(s): Vasomotor rhinitis Chronic, stable Continue current regimen * Assessment & Plan Note - Zoraida Franco MD - 08/23/2022 10:01 AM CDTAssociated Problem(s): VSD (ventricular septal defect) Chronic, stable Continue to monitor * Assessment & Plan Note - Zoraida Franco MD - 08/23/2022 10:01 AM CDTAssociated Problem(s): NILA (obstructive sleep apnea) Chronic, but is not using it We discussed a referral to sleep medicine-mom will consider * Assessment & Plan Note - Zoraida Franco MD - 08/23/2022 10:00 AM CDTAssociated Problem(s): PLMD (periodic limb movement disorder) Chronic stable Continue to monitor * Assessment & Plan Note - Zoraida Franco MD - 08/23/2022 10:00 AM CDTAssociated Problem(s): Leukopenia Chronic stable Continue to follow with heme * Assessment & Plan Note - Zoraida Franco MD - 08/23/2022 10:00 AM CDTAssociated Problem(s): Joint pain Chronic stable Continue to monitor * Assessment & Plan Note - Zoraida Franco MD - 08/23/2022 9:59 AM CDTAssociated Problem(s): Down syndrome Jennifer stable Continue to monitor * Assessment & Plan Note - Zoraida Franco MD - 08/23/2022 9:57 AM CDTAssociated Problem(s): Encounter for Medicare annual wellness exam Encouraged a healthy diet, and regular physical activity to his level Wear sun screen, seat belts No texting/drinking and driving PMH updated: Last colonoscopy/cologuard:@45-we discussed the options Last PSA: @45 Last Tdap: check with the pharmacist Last Flu: encouraged Last COVID: encouraged documented in this encounter Plan of Treatment Not on file documented as of this encounter Procedures Procedure Name Priority Date/Time Associated Diagnosis Comments STOOL DNA ? COLOGUARD Routine 08/30/2022 12:55 PM CDT Colon cancer screening THYROID FUNCTION CASCADE Routine 08/28/2022 9:16 AM CDT NILA (obstructive sleep apnea) Overweight (BMI 25.0-29.9) Screening for thyroid disorder PSA SCREEN Routine 08/28/2022 9:16 AM CDT Screening for prostate cancer LIPID PANEL Routine 08/28/2022 9:16 AM CDT Screening for cardiovascular condition COMPREHENSIVE METABOLIC PANEL Routine 08/28/2022 9:16 AM CDT Screening for diabetes mellitus documented in this encounter Results * Stool DNA - Cologuard (08/30/2022 12:55 PM CDT) Pathologist [facility] Stool DNA - Cologuard Negative Negative [facility] (CLIA #:[id number]) Comment: NEGATIVE TEST RESULT. A negative Cologuard [...] cancer. ??Following a negative Cologuard result, the [place] [employer] Society and U.S. Multi-Society Task Force screening guidelines recommend a Cologuard re-screening interval of 3 years. References: [place] [employer] Guideline for Colorectal Cancer Screening: https://www.cancer.org/cancer/zvyps-slxbkt-bzjcpm/kalmsibnc-nqyrlbhak-xvmokpe/ac s-rec ommendations.html.; Nicolas DK, Kylah QUINONEZ, Madhu PATEL, Colorectal Cancer Screening: Recommendations for Physicians and Patients from the U.S. Multi-Society Task Force on Colorectal Cancer Screening , Am J Gastroenterology 2017; 112:1553-1532. TEST DESCRIPTION: Composite algorithmic analysis of stool [...] screened with both Cologuard and colonoscopy. (Ignacia Nam, N Engl J Med 2014;370(14):8691-2745.) Cologuard may produce a false negative or false positive result (no colorectal cancer or precancerous polyp present at colonoscopy follow up). A negative Cologuard test result does not guarantee the absence of CRC or advanced adenoma (pre-cancer). The current Cologuard screening interval is every 3 years. ([place] [employer] Society and U.S. Multi-Society Task Force). Cologuard performance data in a 10,000 patient pivotal study using colonoscopy as the reference method can be accessed at the following location: www.[employer]oura.Codeoscopic/results. Additional description of the Cologuard test process, warnings and precautions can be found at www.cologuard.com. Stool 08/30/2022 12:5 5 PM CDT 08/31/2022 12:25 PM CDT us Zoraida Franco MD LAB BODY FLUIDS AND STOOLS ORDERABLES Final Result Performing Organization Address [facility] Co de Phone Number [employer] (CLIA #:[id number]) [place] [address] * PSA screen (08/28/2022 9:16 AM CDT) PSA 0.18 < OR = 4.00 ng/mL [facility] Comment: The total PSA value from this assay system is standardized against the WHO standard. The test result will be approximately 20% lower when compared to the equimolar-standardized total PSA ([place]). Comparison of serial PSA results should be interpreted with this fact in mind. This test was performed using the Siemens chemiluminescent method. Values obtained from different assay methods cannot be used interchangeably. PSA levels, regardless of value, should not be interpreted as absolute evidence of the presence or absence of disease. Blood 08/28/2022 9:16 AM CDT 08/28/2022 9:21 AM CDT us Zoraida Franco MD LAB BLOOD ORDERABLE S Final Result Performing Organization Address [facility] Co de Phone Number [facility] [address] [phone] * TSH reflex to free T4 (08/28/2022 9:16 AM CDT) TSH 2.89 0.40 - 4.50 mIU/L [facility] Blood 08/28/2022 9:16 AM CDT 08/28/2022 9:21 AM CDT us Zoraida Franco MD LAB BLOOD ORDERABLE S Final Result [facility] [address] [place] [address] * Lipid panel (08/28/2022 9:16 AM CDT) Cholesterol 163 <200 mg/dL [facility] HDL 67 > OR = 40 mg/dL [facility] Triglycerides 51 <150 mg/dL [facility] LDL 83 mg/dL (calc) [facility] Comment: Reference range: <100 Desirable range <100 mg/dL for primary prevention; ?? <70 mg/dL for patients with CHD or diabetic patients with > or = 2 CHD risk factors. LDL-C is now calculated using the Rene-Seals calculation, which is a validated novel method providing better accuracy than the Friedewald equation in the estimation of LDL-C. Rene SS et al. RAYMON. 2013;310(19): 6212-0795 (http://education.Slicebooks.Codeoscopic/faq/ATS896) Chol/HDL ratio 2.4 <5.0 (calc) [facility] Non-HDL, (LDL+VLDL) 96 <130 mg/dL (calc) [facility] Comment: For patients with diabetes plus 1 major ASCVD risk factor, treating to a non-HDL-C goal of <100 mg/dL (LDL-C of <70 mg/dL) is considered a therapeutic option. Blood 08/28/2022 9:16 AM CDT 08/28/2022 9:21 AM CDT us Zoraida Franco MD LAB BLOOD ORDERABLE S Final Result [facility] [address] [phone] * Comprehensive metabolic panel (08/28/2022 9:16 AM CDT) Glucose 93 65 - 99 mg/dL [facility] Comment: ? Fasting reference interval BUN 10 7 - 25 mg/dL [facility] Creatinine 1.03 0.60 - 1.29 mg/dL [facility] eGFR 91 > OR = 60 mL/min/1. 73m2 [facility] Comment: The eGFR is based on the CKD-EPI 2020 equation. To calculate the new eGFR from a previous Creatinine or Cystatin C result, go to https://www.kidney.org/professionals/ kdoqi/gfr%5Fcalculator BUN/creat ratio NOT APPLICABLE 6 - 22 (calc) [facility] Sodium 141 135 - 146 mmol/L [facility] Potassium, pl 4.7 3.5 - 5.3 mmol/L [facility] Chloride 104 98 - 110 mmol/L [facility] CO2 30 20 - 32 mmol/L [facility] Calcium 8.9 8.6 - 10.3 mg/dL [facility] Protein, sr 6.2 6.1 - 8.1 g/dL [facility] Albumin 4.0 3.6 - 5.1 g/dL [facility] GLOBULIN 2.2 1.9 - 3.7 g/dL (calc) [facility] Alb/glob ratio 1.8 1.0 - 2.5 (calc) [facility] Bilirubin, total 0.9 0.2 - 1.2 mg/dL [facility] Alk phos 76 36 - 130 U/L [facility] AST 18 10 - 40 U/L [facility] ALT (SGPT) 21 9 - 46 U/L [facility] Blood 08/28/2022 9:16 AM CDT 08/28/2022 9:21 AM CDT Zoraida Franco MD LAB BLOOD ORDERABLE S Final Result [facility] [address] [phone] documented in this encounter Visit Diagnoses Diagnosis Encounter for Medicare annual wellness exam- Primary Down syndrome Down's syndrome Arthralgia of both knees Other decreased white blood cell (WBC) count PLMD (periodic limb movement disorder) Periodic limb movement disorder NILA (obstructive sleep apnea) Obstructive sleep apnea (adult) (pediatric) VSD (ventricular septal defect) Ventricular septal defect Non-seasonal allergic rhinitis due to pollen Screening for cardiovascular condition Screening for other and unspecified cardiovascular conditions Screening for prostate cancer Special screening for malignant neoplasm of prostate Colon cancer screening Special screening for malignant neoplasms, colon Screening for diabetes mellitus Abnormal chest x-ray Nonspecific (abnormal) findings on radiological and other examination of lung field Overweight (BMI 25.0-29.9) Overweight Screening for thyroid disorder documented in this encounter Orders Imaging Orders Without Results Count Last Order ed Date First Ordered Date XR CHEST PA LATERAL 2 VIEWS 1 08/23/2022 documented in this encounter Care Teams Special Education Teaching Assistant Relationship Specialty Start Date End Date Zoraida Franco MD [address] [place] [address] PCP - General Family Medicine 06/20/21 documented as of this encounter
--- OUTSIDE RECORDS SUMMARY | 2024-11-30 06:09 | XMS_ITS | Encounter Summary ---
Author Organization [facility] Address [address] [facility] [address] [place] [address] Care Team Providers Care Doctor Naturopathic Name Role Phone Unknown, Notinfile Primary Care Provider Unavail able Zoraida Franco MD Unavailable [phone] Clemente Hamm DO Unavailable Encounter Details Date Type Department Care Team (Late st Contact Info) Description 03/09/2021 Telephone [facility] Family Medicine [address] [phone] Zoraida Franco MD [address] [address] Social History Tobacco Use Types [...] on file 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 * Telephone Encounter - Zoraida Franco MD - 03/09/2021 3:54 PM CDT Pt's coal shooter wanted him to see rheumatology- I would check with them, but it may be worth keeping the appointment * Telephone Encounter - Madisyn Nair - 03/09/2021 3:46 PM CDT Pt. Mom Maya phoned and stated that pt had a follow up labs done last week and results show JACIEL was negative, that said is there a need for pt to see Rheumatology if JACIEL is negative this time around. Stated that past Labs showed JACIEL being negative. Pls call and advise at [phone] documented in this encounter Plan of Treatment Not on file documented as of this encounter Visit Diagnoses Not on filedocumented in this encounter Care Teams Doctor Naturopathic Relationship Specialty Start Date End Date Unknown, Notinfile PCP - General 01/07/21 06/19/21 Zoraida Franco MD [address] [place], [place] [id number] Family Medicine 01/07/21 06/19/21 Clemente Hamm DO [address] [place] [id number] Medical Oncologist/Snowmobile Mechanic Hematology and Oncology 01/09/21 06/19/21 documented as of this encounter
--- OUTSIDE RECORDS SUMMARY | 2024-11-30 06:09 | XMS_ITS | Encounter Summary ---
Author Organization [facility] Address [address] [facility] [address] [place] [address] Care Team Providers Care Sandblasting Supervisor Name Role Phone Zoraida Franco MD Primary Care Provi selvin Reason for Visit * Reason Onset Date Comments Question re: Pneumonia Vac 01/01/2022 Encounter Details Date Type Department Care Team (Late st Contact Info) Description 01/01/2022 Telephone [facility] Family Medicine [address] [phone] Zoraida Franco MD [address] [address] Question re: Pneumonia Vac Social History Tobacco Use Types Packs/Day Years [...] on file 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 Pt mother v/u ROLL LATHE OPERATOR * Telephone Encounter - Karen Delarosa - 01/01/2022 2:45 PM CST Lorena Alvarez I looked at patient's chart in our legacy systems and did not find anything in his charts for a pneumonia shot. ROLL LATHE OPERATOR * Telephone Encounter - Laure Carmona - 01/01/2022 2:31 PM CST Pt mother Maya called wanting to know when pt had last Pneumonia Vaccination. She is not sure when he got it, she thought it was before 2011 ([address] Dr Blank was here). Maya # is [phone] ROLL LATHE OPERATOR documented in this encounter Plan of Treatment Not on file documented as of this encounter Visit Diagnoses Not on filedocumented in this encounter Care Teams Sandblasting Supervisor Relationship Specialty Start Date End Date Zoraida Franco MD [address] [place] [address] PCP - General Family Medicine 06/20/21 documented as of this encounter
--- OUTSIDE RECORDS SUMMARY | 2024-11-30 06:09 | XMS_ITS | Encounter Summary ---
Author Organization [facility] Address [address] [facility] [address] [place] [address] Care Team Providers Care Moss Gatherer Name Role Phone Zoraida Franco MD Primary Care Provi selvin Encounter Details Date Type Department Care Team (Late st Contact Info) Description 07/10/2021 3:45 PM CDT Office Visit [facility] [address] [place] [phone] Marianna Ortiz, [employer] OFF[employer] [address] [place], [place] [id number] Acute non-recurrent maxillary sinusitis (Primary Dx) Social History Tobacco Use Types [...] file 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 Gender Identity Not on file Sexual Orientation Not on file Occupation Industry Job Start Date Job End Date Disabled Not on file Not on file Not on file documented as of this encounter Last Filed Vital Signs Vital Sign Reading Time Taken Comments Blood Pressure - - Pulse 90 07/10/2021 3:36 PM CDT Temperature 36.1 ??C (97 ??F) 07/10/2021 3:36 PM CDT Respiratory Rate - - Oxygen Saturation 96% 07/10/2021 3:36 PM CDT Inhaled Oxygen Concentration - - Weight - - Height - - Body Mass Index - - documented in this encounter Ordered Prescriptions Prescription Sig Dispense Quantity Refills Last Filled Start Date End Date doxycycline (VIBRAMYCIN) 100 mg capsuleIndications: Acute non-recurrent maxillary sinusitis Take 1 tablet/caps ule (100 mg total) by mouth 2 (two) times a day for 10 days 20 tablet/capsule 07/10/2021 07/20/2021 documented in this encounter Progress Notes * Marianna Ortiz, [employer] - 07/10/2021 3:45 PM CDT Images from the original note were not included. [facility] (Covid-19) Visit date: 07/10/2021 Assessment and Recommendations: Patient does not meet both criteria of COVID-19 specific symptoms and high risk comorbidities COVID testing indicated No Diagnoses and all orders for this visit: Acute non-recurrent maxillary sinusitis (Primary) - doxycycline (VIBRAMYCIN) 100 mg capsule; Take 1 tablet/capsule (100 mg total) by mouth 2 (two) times a day for 10 days Antibiotics: as prescribed Additional guidance: 1. Recommend Over the counter symptomatic treatment or seek PCP's advise or ER depending on worsening degree of symptoms. 2. Patient to look at [facility] for additional specific information regarding COVID-19 or See patientinstructions for test center selection. Discussed symptomatic relief of symptoms Discussed need to return to ER for further evaluation including worsening fevers, shortness of breath, of other concerning symptoms Advised to rest and stay adequately hydrated Patient presents to clinic for assessment of: Focused HPI: Patient presents [facility] the [facility] with his mother who reports sinus symptoms x 4 days. Per mom, patient did test negative for Covid at the start of his symptoms. Mother endorses nasal congestion/drainage, sore throat, and dry cough. Patient reports facial pain. Mother denies any fever/chills, SOB, nausea, vomiting, or diarrhea. Has been using OTC medications without any significant improvement in symptoms. Patient has been fully vaccinated against Covid. Denies any known sick exposures. Mother statesthat typically when he starts with sinus related symptoms, they tend to progress very quickly. Patient ID: Armin Rico is a 46 y.o. male followed by Zoraida Franco MD Armin Rico contacted the Respiratory Clinic today for Respiratory/Covid-19 evaluation. The patient-submitted questionnaire was assessed for pertinent information and the patient's problem list, medication list, and allergies were reviewed. The chart was updated to identify any changes in these areas. Symptoms: Dry Cough and sinus pressure, nasal congestion/drainage, sore throat Duration: 4day(s) Plus High Risk Comorbidity : none Exposure risk (travel or close contact): No Past Medical History: Diagnosis Date ??? COVID-19 08/2020 ??? Down syndrome ??? History of laparoscopic cholecystectomy Past Surgical History: Procedure Laterality Date ??? CATARACT EXTRACTION 11/2001 ??? LAPAROSCOPIC CHOLECYSTECTOMY ??? TONSILLECTOMY ??? TYMPANOSTOMY TUBE PLACEMENT Allergies Allergen Reactions ??? Demerol [Meperidine] Unknown ??? Morphine Sulfate Unknown Social History Tobacco Use ??? Smoking status: Never Smoker ??? Smokeless tobacco: Never Used Substance Use Topics ??? Alcohol use: Not Currently Family History Problem Relation Age of Onset ??? Thyroid cancer Mother ??? Other (heart issue s) Mother ??? Coronary artery disease Father ??? Other (covid) Father ??? Breast cancer Other ??? Lymphoma Other Immunization History Administered Date(s) Administered ??? Influenza, Quadrivalent, Cell Culture-based MDCK, Preservative Free, Antibiotic Free, Intramuscular 09/04/2017 ??? Influenza, Quadrivalent, Recombinant, Egg Free, Preservative Free, Intramuscular 09/22/2020 ??? Influenza, Quadrivalent, Split, Intramuscular 10/09/2019 ??? Influenza, Quadrivalent, Split, Preservative Free, Intramuscular 09/09/2018 ??? Moderna SARS-CoV-2 Vaccination 01/10/2021, 02/06/2021 Social History Tobacco Use Smoking Status Never Smoker Smokeless Tobacco Never Used Current Medications: Outpatient Encounter Medications as of 07/10/2021 Medication Sig Dispense Refill ??? aspirin 81 mg enteric coated tablet Take 81 mg by mouth daily ??? cetirizine (ZyrTEC) 10 mg tablet Take 10 mg by mouth daily ??? cholecalciferol, vitamin D3, (VITAMIN D3 ORAL) Take by mouth ??? doxycycline (VIBRAMYCIN) 100 mg capsule Take 1 tablet/capsule (100 mg total) by mouth 2 (two) times a day for 10 days 20 tablet/capsule 0 ??? fluticasone propionate (FLONASE) 50 mcg/actuation nasal spray Administer 2 sprays into each nostril daily 16 g 1 ??? omeprazole (PriLOSEC) 20 mg capsule Take 20 mg by mouth daily No facility-administered encounter medications on file as of 07/10/2021. Review of Systems: Please see HPI. Review of Systems Constitutional: Negative for chills and fever. HENT: Positive for congestion, rhinorrhea, sinus pressure, sinus pain and sore throat. Negative forear discharge, ear pain and postnasal drip. Eyes: Negative for redness. Respiratory: Positive for cough. Negative for shortness of breath. Cardiovascular: Negative for chest pain and leg swelling. Gastrointestinal: Negative for diarrhea, nausea and vomiting. Genitourinary: Negative for dysuria and flank pain. Musculoskeletal: Negative for back pain and neck stiffness. Skin: Negative for rash. Neurological: Negative for syncope and weakness. Psychiatric/Behavioral: The patient is not nervous/anxious. Physical exam Vitals: 07/10/21 1536 Pulse: 90 Temp: 36.1 ??C (97 ??F) TempSrc: Temporal SpO2: 96% General appearance: In obvious distress No Neuro: Alert Yes Physical Exam Vitals and nursing note reviewed. Constitutional: Appearance: Normal appearance. HENT: Head: Normocephalic and atraumatic. Right Ear: External ear normal. Left Ear: External ear normal. Nose: Congestion present. Right Sinus: Maxillary sinus tenderness present. No frontal sinus tenderness. Left Sinus: Maxillary sinus tenderness present. No frontal sinus tenderness. Mouth/Throat: Mouth: Mucous membranes are moist. Pharynx: Oropharynx is clear. No oropharyngeal exudate or posterior oropharyngeal erythema. Eyes: Conjunctiva/sclera: Conjunctivae normal. Cardiovascular: Rate and Rhythm: Normal rate and regular rhythm. Heart sounds: Normal heart sounds. Pulmonary: Effort: Pulmonary effort is normal. Breath sounds: Normal breath sounds. No stridor. No wheezing, rhonchi or rales. Abdominal: General: There is no distension. Musculoskeletal: General: Normal range of motion. Cervical back: Normal range of motion and neck supple. No tenderness. Lymphadenopathy: Cervical: No cervical adenopathy. Skin: Findings: No rash. Neurological: General: No focal deficit present. Mental Status: He is alert and oriented to person, place, and time. Psychiatric: Mood and Affect: Mood normal. Behavior: Behavior normal. Discussed diagnosis of acute sinusitis with patient at length. Low suspicion for Covid at this time given previous negative test. Provided prescription for Doxycycline for antimicrobial coverage, advised to take as directed to completion. Encouraged continued use of OTC Flonase and Zyrtec to help manage nasal congestion/drainage. May use OTC Tylenol/Ibuprofen as needed for any pain. Encouraged increased fluid intake (primarily water). To closely monitor symptoms at home. May f/u with [facility] as needed. To f/u promptly if symptoms worsen or fail to improve. To f/u in ER if symptoms become severe or if any other concerning symptoms develop. Patient verbalized understanding. The patient was given information regarding any new medication(s) prescribed, if applicable, as well as any [id number] remedies. he was given instructions regarding follow up and timeframe if symptoms worsen or don???t improve. These instructions were included in the [facility] message reply to the patient. Patient Instructions were included in the message reply to patient. Marianna Ortiz NP documented in this encounter Plan of Treatment Not on file documented as of this encounter Visit Diagnoses Diagnosis Acute non-recurrent maxillary sinusitis- Primary documented in this encounter Care Teams Moss Gatherer Relationship Specialty Start Date End Date Zoraida Franco MD [address] [place] [id number] PCP - General Family Medicine 06/20/21 documented as of this encounter
--- OUTSIDE RECORDS SUMMARY | 2024-11-30 06:09 | XMS_ITS | Encounter Summary ---
Author Organization [facility] Address [address] [facility] [address] [place] [id number] Care Team Providers Care Trade Show Manager Name Role Phone Zoraida Franco MD Primary Care Provi selvin Reason for Referral * Diagnostic Imaging (Routine) - Closed Specialty Diagnoses / Procedures Referred By Porfirio t Referred To Contact Diagnoses VSD (ventricular septal defect) Abnormal EKG Procedures XR Chest Pa Lateral 2 Vw Zoraida Franco MD [facility] [address] [place] [address] Phone: tel: fax: [address] [phone] Referral ID Status Reason Start Date Expiration Date Visits Re quested Visits Authorized [id number] Closed 07/20/2021 08/19/2022 1 1 Reason for Visit * Reason Comments Medicare Annual Wellness Visit Initial m wv Encounter Details Date Type Department Care Team (Late st Contact Info) Description 07/20/2021 2:00 PM CDT Office Visit 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 Gender Identity Not on file Sexual Orientation Not on file Occupation Industry Job Start Date Job End Date Disabled Not on file Not on file Not on file documented as of this encounter Last Filed Vital Signs Vital Sign Reading Time Taken Comments Blood Pressure 100/70 07/20/2021 1:53 PM CDT Pulse 75 07/20/2021 1:53 PM CDT Temperature 36.7 ??C (98 ??F) 07/20/2021 1:53 PM CDT Respiratory Rate 16 07/20/2021 1:53 PM CDT Oxygen Saturation 95% 07/20/2021 1:53 PM CDT Inhaled Oxygen Concentration - - Weight 78.4 kg (172 lb 12.8 oz) 07/20/2021 1:53 PM CDT Height 165.1 cm (5' 5 ) 07/20/2021 1:53 PM CDT Body Mass Index 28.76 07/20/2021 1:53 PM CDT documented in this encounter Patient Instructions * Patient Instructions* Zoraida Franco MD - 07/20/2021 2:00 PM CDT Health Maintenance Topic Date Due ??? DTaP/Tdap/Td Vaccine (1 - Tdap) Never done ??? Influenza Vaccine (1) 08/02/2021 ??? Depression Screening-PHQ 07/20/2022 ??? Regular Well Visit/Exam 07/20/2022 ??? Covid-19 Vaccine Completed documented in this encounter Progress Notes * Zoraida Franco MD - 07/20/2021 2:00 PM CDT Images from the original note were not included. MEDICARE SUBSEQUENT ANNUAL WELLNESS VISIT Patient ID: Armin Rico is a 46 y.o. male. 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 Eating: No Grooming: No Bathing: No Walking: No Using the toilet: No Memory problems: No Difficulty speaking: No Have you experienced any of the following problems currently or recently? Laundry and/or housekeeping: No Handling Money: No Shopping: No Food preparation: No Transportation: No Taking and/or getting your own medications: No Depression Screen: PHQ Screening Over the [...] people?: Not difficult at all Audio/Visual screen: Abnormal Is the patient having any problems with hearing and/or vision? No STEADI Fall Risk Screening: In the past year, patient experienced: One or more falls in the last year: No Up and Go Test: Patient was unsteady or time test was longer than 30 seconds? No Chief complaint: Medicare Annual Wellness Visit Initial (mwv ) HPI: Diet: tries to eat healthy Physical Activities: 1-2 times a week Functional Capacity Patient is able to perform the following: ambulation, bathing and hygiene, feeding, grooming, toileting and dressing Chronic medical issues: -NILA- started on CPAP. No improvement in energy -leukopenia, joint pain-due for a repeat CBC, ESR, and JACIEL. Joints are doing well currently -VSD-completed an echo which was overall normal -PLMD- monitoring for now -his father and grandma . It has been almost a year. He is sad often -down's syndrome- stable Incontinence: Are you experiencing or have concern about urine leakage? No Problem List, Past Medical and Surgical History: Patient Active Problem List Diagnosis ??? VSD (ventricular septal defect) ??? Leukopenia ??? Joint pain ??? NILA (obstructive sleep apnea) ??? PLMD (periodic limb movement disorder) ??? Encounter for Medicare annual wellness exam ??? Down syndrome Past Medical History: Diagnosis Date ??? COVID-19 08/2020 ??? Down syndrome ??? History of laparoscopic cholecystectomy Past Surgical History: Procedure Laterality Date ??? CATARACT EXTRACTION 11/2001 ??? LAPAROSCOPIC CHOLECYSTECTOMY ??? TONSILLECTOMY ??? TYMPANOSTOMY TUBE PLACEMENT Family History: Family History Problem Relation Age of Onset ??? Thyroid cancer Mother ??? Other (heart issue s) Mother ??? Coronary artery disease Father ??? Other (covid) Father ??? Breast cancer Other ??? Lymphoma Other Social History: Social History Socioeconomic History ??? Marital status: Single Spouse name: Not on file ??? Number of children: Not on file ??? Years of education: Not on file ??? Highest education level: Not on file Occupational History ??? Occupation: Disabled Tobacco Use ??? Smoking status: Never Smoker ??? Smokeless tobacco: Never Used Vaping Use ??? Vaping Use: Never used Substance and Sexual Activity ??? Alcohol use: Not Currently ??? Drug use: Never ??? Sexual activity: Defer Other Topics Concern ??? Not on file Social History Narrative ??? Not on file Social Determinants of Health Financial Resource Strain: ??? Difficulty of Paying Living Expenses: Not on file Food Insecurity: ??? Worried About Running Out of Food in the Last Year: Not on file ??? Ran Out of Food in the Last Year: Not on file Transportation Needs: ??? Lack of Transportation (Medical): Not on file ??? Lack of Transportation (Non-Medical): Not on file Physical Activity: ??? Days of Exercise per Week: Not on file ??? Minutes of Exercise per Session: Not on file Stress: ??? Feeling of Stress : Not on file Social Connections: ??? Frequency of Communication with Friends and Family: Not on file ??? Frequency of Social Gatherings with Friends and Family: Not on file ??? Attends Nondenominational Services: Not on file ??? Active Member of Clubs or Organizations: Not on file ??? Attends Club or Organization Meetings: Not on file ??? Marital Status: Not on file Intimate Partner Violence: ??? Fear of Current or Ex-Partner: Not on file ??? Emotionally Abused: Not on file ??? Physically Abused: Not on file ??? Sexually Abused: Not on file Allergies: Allergies Allergen Reactions ??? Demerol [Meperidine] Unknown ??? Morphine Sulfate Unknown Medications: Current Outpatient Medications: ??? aspirin 81 mg enteric coated tablet, Take 81 mg by mouth daily, Disp: , Rfl: ??? cetirizine (ZyrTEC) 10 mg tablet, Take 10 mg by mouth daily, Disp: , Rfl: ??? cholecalciferol, vitamin D3, (VITAMIN D3 ORAL), Take by mouth, Disp: , Rfl: ??? fluticasone propionate (FLONASE) 50 mcg/actuation nasal spray, Administer 2 sprays into each nostril daily, Disp: 16 g, Rfl: 1 ??? omeprazole (PriLOSEC) 20 mg capsule, Take 20 mg by mouth daily, Disp: , Rfl: Review of Systems: Review of Systems Constitutional: Negative for appetite change and fatigue. HENT: Negative for hearing loss and trouble swallowing. Eyes: Negative for visual disturbance. Respiratory: Negative for cough and shortness of breath. Cardiovascular: Negative for chest pain. Gastrointestinal: Negative for constipation, diarrhea and vomiting. Genitourinary: Negative for dysuria. Musculoskeletal: Negative for arthralgias. Skin: Negative for rash. Neurological: Negative for headaches. Psychiatric/Behavioral: Negative for dysphoric mood. The patient is not nervous/anxious. No results found for this or any previous visit (from the past 1008 hour(s)). Vitals: Vitals BP 100/70 (BP Location: Left arm, Patient Position: Sitting) Pulse 75 Temp 36.7 ??C (98 ??F) (Temporal) Resp 16 Ht 165.1 cm (5' 5 ) Wt 78.4 kg (172 lb 12.8 oz) SpO2 95% BMI 28.76 kg/m?? Body mass index is 28.76 kg/m??. Exam: Physical Exam Vitals and nursing note reviewed. Constitutional: General: He is not in acute distress. Appearance: Normal appearance. He is well-developed. He is not ill-appearing or toxic-appearing. HENT: Head: Normocephalic and atraumatic. Right Ear: [...] - General (Family Medicine) Primary Pharmacy/DME suppliers: [id number] [place], [place] - [address] [facility] [address] [facility] [id number] Detection of Cognitive Impairment: The patient does not have cognitive impairment based on direct observation, discussion with patientor family, or review of medical records. Health Maintenance: Health Maintenance Topics with due status: Overdue Topic Date Due DTaP/Tdap/Td Vaccine Never done Health Maintenance Topics with due status: Not Due Topic Last Completion Date Influenza Vaccine 09/22/2020 Depression Screening-PHQ 07/20/2021 Regular Well Visit/Exam 07/20/2021 Health Maintenance Topics with due status: Completed Topic Last Completion Date Covid-19 Vaccine 02/06/2021 Counseling and Referral of Preventative Services: Lifestyle Recommendations Increase Physical Activity and Improve Diet Advanced Directive Durable Power of AttorneyNo Living Will No Assessment and Plan: Diagnoses and all orders for this visit: Encounter for Medicare annual wellness exam (Primary) Assessment & Plan: Encouraged a healthy diet, and regular physical activity to his level Wear sun screen, seat belts No texting/drinking and driving PMH updated: Last colonoscopy/cologuard:@45 Last PSA: @45 Last Tdap: check with the pharmacist Last Flu: encouraged Last COVID: encouraged Orders: - ECG 12 lead Arthralgia of both knees Assessment & Plan: Doing well Will recheck labs Orders: - Erythrocyte sedimentation rate; Future - JACIEL reflex to quantitative; Future Leukopenia, unspecified type Assessment & Plan: Will check labs Orders: - CBC with auto differential; Future PLMD (periodic limb movement disorder) Assessment & Plan: Continue to monitor Orders: - TSH reflex to free T4; Future NILA (obstructive sleep apnea) Assessment & Plan: Continue to follow with sleep medicine Orders: - CBC with auto differential; Future Screening for cardiovascular condition - Lipid panel; Future VSD (ventricular septal defect) Assessment & Plan: Echo reviewed Orders: - XR Chest Pa Lateral 2 Vw; Future Change in nail appearance Comments: will check a toenail culture Orders: - CULTURE,FUNGUS,SKIN,HAIR, NAIL W/DIRECT FLUOR/TAMARA Nail; Future Screening for diabetes mellitus - Comprehensive metabolic panel; Future Grief - Ambulatory referral to Psychology; Future Abnormal EKG Comments: Normal sinus rhythm, poor R-wave progression. Will check chest x-ray Consider referral to Cardiology for any concerns Orders: - XR Chest Pa Lateral 2 Vw; Future Down syndrome Patient here for annual Medicare wellness visit [...] Plan Note - Zoraida Franco MD - 07/20/2021 2:42 PM CDTAssociated Problem(s): VSD (ventricular septal defect) Echo reviewed * Assessment & Plan Note - Zoraida Franco MD - 07/20/2021 2:40 PM CDTAssociated Problem(s): NILA (obstructive sleep apnea) Continue to follow with sleep medicine * Assessment & Plan Note - Zoraida Franco MD - 07/20/2021 2:40 PM CDTAssociated Problem(s): PLMD (periodic limb movement disorder) Continue to monitor * Assessment & Plan Note - Zoraida Franco MD - 07/20/2021 2:40 PM CDTAssociated Problem(s): Leukopenia Will check labs * Assessment & Plan Note - Zoraida Franco MD - 07/20/2021 2:40 PM CDTAssociated Problem(s): Joint pain Doing well Will recheck labs * Assessment & Plan Note - Zoraida Franco MD - 07/20/2021 2:35 PM CDTAssociated Problem(s): Encounter for Medicare annual wellness [...] Procedure Name Priority Date/Time Associated Diagnosis Comments CULTURE,FUNGUS,SKIN,WRIGHT IR, NAIL W/DIRECT FLUOR/TAMARA Routine 08/04/2021 11:39 AM CDT Change in nail appearance THYROID PEROXIDASE ANTIBODIES Routine 07/21/2021 7:55 AM CDT T4, FREE Routine 07/21/2021 7:55 AM CDT THYROID TEST INTERPRETATION Routine 07/21/2021 7:55 AM CDT THYROID FUNCTION CASCADE Routine 07/21/2021 7:55 AM CDT PLMD (periodic limb movement disorder) CBC WITH AUTO DIFFERENTIAL Routine 07/21/2021 7:55 AM CDT Leukopenia, unspecified type NILA (obstructive sleep apnea) JACIEL REFLEX TO QUANTITATIVE Routine 07/21/2021 7:55 AM CDT Arthralgia of both knees ERYTHROCYTE SEDIMENTATION RATE Routine 07/21/2021 7:55 AM CDT Arthralgia of both knees LIPID PANEL Routine 07/21/2021 7:55 AM CDT Screening for cardiovascular condition COMPREHENSIVE METABOLIC PANEL Routine 07/21/2021 7:55 AM CDT Screening for diabetes mellitus ECG 12-LEAD Routine 07/20/2021 Encounter for Medicare annual wellness exam documented in this encounter Results * (ABNORMAL) CULTURE,FUNGUS,SKIN,HAIR, NAIL W/DIRECT FLUOR/TAMARA Nail (08/04/2021 11:39 AM CDT) Fungus culture,skin,wright ir, nail w/direct fluor/tamara (A) [facility] Comment: ??CULTURE,FUNGUS,SKIN,HAIR, NAIL W/DIRECT FLUOR/TAMARA ?Micro Number: ?[id number] ??Test Status: ? Final ??Specimen Source: ?? Toenail ??Specimen Quality: ??Adequate ??Smear: ? Few Fungal elements seen ??Result: ?Scytalidium species Nail 08/04/2021 11:3 9 AM CDT 08/04/2021 11:40 AM CDT Narrative [facility] - 09/04/2021 5:58 AM CDT SPLIT 07/21/2021 FROM [id number] us Zoraida Franco MD LAB MICROBIOLOGY - GENERAL ORDERABLES Final Result Performing Organization Address City/[facility]/ZIP Co de Phone Number [facility] [address] [place] [address] * INTERPRETATION (07/21/2021 7:55 AM CDT) Thyroid interp [facility] [place][note 2] Comment: TSH result is high, FT4 is normal, TPO AB are absent or low. Consistent with subclinical Hypothyroidism or Nonthyroidal illness (Euthyroid sick syndrome). Moderate TSH increase and normal FT4 are often seen in euthyroid elderly patients and in patients with interfering antibodies (i.e. anti-animal antibodies). Interference from heterophilic antibodies (more common) or autoantibody (less common) should be considered when the TSH value does not fit the clinical picture. TSH with HAMA Treatment (test code 59247) or TSH Antibody (test code 40395) may help identify such interferences. 07/21/2021 7:55 AM CDT 07/21/2021 7:58 AM CDT Narrative [facility] - 07/24/2021 2:33 PM CDT COLLECTION KIT GIVEN TO PATIENT. PATIENT ADVISED TO RETURN. us Zoraida Franco MD LAB BLOOD ORDERABLE S Final Result Performing Organization Address City/[facility]/ZIP Co de Phone Number [facility] [address] [place] [address] * Thyroid Peroxidase Antibodies (07/21/2021 7:55 AM CDT) Thyroperoxidase ab 2 <9 IU/mL [facility] 07/21/2021 7:55 AM CDT 07/21/2021 7:58 AM CDT Narrative [facility] - 07/24/2021 2:33 PM CDT COLLECTION KIT GIVEN TO PATIENT. PATIENT ADVISED TO RETURN. Zoraida Franco MD LAB BLOOD ORDERABLE S Final Result Performing Organization Address [facility]/ZIP Co de Phone Number [facility] [address] [place] [address] * T4, Free (07/21/2021 7:55 AM CDT) Pathologist [facility] Free T4 1.3 0.8 - 1.8 ng/dL [facility] 07/21/2021 7:55 AM CDT 07/21/2021 7:58 AM CDT Narrative [facility] - 07/24/2021 2:33 PM CDT COLLECTION KIT GIVEN TO PATIENT. PATIENT ADVISED TO RETURN. Zoraida Franco MD LAB BLOOD ORDERABLE S Final Result Performing Organization Address [facility]/ZIP Co de Phone Number [facility] [address] [place] [address] * JACIEL reflex to quantitative (07/21/2021 7:55 AM CDT) JACIEL, qual NEGATIVE NEGATIVE [facility] [place] Comment: JACIEL IFA is a first line screen for detecting the presence of up to approximately 150 autoantibodies in various autoimmune diseases. A negative JACIEL IFA result suggests an JACIEL-associated autoimmune disease is not present at this time, but is not definitive. If there is high clinical suspicion for Sjogren's syndrome, testing for anti-SS-A/Ro antibody should be considered. Anti-Lydia-1 antibody should be considered for clinically suspected inflammatory myopathies. AC-0: Negative International Consensus on JACIEL Patterns (https://doi.org/10.1515/jrft-4385-9539) For additional information, please refer to http://education.Unda/faq/IVZ140 (This link is being provided for informational/ educational purposes only.) ?? Blood specimen (specimen) 07/21/2021 7:55 AM CDT 07/21/2021 7:58 AM CDT Narrative [facility] - 07/24/2021 2:33 PM CDT COLLECTION KIT GIVEN TO PATIENT. PATIENT ADVISED TO RETURN. Zoraida Franco MD LAB BLOOD ORDERABLE S Final Result Performing Organization Address City/[facility]/ZIP Co de Phone Number [facility] [address] [place] [address] * Erythrocyte sedimentation rate (07/21/2021 7:55 AM CDT) Erythrocyte sedimentation rate 2 < OR = 15 mm/h [facility] [facility] Blood specimen (specimen) 07/21/2021 7:55 AM CDT 07/21/2021 7:58 AM CDT Narrative [facility] - 07/24/2021 2:33 PM CDT COLLECTION KIT GIVEN TO PATIENT. PATIENT ADVISED TO RETURN. us Zoraida Franco MD LAB BLOOD ORDERABLE S Final Result Performing Organization Address [facility]/ZIP Co de Phone Number [facility] [address] [place] [address] * (ABNORMAL) TSH reflex to free T4 (07/21/2021 7:55 AM CDT) TSH 5.20(H) 0.40 - 4.50 mIU/L [facility] Blood specimen (specimen) 07/21/2021 7:55 AM CDT 07/21/2021 7:58 AM CDT Narrative [facility] - 07/24/2021 2:33 PM CDT COLLECTION KIT GIVEN TO PATIENT. PATIENT ADVISED TO RETURN. us Zoraida Franco MD LAB BLOOD ORDERABLE S Final Result Performing Organization Address [facility]/ZIP Co de Phone Number [facility] [address] [place] [phone] * Lipid panel (07/21/2021 7:55 AM CDT) Cholesterol 159 <200 mg/dL [facility] HDL 68 > OR = 40 mg/dL [facility] Triglycerides 49 <150 mg/dL [facility] LDL 77 mg/dL (calc) [facility] Comment: Reference range: <100 Desirable range <100 mg/dL for primary prevention; ?? <70 mg/dL for patients with CHD or diabetic patients with > or = 2 CHD risk factors. LDL-C is now calculated using the Keiko calculation, which is a validated novel method providing better accuracy than the Friedewald equation in the estimation of LDL-C. Rene ANDERSON et al. RAYMON. 2013;310(19): 1415-1259 (http://education.Unda/faq/OKO587) Chol/HDL ratio 2.3 <5.0 (calc) [facility] Non-HDL, (LDL+VLDL) 91 <130 mg/dL (calc) [facility] Comment: For patients with diabetes plus 1 major ASCVD risk factor, treating to a non-HDL-C goal of <100 mg/dL (LDL-C of <70 mg/dL) is considered a therapeutic option. Blood specimen (specimen) 07/21/2021 7:55 AM CDT 07/21/2021 7:58 AM CDT Narrative [facility] - 07/24/2021 2:33 PM CDT COLLECTION KIT GIVEN TO PATIENT. PATIENT ADVISED TO RETURN. us Zoraida Franco MD LAB BLOOD ORDERABLE S Final Result Performing Organization Address [facility]/ZIP Co de Phone Number [facility] [address] [phone] * (ABNORMAL) CBC with auto differential (07/21/2021 7:55 AM CDT) WBC 3.5(L) 3.8 - 10.8 Thousand/u L [facility] RBC, POC 5.18 4.20 - 5.80 Million/uL [facility] Hgb 16.8 13.2 - 17.1 g/dL [facility] Hct 49.4 38.5 - 50.0 % [facility] MCV 95.4 80.0 - 100.0 fL [facility] MCH 32.4 27.0 - 33.0 pg [facility] MCHC 34.0 32.0 - 36.0 g/dL [facility] Rdw 13.9 11.0 - 15.0 % [facility] Platelets 257 140 - 400 Thousand/u L [facility] MPV 9.2 7.5 - 12.5 fL [facility] Neutrophils, abs 1,145(L) 1,500 - 7,800 cells/uL [facility] Lymphocytes, abs 1,782 850 - 3,900 cells/uL [facility] Monocyte abs 413 200 - 950 cells/uL [facility] Eosinophils, abs 60 15 - 500 cells/uL [facility] Basophils, abs 102 0 - 200 cells/uL [facility] Neutrophils 32.7 % [facility] Lymphocyte pct 50.9 % [facility] Monocytes 11.8 % [facility] Eosinophils 1.7 % [facility] Basophils 2.9 % [facility] Blood specimen (specimen) 07/21/2021 7:55 AM CDT 07/21/2021 7:58 AM CDT Narrative [facility] - 07/24/2021 2:33 PM CDT COLLECTION KIT GIVEN TO PATIENT. PATIENT ADVISED TO RETURN. us Zoraida Franco MD LAB BLOOD ORDERABLE S Final Result [facility] [address] [address] * (ABNORMAL) Comprehensive metabolic panel (07/21/2021 7:55 AM CDT) Glucose 98 65 - 99 mg/dL [facility] [place] Comment: ? Fasting reference interval BUN 14 7 - 25 mg/dL [facility] [place] Creatinine 1.06 0.60 - 1.35 mg/dL [facility] [place] eGFR NON-AFR. CROATIAN 85 > OR = 60 mL/min/1. 73m2 [facility] [place] EGFR 98 > OR = 60 mL/min/1. 73m2 [facility] [place] BUN/creat ratio NOT APPLICABLE 6 - 22 (calc) [facility] [place] Sodium 137 135 - 146 mmol/L [facility] [place] Potassium, pl 4.6 3.5 - 5.3 mmol/L [facility] [place] Chloride 101 98 - 110 mmol/L [facility] [place] CO2 28 20 - 32 mmol/L [facility] [place] Calcium 8.5(L) 8.6 - 10.3 mg/dL [facility] [place] Protein, sr 6.2 6.1 - 8.1 g/dL [facility] [place] Albumin 3.7 3.6 - 5.1 g/dL [facility] [place] GLOBULIN 2.5 1.9 - 3.7 g/dL (calc) [facility] [place] Alb/glob ratio 1.5 1.0 - 2.5 (calc) [facility] [place] Bilirubin, total 0.6 0.2 - 1.2 mg/dL [facility] [place] Alk phos 75 36 - 130 U/L [facility] [place] AST 23 10 - 40 U/L [facility] [place] ALT (SGPT) 27 9 - 46 U/L [facility] [place] Blood specimen (specimen) 07/21/2021 7:55 AM CDT 07/21/2021 7:58 AM CDT Narrative [facility] - 07/24/2021 2:33 PM CDT COLLECTION KIT GIVEN TO PATIENT. PATIENT ADVISED TO RETURN. us Zoraida Franco MD LAB BLOOD ORDERABLE S Final Result [facility] [address] [place] [address] * XR Chest Pa Lateral 2 Vw (07/20/2021 3:58 PM CDT) Anatomical Region Laterality Modality Body, Chest N/A Computed Radiogr aphy 07/20/2021 4:06 PM CDT Narrative 07/20/2021 4:08 PM CDT EXAM DESCRIPTION: ?? XR CHEST PA LATERAL 2 VIEWS REASON FOR STUDY: ? Patient had abnormal EKG today. No other chest complaints ?? TECHNIQUE: ?? Frontal and lateral radiographic views of the chest acquired. COMPARISON: ?? 06/19/2015 and 03/01/2015. FINDINGS: LUNGS/PLEURA: ??The lungs are similar in appearance compared to the prior examination from June 2015. ??No new consolidation present within either lung. ?? No effusion or pneumothorax. HEART/MEDIASTINUM: ??Cardiac silhouette and mediastinal contours are within normal limits. HARDWARE/LINES/TUBES: ??None. BONES: ??Mild kyphosis centered at the thoracolumbar junction, similar. OTHER: ??No other significant finding. IMPRESSION: ?? No acute cardiopulmonary process and no significant interval change from prior examination in June 2015. THIS IS AN ELECTRONICALLY VERIFIED FINAL REPORT 07/20/2021 4:08 PM - Electronically signed by Jeniffer Bhandari M.D. TB: TB D: ??07/20/2021 4:08 PM T: ??07/20/2021 4:08 PM Report ID: [id number] Reading Location: ??[id number] Procedure Note Jeniffer Bhandari MD - 07/20/2021 EXAM DESCRIPTION: XR CHEST PA LATERAL 2 VIEWS REASON FOR STUDY: Patient had abnormal EKG today. No other chest complaints TECHNIQUE: Frontal and lateral radiographic views of the chestacquired. COMPARISON: 06/19/2015 and 03/01/2015. FINDINGS: LUNGS/PLEURA: The lungs are similar in appearance compared to the prior examination from June 2015. No new consolidation present within eitherlung. No effusion or pneumothorax. HEART/MEDIASTINUM: Cardiac silhouette and mediastinal contours are within normal limits. HARDWARE/LINES/TUBES: None. BONES: Mild kyphosis centered at the thoracolumbar junction, similar. OTHER: No other significant finding. IMPRESSION: No acute cardiopulmonary process and no significant interval change from prior examination in June 2015. THIS IS AN ELECTRONICALLY VERIFIED FINAL REPORT 07/20/2021 4:08 PM - Electronically signed by Jeniffer Bhandari M.D. TB: TB Report ID: [id number] Reading Location: [facility] us Zoraida Franco MD IMG XR PROCEDURES F inal Result * ECG 12 lead (07/20/2021) us Zoraida Franco MD ECG ORDERABLES Fin al Result documented in this encounter Visit Diagnoses Diagnosis Encounter for Medicare annual wellness exam- Primary Arthralgia of both knees Leukopenia, unspecified type PLMD (periodic limb movement disorder) Periodic limb movement disorder NILA (obstructive sleep apnea) Obstructive sleep apnea (adult) (pediatric) Screening for cardiovascular condition Screening for other and unspecified cardiovascular conditions VSD (ventricular septal defect) Ventricular septal defect Change in nail appearance Screening for diabetes mellitus Grief Adjustment disorder with depressed mood Abnormal EKG Nonspecific abnormal electrocardiogram (ECG) (EKG) Down syndrome Down's syndrome VSD (ventricular septal defect) Ventricular septal defect Abnormal EKG Nonspecific abnormal electrocardiogram (ECG) (EKG) documented in this encounter Discontinued Medications Medication Sig Discontinue Reason Start Date End Da te doxycycline (VIBRAMYCIN) 100 mg capsuleIndications:Acute non-recurrent maxillary sinusitis Take 1 tablet/capsule (100 mg total) by mouth 2 (two) times a day for 10 days 07/10/2021 07/20/2021 documented as of this encounter Care Teams Trade Show Manager Relationship Specialty Start Date End Date Zoraida Franco MD [facility] [address] [place] [id number] PCP - General Family Medicine 06/20/21 documented as of this encounter
--- OUTSIDE RECORDS SUMMARY | 2024-11-30 06:09 | XMS_ITS | Encounter Summary ---
Author Organization [facility] Address [address] 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 Gender Identity Not on file Sexual Orientation Not on file Occupation Industry Job Start Date Job End Date Disabled Not on file Not on file Not on file documented as of this encounter Progress Notes * Susu Mcmahan, VICKY - 07/18/2021 2:00 PM CDT Order for cpap supplies has been sent to [facility] documented in this encounter Plan of Treatment Not on file documented as of this encounter Visit Diagnoses Diagnosis NILA (obstructive sleep apnea)- Primary Obstructive sleep apnea (adult) (pediatric) documented in this encounter Care Teams Labor Economics Teacher Relationship Specialty Start Date End Date Zoraida Franco MD [address] [place] [address] PCP - General Family Medicine 06/20/21 documented as of this encounter
--- OUTSIDE RECORDS SUMMARY | 2024-11-30 06:09 | XMS_ITS | Encounter Summary ---
Author Organization [facility] Address [address] [facility] [address] [place] [address] Care Team Providers Care Electric Shovel Operator Name Role Phone Zoraida Franco MD Primary Care Provi selvin Encounter Details Date Type Department Care Team (Late st Contact Info) Description 07/27/[address] 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 Notified mom with message in note . Mom voiced understanding . * Telephone Encounter - Wendi Guerrero MA - 07/27/2021 11:04 AM CDT ----- Message from oZraida Franco MD sent at 07/25/2021 7:17 AM CDT ----- Patient's labs were overall normal except: -a low calcium -a low white blood cell count (stable with the last one) and low neutrophil count (improved from the last one) -a slightly elevated TSH, but his free T4 is normal. I would recheck his thyroid in 6 months, and we can do that along with his blood counts. -he can eat calcium rich foods like milk or other dairy products If mom has any questions, please let me know documented in this encounter Plan of Treatment Not on file documented as of this encounter Visit Diagnoses Not on filedocumented in this encounter Care Teams Electric Shovel Operator Relationship Specialty Start Date End Date Zroaida Franco MD [facility] [address] [place] [id number] PCP - General Family Medicine 06/20/21 documented as of this encounter
--- OUTSIDE RECORDS SUMMARY | 2024-11-30 06:09 | XMS_ITS | Encounter Summary ---
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[employer]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[employer] Gender Identity Not on file Sexual Orientation Not on file Occupation Industry Job Start Date Job End Date Disabled Not on file Not on file Not on file documented as of this encounter Plan of Treatment Not on file documented as of this encounter Visit Diagnoses Diagnosis Pneumonia due to COVID-19 virus documented in this encounter Orders Imaging Orders Without Results Count Last Order ed Date First Ordered Date XR CHEST PA LATERAL 2 VIEWS 1 12/13/2021 documented in this encounter Care Teams Recreational Director Relationship Specialty Start Date End Date Zoraida Franco MD [address] [place], [place] [id number] PCP - General Family Medicine 06/20/21 documented as of this encounter
--- OUTSIDE RECORDS SUMMARY | 2024-11-30 06:09 | XMS_ITS | Encounter Summary ---
Author Organization [facility] Medical [facility] Address [address] [facility] [address] [place] [address] Care Team Providers Care Prenatal Genetic Counselor Name Role Phone Zoraida Franco MD Primary Care Provi selvin Reason for Visit * Reason Onset Date Comments Request For Order(s) 12/12/2021 Encounter Details Date Type Department Care Team (Late st Contact Info) Description 12/12/2021 Telephone [facility] Family Medicine [address] [phone] Zoraida Franco MD [address] [place] [address] Request For Order(s) Social History Tobacco Use Types Packs/Day Years [...] on file Legal Sex Male 7:51 PM DRILL GRINDER Gender Identity Not on file Sexual Orientation Not on file Occupation Industry Job Start Date Job End Date Disabled Not on file Not on file Not on file documented as of this encounter Miscellaneous Notes * Telephone Encounter - Zoraida Franco MD - 12/13/2021 8:17 AM DRILL GRINDER Noted, thank you L GRINDER * Telephone Encounter - Jackie Ford MA - 12/13/2021 8:06 AM CST Order faxed to [place]. L GRINDER * Telephone Encounter - Sera Sanders - 12/12/2021 3:05 PM CST pts mother is requesting to have the order for chest xray faxed to [facility]. [facility] [phone] Fabricio sagastume L GRINDER documented in this encounter Plan of Treatment Not on file documented as of this encounter Visit Diagnoses Not on filedocumented in this encounter Care Teams Prenatal Genetic Counselor Relationship Specialty Start Date End Date Zoraida Franco MD [address] [place] [address] PCP - General Family Medicine 06/20/21 documented as of this encounter
--- OUTSIDE RECORDS SUMMARY | 2024-11-30 06:09 | XMS_ITS | Encounter Summary ---
Author Organization [facility] Address [address] [facility] [address] [place] [address] Care Team Providers Care Adult Remedial Education Instructor Name Role Phone Zoraida Franco MD Primary Care Provi selvin Encounter Details Date Type Department Care Team (Late st Contact Info) Description 07/21/[address] [facility] Family Medicine [address] [phone] Zoraida Franco MD [address] [address] Social History Tobacco Use Types [...] file Legal Sex Male 7:51 PM FRUIT TESTER Gender Identity Not on file Sexual Orientation Not on file Occupation Industry Job Start Date Job End Date Disabled Not on file Not on file Not on file documented as of this encounter Miscellaneous Notes * Telephone Encounter - Priscilla Marcial MA - 07/21/2021 3:07 PM CDT Pt Mom Maya called back and I let her know. She v/u. Thank you * Telephone Encounter - Fanny Weaver LPN - 07/21/2021 2:57 PM CDT Called pt and left them a message to return a call to the office. * Telephone Encounter - Fanny Weaver LPN - 07/21/2021 2:04 PM CDT ----- Message from Zoraida Franco MD sent at 07/21/2021 12:56 PM CDT ----- Good afternoon, patient's chest x-ray is normal. If his mom has any questions, please let me know documented in this encounter Plan of Treatment Not on file documented as of this encounter Visit Diagnoses Not on filedocumented in this encounter Care Teams Adult Remedial Education Instructor Relationship Specialty Start Date End Date Zoraida Franco MD [address] [place] [address] PCP - General Family Medicine 06/20/21 documented as of this encounter
--- OUTSIDE RECORDS SUMMARY | 2024-11-30 06:09 | XMS_ITS | Encounter Summary ---
Author Organization [facility] Address [address] [place] [address] Phone Care Team Providers Care Delineator Name Role Phone Zoraida Franco MD Primary Care Provi selvin Encounter Details Date Type Department Care Team (Late st Contact Info) Description 12/25/2021 Telephone [facility] Oncology [address] [facility] [address] [place] [address] Tameka Galvan BSN Social History Tobacco Use Types Packs/Day Years [...] on file Legal Sex Male 7:51 PM FLAKER OPERATOR Gender Identity Not on file Sexual Orientation Not on file Occupation Industry Job Start Date Job End Date Disabled Not on file Not on file Not on file documented as of this encounter Miscellaneous Notes * Telephone Encounter - Tameka Galvan BSN - 12/25/2021 1:47 PM FLAKER OPERATOR Called patient and LMOR with appointment date/time. Advised patient to call back with any issues or concerns. ER OPERATOR documented in this encounter Plan of Treatment Not on file documented as of this encounter Visit Diagnoses Not on filedocumented in this encounter Care Teams Delineator Relationship Specialty Start Date End Date Zoraida Franco MD [address] [place] [address] PCP - General Family Medicine 06/20/21 documented as of this encounter
--- OUTSIDE RECORDS SUMMARY | 2024-11-30 06:09 | XMS_ITS | Encounter Summary ---
Author Organization [facility] Address [address] [facility] [address] [place] [address] Care Team Providers Care Records And Information Manager Name Role Phone Unknown, Notinfile Primary Care Provider Unavail able Zoraida Franco MD Unavailable [phone] Clemente Hamm DO Unavailable Encounter Details Date Type Department Care Team (Late st Contact Info) Description 03/02/2021 Telephone [facility] Family Medicine [address] [phone] Kaylie Mendez MA Social History Tobacco Use Types Packs/Day [...] on file Legal Sex Male 7:51 PM AIR QUALITY SPECIALIST Gender Identity Not on file Sexual Orientation Not on file Occupation Industry Job Start Date Job End Date Disabled Not on file Not on file Not on file documented as of this encounter Miscellaneous Notes * Telephone Encounter - Kaylie Mendez MA - 03/02/2021 9:26 AM CDT I let pt mother know results she v/u * Telephone Encounter - Kaylie Mendez MA - 03/02/2021 9:23 AM CDT ----- Message from Zoraida Franco MD sent at 03/02/2021 7:20 AM CDT ----- Good morning, patient's labs are normal except:: a slightly high glucose, stable calcium and protein, low white blood cells, and a normal sed rate/marker for inflammation. If mom has any questions, please let me know documented in this encounter Plan of Treatment Not on file documented as of this encounter Visit Diagnoses Not on filedocumented in this encounter Care Teams Records And Information Manager Relationship Specialty Start Date End Date Unknown, Notinfile PCP - General 01/07/21 06/19/21 Zoraida Franco MD [address] [place] [address] Family Medicine 01/07/21 06/19/21 Clemente Hamm DO [address] [place] [address] Medical Oncologist/[employer] Rep Hematology and Oncology 01/09/21 06/19/21 documented as of this encounter
--- OUTSIDE RECORDS SUMMARY | 2024-11-30 06:09 | XMS_ITS | Encounter Summary ---
Author Organization [facility] Address [address] [facility] [address] [place] [address] Care Team Providers Care Applied Psychology Teacher Name Role Phone Zoraida Franco MD Primary Care Provi selvin Encounter Details Date Type Department Care Team (Late st Contact Info) Description 10/30/2021 Telephone [facility] Family Medicine [address] [phone] Zoraida Franco MD [address] [address] Social History Tobacco Use Types [...] on file Legal Sex Male 7:51 PM COMMUNITY PRODUCT SPECIALIST Gender Identity Not on file Sexual Orientation Not on file Occupation Industry Job Start Date Job End Date Disabled Not on file Not on file Not on file documented as of this encounter Miscellaneous Notes * Telephone Encounter - Yael Ramos - 10/30/2021 10:40 AM CST [address] UNITY PRODUCT SPECIALIST * Telephone Encounter - Cordelia Dyer LPN - 10/30/2021 10:20 AM COMMUNITY PRODUCT SPECIALIST Pts mom calling today stating that patient is having a cough, nasal congestion and thinks he may have a sinus infection. She is aware we will send his information to our [facility] for eval. UNITY PRODUCT SPECIALIST documented in this encounter Plan of Treatment Not on file documented as of this encounter Visit Diagnoses Not on filedocumented in this encounter Care Teams Applied Psychology Teacher Relationship Specialty Start Date End Date Zoraida Franco MD [facility] [address] [place] [address] PCP - General Family Medicine 06/20/21 documented as of this encounter
--- OUTSIDE RECORDS SUMMARY | 2024-11-30 06:09 | XMS_ITS | Encounter Summary ---
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 It does show arthritis. How is he doing? documented in this encounter Plan of Treatment Not on file documented as of this encounter Visit Diagnoses Not on filedocumented in this encounter Care Teams Pharmacy Intake Coordinator Relationship Specialty Start Date End Date Zoraida Franco MD [address] [place] [address] PCP - General Family Medicine 06/20/21 documented as of this encounter
--- OUTSIDE RECORDS SUMMARY | 2024-11-30 06:09 | XMS_ITS | Encounter Summary ---
Author Organization [facility] Address [address] [facility] [address] [place] [address] Care Team Providers Care Electrical Systems Design Engineer Name Role Phone Zoraida Franco MD Primary Care Provi selvin Reason for Visit * Reason Onset Date Comments CHAYO saturday11/30/2021 Encounter Details Date Type Department Care Team (Late st Contact Info) Description 11/30/2021 Telephone [facility] Family Medicine [address] [phone] Zoraida Franco MD [address] [place] [address] CHAYO saturday Social History Tobacco Use Types Packs/Day Years [...] on file Legal Sex Male 7:51 PM HEEL LINING PASTER Gender Identity Not on file Sexual Orientation Not on file Occupation Industry Job Start Date Job End Date Disabled Not on file Not on file Not on file documented as of this encounter Miscellaneous Notes * Telephone Encounter - Zoraida Franco MD - 12/04/2021 10:56 AM HEEL LINING PASTER Noted, thank you LINING PASTER * Telephone Encounter - Cordelia Dyer LPN - 12/04/2021 10:53 AM HEEL LINING PASTER Yes, its a video LINING PASTER * Telephone Encounter - Zoraida Franco MD - 12/04/2021 10:48 AM HEEL LINING PASTER If he was hospitalized for COVID, is he is set up as a video visit? LINING PASTER * Telephone Encounter - Cordelia Dyer LPN - 12/04/2021 10:28 AM HEEL LINING PASTER TRANSITION OF CARE Called and talked to patient today regarding the following: Hospital patient was admitted to: [facility] Date patient was admitted to hospital: 11/28/2022 Date patient was discharged from hospital: 11/30/2022 Reason for patient's admission to hospital: Covid, diarrhea How is patient feeling since being released from hospital? Patients mom stated that he is doing well, she states he did have another PCR test and it was negative so she has concerns if he had COVID in the first place. 2 tests were negative and 1 was positive. Was patient prescribed any new medications? Per patients mom no new medications were rx'd. She has no questions or concerns at this time. She and patient will talk with JDS tomorrow at his appointment regarding a repeat CXR. Any symptoms? Patients mom stated only symptoms is sneezing. If patient has any questions or concerns, please feel free to call back LINING PASTER * Telephone Encounter - Zoraida Franco MD - 12/03/2021 11:36 AM HEEL LINING PASTER If we can please call the mother- we would need more information . Yes, he is in the window for the antibodies. There are risks, and I do recommend reading up on those. But, it can help. Thank you LINING PASTER * Telephone Encounter - Kaylie Mendez MA - 11/30/2021 4:25 PM CST I called and talked to pt mother, she just stated that pt got out of hospital on 11/30/21, pt has covid and they told her to call for a chayo which I made him an appoinment for 12/07/20, and she wants to know if you want to order a chest xray before his appointment because the hospital said he will need a follow xray if she wants it sent to [facility], she also said her daughter has a doctor that said he will treat patient for the monoclonal infusion and wanted to know if you think it would be ok for him to get it. CHAYO call needs to be done saturday LINING PASTER * Telephone Encounter - Yudi Suggs PA - 11/30/2021 3:34 PM HEEL LINING PASTER Cordelia is out for the day. Can Vanessa, or another nursing staff, call and answer questions? LINING PASTER * Telephone Encounter - Jackie Ford MA - 11/30/2021 2:08 PM CST Please advise. LINING PASTER * Telephone Encounter - Sera Sanders - 11/30/2021 2:02 PM CST pts mother wants to talk with someone about the covid infusion. Pt got covid on 11/28/21. [facility] [phone] Thanks mitesh LINING PASTER documented in this encounter Plan of Treatment Not on file documented as of this encounter Visit Diagnoses Not on filedocumented in this encounter Care Teams Electrical Systems Design Engineer Relationship Specialty Start Date End Date Zoraida Franco MD [facility] [address] [place] [address] PCP - General Family Medicine 06/20/21 documented as of this encounter
--- OUTSIDE RECORDS SUMMARY | 2024-11-30 06:09 | XMS_ITS | Encounter Summary ---
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 Gender Identity Not on file Sexual Orientation Not on file Occupation Industry Job Start Date Job End Date Disabled Not on file Not on file Not on file documented as of this encounter Plan of Treatment Not on file documented as of this encounter Procedures Procedure Name Priority Date/Time Associated Diagnosis Comments SCAN - RADIOLOGY/IMAGING 11/28/2021 documented in this encounter Results * SCAN - RADIOLOGY/IMAGING (11/28/2021) Anatomical Region Laterality Modality Other us Zoraida Franco MD Naif vanessa Result - Final documented in this encounter Visit Diagnoses Not on filedocumented in this encounter Care Teams Manager Supply Relationship Specialty Start Date End Date Zoraida Franco MD [address] [place] [address] PCP - General Family Medicine 06/20/21 documented as of this encounter
--- OUTSIDE RECORDS SUMMARY | 2024-11-30 06:09 | XMS_ITS | Encounter Summary ---
Author Organization [facility] Address [address] [facility] [address] [place] [address] Care Team Providers Care Thai Masseur Name Role Phone Zoraida Franco MD Primary Care Provi selvin Encounter Details Date Type Department Care Team (Late st Contact Info) Description 12/13/2021 Telephone [facility] Family Medicine [address] [phone] Zoraida Franco MD [address] [address] Social History Tobacco Use Types [...] on file Legal Sex Male 7:51 PM PRODUCT MARKETING ANALYST Gender Identity Not on file Sexual Orientation Not on file Occupation Industry Job Start Date Job End Date Disabled Not on file Not on file Not on file documented as of this encounter Miscellaneous Notes * Telephone Encounter - Zoraida Franco MD - 12/13/2021 4:19 PM PRODUCT MARKETING ANALYST Noted, thank you UCT MARKETING ANALYST * Telephone Encounter - Jackie Ford MA - 12/13/2021 4:09 PM CST Called and spoke with patient's mom to review results- informed patient that if he starts to feel bad to let us know, patient voiced understanding. UCT MARKETING ANALYST * Telephone Encounter - Zoraida Franco MD - 12/13/2021 3:33 PM PRODUCT MARKETING ANALYST Patient's chest x-ray shows resolution of his prior pneumonias. He does have 1 area where he has atelectasis, or if part of his lung where the small airways are not open fully. If he is not feeling better, please let me know UCT MARKETING ANALYST documented in this encounter Plan of Treatment Not on file documented as of this encounter Visit Diagnoses Not on filedocumented in this encounter Care Teams Thai Masseur Relationship Specialty Start Date End Date Zoraida Franco MD [facility] [address] [place] [address] PCP - General Family Medicine 06/20/21 documented as of this encounter
--- OUTSIDE RECORDS SUMMARY | 2024-11-30 06:09 | XMS_ITS | Encounter Summary ---
Author Organization [facility] Address [address] [facility] [address] [place] [address] Care Team Providers Care Director Of Nurses Registry Name Role Phone Unknown, Notinfile Primary Care Provider Unavail able Zoraida Franco MD Unavailable [phone] Clemente Hamm DO Unavailable Encounter Details Date Type Department Care Team (Late st Contact Info) Description 03/24/2021 Orders Only [facility] Pulmonology [address] [facility] [address] [place] [address] Kandy Hannah, SENIOR ENGINEERING TECH [address] [facility] [address] [place] [address] Social History Tobacco Use Types Packs/Day Years [...] on file 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 Gender Identity Not on file Sexual Orientation Not on file Occupation Industry Job Start Date Job End Date Disabled Not on file Not on file Not on file documented as of this encounter Plan of Treatment Not on file documented as of this encounter Procedures Procedure Name Priority Date/Time Associated Diagnosis Comments IRON Routine 03/24/2021 1:47 PM CDT FERRITIN Routine 03/24/2021 1:47 PM CDT documented in this encounter Results * Ferritin (03/24/2021 1:47 PM CDT) Ferritin 219 38 - 380 ng/mL [facility] 03/24/2021 1:47 PM CDT 03/24/2021 1:48 PM CDT Kandy Hannah SENIOR ENGINEERING TECH LAB BLOOD ORDERABLES Fin al Result Performing Organization Address City/[facility]/ZIP Co de Phone Number [facility] [address] [place] [address] * (ABNORMAL) Iron level (03/24/2021 1:47 PM CDT) Iron 34(L) 50 - 180 mcg/dL [facility] 03/24/2021 1:47 PM CDT 03/24/2021 1:48 PM CDT Kandy Hannah SENIOR ENGINEERING TECH LAB BLOOD ORDERABLES Fin al Result Performing Organization Address City/[facility]/RUST Co de Phone Number [facility] [address] [facility] [place] [address] documented in this encounter Visit Diagnoses Not on filedocumented in this encounter Care Teams Director Of Nurses Registry Relationship Specialty Start Date End Date Unknown, Notinfile PCP - General 01/07/21 06/19/21 Zoraida Franco MD [address] [place] [address] Family Medicine 01/07/21 06/19/21 Clemente Hamm DO [address] [place] [address] Medical Oncologist/Yard Specialist Hematology and Oncology 01/09/21 06/19/21 documented as of this encounter
--- OUTSIDE RECORDS SUMMARY | 2024-11-30 06:09 | XMS_ITS | Encounter Summary ---
Author Organization [facility] Address [address] [facility] [address] [place] [address] Care Team Providers Care Sterilisation Technician Name Role Phone Zoraida Franco MD Primary Care Provi selvin Reason for Visit * Reason Onset Date Comments requesting lab results 07/26/2021 Encounter Details Date Type Department Care Team (Late st Contact Info) Description 07/26/2021 Telephone [facility] Family Medicine [address] [phone] Zoraida Franco MD [address] [place] [address] requesting lab results Social History Tobacco Use Types Packs/Day Years [...] on file 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 Pt's mother was informed of results * Telephone Encounter - Sera Sanders - 07/26/2021 11:04 AM CDT pts mother is requesting the results of current labs. Thanks jrmeron documented in this encounter Plan of Treatment Not on file documented as of this encounter Visit Diagnoses Not on filedocumented in this encounter Care Teams Sterilisation Technician Relationship Specialty Start Date End Date Zoraida Franco MD [address] [place] [address] PCP - General Family Medicine 06/20/21 documented as of this encounter
--- OUTSIDE RECORDS SUMMARY | 2024-11-30 06:09 | XMS_ITS | Encounter Summary ---
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 Gender Identity Not on file Sexual Orientation Not on file Occupation Industry Job Start Date Job End Date Disabled Not on file Not on file Not on file documented as of this encounter Plan of Treatment Not on file documented as of this encounter Procedures Procedure Name Priority Date/Time Associated Diagnosis Comments SCAN - RADIOLOGY/IMAGING 11/29/2021 documented in this encounter Results * SCAN - RADIOLOGY/IMAGING (11/29/2021) Anatomical Region Laterality Modality Other us Zoraida Karimi al Result documented in this encounter Visit Diagnoses Not on filedocumented in this encounter Care Teams Occupational Therapist Home Based Relationship Specialty Start Date End Date Zoraida Franco MD [address] [place] [address] PCP - General Family Medicine 06/20/21 documented as of this encounter
--- OUTSIDE RECORDS SUMMARY | 2024-11-30 06:09 | XMS_ITS | Encounter Summary ---
Author Organization [facility] Address [address] [facility] [address] [place] [address] Care Team Providers Care Machine Pack Assembler Name Role Phone Zoraida Franco MD Primary Care Provi selvin Reason for Visit * Reason Comments Follow-up Encounter Details Date Type Department Care Team (Late st Contact Info) Description 07/18/2021 10:15 AM CDT Office Visit [facility] Pulmonology & Sleep Clinic [address] [phone] Kandy Hannah, BUILDING CARPENTER HELPER [address] [facility] [address] [address] NILA (obstructive sleep apnea) (Primary Dx); PLMD (periodic limb movement disorder) Social History Tobacco Use Types Packs/Day Years [...] on file 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 Gender Identity Not on file Sexual Orientation Not on file Occupation Industry Job Start Date Job End Date Disabled Not on file Not on file Not on file documented as of this encounter Last Filed Vital Signs Vital Sign Reading Time Taken Comments Blood Pressure 118/70 07/18/2021 10:21 AM CDT Pulse 71 07/18/2021 10:21 AM CDT Temperature 36.4 ??C (97.6 ??F) 07/18/2021 10:21 AM C DT Respiratory Rate 16 07/18/2021 10:21 AM CDT Oxygen Saturation 98% 07/18/2021 10:21 AM CDT Inhaled Oxygen Concentration - - Weight 78.5 kg (173 lb) 07/18/2021 10:21 AM CDT Height 165.1 cm (5' 5 ) 07/18/2021 10:21 AM CDT Body Mass Index 28.79 07/18/2021 10:21 AM CDT documented in this encounter Progress Notes * Kandy Hannah, DEANDRA - 07/18/2021 10:15 AM CDT Images from the original note were not included. Patient ID: Armin Rico is a 46 y.o. male. HPI. Patient is a 46 y.o. male that returns for follow-up of NILA and periodic limb movement disorder. The patient did have his CPAP decreased to 6 cm water pressure while sleeping. The patient has been compliant with his CPAP since decrease in pressure. The patient states that his energy level is better however his mom states that she does not see a change in his energy level. The patient denies dry mouth or headache in the morning. There is no snoring reported under the mask. He does dream on occasion. His compliance report shows an average use is 8 hours and 1 minutes per night on 97% nights, his AHI is 5.3. The patient is benefitting from CPAP therapy. The patient denies that his limbs are moving at night when he sleeps. The patient did get his iron and ferritin level completed. The patient completed his labs on March 24, 2021. The patient's iron level is 34 and ferritin levelwas 219. Chief Complaint Patient presents with ??? Follow-up Current Medications: Outpatient Encounter Medications as of 07/18/2021 Medication Sig Dispense Refill ??? aspirin 81 [...] facility-administered encounter medications on file as of 07/18/2021. Review of Systems Constitutional: Negative for fever. HENT: Negative for tinnitus. Eyes: Negative for visual disturbance. Respiratory: Negative for cough, shortness of breath and wheezing. Cardiovascular: Negative for chest pain. Gastrointestinal: Negative for diarrhea, nausea and vomiting. Skin: Negative for rash. Neurological: Negative for dizziness. BP 118/70 Pulse 71 Temp 36.4 ??C (97.6 ??F) (Temporal) Resp 16 Ht 165.1 cm (5' 5 ) Wt 78.5 kg (173 lb) SpO2 98% BMI 28.79 kg/m?? Physical Exam Constitutional: General: He is not in acute distress. HENT: Mouth/Throat: Pharynx: No oropharyngeal exudate. Eyes: Pupils: Pupils are equal, round, and reactive to light. Cardiovascular: Rate and Rhythm: Normal rate and regular rhythm. Pulmonary: Effort: Pulmonary effort is normal. Breath sounds: Normal breath sounds. No wheezing. Abdominal: Palpations: Abdomen is soft. Musculoskeletal: Cervical back: Normal range of motion. Imaging: No results found. Assessment & Plan: Diagnoses and all orders for this visit: NILA (obstructive sleep apnea) (Primary) Assessment & Plan: Patient continue to wear CPAP at 6 cm water pressure while sleeping. His DME is [facility]. I have ordered new supplies. PLMD (periodic limb movement disorder) Assessment & Plan: Patient is unaware that his limbs are moving at night when he sleeps. Return in about 1 year (around 07/18/2022). Kandy Hannah NP Cosigned by Jamie Pierce MD at 07/18/2021 12:16 PM CDT documented in this encounter Miscellaneous Notes * Assessment & Plan Note - Kandy Hannah NP - 07/18/2021 10:52 AM CDT Associated Problem(s): PLMD (periodic limb movement disorder) Patient is unaware that his limbs are moving at night when he sleeps. * Assessment & Plan Note - Kandy Hannah NP - 07/18/2021 10:52 AM CDT Associated Problem(s): NILA (obstructive sleep apnea) Patient continue to wear CPAP at 6 cm water pressure while sleeping. His DME is [facility]. I have ordered new supplies. documented in this encounter Plan of Treatment Not on file documented as of this encounter Visit Diagnoses Diagnosis NILA (obstructive sleep apnea)- Primary Obstructive sleep apnea (adult) (pediatric) PLMD (periodic limb movement disorder) Periodic limb movement disorder documented in this encounter Care Teams Machine Pack Assembler Relationship Specialty Start Date End Date Zoraida Franco MD [facility] [address] [place] [address] PCP - General Family Medicine 06/20/21 documented as of this encounter
--- OUTSIDE RECORDS SUMMARY | 2024-11-30 06:09 | XMS_ITS | Encounter Summary ---
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 Gender Identity Not on file Sexual Orientation Not on file Occupation Industry Job Start Date Job End Date Disabled Not on file Not on file Not on file documented as of this encounter Plan of Treatment Not on file documented as of this encounter Procedures Procedure Name Priority Date/Time Associated Diagnosis Comments SCAN - RADIOLOGY/IMAGING 09/07/2021 documented in this encounter Results * SCAN - RADIOLOGY/IMAGING (09/07/2021) Anatomical Region Laterality Modality Other us Zoraida Franco MD Fin al Result documented in this encounter Visit Diagnoses Not on filedocumented in this encounter Care Teams Rope Walker Relationship Specialty Start Date End Date Zoraida Franco MD [address] [place], [place] [id number] PCP - General Family Medicine 06/20/21 documented as of this encounter
--- OUTSIDE RECORDS SUMMARY | 2024-11-30 06:09 | XMS_ITS | Encounter Summary ---
Author Organization [facility] Address [address] [facility] [address] [place] [address] Care Team Providers Care Meter Reader Chief Name Role Phone Zoraida Franco MD Primary Care Provi selvin Reason for Visit * Reason Comments Cough Encounter Details Date Type Department Care Team (Late st Contact Info) Description 10/30/2021 2:15 PM ROLL GRINDER Office Visit [facility] Respiratory Clinic [address] [place] [phone] Marianna Ortiz NP [address] [place], [place] [phone] Acute non-recurrent frontal sinusitis (Primary Dx) Social History Tobacco Use [...] on file 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 Gender Identity Not on file Sexual Orientation Not on file Occupation Industry Job Start Date Job End Date Disabled Not on file Not on file Not on file documented as of this encounter Last Filed Vital Signs Vital Sign Reading Time Taken Comments Blood Pressure - - Pulse 86 10/30/2021 2:03 PM ROLL GRINDER Temperature 36.7 ??C (98.1 ??F) 10/30/2021 2:03 PM CS T Respiratory Rate - - Oxygen Saturation 96% 10/30/2021 2:03 PM ROLL GRINDER Inhaled Oxygen Concentration - - Weight - - Height - - Body Mass Index - - documented in this encounter Ordered Prescriptions Prescription Sig Dispense Quantity Refills Last Filled Start Date End Date doxycycline (doxycycline hyclate) 100 mg capsuleIndications: Acute non-recurrent frontal sinusitis Take 1 tablet/caps ule (100 mg total) by mouth 2 (two) times a day for 10 days 20 capsule 10/30/2021 11/09/2021 documented in this encounter Progress Notes * Marianna Ortiz, MARKET NEWS REPORTER - 10/30/2021 2:15 PM CST Images from the original note were not included. [facility] (Covid-19) Visit date: 10/30/2021 Assessment and Recommendations: Patient does not meet both criteria of COVID-19 specific symptoms and high risk comorbidities COVID testing indicated No Negative at-home Covid test today Diagnoses and all orders for this visit: Acute non-recurrent frontal sinusitis (Primary) - doxycycline (doxycycline hyclate) 100 mg capsule; Take 1 tablet/capsule (100 mg total) by mouth 2(two) times a day for 10 days Antibiotics: delayed start Additional guidance: 1. Recommend Over the counter symptomatic treatment or seek PCP's advise or ER depending on worsening degree of symptoms. 2. [facility] or See patientinstructions for test center selection. Discussed symptomatic relief of symptoms Discussed need to return to ER for further evaluation including worsening fevers, shortness of breath, of other concerning symptoms Advised to rest and stay adequately hydrated Patient presents to clinic for assessment of: Focused HPI: Patient presents to the [facility] with his mother who reports that he has had nasal congestion/drainage, sore throat and cough since last night. Reports that these symptoms are typical of his presentation of a sinus infection. Reports that she started giving him Advil and Sudafed to help manage symptoms.Patient has been fully vaccinated against Covid, and has previously had Covid. Denies any known sick exposures. Patient ID: Armin Rico is a 46 y.o. male followed by Zoraida Franco MD Armin Rico contacted the Respiratory Clinic today for Respiratory/Covid-19 evaluation. The patient-submitted questionnaire was assessed for pertinent information and the patient's problem list, medication list, and allergies were reviewed. The chart was updated to identify any changes in these areas. Symptoms: Dry Cough, Sore throat and sinus symptoms Duration: 2day(s) Plus High Risk Comorbidity : none Exposure [...] Current Medications: Outpatient Encounter Medications as of 10/30/2021 Medication Sig Dispense Refill ??? aspirin 81 mg enteric coated tablet Take 81 mg by mouth daily ??? cetirizine (ZyrTEC) 10 mg tablet Take 10 mg by mouth daily ??? cholecalciferol, vitamin D3, (VITAMIN D3 ORAL) Take by mouth ??? clotrimazole 1 % cream Apply topically 2 (two) times a day 30 g 2 ??? doxycycline (doxycycline hyclate) 100 mg capsule Take 1 tablet/capsule (100 mg total) by mouth 2 (two) times a day for 10 days 20 capsule 0 ??? fluticasone propionate (FLONASE) 50 mcg/actuation nasal spray Administer 2 sprays into each nostril daily 16 g 1 ??? omeprazole (PriLOSEC) 20 mg capsule Take 20 mg by mouth daily No facility-administered encounter medications on file as of 10/30/2021. Review of Systems: Please see HPI. Review of Systems Constitutional: Negative for appetite change, chills, fatigue and fever. HENT: Positive for congestion, rhinorrhea, sinus pressure and sore throat. Negative for ear discharge, ear pain, postnasal drip and sinus pain. Eyes: Negative for redness. Respiratory: Positive for cough. Negative for shortness of breath. Cardiovascular: Negative for chest pain and leg swelling. Gastrointestinal: Negative for diarrhea, nausea and vomiting. Genitourinary: Negative for dysuria and flank pain. Musculoskeletal: Negative for back pain and neck stiffness. Skin: Negative for rash. Neurological: Positive for headaches. Negative for dizziness, syncope, weakness and light-headedness. Psychiatric/Behavioral: The patient is not nervous/anxious. Physical exam Vitals: 10/30/21 1403 Pulse: 86 Temp: 36.7 ??C (98.1 ??F) TempSrc: Temporal SpO2: 96% General appearance: In obvious distress No Neuro: Alert Yes Physical Exam Vitals and nursing note reviewed. Constitutional: Appearance: Normal appearance. HENT: Head: Normocephalic and atraumatic. Right Ear: External ear normal. Left Ear: External ear normal. Nose: Congestion present. Right Sinus: Frontal sinus tenderness present. No maxillary sinus tenderness. Left Sinus: Frontal sinus tenderness present. No maxillary sinus tenderness. Mouth/Throat: Mouth: Mucous membranes are moist. Pharynx: Oropharynx is clear. Eyes: Conjunctiva/sclera: Conjunctivae normal. Cardiovascular: Rate and Rhythm: Normal rate and regular rhythm. Heart sounds: Normal heart sounds. Pulmonary: Effort: Pulmonary effort is normal. Breath sounds: Normal breath sounds. No stridor. No wheezing, rhonchi or rales. Abdominal: General: There is no distension. Musculoskeletal: General: Normal range of motion. Cervical back: Normal range of motion and neck supple. Lymphadenopathy: Cervical: Cervical adenopathy present. Skin: Findings: No rash. Neurological: General: No focal deficit present. Mental Status: He is alert and oriented to person, place, and time. Psychiatric: Mood and Affect: Mood normal. Behavior: Behavior normal. Discussed diagnosis of acute sinusitis with patient's mother at length. Low suspicion for Covid at this time given negative at-home test today. Advised patient's mother that with 1 day of symptoms, likely that it is still viral in nature. Continue Sudafed as needed for nasal congestion/drainage, as well as Zyrtec or Claritin. Additionally may continue Tylenol or Ibuprofen for any pain. Provided prescription for Doxycyline for antimicrobial coverage, advised to start this in the next few days if symptoms continue to worsen. Encouraged increased fluid intake (primarily water). To closely monitor symptoms at home. May f/u with [facility] as needed. To f/u promptly if symptoms worsen or fail to improve. To f/u in ER if symptoms become severe or if any other concerning symptoms develop. Patient's mother verbalized understanding. The patient was given information regarding any new medication(s) prescribed, if applicable, as well as any [id number] remedies. he was given instructions regarding follow up and timeframe if symptoms worsen or don???t improve. These instructions were included in the [employer] message reply to the patient. Patient Instructions were included in the message reply to patient. Marianna Ortiz NP GRINDER documented in this encounter Plan of Treatment Not on file documented as of this encounter Visit Diagnoses Diagnosis Acute non-recurrent frontal sinusitis- Primary documented in this encounter Care Teams Meter Reader Chief Relationship Specialty Start Date End Date Zoraida Franco MD [address] [place] [address] PCP - General Family Medicine 06/20/21 documented as of this encounter
--- OUTSIDE RECORDS SUMMARY | 2024-11-30 06:09 | XMS_ITS | Encounter Summary ---
Author Organization [facility] Healthcare Address [address] [place] [address] Care Team Providers Care Clinical Informatics Spec Name Role Phone Zoraida Franco MD Primary Care Provi selvin Reason for Referral * Diagnostic Imaging (Routine) - Closed Specialty Diagnoses / Procedures Referred By Porfirio t Referred To Contact Diagnoses VSD (ventricular septal defect) Abnormal EKG Procedures XR Chest Pa Lateral 2 Vw Zoraida Franco MD [address] [place] [address] Phone: tel: fax: [address] [address] Referral ID Status Reason Start Date Expiration Date Visits Re quested Visits Authorized [id number] Closed 07/20/2021 08/19/2022 1 1 Reason for Visit * Diagnostic Imaging (Routine) - Closed Specialty Diagnoses / Procedures Referred By Contmarcelino t Referred To Contact Diagnoses VSD (ventricular septal defect) Abnormal EKG Procedures XR Chest Pa Lateral 2 Vw Zoraida Franco MD [address] [place] [address] Phone: tel: fax: [address] [phone] Referral ID Status Reason Start Date Expiration Date Visits Re quested Visits Authorized [id number] Closed 07/20/2021 08/19/2022 1 1 Encounter Details Date Type Department Care Team (Latest Contact Info) Description 07/20/2021 3:45 PM CDT - 07/20/2021 11:59 PM CDT Hospital Encounter [facility] Diagnostic Imaging [address] [place] [address] VSD (ventricular septal defect); Abnormal EKG Discharge Disposition: Discharge to home or self [...] on file 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 Gender Identity Not on file Sexual Orientation Not on file Occupation Industry Job Start Date Job End Date Disabled Not on file Not on file Not on file documented as of this encounter Medications at Time of Discharge cholecalciferol, vitamin D3, (VITAMIN D3 ORAL) Take 2,000 Units by mouth daily aspirin 81 mg enteric coated tablet Take 1 tablet (81 mg total) by mouth daily 3 cetirizine (ZyrTEC) 10 mg tablet Take 10 mg by mouth daily 2 fluticasone propionate (FLONASE) 50 mcg/actuation nasal sprayIndications:A cute non-recurrent pansinusitis Administer 2 sprays into each nostril daily 16 g 1 12/14/2020 2 omeprazole (PriLOSEC) 20 mg capsule Take 20 mg by mouth daily 2 documented as of this encounter Discharge Disposition Disposition Code Departure Means Destination Discharge to home or self care documented in this encounter Plan of Treatment Not on file documented as of this encounter Procedures Procedure Name Priority Date/Time Associated Diagnosis Comments XR CHEST PA LATERAL 2 VIEWS Schedule Routine, Read Routine (OP Routine) 07/20/2021 3:58 PM CDT VSD (ventricular septal defect) Abnormal EKG documented in this encounter Results * XR Chest Pa Lateral 2 Vw [...] PM T: ??07/20/2021 4:08 PM Report ID: [id number] Reading Location: ??[facility] Procedure Note Jeniffer Bhandari [...] Jeniffer Bhandari M.D. TB: TB Report ID: [id number] Reading Location: [facility] us Zoraida Franco MD IMG XR PROCEDURES F inal Result documented in this encounter Visit Diagnoses Diagnosis VSD (ventricular septal defect) Ventricular septal defect Abnormal EKG Nonspecific abnormal electrocardiogram (ECG) (EKG) documented in this encounter Care Teams Clinical Informatics Spec Relationship Specialty Start Date End Date Zoraida Franco MD [address] [place], [place] [id number] PCP - General Family Medicine 06/20/21 documented as of this encounter
--- OUTSIDE RECORDS SUMMARY | 2024-11-30 06:09 | XMS_ITS | Encounter Summary ---
Author Organization [facility] Address [address] [place] [address] Phone Care Team Providers Care Horizontal Boring Mill Set Up Operator Name Role Phone Unknown, Notinfile Primary Care Provider Unavail able Zoraida Franco MD Unavailable [phone] Clemente Hamm DO Unavailable [phone] Encounter Details Date Type Department Care Team (Late st Contact Info) Description 04/04/2021 Telephone [facility] Oncology [facility] 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 Hamm the appointment with rheumatology can be canceled. Maya v/u. * Telephone Encounter - Nanci Jara MA - 04/04/2021 4:04 PM CDT Patient mom called stating the patient had repeat JACIEL and Sed rate done which both were normal. Patient mother would like to cancel the stripping shovel operator apt that is scheduled. Please advise. documented in this encounter Plan of Treatment Not on file documented as of this encounter Visit Diagnoses Not on filedocumented in this encounter Care Teams Horizontal Boring Mill Set Up Operator Relationship Specialty Start Date End Date Unknown, Notinfile PCP - General 01/07/21 06/19/21 Zoraida Franco MD [facility] [address] [place] [address] Family Medicine 01/07/21 06/19/21 Clemente Hamm DO [address] [place] [address] Medical Oncologist/Senior Quality Assurance Engineer Hematology and Oncology 01/09/21 06/19/21 documented as of this encounter
--- OUTSIDE RECORDS SUMMARY | 2024-11-30 06:09 | XMS_ITS | Encounter Summary ---
Author Organization [facility] Medical Group Address [address] [facility] [address] [place] [address] Care Team Providers Care Ex Assistant/Program Director Name Role Phone Unknown, Notinfile Primary Care Provider Unavail able Zoraida Franco MD Unavailable [phone] Clemente Hamm DO Unavailable [phone] Reason for Visit * Reason Comments Follow-up Encounter Details Date Type Department Care Team (Late st Contact Info) Description 03/07/2021 1:00 PM CDT Office Visit [facility] Medical [facility] [address] [address] Kandy Hannah, FINISHER WALLBOARD AND PLASTERBOARD [address] [facility] [address] [address] Arthralgia of both knees (Primary Dx); NILA (obstructive sleep apnea); PLMD (periodic limb movement disorder) Social History [...] on file 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 Gender Identity Not on file Sexual Orientation Not on file Occupation Industry Job Start Date Job End Date Disabled Not on file Not on file Not on file documented as of this encounter Last Filed Vital Signs Vital Sign Reading Time Taken Comments Blood Pressure 110/64 03/07/2021 1:32 PM CDT Pulse 95 03/07/2021 1:32 PM CDT Temperature 36.7 ??C (98.1 ??F) 03/07/2021 1:32 PM CD T Respiratory Rate - - Oxygen Saturation 94% 03/07/2021 1:32 PM CDT Inhaled Oxygen Concentration - - Weight 78 kg (172 lb) 03/07/2021 1:32 PM CDT Height - - Body Mass Index 33.04 02/10/2021 10:38 AM FUEL OIL CLERK documented in this encounter Progress Notes * Kandy Hannah NP - 03/07/2021 1:00 PM CDT Images from the original note were not included. Patient ID: Armin Rico is a 45 y.o. male. HPI. Patient is a 45 y.o. male that has a history of Down syndrome. The patient completed a nocturnal polysomnogram on January 10, 2021. The patient was found have an overall apnea-hypopnea index of 20 2 times per hour sleep. The lowest oxygen saturation recorded was 74%. The patient spent 27.7 minutes with an overall oxygen saturation below 90%. The patient's periodic limb movement index was 1.9times per hour sleep. The patient returned on February 03, 2021. The patient was placed on CPAP and titrated up to a pressure of 10 cm of water pressure while sleeping. At 10 cm water pressure the AHI was 2 times per hour sleep. The average oxygen saturation at the optimal pressure was 99%. The periodic limb movement index did increase to 18.9 times per hour sleep. The patient's mother is in the room. She states that he did do well for the 1st few nights wearing the CPAP mask. The patient's mom states that after that he did say that he did not feel like he could breathe with the CPAP mask on. Thepatient's pressure was decreased to 8 cm of water pressure. The patient continues to have difficulty wearing the CPAP mask. His mom states that sometimes his legs will be restless at night when he sleeps but this is not in every night occurrence. The patient did have a BUN and creatinine drawn on March 01, 2021. Patient's BUN was 16 and creatinine is 1.0. Chief Complaint Patient presents with ??? Follow-up Current Medications: Outpatient Encounter Medications as of 03/07/2021 Medication Sig Dispense Refill ??? aspirin 81 mg enteric coated tablet Take 81 mg by mouth daily ??? cetirizine (ZyrTEC) 10 mg tablet Take 10 mg by mouth daily ??? cholecalciferol, vitamin D3, (VITAMIN D3 ORAL) Take by mouth ??? fluticasone propionate (FLONASE) 50 mcg/actuation nasal spray Administer 2 sprays into each nostril daily 16 g 1 ??? omeprazole (PriLOSEC) 20 mg capsule Take 20 mg by mouth daily No facility-administered encounter medications on file as of 03/07/2021. Review of Systems Constitutional: Negative for fever. HENT: Negative for tinnitus. Eyes: Negative for visual disturbance. Respiratory: Negative for cough, shortness of breath and wheezing. Cardiovascular: Negative for chest pain. Gastrointestinal: Negative for diarrhea, nausea and vomiting. Skin: Negative for rash. Neurological: Negative for dizziness. BP 110/64 Pulse 95 Temp 36.7 ??C (98.1 ??F) Wt 78 kg (172 lb) SpO2 94% BMI 33.04 kg/m?? Physical Exam Constitutional: General: He is [...] Diagnoses and all orders for this visit: Arthralgia of both knees (Primary) Assessment & Plan: I did order an iron and ferritin level. Orders: - Iron level; Future - Ferritin; Future NILA (obstructive sleep apnea) Assessment & Plan: Due to the patient's difficulty adjusting to the CPAP I will decrease the pressure to 6 cm of waterpressure while sleeping. His DME is [employer]. The patient was encouraged to try his CPAP at the new pressure. The patient verbalized understanding. PLMD (periodic limb movement disorder) Assessment & Plan: The patient's limb movements are not affecting his sleep at night. Return in about 3 months (around 06/06/2021). Kandy Hannah NP Cosigned by Jamie Pierce MD at 03/07/2021 3:52 PM CDT documented in this encounter Miscellaneous Notes * Assessment & Plan Note - Kandy Hannah NP - 03/07/2021 2:08 PM CDT Associated Problem(s): Joint pain I did order an iron and ferritin level. * Assessment & Plan Note - Kandy Hannah NP - 03/07/2021 2:07 PM CDT Associated Problem(s): PLMD (periodic limb movement disorder) The patient's limb movements are not affecting his sleep at night. * Assessment & Plan Note - Kandy Hannah NP - 03/07/2021 2:07 PM CDT Associated Problem(s): NILA (obstructive sleep apnea) Due to the patient's difficulty adjusting to the CPAP I will decrease the pressure to 6 cm of waterpressure while sleeping. His DME is [employer]. The patient was encouraged to try his CPAP at the new pressure. The patient verbalized understanding. documented in this encounter Plan of Treatment Scheduled Orders Name Type Priority Associated Diagnoses Orde r Schedule Iron level Lab Routine Arthralgia of both knees Expected: 03/07/2021, Expires: 03/07/2022 Ferritin Lab Routine Arthralgia of both knees Expected: 03/07/2021, Expires: 03/07/2022 documented as of this encounter Visit Diagnoses Diagnosis Arthralgia of both knees- Primary NILA (obstructive sleep apnea) Obstructive sleep apnea (adult) (pediatric) PLMD (periodic limb movement disorder) Periodic limb movement disorder documented in this encounter Historical Medications * This list may reflect changes made after this encounter. omeprazole (PriLOSEC) 20 mg capsule Take 20 mg by mouth daily 03/27/2022 added in this encounter Care Teams Ex Assistant/Program Director Relationship Specialty Start Date End Date Unknown, Notinfile PCP - General 01/07/21 06/19/21 Zoraida Franco MD [address] [place] [address] Family Medicine 01/07/21 06/19/21 Clemente Hamm DO [address] [place] [address] Medical Oncologist/Hot Air Furnace Installer And Repairer Hematology and Oncology 01/09/21 06/19/21 documented as of this encounter
--- OUTSIDE RECORDS SUMMARY | 2024-11-30 06:09 | XMS_ITS | Encounter Summary ---
Author Organization [facility] Medical Group Address [address] [facility] [address] [place] [address] Care Team Providers Care Trauma Manager Name Role Phone Zoraida Franco MD Primary Care Provi selvin Reason for Visit * Reason Comments [facility] of [facility]/sinus issues including congestion for one month. Patient is using zyrtec and flonase. Neg COVID tests Encounter Details Date Type Department Care Team (Late st Contact Info) Description 03/27/2022 8:45 AM CDT Office Visit 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 Gender Identity Not on file Sexual Orientation Not on file Occupation Industry Job Start Date Job End Date Disabled Not on file Not on file Not on file documented as of this encounter Last Filed Vital Signs Vital Sign Reading Time Taken Comments Blood Pressure 112/68 03/27/2022 8:47 AM CDT Pulse 108 03/27/2022 8:47 AM CDT Temperature 36.3 ??C (97.3 ??F) 03/27/2022 8:47 AM CD T Respiratory Rate 18 03/27/2022 8:47 AM CDT Oxygen Saturation 94% 03/27/2022 8:47 AM CDT Inhaled Oxygen Concentration - - Weight 79.4 kg (175 lb 1.6 oz) 03/27/2022 8:47 A M CDT Height 165.1 cm (5' 5 ) 03/27/2022 8:47 AM CDT Body Mass Index 29.14 03/27/2022 8:47 AM CDT documented in this encounter Ordered Prescriptions Prescription Sig Dispense Quantity Refills Last Filled Start Date End Date loratadine (CLARITIN) 10 mg tabletIndications: Seasonal allergic rhinitis, unspecified trigger Take 1 tablet (10 mg total) by mouth daily 90 tablet 1 03/27/2022 2 doxycycline (VIBRAMYCIN) 100 mg capsuleIndications :Acute non-recurrent maxillary sinusitis Take 1 tablet/capsule (100 mg total) by mouth 2 (two) times a day for 10 days 20 tablet/capsul e 03/27/2022 2 azelastine (ASTELIN) 137 mcg (0.1 %) nasal sprayIndications:S easonal allergic rhinitis, unspecified trigger Administer 1 spray into each nostril 2 (two) times a day Use in each nostril as directed 30 mL 03/27/2022 3 documented in this encounter Progress Notes * Yudi Suggs PA - 03/27/2022 8:45 AM CDT Images from the original note were not included. Subjective/Objective Patient ID: Armin Rico is a 46 y.o. male. Chief Complaint Chief Complaint Patient presents with ??? Sinus Problem Patient arrives today with complaint of allergy/sinus issues including congestion for one month. Patient is using zyrtec and flonase. Neg COVID tests HPI Sinus Problem This is a new problem. Episode onset: x1 month. There has been no fever. Associated symptoms include congestion, coughing (occasional), headaches, sinus pressure (frontal) and sneezing. Pertinent negatives include no ear pain or sore throat. Treatments tried: zyrtec flonase. He has tested negative for COVID 3 times in the past month. Review of Systems Constitutional: Negative for fever. HENT: Positive for congestion, postnasal drip, rhinorrhea, sinus pressure (frontal) and sneezing. Negative for ear pain and sore throat. Respiratory: Positive for cough (occasional). Gastrointestinal: Negative for diarrhea, nausea and vomiting. Skin: Negative for rash. Neurological: Positive for headaches. BP 112/68 (BP Location: Right arm, Patient Position: Sitting) Pulse 108 Temp 36.3 ??C (97.3 ??F) (Temporal) Resp 18 Ht 165.1 cm (5' 5 ) Wt 79.4 kg (175 lb 1.6 oz) SpO2 94% BMI 29.14 kg/m?? Physical Exam Vitals and nursing note reviewed. Constitutional: Appearance: He is well-developed. HENT: Head: Normocephalic and atraumatic. Right Ear: Hearing, tympanic membrane, ear canal and external ear normal. Left Ear: Hearing, tympanic membrane, ear canal and external ear normal. Nose: Rhinorrhea present. Rhinorrhea is clear. Right Turbinates: Swollen. Right Sinus: Maxillary sinus tenderness present. No [...] sounds: Normal breath sounds. No stridor. No decreased breath sounds, wheezing, rhonchi or rales. Lymphadenopathy: Cervical: No cervical adenopathy. Skin: General: [...] (two) times a day for 10 days Seasonal allergic rhinitis, unspecified trigger - azelastine (ASTELIN) 137 mcg (0.1 %) nasal spray; Administer 1 spray into each nostril 2 (two) times a day Use in each nostril as directed 1. Will treat with antibiotics, prescription sent for doxycycline. Can take Claritin/Zyrtec and use nasal steroid spray to decrease postnasal drip. Increase fluids, rest and handwashing. Can use a Neti pot or sinus rinse. No sharing cups or utensils. Good hand washing routine. Tylenol or OTC NSAIDs for fever, body aches etc. Use a humidifier, recommended steam inhalation, hot showers and vapor rub. Using medication like guaifenesin can help loosen a cough. Saline/Salt water gargles, saline nose drops prn. Use nasal saline as a decongestant. Be cautious with oral decongestants as they can raise blood pressure and cause jitteriness. Watch for worsening symptoms, i.e.increasing fever, productive cough, headache, sore throat, lethargy, rash etc. - call our office or go to the ER if these symptoms occur. RTC prn or if symptoms worsen/change or don't improve in 3-4 days. Pt verbalizes understanding and all questions have been answered. 2. Patient has been taking Zyrtec daily for over a year without significant improvement. Will try Claritin instead. Continue Flonase daily. Will also add Astelin nasal spray. Patient and mom will follow-up if no improvement. There may be grammatical errors in this note due to use of voice recognition software. Cosigned by Rodrigo Fisher MD at 03/27/2022 9:38 AM CDT documented in this encounter Plan of Treatment Not on file documented as of this encounter Visit Diagnoses Diagnosis Acute non-recurrent maxillary sinusitis- Primary Seasonal allergic rhinitis, unspecified trigger documented in this encounter Discontinued Medications Medication Sig Discontinue Reason Start Date End Da te omeprazole (PriLOSEC) 20 mg capsule Take 20 mg by mouth daily 03/27/2022 cetirizine (ZyrTEC) 10 mg tablet Take 10 mg by mouth daily 03/27/2022 documented as of this encounter Care Teams Trauma Manager Relationship Specialty Start Date End Date Zoraida Franco MD [address] [place] [address] PCP - General Family Medicine 06/20/21 documented as of this encounter
--- OUTSIDE RECORDS SUMMARY | 2024-11-30 06:09 | XMS_ITS | Encounter Summary ---
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 Gender Identity Not on file Sexual Orientation Not on file Occupation Industry Job Start Date Job End Date Disabled Not on file Not on file Not on file documented as of this encounter Ordered Prescriptions Prescription Sig Dispense Quantity Refills Last Filled Start Date End Date clotrimazole 1 % cream Apply topically 2 (two) times a day 30 g 2 08/17/2021 2 documented in this encounter Miscellaneous Notes * Telephone Encounter - Fanny Weaver LPN - 08/21/2021 8:53 AM CDT Spoke with the pt's mother and made her aware * Telephone Encounter - Fanny Weaver LPN - 08/17/2021 3:29 PM CDT Called and LM for the pt's mother * Addendum Note - Dennis Franco MD - 08/17/2021 2:53 PM CDT Addended by: DENNIS FRANCO on: 08/17/2021 02:53 PM Modules accepted: Orders * Telephone Encounter - Dennis Franco MD - 08/17/2021 2:51 PM CDT It is showing some fungus. I can send out clotrimazole. Once it is final, we can discuss oral meds or stick with topical * Telephone Encounter - Fanny Weaver LPN - 08/16/2021 3:46 PM CDT I spoke with the pt's mother and she continued to refuse podiatry referral. She stated that the issue is with the pt's feet, not toenails and that [facility] had previously prescribed the pt cream that relieved this. I looked into the pt's chart and on his RN CLINICAL DOCUMENTATION SPECIALIST apt back in 10/2020 he was given clotrimazole 1 % cream; Apply topically 2 (two) times a day for dermatitis on his feet that his mother believedto be fungus. Please order if appropriate * Telephone Encounter - Dennis Franco MD - 08/11/2021 3:44 PM CDT Without fungus- there is not really a medication. Podiatry may be a better options * Telephone Encounter - Jackie Ford MA - 08/11/2021 2:47 PM CDT Called and spoke with patient's mother. Gave her results- she would like something ordered as thereis stuff all over his foot. She said someone ordered something a few years back for the same issue which worked but I was unable to see who that was or what medication it was. She did not answer about podiatry. * Telephone Encounter - Jackie Ford MA - 08/11/2021 2:47 PM CDT ----- Message from Dennis Franco MD sent at 08/11/2021 7:24 AM CDT ----- Patient's cultures thus far showing no fungus yet. They will continue to check it for a total of a month. Would he want to see Podiatry documented in this encounter Plan of Treatment Not on file documented as of this encounter Visit Diagnoses Not on filedocumented in this encounter Care Teams Soaping Department Supervisor Relationship Specialty Start Date End Date Dennis Franco MD [address] [place] [address] PCP - General Family Medicine 06/20/21 documented as of this encounter
--- OUTSIDE RECORDS SUMMARY | 2024-11-30 06:09 | XMS_ITS | Encounter Summary ---
Author Organization [facility] Address [address] [facility] [address] [place] [address] Care Team Providers Care Commercial Loan Officer Name Role Phone Zoraida Franco MD Primary Care Provi selvin Reason for Visit * Reason Onset Date Comments hospital f/u appt 11/30/2021 Encounter Details Date Type Department Care Team (Late st Contact Info) Description 11/30/2021 Telephone [facility] Family Medicine [address] [address] Zoraida Franco MD [address] [place] [address] hospital f/u appt Social History Tobacco Use Types Packs/Day Years [...] on file Legal Sex Male 7:51 PM NARCOTICS AND VICE DETECTIVE Gender Identity Not on file Sexual Orientation Not on file Occupation Industry Job Start Date Job End Date Disabled Not on file Not on file Not on file documented as of this encounter Miscellaneous Notes * Telephone Encounter - Cordelia Dyer LPN - 12/04/2021 10:30 AM NARCOTICS AND VICE DETECTIVE See other message regarding this [facility] call OTICS AND VICE DETECTIVE * Telephone Encounter - Jackie Ford MA - 11/30/2021 2:06 PM CST . OTICS AND VICE DETECTIVE * Telephone Encounter - Sera Sanders - 11/30/2021 1:12 PM CST Pt was inpt at [facility] for covid 11/28/21-11/30/21. Pt needs a hospital f/u. [facility] [phone] Thanks [facility] OTICS AND VICE DETECTIVE documented in this encounter Plan of Treatment Not on file documented as of this encounter Visit Diagnoses Not on filedocumented in this encounter Care Teams Commercial Loan Officer Relationship Specialty Start Date End Date Zoraida Franco MD [address] [place] [address] PCP - General Family Medicine 06/20/21 documented as of this encounter
--- OUTSIDE RECORDS SUMMARY | 2024-11-30 06:09 | XMS_ITS | Encounter Summary ---
Author Organization [facility] Address [address] [facility] [address] [place] [address] Care Team Providers Care Senior C Web Developer Name Role Phone Unknown, Notinfile Primary Care Provider Unavail able Zoraida Franco MD Unavailable [phone] Clemente Hamm DO Unavailable [phone] Encounter Details Date Type Department Care Team (Late st Contact Info) Description 03/07/2021 Orders Only [facility] Pulmonology & Sleep Clinic [address] [address] Bev Bazan MA NILA (obstructive sleep apnea) (Primary Dx) Social [...] on file 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 Gender Identity Not on file Sexual Orientation Not on file Occupation Industry Job Start Date Job End Date Disabled Not on file Not on file Not on file documented as of this encounter Progress Notes * Bev Bazan MA - 03/07/2021 3:16 PM CDT Order to decrease patient CPAP to 6cm of water.DME [facility] documented in this encounter Plan of Treatment Not on file documented as of this encounter Visit Diagnoses Diagnosis NILA (obstructive sleep apnea)- Primary Obstructive sleep apnea (adult) (pediatric) documented in this encounter Care Teams Senior C Web Developer Relationship Specialty Start Date End Date Unknown, Notinfile PCP - General 01/07/21 06/19/21 Zoraida Franco MD [address] [place], [place] [id number] Family Medicine 01/07/21 06/19/21 Clemente Hamm DO [address] [place] [address] Medical Oncologist/Upsetter Setter Up Hematology and Oncology 01/09/21 06/19/21 documented as of this encounter
--- OUTSIDE RECORDS SUMMARY | 2024-11-30 06:09 | XMS_ITS | Encounter Summary ---
Author Organization [facility] Address [address] [facility] [address] [place] [address] Care Team Providers Care Casing Machine Operator Name Role Phone Unknown, Notinfile Primary Care Provider Unavail able Zoraida Franco MD Unavailable [phone] Clemente Hamm DO Unavailable [phone] Encounter Details Date Type Department Care Team (Late st Contact Info) Description 02/15/2021 Orders Only [facility] Pulmonology [address] [facility] [address] [place] [address] Susu Mcmahan, VICKY NILA (obstructive sleep apnea) (Primary Dx) Social [...] on file Legal 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 documented in this encounter Plan of Treatment Not on file documented as of this encounter Visit Diagnoses Diagnosis NILA (obstructive sleep apnea)- Primary Obstructive sleep apnea (adult) (pediatric) documented in this encounter Care Teams Casing Machine Operator Relationship Specialty Start Date End Date Unknown, Notinfile PCP - General 01/07/21 06/19/21 Zoraida Franco MD [address] [place], [place] [phone] Family Medicine 01/07/21 06/19/21 Clemente Hamm DO [address] [place] [address] Medical Oncologist/Medical I D Sales Hematology and Oncology 01/09/21 06/19/21 documented as of this encounter
--- OUTSIDE RECORDS SUMMARY | 2024-11-30 06:09 | XMS_ITS | Encounter Summary ---
Author Organization [facility] Address [address] [place] [address] Phone Care Team Providers Care Sewing Teacher Name Role Phone Zoraida Franco MD Primary Care Provi selvin Encounter Details Date Type Department Care Team (Late st Contact Info) Description 12/22/2021 Telephone [facility] Oncology [address] [facility] [address] [place] [address] Janna Maldonado, VICKY Social History Tobacco Use Types Packs/Day Years [...] on file Legal Sex Male 7:51 PM CONSTRUCTION COORDINATOR Gender Identity Not on file Sexual Orientation Not on file Occupation Industry Job Start Date Job End Date Disabled Not on file Not on file Not on file documented as of this encounter Miscellaneous Notes * Telephone Encounter - Janna Maldonado RN - 12/22/2021 10:23 AM CONSTRUCTION COORDINATOR Please see lab and clinic orders to be scheduled. TRUCTION COORDINATOR documented in this encounter Plan of Treatment Not on file documented as of this encounter Results * CBC with auto differential (12/19/2022 3:34 PM CONSTRUCTION COORDINATOR) [facility] Signature WBC 3.9 3.8 - 9.9 K/cumm [facility] Comment:Testing performed by : [address] [address] Hgb 15.8 13.0 - 17.5 g/dL [facility] Comment:Testing performed by : [address] [address] Hct 46.3 38.9 - 50.3 % [facility]IA Comment:Testing performed by : [address] [address] Plt 246 150 - 400 K/cumm [facility] Comment:Testing performed by : [address], [address] MPV 9.2 9.1 - 12.3 fL [facility] Comment:Testing performed by : [address] [address] RBC 4.91 4.30 - 5.80 M/cumm [facility] Comment:Testing performed by : [address] [address] MCV 94.3 81.3 - 96.4 fL [facility] Comment:Testing performed by : [address] [address] MCH 32.2 27.1 - 33.3 pg [facility] Comment:Testing performed by : [address] [address] MCHC 34.1 32.3 - 35.7 g/dL [facility] Comment:Testing performed by : [address], [address] RDW CV 13.4 11.1 - 14.9 % [facility] DODD Comment:Testing performed by : [facility], [address] [place] [address]., [address] RDW SD 46.7 35.7 - 48.1 fL [facility]IA Comment:Testing performed by : [facility], [address] [place] [address]., [address] Blood 12/19/2022 3:34 PM CONSTRUCTION COORDINATOR 12/19/2022 3:42 PM CONSTRUCTION COORDINATOR us Clemente Hamm DO LAB BLOOD ORDERABLES Final R esult [facility] [address] [facility] Department [place] [address] documented in this encounter Visit Diagnoses Diagnosis Leukopenia, unspecified type- Primary documented in this encounter Orders Appointment Requests Count Last Ordered Date Fi rst Ordered Date ONCBCN CLINIC APPOINTMENT REQUEST 1 023 ONCBCN LAB APPOINTMENT 1 12/19/2022 documented in this encounter Care Teams Sewing Teacher Relationship Specialty Start Date End Date Zoraida Franco MD [address] [place] [address] PCP - General Family Medicine 06/20/21 documented as of this encounter
--- OUTSIDE RECORDS SUMMARY | 2024-11-30 06:09 | XMS_ITS | Encounter Summary ---
Author Organization [facility] Address [address] [facility] [address] [place] [address] Care Team Providers Care Donor Relations Associate Name Role Phone Zoraida Franco MD Primary Care Provi selvin Reason for Referral * Diagnostic Imaging (Routine) - Closed Specialty Diagnoses / Procedures Referred By Porfirio t Referred To Contact Diagnoses Pneumonia due to COVID-19 virus Procedures XR Chest Pa Lateral 2 Vw Zoraida Franco MD [facility] [address] [place] [address] Phone: tel: fax: [address] [address] Referral ID Status Reason Start Date Expiration Date Visits Re quested Visits Authorized [id number] Closed 12/08/2021 01/07/2023 1 1 TED PHYSICAL EDUCATION TEACHER Encounter Details Date Type Department Care Team (Late st Contact Info) Description 12/08/2021 Orders Only [facility] Family Medicine [address] [address] Zoraida Franco MD [address] [place] [address] Pneumonia due to COVID-19 virus (Primary Dx) Social History Tobacco Use Types [...] on file Legal Sex Male 7:51 PM 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 PHYSICAL 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 TEACHER Gender Identity Not on file Sexual Orientation Not on file Occupation Industry Job Start Date Job End Date Disabled Not on file Not on file Not on file documented as of this encounter Plan of Treatment Scheduled Orders Name Type Priority Associated Diagnoses Orde r Schedule XR Chest Pa Lateral 2 Vw Imaging Schedule Routine, Read Routine (OP Routine) Pneumonia due to COVID-19 virus Expected: 12/08/2021, Expires: 12/08/2022 documented as of this encounter Visit Diagnoses Diagnosis Pneumonia due to COVID-19 virus- Primary documented in this encounter Care Teams Donor Relations Associate Relationship Specialty Start Date End Date Zoraida Franco MD [facility] [address] [place] [address] PCP - General Family Medicine 06/20/21 documented as of this encounter
--- OUTSIDE RECORDS SUMMARY | 2024-11-30 06:09 | XMS_ITS | Encounter Summary ---
Author Organization [facility] Address [address] [facility] [address] [place] [address] Care Team Providers Care Childbirth Educator Name Role Phone Zoraida Franco MD Primary Care Provi selvin Encounter Details Date Type Department Care Team (Late st Contact Info) Description 09/11/2021 Telephone [facility] Family Medicine [address] [address] Kaylie Mendez MA Social History [...] on file Legal Sex Male 7:51 PM CABLE REELER Gender Identity Not on file Sexual Orientation Not on file Occupation Industry Job Start Date Job End Date Disabled Not on file Not on file Not on file documented as of this encounter Miscellaneous Notes * Telephone Encounter - Kaylie Mendez MA - 09/11/2021 10:45 AM CDT Called and made pt's mother aware of results, pt v/u with no questions or concerns at this time. She does not to got to podiatry at this time * Telephone Encounter - Kaylie Mendez MA - 09/11/2021 10:44 AM CDT ----- Message from Zoraida Franco MD sent at 09/10/2021 11:06 AM CDT ----- Final culture results. I know mom does not want him to see podiatry, but that is another option if it isn't getting better. Thank you documented in this encounter Plan of Treatment Not on file documented as of this encounter Visit Diagnoses Not on filedocumented in this encounter Care Teams Childbirth Educator Relationship Specialty Start Date End Date Zoraida Franco MD [address] [place] [address] PCP - General Family Medicine 06/20/21 documented as of this encounter
--- OUTSIDE RECORDS SUMMARY | 2024-11-30 06:09 | XMS_ITS | Encounter Summary ---
Author Organization [facility] Address [address] [facility] [address] [place] [address] Care Team Providers Care Operator/Assistant Foreman Name Role Phone Zoraida Franco MD Primary Care Provi selvin Reason for Visit * Reason Comments Immunizations Patient arrives for pneumonia vaccine. Prevnar 13 given. 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 Gender Identity Not on file Sexual Orientation Not on file Occupation Industry Job Start Date Job End Date Disabled Not on file Not on file Not on file documented as of this encounter Plan of Treatment Not on file documented as of this encounter Visit Diagnoses Diagnosis Need for vaccination- Primary Need for prophylactic vaccination and inoculation against unspecified single disease documented in this encounter Orders Immunization/Injection Count Last Ordered Date First Ordered Date PNEUMOCOCCAL CONJUGATE VACCI NE 13-VALENT IM 1 02/27/2022 documented in this encounter Care Teams Operator/Assistant Foreman Relationship Specialty Start Date End Date Zoraida Franco MD [address] [place] [address] PCP - General Family Medicine 06/20/21 documented as of this encounter
--- OUTSIDE RECORDS SUMMARY | 2024-11-30 06:10 | XMS_ITS | Encounter Summary ---
Author Organization [facility] Address [address] [facility] [address] [place] [address] Care Team Providers Care Senior Safety Management Consultant Name Role Phone Zoraida Franco MD Primary Care Provi selvin Reason for Visit * Reason Onset Date Comments med not at pharmacy 12/14/2020 Encounter Details Date Type Department Care Team (Late st Contact Info) Description 12/14/2020 Telephone [facility] Family Medicine [address] [address] Zoraida Franco MD [address] [place] [address] med not at pharmacy Social History Tobacco Use Types Packs/Day Years [...] on file Legal 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 Can weplease resend this to the pharmacy. CHLOE Baca Thank you/nh CARPENTER documented in this encounter Plan of Treatment Not on file documented as of this encounter Visit Diagnoses Not on filedocumented in this encounter Care Teams Senior Safety Management Consultant Relationship Specialty Start Date End Date Zoraida Franco MD [address] [place] [address] PCP - General Family Medicine 09/22/20 01/06/21 documented as of this encounter
--- OUTSIDE RECORDS SUMMARY | 2024-11-30 06:10 | XMS_ITS | Encounter Summary ---
Author Organization [facility] Address [address] [facility] [address] [place] [address] Care Team Providers Care Manager Wireless Name Role Phone Unknown, Notinfile Primary Care Provider Unavail able Zoraida Franco MD Unavailable [phone] Clemente Hamm DO Unavailable [phone] Reason for Visit * Reason Onset Date Comments lab request/ Referral request 02/09/2021 Encounter Details Date Type Department Care Team (Late st Contact Info) Description 02/09/2021 Telephone [facility] Family Medicine [address] [address] Zoraida Franco MD [address] [address] lab request/ Referral request Social History Tobacco Use Types Packs/Day Years [...] on file Legal 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 L OWNER OPERATOR TRUCK DRIVER * Telephone Encounter - Maureen Ruiz - 02/10/2021 9:58 AM CST Thank you L OWNER OPERATOR TRUCK DRIVER * Telephone Encounter - Zoraida Franco MD - 02/10/2021 9:48 AM LOCAL OWNER OPERATOR TRUCK DRIVER Referral placed, labs ordered L OWNER OPERATOR TRUCK DRIVER * Telephone Encounter - Maureen Ruiz - 02/10/2021 7:40 AM CST Yes. L OWNER OPERATOR TRUCK DRIVER * Telephone Encounter - Zoraida Franco MD - 02/09/2021 4:35 PM LOCAL OWNER OPERATOR TRUCK DRIVER External correct? L OWNER OPERATOR TRUCK DRIVER * Telephone Encounter - Maureen Ruiz - 02/09/2021 11:55 AM CST Pt's mom Maya called the office and states the pt has an appt with [facility] Dr. Ezequiel Dawn April 06 at [facility] in [place], [place]. Please place a referral for that provider and also Maya states that Dr. Hamm was wanting the pt to have repeat labs drawn prior to going to the Traffic [address] Referee, [facility] [place], [place] states specific labs were a CBC, JACIEL, ESR and a CMP. Please place lab order for [facility] [place]. Thank you. Maya's ph [phone] L OWNER OPERATOR TRUCK DRIVER documented in this encounter Plan of Treatment Not on file documented as of this encounter Procedures Procedure Name Priority Date/Time Associated Diagnosis Comments CBC WITH AUTO DIFFERENTIAL Routine 03/01/2021 8:47 AM CDT Leukopenia, unspecified type JACIEL positive JACIEL REFLEX TO QUANTITATIVE Routine 03/01/2021 8:47 AM CDT Leukopenia, unspecified type JACIEL positive ERYTHROCYTE SEDIMENTATION RATE Routine 03/01/2021 8:47 AM CDT Leukopenia, unspecified type JACIEL positive COMPREHENSIVE METABOLIC PANEL Routine 03/01/2021 8:47 AM CDT Leukopenia, unspecified type JACIEL positive documented in this encounter Results * JACIEL reflex to quantitative (03/01/2021 8:47 AM CDT) JACIEL, qual NEGATIVE NEGATIVE [facility] Comment: JACIEL IFA is a first line [...] AC-0: Negative International Consensus on JACIEL Patterns (https://doi.org/10.1515/yona-4575-6614) For additional information, please refer to http://education.CCTV Wireless.Intellijoule/faq/CMI774 (This link is being provided for informational/ educational purposes only.) ?? Blood specimen (specimen) 03/01/2021 8:47 AM CDT 03/01/2021 8:47 AM CDT us Zoraida Franco MD LAB BLOOD ORDERABLE S Final Result Performing Organization Address [facility]/ZIP Co de Phone Number QUE[facility] [address] [place] [address] * Erythrocyte sedimentation rate (03/01/2021 8:47 AM CDT) [facility] Erythrocyte sedimentation rate 2 < OR = 15 mm/h [facility] Blood specimen (specimen) 03/01/2021 8:47 AM CDT 03/01/2021 8:47 AM CDT Zoraida Franco MD LAB BLOOD ORDERABLE S Final Result Performing Organization Address [facility] Co de Phone Number [facility] [address] [place] [address] * (ABNORMAL) CBC with auto differential (03/01/2021 8:47 AM CDT) [facility] WBC 3.5(L) 3.8 - 10.8 Thousand/u L [facility] RBC, POC 4.87 4.20 - 5.80 Million/uL [facility] Hgb 15.4 13.2 - 17.1 g/dL [facility] Hct 45.4 38.5 - 50.0 % [facility] MCV 93.2 80.0 - 100.0 fL [facility] MCH 31.6 27.0 - 33.0 pg [facility] MCHC 33.9 32.0 - 36.0 g/dL [facility] Rdw 14.1 11.0 - 15.0 % [facility] Platelets 263 140 - 400 Thousand/u L [facility] MPV 10.1 7.5 - 12.5 fL [facility] Neutrophils, abs 826(L) 1,500 - 7,800 cells/uL [facility] Lymphocytes, abs 2,051 850 - 3,900 cells/uL [facility] Monocyte abs 441 200 - 950 cells/uL [facility] Eosinophils, abs 91 15 - 500 cells/uL [facility] Basophils, abs 91 0 - 200 cells/uL [facility] Neutrophils 23.6 % [facility] Lymphocyte pct 58.6 % [facility] Monocytes 12.6 % [facility] Eosinophils 2.6 % [facility] Basophils 2.6 % [facility] Blood specimen (specimen) 03/01/2021 8:47 AM CDT 03/01/2021 8:47 AM CDT us Zoraida Franco MD LAB BLOOD ORDERABLE S Final Result [facility] [address] [place] [address] * (ABNORMAL) Comprehensive metabolic panel (03/01/2021 8:47 AM CDT) [facility] Glucose 103(H) 65 - 99 mg/dL [facility] Comment: ? Fasting reference interval For someone without known diabetes, a glucose value between 100 and 125 mg/dL is consistent with prediabetes and should be confirmed with a follow-up test. BUN 16 7 - 25 mg/dL [facility] Creatinine 1.04 0.60 - 1.35 mg/dL [facility] eGFR NON-AFR. BELIZEAN 88 > OR = 60 mL/min/1. 73m2 [facility] EGFR 101 > OR = 60 mL/min/1. 73m2 [facility] BUN/creat ratio NOT APPLICABLE 6 - 22 (calc) [facility] Sodium 139 135 - 146 mmol/L [facility] Potassium, pl 4.2 3.5 - 5.3 mmol/L [facility] Chloride 102 98 - 110 mmol/L [facility] CO2 30 20 - 32 mmol/L [facility] Calcium 8.5(L) 8.6 - 10.3 mg/dL [facility] Protein, sr 6.0(L) 6.1 - 8.1 g/dL [facility] Albumin 3.7 3.6 - 5.1 g/dL [facility] GLOBULIN 2.3 1.9 - 3.7 g/dL (calc) [facility] Alb/glob ratio 1.6 1.0 - 2.5 (calc) [facility] Bilirubin, total 0.6 0.2 - 1.2 mg/dL [facility] Alk phos 67 36 - 130 U/L [facility] AST 21 10 - 40 U/L [facility] ALT (SGPT) 29 9 - 46 U/L [facility] Blood specimen (specimen) 03/01/2021 8:47 AM CDT 03/01/2021 8:47 AM CDT us Zoraida Franco MD LAB BLOOD ORDERABLE S Final Result [facility] [address] [place] [address] documented in this encounter Visit Diagnoses Diagnosis Leukopenia, unspecified type- Primary JACIEL positive documented in this encounter Care Teams Manager Wireless Relationship Specialty Start Date End Date Unknown, Notinfile PCP - General 01/07/21 06/19/21 Zoraida Franco MD [address] [place] [address] Family Medicine 01/07/21 06/19/21 Clemente Hamm DO [address] [place] [address] Medical Oncologist/Audit Mgr Hematology and Oncology 01/09/21 06/19/21 documented as of this encounter
--- OUTSIDE RECORDS SUMMARY | 2024-11-30 06:10 | XMS_ITS | Encounter Summary ---
Author Organization [facility] Address [address] [facility] [address] [place] [address] Care Team Providers Care Tapper Shank Name Role Phone Zoraida Franco MD Primary Care Provi selvin Encounter Details Date Type Department Care Team (Late st Contact Info) Description 10/28/2020 Orders Only [facility] Family Medicine [address] [address] Zoraida Franco MD [address] [address] Social History Tobacco Use Types [...] file 10/03 PHQ-2 Answer Date Recorded PHQ-2 Score 0 10/26/2020 Sex and Gender Information Value Date Recorded Sex Assigned at Not on file Legal 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 Male 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 Gender Identity Not on file Sexual Orientation Not on file documented as of this encounter Plan of Treatment Not on file documented as of this encounter Procedures Procedure Name Priority Date/Time Associated Diagnosis Comments TSH W/REFL FT4 Routine 10/28/2020 8:52 AM FILLER SHREDDER CBC WITH AUTO DIFFERENTIAL Routine 10/28/2020 8:52 AM FILLER SHREDDER LIPID PANEL Routine 10/28/2020 8:52 AM FILLER SHREDDER COMPREHENSIVE METABOLIC PANEL Routine 10/28/2020 8:52 AM FILLER SHREDDER documented in this encounter Results * (ABNORMAL) CBC with auto differential (10/28/2020 8:52 AM FILLER SHREDDER) Pathologist [facility] WBC 3.2(L) 3.8 - 10.8 Thousand/u L [facility] RBC, POC 4.95 4.20 - 5.80 Million/uL [facility] Hgb 16.1 13.2 - 17.1 g/dL [facility] Hct 47.1 38.5 - 50.0 % [facility] MCV 95.2 80.0 - 100.0 fL [facility] MCH 32.5 27.0 - 33.0 pg [facility] MCHC 34.2 32.0 - 36.0 g/dL [facility] Rdw 14.3 11.0 - 15.0 % [facility] Platelets 257 140 - 400 Thousand/u L [facility] MPV 9.8 7.5 - 12.5 fL [facility] Neutrophils, abs 778(L) 1,500 - 7,800 cells/uL [facility] Lymphocytes, abs 1,808 850 - 3,900 cells/uL [facility] Monocyte abs 464 200 - 950 cells/uL [facility] Eosinophils, abs 70 15 - 500 cells/uL [facility] Basophils, abs 80 0 - 200 cells/uL [facility] Neutrophils 24.3 % [facility] Lymphocyte pct 56.5 % [facility] Monocytes 14.5 % [facility] Eosinophils 2.2 % [facility] Basophils 2.5 % [facility] 10/28/2020 8:52 AM FILLER SHREDDER 10/28/2020 8:53 AM FILLER SHREDDER Narrative [facility] - 10/29/2020 5:42 AM FILLER SHREDDER FASTING:NO FASTING: NO us Zoraida Franco MD LAB BLOOD ORDERABLE S Final Result [facility] [address] [id number] * (ABNORMAL) Comprehensive metabolic panel (10/28/2020 8:52 AM FILLER SHREDDER) Pathologist [facility] Glucose 117 65 - 139 mg/dL [facility] [place] Comment: ? Non-fasting reference interval BUN 16 7 - 25 mg/dL [facility] Creatinine 1.07 0.60 - 1.35 mg/dL [facility] eGFR NON-AFR. BOLIVIAN 85 > OR = 60 mL/min/1. 73m2 [facility] EGFR 98 > OR = 60 mL/min/1. 73m2 [facility] BUN/creat ratio NOT APPLICABLE 6 - 22 (calc) [facility] Sodium 142 135 - 146 mmol/L [facility] Potassium, pl 4.2 3.5 - 5.3 mmol/L [facility] Chloride 105 98 - 110 mmol/L [facility] CO2 28 20 - 32 mmol/L [facility] Calcium 8.5(L) 8.6 - 10.3 mg/dL [facility] Protein, sr 6.0(L) 6.1 - 8.1 g/dL [facility] Albumin 3.7 3.6 - 5.1 g/dL [facility] GLOBULIN 2.3 1.9 - 3.7 g/dL (calc) [facility] Alb/glob ratio 1.6 1.0 - 2.5 (calc) [facility] Bilirubin, total 0.6 0.2 - 1.2 mg/dL [facility] Alk phos 63 36 - 130 U/L [facility] AST 17 10 - 40 U/L [facility] ALT (SGPT) 21 9 - 46 U/L [facility] 10/28/2020 8:52 AM FILLER SHREDDER 10/28/2020 8:53 AM FILLER SHREDDER Narrative [facility] - 10/29/2020 5:42 AM FILLER SHREDDER FASTING:NO FASTING: NO us Zoraida Franco MD LAB BLOOD ORDERABLE S Final Result TATUM [facility] [address] [phone] * Lipid panel (10/28/2020 8:52 AM FILLER SHREDDER) Pathologist [facility] Cholesterol 154 <200 mg/dL [facility] HDL 67 > OR = 40 mg/dL [facility] Triglycerides 45 <150 mg/dL [facility] LDL 74 mg/dL (calc) [facility] Comment: Reference [...] LDL-C. Rene SS et al. RAYMON. 2013;310(19): 4262-1886 (http://education.Protochips/faq/WCX652) Chol/HDL ratio 2.3 <5.0 (calc) [facility] Non-HDL, (LDL+VLDL) 87 <130 mg/dL (calc) [facility] Comment: For patients with diabetes plus 1 major ASCVD risk factor, treating to a non-HDL-C goal of <100 mg/dL (LDL-C of <70 mg/dL) is considered a therapeutic option. 10/28/2020 8:52 AM FILLER SHREDDER 10/28/2020 8:53 AM FILLER SHREDDER Narrative [facility] - 10/29/2020 5:42 AM FILLER SHREDDER FASTING:NO FASTING: NO us Zoraida Franco MD LAB BLOOD ORDERABLE S Final Result Performing Organization Address [facility]/ZIP Co de Phone Number [facility] [address] [place] [address] * TSH W/REFL FT4 (10/28/2020 8:52 AM FILLER SHREDDER) TSH 2.89 0.40 - 4.50 mIU/L [facility] 10/28/2020 8:52 AM FILLER SHREDDER 10/28/2020 8:53 AM FILLER SHREDDER Narrative [facility] - 10/29/2020 5:42 AM FILLER SHREDDER FASTING:NO FASTING: NO us Zoraida Franco MD LAB BLOOD ORDERABLE S Final Result Performing Organization Address [facility]/ZIP Co de Phone Number [facility] [facility] [address] [place] [phone] documented in this encounter Visit Diagnoses Not on filedocumented in this encounter Care Teams Tapper Shank Relationship Specialty Start Date End Date Zoraida Franco MD [address] [place] [address] PCP - General Family Medicine 09/22/20 01/06/21 documented as of this encounter
--- OUTSIDE RECORDS SUMMARY | 2024-11-30 06:10 | XMS_ITS | Encounter Summary ---
Author Organization [facility] Address [address] [place] [address] Phone Care Team Providers Care Senior Programmer Name Role Phone Zoraida Franco MD Primary Care Provi selvin Encounter Details Date Type Department Care Team (Late st Contact Info) Description 12/19/2020 3:00 PM SUPERVISOR [employer]S Lab [facility] Oncology [address] [place] [phone] Leukopenia, unspecified type Social History Tobacco [...] file Legal Sex Male 7:51 PM SUPERVISOR [employer] Gender Identity Not on file Sexual Orientation Not on file documented as of this encounter Plan of Treatment Not on file documented as of this encounter Visit Diagnoses Diagnosis Leukopenia, unspecified type documented in this encounter Orders Appointment Requests Count Last Ordered Date Fi rst Ordered Date ONCBCN LAB APPOINTMENT 1 12/19/2020 documented in this encounter Care Teams Senior Programmer Relationship Specialty Start Date End Date Zoraida Franco MD [address] [place] [address] PCP - General Family Medicine 09/22/20 01/06/21 documented as of this encounter
--- OUTSIDE RECORDS SUMMARY | 2024-11-30 06:10 | XMS_ITS | Encounter Summary ---
Author Organization [facility] Healthcare Address [address] [place] [address] Care Team Providers Care Pilot Teacher Name Role Phone Unknown, Notinfile Primary Care Provider Unavail able Zoraida Franco MD Unavailable [phone] Clemente Hamm DO Unavailable [phone] Encounter Details Date Type Department Care Team (Late st Contact Info) Description 01/10/2021 8:22 PM AUTOMOTIVE ELECTRICAL FITTER - 01/11/2021 5:49 AM AUTOMOTIVE ELECTRICAL FITTER Hospital Encounter [facility] INTERIM Jamie Pierce MD [address] [facility] [address] [address] Discharge Disposition: Discharge to home or self [...] on file Legal Sex Male 7:51 PM AUTOMOTIVE ELECTRICAL FITTER Gender Identity Not on file Sexual Orientation Not on file Occupation Industry Job Start Date Job End Date Disabled Not on file Not on file Not on file documented as of this encounter Last Filed Vital Signs Vital Sign Reading Time Taken Comments Blood Pressure - - Pulse - - Temperature - - Respiratory Rate - - Oxygen Saturation 97% 01/10/2021 9:00 PM AUTOMOTIVE ELECTRICAL FITTER Inhaled Oxygen Concentration - - Weight - - Height - - Body Mass Index - - documented in this encounter Medications at Time of Discharge cholecalciferol, vitamin D3, (VITAMIN D3 ORAL) Take 2,000 Units by mouth daily clotrimazole 1 % cream Apply topically 2 (two) times a day 60 g 2 10/26/2020 1 aspirin 81 mg enteric coated tablet Take 1 tablet (81 mg total) by mouth daily 3 fluticasone propionate (FLONASE) 50 mcg/actuation nasal sprayIndications:A cute non-recurrent pansinusitis Administer 2 sprays into each nostril daily 16 g 1 12/14/2020 2 documented as of this encounter Discharge Disposition Disposition Code Departure Means Destination Discharge to home or self care documented in this encounter Plan of Treatment Not on file documented as of this encounter Procedures Procedure Name Priority Date/Time Associated Diagnosis Comments SLEEP LAB/STUDY - RESULT 01/18/2021 12:00 AM AUTOMOTIVE ELECTRICAL FITTER documented in this encounter Results * SLEEP LAB/STUDY - RESULT (01/18/2021 12:00 AM AUTOMOTIVE ELECTRICAL FITTER) Narrative 01/18/2021 12:00 AM AUTOMOTIVE ELECTRICAL FITTER Ordered by an unspecified provider. us Historical Provider Final Res ult documented in this encounter Visit Diagnoses Not on filedocumented in this encounter Care Teams Pilot Teacher Relationship Specialty Start Date End Date Unknown, Notinfile PCP - General 01/07/21 06/19/21 Zoraida Franco MD [facility] [address] [place] [address] Family Medicine 01/07/21 06/19/21 Clemente Hamm DO [address] [place] [address] Medical Oncologist/Cash Posting Specialist Hematology and Oncology 01/09/21 06/19/21 documented as of this encounter
--- OUTSIDE RECORDS SUMMARY | 2024-11-30 06:10 | XMS_ITS | Encounter Summary ---
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 UPHOLSTERER - 12/22/2020 11:59 PM LIMOUSINE AND HEARSE UPHOLSTERER Hospital Encounter [facility] OP INTERIM Jamie Pierce MD [facility] [address] [address] Discharge Disposition: Discharge to home or self [...] on file Legal Sex Male 7:51 PM 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 AND 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 UPHOLSTERER Gender Identity Not on file Sexual Orientation Not on file documented as of this encounter Last Filed Vital Signs Vital Sign Reading Time Taken Comments Blood Pressure - - Pulse - - Temperature - - Respiratory Rate - - Oxygen Saturation - - Inhaled Oxygen Concentration - - Weight 76.7 kg (169 lb) 12/22/2020 11:24 AM LIMOUSINE AND HEARSE UPHOLSTERER Height 154.9 cm (5' 1 ) 12/22/2020 11:24 AM LIMOUSINE AND HEARSE UPHOLSTERER Body Mass Index 31.93 12/22/2020 11:24 AM LIMOUSINE AND HEARSE UPHOLSTERER documented in this encounter Medications at Time of Discharge cholecalciferol, vitamin D3, (VITAMIN D3 ORAL) Take 2,000 Units by mouth daily amoxicillin-clavul anate (AUGMENTIN) 875-125 mg per tabletIndications: Acute non-recurrent pansinusitis Take 1 tablet by mouth 2 (two) times a day for 10 days 20 tablet 12/14/2020 1 clotrimazole 1 % cream Apply topically 2 [...] on filedocumented in this encounter Care Teams Fund Director Relationship Specialty Start Date End Date Zoraida Franco MD [address] [place] [address] PCP - General Family Medicine 09/22/20 01/06/21 documented as of this encounter
--- OUTSIDE RECORDS SUMMARY | 2024-11-30 06:10 | XMS_ITS | Encounter Summary ---
Author Organization [facility] Healthcare Address [address] [place] [address] Care Team Providers Care Property Insurance Agent Name Role Phone Unavailable Primary Care Provider Unavailabl e Encounter Details Date Type Department Care Team (Late st Contact Info) Description 06/19/2015 1:43 AM CDT - 06/19/2015 4:36 AM CDT Hospital Encounter [facility] Mitul Ureña, DO [address] [place] [address] Cough Social History Tobacco Use Types Packs/Day Years Used Date Smoking Tobacco: Never Assessed Sex and Gender Information Value Date Recorded Sex Assigned at Not on file Legal Sex Male 7:51 PM RN FIELD Gender Identity Not on file Sexual Orientation Not on file documented as of this encounter Last Filed Vital Signs Vital Sign Reading Time Taken Comments Blood Pressure 99/59 06/19/2015 1:44 AM CDT Pulse 77 06/19/2015 1:44 AM CDT Temperature 36.4 ??C (97.5 ??F) 06/19/2015 1:44 AM CD T Respiratory Rate - - Oxygen Saturation 97% 06/19/2015 1:44 AM CDT Inhaled Oxygen Concentration - - Weight 74.4 kg (164 lb) 06/19/2015 1:44 AM CDT Height 152.4 cm (5') 06/19/2015 1:44 AM CDT Body Mass Index 32.03 06/19/2015 1:44 AM CDT documented in this encounter Plan of Treatment Not on file documented as of this encounter Procedures Procedure Name Priority Date/Time Associated Diagnosis Comments MICROBIOLOGY SPECIMEN REPORT (CONVERTED) Routine 06/19/2015 5:30 AM CDT STREP A DNA, QUANTITATIVE Routine 06/19/2015 5:[address] CHEST WO CONTRAST Routine 06/19/2015 12:[address] SOFT TISSUE NECK WO CONTRAST Routine 06/19/2015 12:00 AM CDT XR CHEST PA LATERAL 2 VIEWS Routine 06/19/2015 12:00 AM CDT XR NECK SOFT TISSUE Routine 06/19/2015 1 2:00 AM CDT documented in this encounter Results * Microbiology Specimen Report (Converted) (06/19/2015 5:30 AM CDT) 06/19/2015 5:30 AM CDT 06/19/2015 5:53 AM CDT [facility] HISTORICAL RESULTS - 06/19/2015 5:30 AM CDT Microbiology Specimen Report (Converted) SPECIMEN [id number] ?? COLLECTED: 2015-06-19 05:30:00 WR ?? REQ#: [id number] REQUESTING DR: Mitul Ureña DO ?? SOURCE: THROAT ?? SP DESC: SWAB --- PROCEDURE --- ?--- RESULT --- ?? CULTURE THROAT: BETA STREP A ??(Final) ??- ??Performed at [facility] ?* NO PATHOGENIC STREP RECOVERED. - [facility] ? [address] ? [place] [address] ? Jose Victoria MD Procedure Note 02/21/2019 Microbiology Specimen Report (Converted) SPECIMEN [id number] COLLECTED: 2015-06-19 05:30:00 WR REQ#:[id number] REQUESTING DR: Mitul Ureña DO SOURCE: THROAT SP DESC: SWAB --- PROCEDURE --- --- RESULT --- CULTURE THROAT: BETA STREP A (Final) - Performed at [facility] * NO PATHOGENIC STREP RECOVERED. - [address] [address] Jose Victoria MD Mitul Ureña DO LAB BLOOD ORDERABLES Final Result Performing Organization Address [facility] de Phone Number [facility] HISTORICAL RESULTS * Strep A DNA, quantitative (06/19/2015 5:30 AM CDT) [facility] Signature Rapid Strep A NEGATIVE NEGATIVE Comment:CULTURE ADDED RESULT S TO FOLLOW. 06/19/2015 5:30 AM CDT 06/19/2015 5:53 AM CDT Mitul Ureña DO LAB BODY FLUIDS AND STOOLS ORDERABLES Final Result Performing Organization Address [facility] de Phone Number [facility] HISTORICAL RESULTS * CT Neck Soft Tissue WO Contrast (06/19/2015 12:00 AM CDT) Anatomical Region Laterality Modality Head and Neck N/A Computed Tomogra phy 06/19/2015 Impressions 06/19/2015 4:20 AM CDT negative exam. THIS IS AN ELECTRONICALLY VERIFIED REPORT 06/19/2015 4:16 AM: ??Armin Jarvis M.D. Armin aJrvis M.D. RW:timi 04:16 AM 04:16 AM [facility] [EOD] Narrative 06/19/2015 4:20 AM CDT EXAMINATION: CT SOFT TISSUE NECK WITHOUT CONTRAST INDICATION: Cough possible foreign body COMPARISON: None Available. FINDINGS: No osseous abnormality. ??Airway widely patent. ??No radiopaque foreign bodies. Apices unremarkable. Included intracranial contents unremarkable. Procedure Note Provider, MD Deepak - 04/17/2021 EXAMINATION: CT SOFT TISSUE NECK WITHOUT CONTRAST INDICATION: Cough possible foreign body COMPARISON: None Available. FINDINGS: No osseous abnormality. Airway widely patent. No radiopaque foreign bodies. Apices unremarkable. Included intracranial contents unremarkable. IMPRESSION: negative exam. THIS IS AN ELECTRONICALLY VERIFIED REPORT 06/19/2015 4:16 AM: Armin Jarvis M.D. Armin Jarvis M.D. RW:timi 04:16 AM 04:16 AM RE[facility] [EOD] us Mitul Ureña DO IMG CT PROCEDURES Final Res ult * CT Chest WO Contrast (06/19/2015 12:00 AM CDT) Anatomical Region Laterality Modality Body N/A Computed Tomogra phy 06/19/2015 Impressions 06/19/2015 4:14 AM CDT ??Unremarkable CT of the chest. THIS IS AN ELECTRONICALLY VERIFIED REPORT 06/19/2015 4:10 AM: ??Armin Jarvis M.D. Mikey Sheehan:timi 04:10 AM 04:10 AM RE[facility] [EOD] Narrative 06/19/2015 4:14 AM CDT EXAMINATION: ??CT CHEST WITHOUT CONTRAST HISTORY: ??cough COMPARISON: ??None available. TECHNIQUE: ??Non contrast CT of the chest was performed. ??Axial, coronal, and sagittal images were obtained. FINDINGS: ??The heart is normal size. ??No pericardial effusion. ??Aorta is normal caliber. No pleural effusion identified. ??No pneumothorax. The lungs are clear of infiltrate. ??No pulmonary nodules or masses. No lymphadenopathy. The adrenal glands are normal size. Gallbladder surgically absent. Procedure Note Provider, MD Deepak - 04/17/2021 EXAMINATION: CT CHEST WITHOUT CONTRAST HISTORY: cough COMPARISON: None available. TECHNIQUE: Non contrast CT of the chest was performed. Axial, coronal,and sagittal images were obtained. FINDINGS: The heart is normal size. No pericardial effusion. Aorta is normal caliber. No pleural effusion identified. No pneumothorax. The lungs are clear of infiltrate. No pulmonary nodules or masses. No lymphadenopathy. The adrenal glands are normal size. Gallbladder surgically absent. IMPRESSION: Unremarkable CT of the chest. THIS IS AN ELECTRONICALLY VERIFIED REPORT 06/19/2015 4:10 AM: Armin Jarvis M.D. Armin Jarvis M.D. RW:timi 04:10 AM 04:10 AM RE[facility] [EOD] Mitul Ureña DO IMG CT PROCEDURES Final Res ult * XR Chest Pa Lateral 2 Views (06/19/2015 12:00 AM CDT) Anatomical Region Laterality Modality Body, Chest N/A Radiographic Ashley ging 06/19/2015 Impressions 06/19/2015 2:57 AM CDT ?? Question perihilar airspace opacities, as above, not definite. ??Follow-up would be helpful. ??Chronic findings. THIS IS AN ELECTRONICALLY VERIFIED REPORT 06/19/2015 2:54 AM: ??Zoraida Pearce M.D. Zoraida Pearce M.D. JS:dilan 02:54 AM 02:54 AM [facility] [EOD] Narrative 06/19/2015 2:57 AM CDT EXAMINATION: ??CHEST HISTORY: ??cough TECHNIQUE: ??PA and lateral views COMPARISON: ??03/01/2015 FINDINGS: ??There is no pneumonic consolidation, pleural fluid or pneumothorax. Perihilar airspace opacities are suggested on the lateral view most prominently, subtle. ??The cardiomediastinal silhouette is unremarkable. There is no pulmonary vascular congestion. The osseous structures are intact. Degenerative joint disease is visible. Procedure Note Provider, MD Deepak - 04/17/2021 EXAMINATION: CHEST HISTORY: cough TECHNIQUE: PA and lateral views COMPARISON: 03/01/2015 FINDINGS: There is no pneumonic consolidation, pleural fluid orpneumothorax. Perihilar airspace opacities are suggested on the lateral view most prominently, subtle. The cardiomediastinal silhouette is unremarkable.There is no pulmonary vascular congestion. The osseous structures are intact. Degenerative joint disease is visible. IMPRESSION: Question perihilar airspace opacities, as above, not definite. Follow-up would be helpful. Chronic findings. THIS IS AN ELECTRONICALLY VERIFIED REPORT 06/19/2015 2:54 AM: Zoraida Pearce M.D. Zoraida Pearce M.D. JS:dilan 02:54 AM 02:54 AM [facility] [EOD] Mitul Ureña DO IMG XR PROCEDURES Final Res ult * XR Neck Soft Tissue (06/19/2015 12:00 AM CDT) Anatomical Region Laterality Modality Head and Neck N/A Radiographic Ashley ging 06/19/2015 Impressions 06/19/2015 2:56 AM CDT Poor evaluation of the epiglottis. ??There could be soft tissue density which obscures the epiglottis although there is no definitive radiopaque foreign body associated with the airway as imaged. ??Consider neck CT for further evaluation. Chronic findings, detailed above. THIS IS AN ELECTRONICALLY VERIFIED REPORT 06/19/2015 2:53 AM: ??Zoraida Pearce M.D. Zoraida Pearce M.D. JS:dilan 02:53 AM 02:53 AM [facility] [EOD] Narrative 06/19/2015 2:56 AM CDT EXAMINATION: ??NECK SOFT TISSUES HISTORY: ??foreign body sensation at the throat TECHNIQUE: ??None available COMPARISON: ??AP, lateral view FINDINGS: ??There is no obvious radiopaque foreign body associated with the airway on the lateral view. ??There is no prevertebral soft tissue swelling. ?? The epiglottis is not well seen. ??If there is clinical concern for soft tissue associated with this portion of the airway, neck CT can always be obtained. ?? Straightening of normal cervical lordosis is noted. ??Degenerative joint disease is present. ??The lung apices are unremarkable as evaluated. Procedure Note Provider, MD Deepak - 04/17/2021 EXAMINATION: NECK SOFT TISSUES HISTORY: foreign body sensation at the throat TECHNIQUE: None available COMPARISON: AP, lateral view FINDINGS: There is no obvious radiopaque foreign body associated with the airway on the lateral view. There is no prevertebral soft tissueswelling. The epiglottis is not well seen. If there is clinical concern for softtissue associated with this portion of the airway, neck CT can always beobtained. Straightening of normal cervical lordosis is noted. Degenerative joint disease is present. The lung apices are unremarkable as evaluated. IMPRESSION: Poor evaluation of the epiglottis. There could be soft tissue densitywhich obscures the epiglottis although there is no definitive radiopaque foreign body associated with the airway as imaged. Consider neck CT for further evaluation. Chronic findings, detailed above. THIS IS AN ELECTRONICALLY VERIFIED REPORT 06/19/2015 2:53 AM: Zoraida Pearce M.D. Zoraida Pearce M.D. JS:dilan 02:53 AM 02:53 AM [facility] [EOD] Mitul Ureña DO IMG XR PROCEDURES Final Res ult documented in this encounter Visit Diagnoses Diagnosis Cough documented in this encounter
--- OUTSIDE RECORDS SUMMARY | 2024-11-30 06:10 | XMS_ITS | Encounter Summary ---
Author Organization [facility] Address [address] [facility] [address] [place] [address] Care Team Providers Care Certified Cytotechnologist Name Role Phone Zoraida Franco MD Primary Care Provi selvin Encounter Details Date Type Department Care Team (Late st Contact Info) Description 12/19/2020 Telephone [facility] Family Medicine [address] [address] Zoraida Franco MD [address] [address] Social History Tobacco Use Types [...] on file Legal Sex Male 7:51 PM WELT BUTTER HAND Gender Identity Not on file Sexual Orientation Not on file documented as of this encounter Miscellaneous Notes * Telephone Encounter - Fanny Weaver LPN - 12/19/2020 10:31 AM WELT BUTTER HAND Spoke with the pt, results were given and pt vu. The pt's mother declines referral to cardiology atthis time but understands to call the office if she changes her mind BUTTER HAND * Telephone Encounter - Fanny Weaver LPN - 12/19/2020 10:31 AM WELT BUTTER HAND ----- Message from Zoraida Franco MD sent at 12/19/2020 7:31 AM WELT BUTTER HAND ----- Pt's echo is overall normal- but the study was limited. Would she want armin to follow up with a grain oilseed or pasture farm worker? Thank you! BUTTER HAND documented in this encounter Plan of Treatment Not on file documented as of this encounter Visit Diagnoses Not on filedocumented in this encounter Care Teams Certified Cytotechnologist Relationship Specialty Start Date End Date Zoraida Franco MD [address] [place] [address] PCP - General Family Medicine 09/22/20 01/06/21 documented as of this encounter
--- OUTSIDE RECORDS SUMMARY | 2024-11-30 06:10 | XMS_ITS | Encounter Summary ---
Author Organization [facility] Address [address] [facility] [address] [place] [address] Care Team Providers Care Section Crews Activities Clerk Name Role Phone Unknown, Notinfile Primary Care Provider Unavail able Zoraida Franco MD Unavailable [phone] Clemente Hamm DO Unavailable Encounter Details Date Type Department Care Team (Late st Contact Info) Description 01/19/2021 Orders Only [facility] Pulmonology [address] [facility] [address] [place] [address] Kandy Hannah, INFORMATION SYSTEMS PROFESSOR [address] [facility] [address] [place] [address] Encounter for preprocedural laboratory examination (Primary Dx) Social History Tobacco Use Types Packs/Day Years Used Date Smoking Tobacco: Never Assessed AUDIT-C Answer Date Recorded Q1: How often [...] on file 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 Gender Identity Not on file Sexual Orientation Not on file documented as of this encounter Progress Notes * Kandy Hannah NP - 01/19/2021 8:33 AM CST For covid Cosigned by Jamie Pierce MD at 01/19/2021 12:04 PM MOLDING MACHINE OPERATOR ING MACHINE OPERATOR ING MACHINE OPERATOR documented in this encounter Plan of Treatment Not on file documented as of this encounter Visit Diagnoses Diagnosis Encounter for preprocedural laboratory examination- Primary documented in this encounter Care Teams Section Crews Activities Clerk Relationship Specialty Start Date End Date Unknown, Notinfile PCP - General 01/07/21 06/19/21 Zoraida Franco MD [address] [place] [address] Family Medicine 01/07/21 06/19/21 Clemente Hamm DO [address] [place] [address] Medical Oncologist/Insurance Sales Assistant Hematology and Oncology 01/09/21 06/19/21 documented as of this encounter
--- OUTSIDE RECORDS SUMMARY | 2024-11-30 06:10 | XMS_ITS | Encounter Summary ---
Author Organization [facility] Address [address] [facility] [address] [place] [address] Care Team Providers Care Pipe Threader Name Role Phone Zoraida Franco MD Primary Care Provi selvin Reason for Referral * Consultation (Routine) - Closed Specialty Diagnoses / Procedures Referred By Contmarcelino t Referred To Contact Hematology / Oncology Diagnoses Leukopenia, unspecified type Zoraida Franco MD [address] [place] [address] Phone: tel: fax: Clemente Hamm, DO [address] [address] Phone: tel: fax: Referral ID Status Reason Start Date Expiration Date V isits Requested Visits Authorized [id number] Closed Specialty Services Required 10/26/2020 11/25/2021 6 6 Question Answer Please select the performing region: [facility] (All Locations) [[id number]] Please select the performing department: [facility] IM HEM MHE2 180 [[id number]] # of visits: 6 AL BASIC .NET DEVELOPER Reason for Visit * Reason Comments New Patient establish care . mom thinks patient has fungus on both feet , Encounter Details Date Type Department Care Team ([facility] st Contact Info) Description 10/26/2020 1:30 PM VISUAL BASIC .NET DEVELOPER Office Visit [facility] Family Medicine [address] [address] Zoraida Franco MD [address] [id number] VSD (ventricular septal defect) (Primary Dx); Leukopenia, unspecified type; Screening for diabetes mellitus; Screening for cardiovascular condition; Family history of thyroid problem; Dermatitis Social History Tobacco Use Types Packs/Day Years [...] on file Legal Sex Male 7:51 PM VISUAL BASIC .NET DEVELOPER Gender Identity Not on file Sexual Orientation Not on file documented as of this encounter Last Filed Vital Signs Vital Sign Reading Time Taken Comments Blood Pressure 108/70 10/26/2020 1:18 PM VISUAL BASIC .NET DEVELOPER Pulse 79 10/26/2020 1:18 PM VISUAL BASIC .NET DEVELOPER Temperature 35.9 ??C (96.7 ??F) 10/26/2020 1:18 PM CS T Respiratory Rate 16 10/26/2020 1:18 PM VISUAL BASIC .NET DEVELOPER Oxygen Saturation 97% 10/26/2020 1:18 PM VISUAL BASIC .NET DEVELOPER Inhaled Oxygen Concentration - - Weight 77.9 kg (171 lb 12.8 oz) 10/26/2020 1:18 PM VISUAL BASIC .NET DEVELOPER Height 153.7 cm (5' 0.5 ) 10/26/2020 1:18 PM VISUAL BASIC .NET DEVELOPER Body Mass Index 33 10/26/2020 1:18 PM VISUAL BASIC .NET DEVELOPER documented in this encounter Ordered Prescriptions Prescription Sig Dispense Quantity Refills Last Filled Start Date End Date clotrimazole 1 % cream Apply topically 2 (two) times a day 60 g 2 10/26/2020 1 documented in this encounter Progress Notes * Zoraida Franco MD - 10/26/2020 1:30 PM CST Images from the original note were not included. Subjective/Objective Patient ID: Armin Rico is a 45 y.o. male. Chief Complaint Chief Complaint Patient presents with ??? New Patient establish care . mom thinks patient has fungus on both feet , HPI The pt is presenting to the office as a new patient -VSD- previously followed by Dr. Campo. He is currently on aspirin. He has been doing well overall. -persistent leukpenia- followed by heme/onc at [facility]. He does need a referral to [facility] emergency department. -history of a tick born illness- has had labs done which were abnormal in the past. He is here for further care -rash- on his feet, previously treated with a fungal cream. He does have occasional itching Review of Systems Constitutional: Negative for chills and fever. Eyes: Negative for visual disturbance. Respiratory: Negative for shortness of breath. Cardiovascular: Negative for chest pain. Gastrointestinal: Negative for abdominal pain, nausea and vomiting. Skin: Positive for rash. Neurological: Negative for headaches. Past medical history, surgical history, and social history were reviewed BP 108/70 (BP Location: Left arm, Patient Position: Sitting) Pulse 79 Temp (!) 35.9 ??C (96.7 ??F) (Oral) Resp 16 Ht 153.7 cm (5' 0.5 ) Wt 77.9 kg (171 lb 12.8 oz) SpO2 97% BMI 33.00 kg/m?? Physical Exam Vitals signs and nursing note reviewed. Constitutional: General: He is not in acute distress. Appearance: He is well-developed. HENT: Head: Normocephalic and atraumatic. Right Ear: Tympanic membrane, ear canal and external ear normal. Left Ear: Tympanic membrane, ear canal and external ear normal. Nose: Nose normal. Mouth/Throat: Mouth: Mucous membranes are moist. Pharynx: Oropharynx is clear. Eyes: Extraocular Movements: Extraocular movements intact. Conjunctiva/sclera: Conjunctivae normal. Pupils: Pupils are equal, round, and reactive to light. Neck: Musculoskeletal: Normal range of motion and neck supple. Thyroid: No thyromegaly. Cardiovascular: Rate and Rhythm: Normal rate and regular rhythm. Heart sounds: Normal heart sounds. No murmur. No friction rub. No gallop. Pulmonary: Effort: Pulmonary effort is normal. Breath sounds: Normal breath sounds. No wheezing or rales. Abdominal: General: Bowel sounds are normal. There is no distension. Palpations: Abdomen is soft. There is no mass. Tenderness: There is no abdominal tenderness. There is no guarding or rebound. Lymphadenopathy: Cervical: No cervical adenopathy. Skin: General: Skin is warm and dry. Comments: Macular papular rash on his feet bilaterally Neurological: Mental Status: He is alert and oriented to person, place, and time. Motor: No abnormal muscle tone. Psychiatric: Mood and Affect: Mood normal. Behavior: Behavior normal. Thought Content: Thought content normal. Judgment: Judgment normal. Assessment/Plan Diagnoses and all orders for this visit: VSD (ventricular septal defect) (Primary) Assessment & Plan: Will refer to cardiology- Dr Campo Will be due for an echo Continue aspirin Update me with any changes Call for questions or concerns Orders: - Ambulatory referral to Cardiology; Future Leukopenia, unspecified type Assessment & Plan: Referral placed to [facility] Will consider labs for further guidance Update me after the visit Call for questions or concerns Orders: - CBC with auto differential; Future - Ambulatory referral to Hematology; Future Screening for diabetes mellitus - Comprehensive metabolic panel; Future Screening for cardiovascular condition - Lipid panel; Future Family history of thyroid problem - TSH reflex to free T4; Future Dermatitis Comments: will start clotrimazole if no improvement, please let me know call for questions or concerns Other orders - clotrimazole 1 % cream; Apply topically 2 (two) times a day Patient/parent was counseled on medication risk, side effects, and possible complications. Patient/parent was counseled on how to properly take the medication and to call with any adverse reactions. Patient/parent was advised that if anything changes or worsens, to contact the office. Patient/parent stated understanding. AL BASIC .NET DEVELOPER documented in this encounter Miscellaneous Notes * Assessment & Plan Note - Zoraida Franco MD - 10/26/2020 1:32 PM CSTAssociated Problem(s): Leukopenia Referral placed to [facility] Will consider labs for further guidance Update me after the visit Call for questions or concerns AL BASIC .NET DEVELOPER * Assessment & Plan Note - Zoraida Franco MD - 10/26/2020 1:28 PM CSTAssociated Problem(s): VSD (ventricular septal defect) Will refer to cardiology- Dr Campo Will be due for an echo Continue aspirin Update me with any changes Call for questions or concerns AL BASIC .NET DEVELOPER documented in this encounter Plan of Treatment Scheduled Referrals Name Type Priority Associated Diagnoses Orde r Schedule Ambulatory referral to Hematology Outpatient Referral Routine Leukopenia, unspecified type Expected: 11/09/2020 (Approximate), Expires: 10/26/2021 documented as of this encounter Visit Diagnoses Diagnosis VSD (ventricular septal defect)- Primary Ventricular septal defect Leukopenia, unspecified type Screening for diabetes mellitus Screening for cardiovascular condition Screening for other and unspecified cardiovascular conditions Family history of thyroid problem Dermatitis Contact dermatitis and other eczema, due to unspecified cause documented in this encounter Historical Medications * This list may reflect changes made after this encounter. cholecalciferol, vitamin D3, (VITAMIN D3 ORAL) Take 2,000 Units by mouth daily aspirin 81 mg enteric coated tablet Take 1 tablet (81 mg total) by mouth daily 10/15/2023 added in this encounter Orders Lab Orders Without Results Count Last Ordered D ate First Ordered Date CBC WITH AUTO DIFFERENTIAL 1 10/26/2020 COMPREHENSIVE METABOLIC PANEL 1 10/26/2020 LIPID PANEL 1 10/26/2020 TSH REFLEX TO FREE T4 1 10/26/2020 documented in this encounter Care Teams Pipe Threader Relationship Specialty Start Date End Date Zoraida Franco MD [facility] [address] [place] [address] PCP - General Family Medicine 09/22/20 01/06/21 documented as of this encounter
--- OUTSIDE RECORDS SUMMARY | 2024-11-30 06:10 | XMS_ITS | Encounter Summary ---
Author Organization [facility] Address [address] [facility] [address] [place] [address] Care Team Providers Care Human Anatomy Teacher Name Role Phone Zoraida Franco MD Primary Care Provi selvin Encounter Details Date Type Department Care Team (Late st Contact Info) Description 12/22/[address] [facility] Pulmonology [address] [facility] [address] [place] [address] Hannah Carter, NURSE EXTERN [address] [facility] [address] [place] [address] Encounter for preprocedural laboratory examination (Primary Dx) [...] Legal Sex Male 7:51 PM DIRECTOR OF PARKS AND RECREATION Gender Identity Not on file Sexual Orientation Not on file documented as of this encounter Progress Notes * Hannah Carter NP - 12/22/2020 1:00 PM CST Sleep study covid order Cosigned by Jamie Pierce MD at 12/22/2020 2:35 PM DIRECTOR OF PARKS AND RECREATION CTOR OF PARKS AND RECREATION CTOR OF PARKS AND RECREATION documented in this encounter Plan of Treatment Not on file documented as of this encounter Visit Diagnoses Diagnosis Encounter for preprocedural laboratory examination- Primary documented in this encounter Care Teams Human Anatomy Teacher Relationship Specialty Start Date End Date Zoraida Franco MD [address] [place] [address] PCP - General Family Medicine 09/22/20 01/06/21 documented as of this encounter
--- OUTSIDE RECORDS SUMMARY | 2024-11-30 06:10 | XMS_ITS | Encounter Summary ---
Author Organization [facility] Address [address] [facility] [address] [place] [address] Care Team Providers Care Court Reporter Name Role Phone Zoraida Franco MD Primary Care Provi selvin Encounter Details Date Type Department Care Team (Late st Contact Info) Description 11/01/2020 Telephone [facility] Family Medicine [address] [address] Zoraida Franco MD [address] [address] Social History Tobacco Use Types [...] on file Legal Sex Male 7:51 PM NUCLEAR TECHNICIAN Gender Identity Not on file Sexual Orientation Not on file documented as of this encounter Miscellaneous Notes * Telephone Encounter - Fanny Weaver LPN - 11/01/2020 1:41 PM NUCLEAR TECHNICIAN Spoke with the pt, results were given and pt vu EAR TECHNICIAN * Telephone Encounter - Fanny Weaver LPN - 11/01/2020 1:41 PM NUCLEAR TECHNICIAN ----- Message from Zoraida Franco MD sent at 10/31/2020 2:09 PM NUCLEAR TECHNICIAN ----- Pt's labs are normal except, slightly low calcium, low white blood cells. I do want him to see his blood specialist, and they can update me after the see him, thank you! EAR TECHNICIAN documented in this encounter Plan of Treatment Not on file documented as of this encounter Visit Diagnoses Not on filedocumented in this encounter Care Teams Court Reporter Relationship Specialty Start Date End Date Zoraida Franco MD [address] [place] [address] PCP - General Family Medicine 09/22/20 01/06/21 documented as of this encounter
--- OUTSIDE RECORDS SUMMARY | 2024-11-30 06:10 | XMS_ITS | Encounter Summary ---
Author Organization [facility] Address [address] [place] [address] Care Team Providers Care Diesel Pile Driver Operator Name Role Phone Unknown, Notinfile Primary Care Provider Unavail able Zoraida Franco MD Unavailable [phone] Clemente Hamm DO Unavailable [phone] Encounter Details Date Type Department Care Team (Late st Contact Info) Description 02/03/2021 7:27 PM FIELDWORK COORDINATOR - 02/04/2021 5:21 AM FIELDWORK COORDINATOR Hospital Encounter [facility] OP INTERIM Jamie Pierce MD [facility] [address] [address] Discharge Disposition: Discharge to home or self [...] on file Legal Sex Male 7:51 PM FIELDWORK COORDINATOR Gender Identity Not on file Sexual Orientation Not on file Occupation Industry Job Start Date Job End Date Disabled Not on file Not on file Not on file documented as of this encounter Last Filed Vital Signs Vital Sign Reading Time Taken Comments Blood Pressure - - Pulse - - Temperature - - Respiratory Rate - - Oxygen Saturation 96% 02/03/2021 11:00 PM FIELDWORK COORDINATOR Inhaled Oxygen Concentration - - Weight - [...] Associated Diagnosis Comments SLEEP LAB/STUDY - RESULT 02/09/2021 12:00 AM FIELDWORK COORDINATOR documented in this encounter Results * SLEEP LAB/STUDY - RESULT (02/09/2021 12:00 AM FIELDWORK COORDINATOR) Narrative 02/09/2021 12:00 AM FIELDWORK COORDINATOR Ordered by an unspecified provider. us Historical Provider Final Res ult documented in this encounter Visit Diagnoses Not on filedocumented in this encounter Care Teams Diesel Pile Driver Operator Relationship Specialty Start Date End Date Unknown, Notinfile PCP - General 01/07/21 06/19/21 Zoraida Franco MD [address] [place] [address] Family Medicine 01/07/21 06/19/21 Clemente Hamm DO [address] [place] [address] Medical Oncologist/Alberene Stone Setter Hematology and Oncology 01/09/21 06/19/21 documented as of this encounter
--- OUTSIDE RECORDS SUMMARY | 2024-11-30 06:10 | XMS_ITS | Encounter Summary ---
Author Organization [facility] Address [address] [place] [address] Care Team Providers Care Work From Home Name Role Phone Zoraida Franco MD Primary Care Provi selvin Encounter Details Date Type Department Care Team (Late st Contact Info) Description 12/19/2020 3:47 PM PHOTO PRINTER - 01/01/2021 11:59 PM PHOTO PRINTER Hospital Encounter [facility] OP INTERIM Clemente Hamm, DO [address] [address] Social History Tobacco Use Types [...] on file Legal Sex Male 7:51 PM PHOTO PRINTER Gender Identity Not on file Sexual Orientation [...] 12/14/2020 2 documented as of this encounter Plan of Treatment Not on file documented as of this encounter Procedures Procedure Name Priority Date/Time Associated Diagnosis Comments SCAN - LABS 01/09/2021 12:00 AM PHOTO PRINTER documented in this encounter Results * SCAN - LABS (01/09/2021 12:00 AM PHOTO PRINTER) Narrative 01/09/2021 12:00 AM PHOTO PRINTER Ordered by an unspecified provider. us Historical Provider Final Res ult documented in this encounter Visit Diagnoses Not on filedocumented in this encounter Care Teams Work From Home Relationship Specialty Start Date End Date Zoraida Franco MD [address] [place] [address] PCP - General Family Medicine 09/22/20 01/06/21 documented as of this encounter
--- OUTSIDE RECORDS SUMMARY | 2024-11-30 06:10 | XMS_ITS | Encounter Summary ---
Author Organization [facility] Address [address] [place] [address] Care Team Providers Care Medical Field Representative Name Role Phone Unknown, Notinfile Primary Care Provider Unavail able Zoraida Franco MD Unavailable [phone] Clemente Hamm DO Unavailable [phone] Encounter Details Date Type Department Care Team (Late st Contact Info) Description 01/31/2021 7:30 PM INDUSTRIAL GAS PRODUCTION OPERATOR Lab [address] [address] Pre-procedure lab exam Social History Tobacco Use Types Packs/Day Years [...] on file Legal Sex Male 7:51 PM INDUSTRIAL GAS PRODUCTION OPERATOR Gender Identity Not on file Sexual Orientation Not on file documented as of this encounter Plan of Treatment Not on file documented as of this encounter Procedures Procedure Name Priority Date/Time Associated Diagnosis Comments COVID-19 CORONAVIRUS RNA Routine 01/31/2021 1:27 PM INDUSTRIAL GAS PRODUCTION OPERATOR Pre-procedure lab exam documented in this encounter Results * COVID-19 Coronavirus RNA Nasopharyngeal (01/31/2021 1:27 PM INDUSTRIAL GAS PRODUCTION OPERATOR) COVID-19 RNA Not Detected ANALIA ALVARADO Comment: Testing performed as a component of ??a specimen pool. ??Negative results should be treated as presumptive and, if inconsistent with clinical signs and symptoms or necessary for patient management, pooled samples should be tested individually. Negative results do not preclude SARS-CoV-2 infection and must not be used as the sole basis for patient management decisions. Negative results must be considered in the context of a patient? s recent exposures, history, presence of clinical signs and symptoms consistent with COVID-19. Interpretive Data Synonyms for this test include: PCR and NAAT . ??Testing performed by the [facility] Molecular Infectious Disease Laboratory. The 2018-Novel Coronavirus Assay (COVID-19)Real Time RT-PCR assay is for in vitro diagnostic use under FDA emergency use authorization only. A negative RT-PCR result does not preclude infection with COVID-19 and should not be used as the sole basis for treatment or other patient management decisions. ??Additional sample types have been validated according to CLIA regulations. ?? Current Interpretive Data was last revised on January 05, 2021. First COVID-19 test? Unknown CERNER BJ Comment:Testing performed by : [facility], [address] [place]., [address] Employeed in healthcare? Unknown CERNER BJ Comment:Testing performed by : [facility], [address] [place] [address]., [address] status? No CERNER [facility]JH Comment:Testing performed by : [facility], [address] [place] [address]., [address] Group care resident? Unknown CERNER BJ Comment:Testing performed by : [facility], [address] [place]., [address] Hospitalized? No CERNER [facility] Comment:Testing performed by : [facility], [address] [place]., [address] Is patient in ICU? No CERNER [facility] Comment:Testing performed by : [facility], [address] [facility], [place]., [address] Symptomatic as defined by CDC? No ANALIA ALVARADO Comment:Testing performed by : [facility], [address] [facility], [place]., [address] Nasopharyngeal 01/31/2021 1: 27 PM INDUSTRIAL GAS PRODUCTION OPERATOR 01/31/2021 8:13 PM INDUSTRIAL GAS PRODUCTION OPERATOR Narrative ANALIA ALVARADO - 02/01/2021 6:47 AM INDUSTRIAL GAS PRODUCTION OPERATOR What is the reason for testing?->Screening prior to scheduled procedure or surgery us Kandy Hannah CABLE OPERATOR LAB MICROBIOLOGY - GENER AL ORDERABLES Final Result ANALIA [facility] [address] [facility] [place] [address] documented in this encounter Visit Diagnoses Diagnosis Pre-procedure lab exam Pre-procedural laboratory examination documented in this encounter Care Teams Medical Field Representative Relationship Specialty Start Date End Date Unknown, Notinfile PCP - General 01/07/21 06/19/21 Zoraida Franco MD [address] [place] [address] Family Medicine 01/07/21 06/19/21 Clemente Hamm DO [address] [place] [address] Medical Oncologist/Crating And Moving Estimator Hematology and Oncology 01/09/21 06/19/21 documented as of this encounter
--- OUTSIDE RECORDS SUMMARY | 2024-11-30 06:10 | XMS_ITS | Encounter Summary ---
Author Organization [facility] Address [address] [place] [address] Phone Care Team Providers Care Spooling Machine Operator Name Role Phone Zoraida Franco MD Primary Care Provi selvin Encounter Details Date Type Department Care Team (Late st Contact Info) Description 12/05/2020 Telephone [facility] Oncology [address] [facility] [address] [place] [address] Rebekah Ellsworth, [facility] Social History Tobacco Use Types Packs/Day Years [...] on file Legal Sex Male 7:51 PM GLASS BLOWER HELPER Gender Identity Not on file Sexual Orientation Not on file documented as of this encounter Miscellaneous Notes * Telephone Encounter - Rebekah [place], [place] - 12/05/2020 12:05 PM GLASS BLOWER HELPER Patients sister Vianey called stating they needed to cancel patients apt today because of a family emergency. Rescheduled apt to December at 2:30pm Rebekah MENDOSA S BLOWER HELPER documented in this encounter Plan of Treatment Not on file documented as of this encounter Visit Diagnoses Not on filedocumented in this encounter Care Teams Spooling Machine Operator Relationship Specialty Start Date End Date Zoraida Franco MD [address] [place] [address] PCP - General Family Medicine 09/22/20 01/06/21 documented as of this encounter
--- OUTSIDE RECORDS SUMMARY | 2024-11-30 06:10 | XMS_ITS | Encounter Summary ---
Author Organization [facility] Address [address] [facility] [address] [place] [address] Care Team Providers Care Pocket Cutter Name Role Phone Unknown, Notinfile Primary Care Provider Unavail able Zoraida Franco MD Unavailable [phone] Clemente Hamm DO Unavailable [phone] Encounter Details Date Type Department Care Team (Late st Contact Info) Description 02/15/2021 Telephone [facility] Pulmonology [address] [facility] [address] [place] [address] Susu Mcmahan, VICKY Social History Tobacco Use Types Packs/Day [...] on file Legal Sex Male 7:51 PM PAVER OPERATOR Gender Identity Not on file Sexual Orientation Not on file Occupation Industry Job Start Date Job End Date Disabled Not on file Not on file Not on file documented as of this encounter Miscellaneous Notes * Telephone Encounter - Jamie Pierce MD - 02/15/2021 10:39 AM CDT Okay to decrease CPAP pressure to 8 cm of water Patient should follow up with me in the office within 3-4 weeks * Telephone Encounter - Susu Mcmahan RN - 02/15/2021 10:35 AM CDT Pts mother called stating pt has been having multiple events throughout the night while using cpap.First night he wore it, which was about a week ago, he had 6, last night he had 14. Pts mother feels the pressure may be too high for the pt. Currently set at 10cm. Please advise. documented in this encounter Plan of Treatment Not on file documented as of this encounter Visit Diagnoses Not on filedocumented in this encounter Care Teams Pocket Cutter Relationship Specialty Start Date End Date Unknown, Notinfile PCP - General 01/07/21 06/19/21 Zroaida Franco MD [address] [place] [address] Family Medicine 01/07/21 06/19/21 Clemente Hamm DO [address] [place] [address] Medical Oncologist/Roustabout Crew Pusher Hematology and Oncology 01/09/21 06/19/21 documented as of this encounter
--- OUTSIDE RECORDS SUMMARY | 2024-11-30 06:10 | XMS_ITS | Encounter Summary ---
Author Organization [facility] Address [address] [facility] [address] [place] [address] Care Team Providers Care Senior Report Developer Name Role Phone Zoraida Franco MD Primary Care Provi selvin Reason for Visit * Reason Comments Sinus Problem slight cough and chuy inage Encounter Details Date Type Department Care Team (Late st Contact Info) Description 12/14/2020 10:45 AM FINAL RAIL CUTTER Telemedicine [facility] Family Medicine [address] [address] Miriam Loja PA [address] [id number] Acute non-recurrent pansinusitis (Primary Dx) Social History Tobacco Use Types [...] on file Legal Sex Male 7:51 PM FINAL RAIL CUTTER Gender Identity Not on file Sexual Orientation Not on file documented as of this encounter Last Filed Vital Signs Vital Sign Reading Time Taken Comments Blood Pressure - - Pulse 67 12/14/2020 10:39 AM FINAL RAIL CUTTER Temperature 36 ??C (96.8 ??F) 12/14/2020 10:39 AM FINAL RAIL CUTTER Respiratory Rate - - Oxygen Saturation 98% 12/14/2020 10:39 AM FINAL RAIL CUTTER Inhaled Oxygen Concentration - - Weight 69.9 kg (154 lb) 12/14/2020 10:39 AM FINAL RAIL CUTTER Height 154.9 cm (5' 1 ) 12/14/2020 10:39 AM FINAL RAIL CUTTER Body Mass Index 29.1 12/14/2020 10:39 AM FINAL RAIL CUTTER documented in this encounter Ordered Prescriptions Prescription Sig Dispense Quantity Refills Last Filled Start Date End Date fluticasone propionate (FLONASE) 50 mcg/actuation nasal sprayIndications:A cute non-recurrent pansinusitis Administer 2 sprays into each nostril daily 16 g 1 12/14/2020 2 amoxicillin-clavul anate (AUGMENTIN) 875-125 mg per tabletIndications: Acute non-recurrent pansinusitis Take 1 tablet by mouth 2 (two) times a day for 10 days 20 tablet 12/14/2020 1 amoxicillin-clavul anate (AUGMENTIN) 875-125 mg per tabletIndications: Acute non-recurrent pansinusitis Take 1 tablet by mouth 2 (two) times a day for 10 days 20 tablet 12/14/2020 1 fluticasone propionate (FLONASE) 50 mcg/actuation nasal sprayIndications:A cute non-recurrent pansinusitis Administer 2 sprays into each nostril daily 16 g 1 12/14/2020 1 documented in this encounter Progress Notes * Miriam Loja PA - 12/14/2020 10:45 AM CST Images from the original note were not included. Subjective/Objective Patient ID: Armin Rico is a 45 y.o. male. Chief Complaint Sinus Problem (slight cough and drainage) HPI This was a telemedicine visit with Armin Rico and his mother which took place via real-time video connection with [employer]. During the visit, I was located in the office and the patient was located athome in the state of [place]. The patient visit started at 1055 and ended at 1105. My total encounter time on 12/14/2020 was 20 minutes which was spent in the activities documented in the note. This includes time spent prior to the visit and after the visit in direct care of the patient. This time does not include time spent in any separately reportable services.. The patient has been informed that the visit may not be secure and acknowledged the information. I have explained the option of participating in a telephone or video visit during the COVID-19 public health emergency to the patient. After being given an opportunity to ask questions about and discuss this type of visit, the patient verbally consented to proceeding with the telephone/video visit.The patient understands that this service replaces an office visit and they may be billed and/or responsible for any applicable copayments. JORDAN Lafleur Very sad, his father from [facility] in aug[place] and grandmother last week Waking up with stuffy nose from dry air x 2-3 weeks Sleeping with oxygen at night Sinus tab, seems to help occ cough Afebrile Went to the last week He had covid at the end of july Review of Systems Constitutional: Positive for fatigue. Negative for chills, fever and unexpected weight change. HENT: Positive for congestion and sinus pressure. Negative for rhinorrhea. Respiratory: Positive for cough (Very mild, occasional). Negative for shortness of breath. Cardiovascular: Negative for chest pain and leg swelling. Skin: Negative for rash. Psychiatric/Behavioral: Grief reaction Physical Exam Vitals signs reviewed. Constitutional: General: He is not in acute distress. HENT: Head: Normocephalic. Pulmonary: Effort: Pulmonary effort is normal. No respiratory distress. Neurological: Mental Status: He is alert. Psychiatric: Mood and Affect: Mood normal. Behavior: Behavior normal. Thought Content: Thought content normal. Judgment: Judgment normal. Assessment/Plan Diagnoses and all orders for this visit: Acute non-recurrent pansinusitis (J01.40) (Primary) - fluticasone propionate (FLONASE) 50 mcg/actuation nasal spray; Administer 2 sprays into each nostril daily - amoxicillin-clavulanate (AUGMENTIN) 875-125 mg per tablet; Take 1 tablet by mouth 2 (two) times aday for 10 days Due to length of illness we will treat with antibiotic, please complete the whole course of antibiotics-no leftovers Actions and side effects of meds discussed Take meds as directed Increase fluids, rest and handwashing Hot water/hot tea with honey 1 teaspoon of honey every 4 hours No sharing cups or utensils May use [...] understanding and all questions have been answered L RAIL CUTTER documented in this encounter Miscellaneous Notes * Addendum Note - Miriam Loja PA - 12/14/2020 10:45 AM CSTAddended by: MIRIAM LOJA on: 12/14/2020 01:20 PM Modules accepted: Orders L RAIL CUTTER documented in this encounter Plan of Treatment Not on file documented as of this encounter Visit Diagnoses Diagnosis Acute non-recurrent pansinusitis- Primary documented in this encounter Discontinued Medications Medication Sig Discontinue Reason Start Date End Da te fluticasone propionate (FLONASE) 50 mcg/actuation nasal sprayIndications:Acute non-recurrent pansinusitis Administer 2 sprays into each nostril daily Reorder 12/14/2020 12/14/2020 amoxicillin-clavulanate (AUGMENTIN) 875-125 mg per tabletIndications:Acute non-recurrent pansinusitis Take 1 tablet by mouth 2 (two) times a day for 10 days Reorder 12/14/2020 12/14/2020 documented as of this encounter Care Teams Senior Report Developer Relationship Specialty Start Date End Date Zoraida Franco MD [address] [place] [address] PCP - General Family Medicine 09/22/20 01/06/21 documented as of this encounter
--- OUTSIDE RECORDS SUMMARY | 2024-11-30 06:10 | XMS_ITS | Encounter Summary ---
Author Organization [facility] Address [address] [facility] [address] [place] [address] Care Team Providers Care Cook Box Filler Name Role Phone Zoraida Franco MD Primary Care Provi selvin Reason for Referral * Cardiology (Routine) - Closed Specialty Diagnoses / Procedures Referred By Contmarcelino t Referred To Contact Diagnoses VSD (ventricular septal defect) Procedures Transthoracic Echo Complete W Doppler/CF Zoraida Franco MD [address] [place] [address] Phone: tel: fax: [address] [address] Referral ID Status Reason Start Date Expiration Date Visits Re quested Visits Authorized [id number] Closed 11/16/2020 12/16/2021 1 1 DIGGER Encounter Details Date Type Department Care Team (Late st Contact Info) Description 11/16/2020 Telephone [facility] Family Medicine [address] [address] Zoraiad Franco MD [address] [place] [address] Social History Tobacco Use Types [...] on file Legal Sex Male 7:51 PM ORE DIGGER Gender Identity Not on file Sexual Orientation Not on file documented as of this encounter Miscellaneous Notes * Telephone Encounter - Fanny Weaver LPN - 11/23/2020 2:42 PM ORE DIGGER Pt's mother was given the info last week on how to set up echo and referral DIGGER * Telephone Encounter - Cordelia Dyer LPN - 11/17/2020 2:52 PM ORE DIGGER Attempted to reach pt, LMOVM for call back. DIGGER * Telephone Encounter - Zoraida Franco MD - 11/16/2020 12:15 PM ORE DIGGER Ordered, thank you DIGGER * Telephone Encounter - Fanny Weaver LPN - 11/16/2020 11:33 AM ORE DIGGER Pt's mother is requesting and order for an echo to [facility]. She stated that pt gets one every 5 years and is due. She is also requesting a pulm referral to dr abbott for a sleep study for NILA DIGGER documented in this encounter Plan of Treatment Not on file documented as of this encounter Results * Transthoracic Echo Complete W Doppler/CF (12/14/2020 2:52 PM ORE DIGGER) Anatomical Region Laterality Modality Ultrasound 12/14/2020 2:52 PM ORE DIGGER Narrative 12/14/2020 4:52 PM ORE DIGGER ? Adult Echocardiogram + ----- -+ :Name: HAL FERNANDO ?Study Date: 12/14/2020 Status: CLI;MAINMHE ? : : ?Patient Location: [facility]: 60 in ? : : ? Weight: 164 lb ? BP: 120/74 mmHg: :: 1975 ? Gender: Male ? BSA: 1.7 m2 ? : :Reason For Study: VSD ?: :Ordering Physician: ?: :Zoraida Franco ? : : ? : :Performed By: Reese Stone, ? : :RDCS ? : + ----- -+ Procedure A two-dimensional transthoracic echocardiogram with color flow and Doppler was performed. The study was technically difficult. Left Ventricle Left ventricular chamber size is normal. Left ventricular systolic function is normal. The left ventricular ejection fraction is normal. Ejection Fraction = 55-60%. The left ventricular wall motion is normal. No obvious regional wall motion abnormalities noted. Right Ventricle The right ventricle is grossly normal size. Systolic function appears to be normal. Atria The left atrial size is normal. Right atrium not well visualized. Atrial septum not well seen. Mitral Valve The mitral valve is normal. There is no mitral valve stenosis. No significant mitral regurgitation noted. Tricuspid Valve The tricuspid valve is normal. TR noted by spectral doppler but not seen with color flow. Right ventricular systolic pressure is normal. Aortic Valve Difficult to assess number of leaflets. The aortic valve opens well. No aortic stenosis . No aortic regurgitation is present. Pulmonic Valve The pulmonic valve is not well seen, but is grossly normal. Great Vessels The aortic root is normal size. Pericardium There is no pericardial effusion. Diastology Mitral inflow pattern is normal. E/E prime ratio is 8 -15 which is in the indeterminate zone. Interpretation Summary Left ventricular systolic function is normal. Ejection Fraction = 55-60%. TR noted by spectral doppler but not seen with color flow. Right ventricular systolic pressure is normal. No obvious ventricular septal defect noted. But given the technical difficulties suggest transesophageal echocardiogram if there is any clinical suspicion of VSD. + + :Measurements with Normals ?: : ?(0.6-1.2 ?LVIDd: ?(3.5-5.7 ?? Ao root diam: ?(2.0-3.7 ?? : :IVSd: 1.0 cmcm) ? 3.6 cm ?cm) ?2.4 cm ? cm) ?: :LVPWd: ?(0.6-1.1 ?LVIDs: ?(3.1-4.6 ?? LA dimension: ?(1.9-4.0 ?? : :1.0 cm ?cm) ? 2.8 cm ?cm) ?2.3 cm ? cm) ?: + + MMode/2D Measurements & Calculations RVDd: 1.8 cm ? LVPWs: 1.2 cm FS: 22.9 % ?% IVS thick: 19.2 % IVSs: 1.2 cm ? EDV(Teich): 55.2 ml ? ESV(Teich): 29.3 ml ? Ao root area: 4.5 cm2 Doppler Measurements & Calculations MV E max castillo: ? MV dec time: ? Ao V2 max: ? LV V1 max P.9 cm/sec ? 0.27 sec ? 100.1 cm/sec ? 2.4 mmHg MV A max castillo: ?Ao max P.0 mmHgLV V1 mean P.2 cm/sec ?Ao V2 mean: ?1.0 mmHg MV E/A: 1.1 ?66.5 cm/sec ?LV V1 max: ? Ao mean PG: ?77.4 cm/sec ? 2.0 mmHg ? LV V1 mean: ? Ao V2 VTI: 17.2 cm 45.0 cm/sec ?LV V1 VTI: 13.1 cm ? TV V2 max: ?PA V2 max: ? RV V1 max: ? TR max castillo: 50.8 cm/sec ? 115.0 cm/sec ? 92.4 cm/sec ?251.0 cm/sec TV max P.0 mmHg PA max P.3 mmHg ? TR max PG: ?25.2 mmHg Electronically signed by: Zev Campo MD 12/14/2020 04:52 PM Resulting Agency Comment O Procedure Note Zev Campo MD - 12/14/2020 Adult Echocardiogram + ----- -+ :Name: HAL FERNANDO Study Date: 12/14/2020 Status: CLI;MAINMHE: : [facility]: 60 in: : Weight: 164 lb BP:120/74 mmHg: :: 1975 Gender: Male BSA: 1.7 m2: :Reason For Study: VSD: :Ordering Physician:: :Zoraida Franco: :: :Performed By: Reese Stone,: :RDCS: + ----- -+ Procedure A two-dimensional transthoracic echocardiogram with color flow and Dopplerwas performed. The study was technically difficult. Left Ventricle Left ventricular chamber size is normal. Left ventricular systolicfunction is normal. The left ventricular ejection fraction is normal. EjectionFraction = 55-60%. The left ventricular wall motion is normal. No obvious regionalwall motion abnormalities noted. Right Ventricle The right ventricle is grossly normal size. Systolic function appears zack normal. Atria The left atrial size is normal. Right atrium not well visualized. Atrial septum not well seen. Mitral Valve The mitral valve is normal. There is no mitral valve stenosis. Nosignificant mitral regurgitation noted. Tricuspid Valve The tricuspid valve is normal. TR noted by spectral doppler but not seenwith color flow. Right ventricular systolic pressure is normal. Aortic Valve Difficult to assess number of leaflets. The aortic valve opens well. Noaortic stenosis . No aortic regurgitation is present. Pulmonic Valve The pulmonic valve is not well seen, but is grossly normal. Great Vessels The aortic root is normal size. Pericardium There is no pericardial effusion. Diastology Mitral inflow pattern is normal. E/E prime ratio is 8 -15 which is inthe indeterminate zone. Interpretation Summary Left ventricular systolic function is normal. Ejection Fraction = 55-60%. TR noted by spectral doppler but not seen with color flow. Right ventricular systolic pressure is normal. No obvious ventricular septal defect noted. But given the technical difficulties suggest transesophageal echocardiogram if there is anyclinical suspicion of VSD. + + :Measurements with Normals: : (0.6-1.2 LVIDd: (3.5-5.7 Ao root diam:(2.0-3.7 : :IVSd: 1.0 cmcm) 3.6 cm cm) 2.4 cm cm): :LVPWd: (0.6-1.1 LVIDs: (3.1-4.6 LA dimension:(1.9-4.0 : :1.0 cm cm) 2.8 cm cm) 2.3 cm cm): + + MMode/2D Measurements & Calculations RVDd: 1.8 cm LVPWs: 1.2 cm FS: 22.9 % % IVS thick: 19.2% IVSs: 1.2 cm EDV(Teich): 55.2 ml ESV(Teich): 29.3 ml Ao root area: 4.5 cm2 Doppler Measurements & Calculations MV E max castillo: MV dec time: Ao V2 max: LV V1 max P.9 cm/sec 0.27 sec 100.1 cm/sec 2.4 mmHg MV A max castillo: Ao max P.0 mmHgLV V1 mean P.2 cm/sec Ao V2 mean: 1.0 mmHg MV E/A: 1.1 66.5 cm/sec LV V1 max: Ao mean P.4 cm/sec 2.0 mmHg LV V1 mean: Ao V2 VTI: 17.2 cm 45.0 cm/sec LV V1 VTI: 13.1cm TV V2 max: PA V2 max: RV V1 max: TR max castillo: 50.8 cm/sec 115.0 cm/sec 92.4 cm/sec 251.0 cm/sec TV max P.0 mmHg PA max P.3 mmHg TR max P.2 mmHg Electronically signed by: Zev Campo MD 12/14/2020 04:52 PM us Zoraida Franco MD CV ECHO PROCEDURES Final Result documented in this encounter Visit Diagnoses Diagnosis VSD (ventricular septal defect)- Primary Ventricular septal defect Nocturnal hypoxia VSD (ventricular septal defect) Ventricular septal defect documented in this encounter Care Teams Cook Box Filler Relationship Specialty Start Date End Date Zoraida Franco MD [address] [place] [address] PCP - General Family Medicine 09/22/20 01/06/21 documented as of this encounter
--- OUTSIDE RECORDS SUMMARY | 2024-11-30 06:10 | XMS_ITS | Encounter Summary ---
Author Organization [facility] Address [address] [facility] [address] [place] [address] Care Team Providers Care Movie Star Name Role Phone Unknown, Notinfile Primary Care Provider Unavail able Zoraida Franco MD Unavailable [phone] Clemente Hamm DO Unavailable [phone] Encounter Details Date Type Department Care Team (Late st Contact Info) Description 01/19/2021 Orders Only [facility] Testing Site - [facility] Building [address] [place] [address] [address] [place] [address] Kandy Hannah, NURSING STAFFING COORDINATOR [address] [facility] [address] [place] [address] [place] [address] Pre-procedure lab exam (Primary Dx) Social History Tobacco Use Types [...] on file Legal Sex Male 7:51 PM LOPPER Gender Identity Not on file Sexual Orientation Not on file documented as of this encounter Progress Notes * Yolande Lara - 01/19/2021 8:37 AM CST Pre-procedure ?? Date of Px/chemo/treatment/placement/transfer 02/03/2021 ?? Testing site patient will be sent to: [place], [place] ?? Date testing requested: 01/31/2021 ?? Testing: COVID-RNA ?? Is this the first COVID-19 test for this patient? Unknown ?? Does the patient currently work in a healthcare facility with direct patient contact? Unknown ?? Is the patient a resident of a congregate care or living setting? Unknown ?? Is the patient ? No ?? Please select the performing region: [facility] ?? ER documented in this encounter Plan of Treatment Not on file documented as of this encounter Results * COVID-19 Coronavirus RNA Nasopharyngeal (01/31/2021 1:27 PM LOPPER) [facility] COVID-19 RNA Not Detected [facility] Comment: Testing performed as a component of [...] and NAAT . ??Testing performed by the [facility] Molecular Infectious Disease Laboratory. The 2019-Novel Coronavirus Assay (COVID-19)Real Time RT-PCR assay is [...] January 05, 2021. First COVID-19 test? Unknown [facility] Comment:Testing performed by : [facility], [address] [facility], [address] Employeed in healthcare? Unknown [facility] Comment:Testing performed by : [facility], [address] [facility], [address] status? No [facility] Comment:Testing performed by : [facility], [address] [facility], [address] Group care resident? Unknown [facility] Comment:Testing performed by : [facility], [address] [facility], [address] Hospitalized? No [facility] Comment:Testing performed by : [facility], [address] [facility], [address] Is patient in ICU? No [facility] Comment:Testing performed by : [facility], [address] [place] [address], [id number] Symptomatic as defined by CDC? No [facility] Comment:Testing performed by : [facility], [address] [place] [address], [id number] Nasopharyngeal 01/31/2021 1: 27 PM LOPPER 01/31/2021 8:13 PM LOPPER Narrative [facility] - 02/01/2021 6:47 AM LOPPER What is the reason for testing?->Screening prior to scheduled procedure or surgery us Kandy Hannah NURSING STAFFING COORDINATOR LAB MICROBIOLOGY - [facility] ORDERABLES Final Result Performing Organization Address City/State/[facility] Co de Phone Number [facility] Department [place] [address] documented in this encounter Visit Diagnoses Diagnosis Pre-procedure lab exam- Primary Pre-procedural laboratory examination Pre-procedure lab exam Pre-procedural laboratory examination documented in this encounter Care Teams Movie Star Relationship Specialty Start Date End Date Unknown, Notinfile PCP - General 01/07/21 06/19/21 Zoraida Franco MD [address] [place] [address] Family Medicine 01/07/21 06/19/21 Clemente Hamm DO [address] [place] [address] Medical Oncologist/Restorative Art Embalmer Hematology and Oncology 01/09/21 06/19/21 documented as of this encounter
--- OUTSIDE RECORDS SUMMARY | 2024-11-30 06:10 | XMS_ITS | Encounter Summary ---
Author Organization [facility] Address [address] [facility] [address] [place] [address] Care Team Providers Care Microsoft Dynamics Ax Consultant Name Role Phone Unknown, Notinfile Primary Care Provider Unavail able Zoraida Franco MD Unavailable [phone] Clemente Hamm DO Unavailable Encounter Details Date Type Department Care Team (Late st Contact Info) Description 01/23/2021 Telephone [facility] Family Medicine [address] [address] Zoraida Franco MD [address] [address] Social History Tobacco Use Types [...] on file Legal Sex Male 7:51 PM CHIP LOFT WORKER Gender Identity Not on file Sexual Orientation Not on file Occupation Industry Job Start Date Job End Date Disabled Not on file Not on file Not on file documented as of this encounter Miscellaneous Notes * Telephone Encounter - Zoraida Franco MD - 01/23/2021 12:38 PM CHIP LOFT WORKER Noted, thank you LOFT WORKER * Telephone Encounter - Cordelia Dyer LPN - 01/23/2021 12:27 PM CHIP LOFT WORKER I called and spoke with patients mom. She stated she is going to do some research on who she wants him to see then call us back and let us know. LOFT WORKER * Telephone Encounter - Zoraida Franco MD - 01/23/2021 12:09 PM CHIP LOFT WORKER I have reviewed the patient's note from his blood specialist- it looks like he wants the patient tosee a supervisor coke handling. Would they want to go local or to [place]? Thank you LOFT WORKER documented in this encounter Plan of Treatment Not on file documented as of this encounter Visit Diagnoses Not on filedocumented in this encounter Care Teams Microsoft Dynamics Ax Consultant Relationship Specialty Start Date End Date Unknown, Notinfile PCP - General 01/07/21 06/19/21 Zoraida Franco MD [address] [place] [address] Family Medicine 01/07/21 06/19/21 Clemente Hamm DO [address] [place] [address] Medical Oncologist/Toe Puller Hematology and Oncology 01/09/21 06/19/21 documented as of this encounter
--- OUTSIDE RECORDS SUMMARY | 2024-11-30 06:10 | XMS_ITS | Encounter Summary ---
Author Organization [facility] Address [address] [place] [address] Care Team Providers Care Skin Former Name Role Phone Unknown, Notinfile Primary Care Provider Unavail able Zoraida Franco MD Unavailable [phone] Encounter Details Date Type Department Care Team (Late st Contact Info) Description 01/07/2021 5:35 PM PRECISION INSTRUMENT AND TOOL MAKER Lab [address] [address] Pre-procedure lab exam Social History Tobacco Use [...] on file Legal Sex Male 7:51 PM PRECISION INSTRUMENT AND TOOL MAKER Gender Identity Not on file Sexual Orientation Not on file Occupation Industry Job Start Date Job End Date Disabled Not on file Not on file Not on file documented as of this encounter Plan of Treatment Not on file documented as of this encounter Procedures Procedure Name Priority Date/Time Associated Diagnosis Comments COVID-19 CORONAVIRUS RNA Routine 01/07/2021 9:30 AM PRECISION INSTRUMENT AND TOOL MAKER Pre-procedure lab exam documented in this encounter Results * COVID-19 Coronavirus RNA Nasopharyngeal (01/07/2021 9:30 AM PRECISION INSTRUMENT AND TOOL MAKER) COVID-19 RNA Not Detected [facility] Comment: [...] [facility]. The Novel Coronavirus Assay (COVID-19)Real Time RT-PCR assay is [...] Unknown [facility] Comment:Testing performed by : [facility], [address] [place]., [address] Employeed in healthcare? Unknown [facility] Comment:Testing performed by : [facility], [address] [place]., [address] status? No [facility] Comment:Testing performed by : [facility], [address] [place]., [address] Group care resident? Unknown [facility] Comment:Testing performed by : [facility], [address] [place]., [address] Hospitalized? No [facility] Comment:Testing performed by : [facility], [address] [place]., [address] Is patient in ICU? No [facility] Comment:Testing performed by : [facility], [address] [place]., [address] Symptomatic as defined by CDC? No [facility] Comment:Testing performed by : [facility], [address] [facility], [address] Nasopharyngeal 01/07/2021 9: 30 AM PRECISION INSTRUMENT AND TOOL MAKER 01/07/2021 7:38 PM PRECISION INSTRUMENT AND TOOL MAKER Narrative [facility] - 01/09/2021 4:25 AM PRECISION INSTRUMENT AND TOOL MAKER What is the reason for testing?->Screening prior to scheduled procedure or surgery Hannah Carter MANAGER OF HOSPITAL LAB MICROBIOLOGY - GENERAL ORDERABLES Final Result [facility] Department [place] [address] documented in this encounter Visit Diagnoses Diagnosis Pre-procedure lab exam Pre-procedural laboratory examination documented in this encounter Care Teams Skin Former Relationship Specialty Start Date End Date Unknown, Notinfile PCP - General 01/07/21 06/19/21 Zoraida Franco MD [facility] [address] [place] [address] Family Medicine 01/07/21 06/19/21 documented as of this encounter
--- OUTSIDE RECORDS SUMMARY | 2024-11-30 06:10 | XMS_ITS | Encounter Summary ---
Author Organization [facility] Address [address] [facility] [address] [place] [address] Care Team Providers Care Stamp Clerk Name Role Phone Zoraida Franco MD Primary Care Provi selvin Unknown, Notinfile Primary Care Provider Unavail able Zoraida Franco MD Unavailable [phone] Encounter Details Date Type Department Care Team (Late st Contact Info) Description 12/22/2020 Orders Only [facility] Testing Site - [address] [place] [address] Hannah Carter, SHOVEL MECHANIC [address] [facility] [address] [address] Pre-procedure lab exam (Primary Dx) Social [...] on file Legal Sex Male 7:51 PM TILE PICKER Gender Identity Not on file Sexual Orientation Not on file documented as of this encounter Progress Notes * Alexus Hilario CLT - 12/22/2020 1:09 PM CST Testing types: Pre-procedure ?? Date of Px/chemo/treatment/placement/transfer 01/10/2021 ?? Testing site patient will be sent to: [place], [place] ?? Date testing requested: 01/07/2021 ?? Testing: COVID-RNA ?? Is this the first COVID-19 test for this patient? Does the patient currently work in a healthcare facility with direct patient contact? Unknown ?? Is the patient a resident of a congregate care or living setting? Unknown ?? Is the patient ? No ?? Please select the performing region: [facility] PICKER documented in this encounter Plan of Treatment Not on file documented as of this encounter Results * COVID-19 Coronavirus RNA Nasopharyngeal (01/07/2021 9:30 AM TILE PICKER) Pathologist [facility] COVID-19 RNA Not Detected [facility] Comment: Testing performed as a component of [...] and NAAT . ??Testing performed by the [facility] Molecular Infectious Disease Laboratory. The 2019Novel Coronavirus Assay (COVID-19)Real Time RT-PCR assay is [...] January 05, 2021. First COVID-19 test? Unknown [facility] Comment:Testing performed by : [facility], [address] [facility], [address] Employeed in healthcare? Unknown [facility] Comment:Testing performed by : [facility], [address] [place] [address], [address] status? No [facility] Comment:Testing performed by : [facility], [address] [place] [address], [id number] Group care resident? Unknown [facility] Comment:Testing performed by : [facility], [address] [place] [address], [address] Hospitalized? No [facility] Comment:Testing performed by : [facility], [address] [place] [address], [address] Is patient in ICU? No [facility] Comment:Testing performed by : [facility], [address] [place] [address], [address] Symptomatic as defined by CDC? No [facility] Comment:Testing performed by : [facility], [address] [place] [address], [address] Nasopharyngeal 01/07/2021 9: 30 AM TILE PICKER 01/07/2021 7:38 PM TILE PICKER Narrative [facility]NAL[facility] - 01/09/2021 4:25 AM TILE PICKER What is the reason for testing?->Screening prior to scheduled procedure or surgery Hannah Carter SHOVEL MECHANIC LAB MICROBIOLOGY - GENERAL ORDERABLES Final Result [facility] Department [place] [address] documented in this encounter Visit Diagnoses Diagnosis Pre-procedure lab exam- Primary Pre-procedural laboratory examination Pre-procedure lab exam Pre-procedural laboratory examination documented in this encounter Care Teams Stamp Clerk Relationship Specialty Start Date End Date Zoraida Franco MD [address] [place] [address] PCP - General Family Medicine 09/22/20 01/06/21 Unknown, Notinfile PCP - General 01/07/21 06/19/21 Zoraida Franco MD [address] [place] [address] Family Medicine 01/07/21 06/19/21 documented as of this encounter
--- OUTSIDE RECORDS SUMMARY | 2024-11-30 06:10 | XMS_ITS | Encounter Summary ---
Author Organization [facility] Address [address] [facility] [address] [place] [address] Care Team Providers Care Motorcycle Repairer Name Role Phone Unknown, Notinfile Primary Care Provider Unavail able Zoraida Franco MD Unavailable [phone] Clemente Hamm DO Unavailable [phone] Reason for Visit * Reason Comments Sinus Problem runny nose, cough x 3 months Earache bilateral ear pain x 1 day Encounter Details Date Type Department Care Team (Late st Contact Info) Description 02/10/2021 10:45 AM COMBINATION TECHNICIAN Office Visit [facility] Family Medicine [address] [address] Yudi Suggs PA [address] [id number] Hearing loss due to cerumen impaction, right (Primary Dx); Rhinorrhea Social History Tobacco Use Types Packs/Day Years [...] on file Legal Sex Male 7:51 PM COMBINATION TECHNICIAN Gender Identity Not on file Sexual Orientation Not on file Occupation Industry Job Start Date Job End Date Disabled Not on file Not on file Not on file documented as of this encounter Last Filed Vital Signs Vital Sign Reading Time Taken Comments Blood Pressure 120/68 02/10/2021 10:38 AM COMBINATION TECHNICIAN Pulse 81 02/10/2021 10:38 AM COMBINATION TECHNICIAN Temperature 36.3 ??C (97.3 ??F) 02/10/2021 1 0:38 AM COMBINATION TECHNICIAN Respiratory Rate 16 02/10/2021 10:3 8 AM COMBINATION TECHNICIAN Oxygen Saturation 96% 02/10/2021 10: 38 AM COMBINATION TECHNICIAN Inhaled Oxygen Concentration - - Weight 78.4 kg (172 lb 12.8 oz) 021 10:38 AM COMBINATION TECHNICIAN Height 153.7 cm (5' 0.5 ) 02/10/2021 10 :38 AM COMBINATION TECHNICIAN Body Mass Index 33.19 02/10/2021 10:38 AM COMBINATION TECHNICIAN documented in this encounter Progress Notes * Yudi Suggs PA - 02/10/2021 10:45 AM CST Subjective/Objective Patient ID: Armin Rico is a 45 y.o. male. Chief Complaint Chief Complaint Patient presents with ??? Sinus Problem runny nose, cough x 3 months ??? Earache bilateral ear pain x 1 day HPI Patient's mom reports runny nose since November with occasional cough. He has been seen via video twice and treated with antibiotics both times (Augmentin and Doxycycline). These symptoms are persisting. She is giving him Zyrtec and Flonase. She does mention they moved into a new house recently and have been working on it. There has been alot of dust in the air as a result. A few years ago when they lived here, he developed seasonal allergies. He also has history of cerumen impaction, mom is wondering if that could be contributing to his symptoms as well. Earache There is pain in both ears. This is a new problem. The current episode started today. There has been no fever. Associated symptoms include coughing (occasional), hearing loss and rhinorrhea. Pertinent negatives include no abdominal pain, diarrhea, headaches, rash, sore throat or vomiting. Treatments tried: Zyrtec, Flonase. Review of Systems Constitutional: Negative for chills and fever. HENT: Positive for ear pain (bilateral), hearing loss, postnasal drip and rhinorrhea. Negative for congestion, dental problem, sinus pressure, sinus pain, sneezing and sore throat. Respiratory: Positive for cough (occasional). Negative for shortness of breath and wheezing. Cardiovascular: Negative for chest pain and palpitations. Gastrointestinal: Negative for abdominal pain, constipation, diarrhea, nausea and vomiting. Skin: Negative for rash. Neurological: Negative for dizziness, light-headedness and headaches. BP 120/68 (BP Location: Right arm, Patient Position: Sitting) Pulse 81 Temp 36.3 ??C (97.3 ??F)(Temporal) Resp 16 Ht 153.7 cm (5' 0.5 ) Wt 78.4 kg (172 lb 12.8 oz) SpO2 96% BMI 33.19 kg/m?? Physical Exam Vitals and nursing note reviewed. Constitutional: Appearance: He is well-developed. HENT: Head: Normocephalic and atraumatic. Right Ear: Hearing and external ear normal. There is impacted cerumen. Left Ear: Hearing, tympanic membrane, ear canal and external ear normal. Nose: Nose normal. No mucosal edema or rhinorrhea. Right Sinus: No maxillary sinus tenderness or [...] Diagnoses and all orders for this visit: Hearing loss due to cerumen impaction, right (Primary) Rhinorrhea 1. Procedure: Removal impacted cerumen. I was unable to remove the cerumen from the right ear canal. A mixture of hydrogen peroxide and warm water was irrigated into right ear by ADWOA Mcfarlane. Cerumen removal was successful. I reexamined the ear- finding that EAC is non-red, and TM is intact. Patient tolerated procedure well. Symptoms improved after removal. 2. Likely secondary to allergies and/or the construction work going on at home. Advised mom to continue giving him Zyrtec in the morning and using Flonase at night. She will follow-up with any new or changing symptoms. They both voiced agreement with this plan. Reviewed BMI Focus on healthy diet options Work on healthy changes INATION TECHNICIAN documented in this encounter Plan of Treatment Not on file documented as of this encounter Visit Diagnoses Diagnosis Hearing loss due to cerumen impaction, right- Primary Rhinorrhea Other diseases of nasal cavity and sinuses documented in this encounter Historical Medications * This list may reflect changes made after this encounter. cetirizine (ZyrTEC) 10 mg tablet Take 10 mg by mouth daily 03/27/2022 added in this encounter Care Teams Motorcycle Repairer Relationship Specialty Start Date End Date Unknown, Notinfile PCP - General 01/07/21 06/19/21 Zoraida Franco MD [address] [place], [place] [id number] Family Medicine 01/07/21 06/19/21 Clemente Hamm DO [address] [place] [address] Medical Oncologist/Manager Auto Hematology and Oncology 01/09/21 06/19/21 documented as of this encounter
--- OUTSIDE RECORDS SUMMARY | 2024-11-30 06:10 | XMS_ITS | Encounter Summary ---
Author Organization [facility] Address [address] [facility] [address] [place] [address] Care Team Providers Care Clip Wrapper Name Role Phone Unknown, Notinfile Primary Care Provider Unavail able Zoraida Franco MD Unavailable [phone] Clemente Hamm DO Unavailable [phone] Reason for Visit * Reason Onset Date Comments still having sinus issues/med done 01/13/2021 Encounter Details Date Type Department Care Team (Late st Contact Info) Description 01/13/2021 Telephone [facility] Family Medicine [address] [address] Zoraida Franco MD [address] [address] still having sinus issues/med done Social History Tobacco Use Types Packs/Day Years [...] on file Legal Sex Male 7:51 PM WAREHOUSE RECORD CLERK Gender Identity Not on file Sexual Orientation Not on file Occupation Industry Job Start Date Job End Date Disabled Not on file Not on file Not on file documented as of this encounter Miscellaneous Notes * Telephone Encounter - Cordelia Dyer LPN - 01/13/2021 2:59 PM WAREHOUSE RECORD CLERK JORDAN Ava has left for the day. I let her know we can do a video visit or have patient seen at the respiratory clinic. Per request, pt scheduled for video visit with JORDAN Bagley. HOUSE RECORD CLERK * Telephone Encounter - Graciela Stanton - 01/13/2021 1:30 PM CST Pt saw JORDAN Loja in Dec for a sinus infection and given augmentin. Mom said that he is still having sinus issues and was wondering if they can get another round of antibiotics. He did have a Covid test this week that was negative. Maya can be reached at [phone] Thank you/nh HOUSE RECORD CLERK documented in this encounter Plan of Treatment Not on file documented as of this encounter Visit Diagnoses Not on filedocumented in this encounter Care Teams Clip Wrapper Relationship Specialty Start Date End Date Unknown, Notinfile PCP - General 01/07/21 06/19/21 Zoraida Franco MD [address] [place] [address] Family Medicine 01/07/21 06/19/21 Clemente Hamm DO [address] [place] [address] Medical Oncologist/Core Shaper Sides Hematology and Oncology 01/09/21 06/19/21 documented as of this encounter
--- OUTSIDE RECORDS SUMMARY | 2024-11-30 06:10 | XMS_ITS | Encounter Summary ---
Author Organization [facility] Healthcare Address [address] [place] [address] Care Team Providers Care Shotblaster Name Role Phone Unavailable Primary Care Provider Unavailabl e Encounter Details Date Type Department Care Team (Latest Contact Info) Description 04/22/2016 6:14 PM CDT - 04/22/2016 8:57 PM CDT [facility] [address] [place] [address] Left lower quadrant pain; Down's syndrome; Intellectual disability Social History Tobacco Use Types Packs/Day Years Used Date Smoking Tobacco: Never Assessed Sex and Gender Information Value Date Recorded Sex Assigned at Not on file Legal Sex Male 7:51 PM ACCOUNT SUPPORT ASSOCIATE Gender Identity Not on file Sexual Orientation Not on file documented as of this encounter Last Filed Vital Signs Vital Sign Reading Time Taken Comments Blood Pressure 102/82 04/22/2016 6:16 PM CDT Pulse 72 04/22/2016 6:16 PM CDT Temperature 36.7 ??C (98 ??F) 04/22/2016 6:16 PM CDT Respiratory Rate - - Oxygen Saturation 97% 04/22/2016 6:16 PM CDT Inhaled Oxygen Concentration - - Weight 72.6 kg (160 lb) 04/22/2016 6:16 PM CDT Height 153.7 cm (5' 0.5 ) 04/22/2016 6:16 PM CDT Body Mass Index 30.73 04/22/2016 6:16 PM CDT documented in this encounter Plan of Treatment Not on file documented as of this encounter Procedures Procedure Name Priority Date/Time Associated Diagnosis Comments CBC WITH AUTO DIFFERENTIAL Routine 04/22/2016 7:33 PM CDT LIPASE Routine 04/22/2016 7:33 PM CDT COMPREHENSIVE METABOLIC PANEL Routine 04/22/2016 7:33 PM CDT UA WITH CULTURE REFLEX Routine 6 7:[address] ABDOMEN PELVIS WO CONTRAST Routine 04/22/2016 12:00 AM CDT documented in this encounter Results * Lipase (04/22/2016 7:33 PM CDT) Lipase 29 13 - 60 U/L 04/22/2016 8:31 PM CDT [facility] HISTORICAL RESULTS 04/22/2016 7:33 PM CDT 04/22/2016 7:54 PM CDT us Jordon Mitchell MD LAB BLOOD ORDERABLES Fin al Result [facility] HISTORICAL RESULTS * (ABNORMAL) Comprehensive metabolic panel (04/22/2016 7:33 PM CDT) Sodium 141 135 - 145 mmol/L 04/22/2016 8:31 PM CDT [facility] HISTORICAL RESULTS Potassium 3.9 3.3 - 5.1 mmol/L 04/22/2016 8:31 PM T [facility] HISTORICAL RESULTS Chloride 103 96 - 108 mmol/L 04/22/2016 8:31 PM T [facility] HISTORICAL RESULTS Carbon Dioxide 25 22 - 32 mmol/L 04/22/2016 8:31 PM T [facility] HISTORICAL RESULTS Anion Gap 13 7 - 16 04/22/2016 8:31 PM CDT [facility] HISTORICAL RESULTS Glucose 89 70 - 100 mg/dL 04/22/2016 8:31 PM CDT [facility] HISTORICAL RESULTS BUN 16 6 - 20 mg/dL Creatinine 1.2 0.5 - 1.3 mg/dL Comment: NOTE: Estimated GFR (Cockroft-Gault) will NOT be calculated unless patient Height and Weight were entered. Also, Kidney Disease Stage (GFR) and Estimated GFR (Cockroft-Gault) will NOT be calculated if Creatinine result is <0.2. Kidney Disease Stage 72 mL/MIN Comment: NOTE; ??The GFR is an estimated value using the creatinine, sex, age, and race of the patient. THE ESTIMATED GFR IS VALIDATED FOR AGES 18-70 YEARS STAGE ?mL/Min ?DESCRIPTION ??1 ?90 mL/min or more ?Normal or elevated GFR ??2 ? 60-89 mL/min ?Mildly decreased GFR ??3 ? 30-59 mL/min ?Moderately decreased GFR ??4 ? 15-29 mL/min ?Severely decreased GFR ??5 ? <15 mL/min ? Kidney failure or on dialysis @ Est GFR (Cockcroft-G) 70 ml/MIN Calcium 8.3(L) 8.6 - 10.0 mg/dL Total Protein 6.6 6.4 - 8.3 g/dL Albumin 3.9 3.5 - 5.2 g/dL Globulin 2.7 2.3 - 3.5 gm/dL 04/22/2016 8:31 PM CDT [facility] HISTORICAL RESULTS Albumin/Globulin Ratio 1.4 1.1 - 1.8 04/22/2016 8:31 PM CDT [facility] HISTORICAL RESULTS Total Bilirubin 0.2 0.0 - 1.2 mg/dL 04/22/2016 8:31 PM CDT [facility] HISTORICAL RESULTS AST 20 0 - 40 U/L 04/22/2016 8:31 PM T [facility] HISTORICAL RESULTS Comment: HEMOLYZED: Moderate hemolysis interferes with the above test. ALT 14 0 - 41 U/L 04/22/2016 8:31 PM CDT [facility] HISTORICAL RESULTS Alkaline Phosphatase 79 40 - 129 U/L 04/22/2016 8:31 PM T [facility] HISTORICAL RESULTS 04/22/2016 7:33 PM CDT 04/22/2016 7:54 PM CDT us Jordon Mitchell MD LAB BLOOD ORDERABLES Fin al Result [facility] HISTORICAL RESULTS * (ABNORMAL) CBC with auto differential (04/22/2016 7:33 PM CDT) WBC 3.9(L) 4.6 - 10.2 x10 3/ul RBC 5.09 4.11 - 5.71 x10 6/ul 04/22/2016 7:57 PM T [facility] HISTORICAL RESULTS Hemoglobin 16.3 13.0 - 17.0 g/dl 04/22/2016 7:57 PM T [facility] HISTORICAL RESULTS Hct 47.7 38.2 - 48.5 % 04/22/2016 7:57 PM T [facility] HISTORICAL RESULTS MCV 93.7 80.0 - 97.0 fl 04/22/2016 7:57 PM T [facility] HISTORICAL RESULTS MCH 32.0(H) 27.0 - 31.2 pg 04/22/2016 7:57 PM T [facility] HISTORICAL RESULTS MCHC 34.2 31.8 - 35.4 g/dl 04/22/2016 7:57 PM T [facility] HISTORICAL RESULTS RDW 13.0 11.6 - 14.8 % Plt Count 264 124 - 400 x10 3/ul MPV 9.3 7.4 - 10.4 fl Neut % 44.8 37.0 - 85.0 % Immature Gran % 0.3 0.0 - 3.0 % Lymph % 39.3 5.0 - 45.0 % Harney % 11.9 3.0 - 15.0 % Eos % 1.6 0.0 - 7.0 % Baso % 2.1(H) 0.0 - 2.0 % Absolute Neuts (auto) 1.7 1.7 - 8.7 x10 3/ul Immature Gran # 0.0 0.0 - 0.3 x10 3/ul Absolute Lymphs (auto) 1.5 0.2 - 4.6 x10 3/ul Absolute Monos (auto) 0.5 0.1 - 1.5 x10 3/ul Absolute Eos (auto) 0.1 0.0 - 0.7 x10 3/ul Absolute Basos (auto) 0.1 0.0 - 0.2 x10 3/ul 04/22/2016 7:33 PM CDT 04/22/2016 7:54 PM CDT us Jordon Mitchell MD LAB BLOOD ORDERABLES Fin al Result [facility] HISTORICAL RESULTS * UA with Culture Reflex (04/22/2016 7:06 PM CDT) Ur Collection Type CLEAN CATCH Ur Culture Indicated? C&S NOT INDICATED Urine Color STRAW YELLOW Urine Clarity CLEAR CLEAR Urine Glucose (UA) NORMAL NORMAL mg/dL Urine Bilirubin NEGATIVE NEGATIVE mg/dl Urine Ketones NEGATIVE NEGATIVE mg/dL Ur Specific Flagler 1.010 1.005 - 1.025 Urine Blood NEGATIVE NEGATIVE mg/dl Urine pH 6.0 5.0 - 8.0 Urine Protein NEGATIVE NEGATIVE mg/dL Urine Urobilinogen NORMAL NORMAL mg/dL Urine Nitrite NEGATIVE NEGATIVE Ur Leukocyte Esterase NEGATIVE NEGATIVE Robina/ul Ur Microscopic Review Not Indicated Urine RBC 1 0 - 2 /HPF Urine WBC <1 0 - 2 /HPF 04/22/2016 7:55 PM CDT [facility] HISTORICAL RESULTS Ur Squamous Epith Cells Rare /LPF 04/22/2016 7:55 PM CDT [facility] HISTORICAL RESULTS 04/22/2016 7:06 PM CDT 04/22/2016 7:39 PM CDT us Jordon Mitchell MD LAB URINE ORDERABLES Fin al Result [facility] HISTORICAL RESULTS * CT Abdomen Pelvis WO Contrast (04/22/2016 12:00 AM CDT) Anatomical Region Laterality Modality Body N/A Computed Tomogra phy 04/22/2016 Impressions 04/22/2016 7:55 PM CDT ??1. ??There is no evidence of obstructive uropathy. 2. ??There is diffuse thickening of the bladder wall which may be related to cystitis. - Automated exposure control was used as a dose optimization technique for this examination. THIS IS AN ELECTRONICALLY VERIFIED REPORT 04/22/2016 7:52 PM: ??Freida Lee M.D. ?? Freida Lee M.D. EF:ef 07:52 PM 07:52 PM MON [EOD] Narrative 04/22/2016 7:[address] abdomen and pelvis Date: ??04/22/2016 HISTORY: ??Left lower quadrant pain for 1 hour. FINDINGS: ??Transverse images through the abdomen were obtained without use of IV contrast. Comparisons are dated 09/20/2012 and 10/14/2011. ?? The lung bases are clear. ??The gallbladder is surgically absent. ??The liver, pancreas, spleen and adrenal glands are grossly normal. There are no renal stones bilaterally. ??There are no signs of obstructive uropathy. There is motion artifact on the exam limiting detail of the abdomen. ??There are no dilated loops of bowel to indicate obstruction. ??There is no free intraperitoneal air. ??The abdominal aorta is normal in caliber. The bladder wall is diffusely thickened. ??This may indicate cystitis in the correct clinical setting. ??There is no free pelvic fluid. ??No pelvic adenopathy is seen. There are no osseous destructive lesions. Procedure Note Provider, MD Deepak - 04/17/2021 CT abdomen and pelvis Date: 04/22/2016 HISTORY: Left lower quadrant pain for 1 hour. FINDINGS: Transverse images through the abdomen were obtained without useof IV contrast. Comparisons are dated 09/20/2012 and 10/14/2011. The lung bases are clear. The gallbladder is surgically absent. Theliver, pancreas, spleen and adrenal glands are grossly normal. There are no renal stones bilaterally. There are no signs of obstructive uropathy. There is motion artifact on the exam limiting detail of the abdomen.There are no dilated loops of bowel to indicate obstruction. There is no free intraperitoneal air. The abdominal aorta is normal in caliber. The bladder wall is diffusely thickened. This may indicate cystitis inthe correct clinical setting. There is no free pelvic fluid. No pelvic adenopathy is seen. There are no osseous destructive lesions. IMPRESSION: 1. There is no evidence of obstructive uropathy. 2. There is diffuse thickening of the bladder wall which may be relatedto cystitis. - Automated exposure control was used as a dose optimization technique forthis examination. THIS IS AN ELECTRONICALLY VERIFIED REPORT 04/22/2016 7:52 PM: Freida Lee M.D. Freida Lee M.D. EF:ef 07:52 PM 07:52 PM MON [EOD] Jordon Mitchell MD IMG CT PROCEDURES Final Result documented in this encounter Visit Diagnoses Diagnosis Left lower quadrant pain Abdominal pain, left lower quadrant Down's syndrome Intellectual disability Unspecified mental retardation documented in this encounter
--- OUTSIDE RECORDS SUMMARY | 2024-11-30 06:10 | XMS_ITS | Encounter Summary ---
Author Organization [facility] Address [address] [facility] [address] [place] [address] Care Team Providers Care Fuel System Maintenance Supervisor Name Role Phone Unknown, Notinfile Primary Care Provider Unavail able Zoraida Franco MD Unavailable [phone] Clemente Hamm DO Unavailable [phone] Reason for Visit * Reason Comments Congestion Continued Sinus dwight estion x3 weeks Encounter Details Date Type Department Care Team (Late st Contact Info) Description 01/13/2021 3:15 PM TRIMMING MACHINE SET UP OPERATOR Telemedicine [facility] [address] [phone] Yudi Suggs PA [address] [address] Acute non-recurrent sinusitis, unspecified location (Primary Dx); Nasal congestion Social History Tobacco Use Types Packs/Day Years [...] on file Legal Sex Male 7:51 PM 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 This was a telemedicine visit with Armin Rico and his momwhich took place via real-time video connection with [employer]. During the visit, I was located in the office and the patient was located at home in the [facility]. The patient visit started at 1504 and ended at 1515. The patient has been informed that the [...] and/or responsible for any applicable copayments. JORDAN Todd Subjective/Objective Patient ID: Armin Rico is a 45 y.o. male. Chief Complaint Chief Complaint Patient presents with ??? Congestion Continued Sinus congestion x3 weeks HPI Patient presents today for evaluation of persisting sinus symptoms. He was seen via video by JORDAN Escalante on 12/14/2020. He was treated with Augmentin and Flonase. The medication helped initially but symptoms have returned. He tested negative for COVID on 01/07/21. He had his first COVID vaccine on 01/10/21. His mom started giving him Zyrtec 2-3 days ago. Sinus Problem This is a new problem. Episode onset: x3 weeks. Maximum temperature: 99.4F. Associated symptoms include congestion and coughing. Pertinent negatives include no chills, ear pain, headaches, shortness of breath, sinus pressure, sneezing or sore throat. Past treatments include antibiotics (and OTC sinus medication, zyrtec, flonase). Review of Systems Constitutional: Negative for chills, fatigue and fever. HENT: Positive for congestion, postnasal drip and rhinorrhea. Negative for dental problem, ear pain, sinus pressure, sinus pain, sneezing and sore throat. Respiratory: Positive for cough. Negative for shortness of breath and wheezing. Cardiovascular: Negative for chest pain. Gastrointestinal: Negative for abdominal pain, constipation, diarrhea, nausea and vomiting. Skin: Negative for rash. Neurological: Negative for dizziness, light-headedness and headaches. There were no vitals taken for this visit. Physical Exam Vitals signs and nursing note reviewed. Constitutional: General: He is not in acute distress. Appearance: He is well-developed. He is not ill-appearing, toxic-appearing or diaphoretic. Comments: Exam limited due to video visit. HENT: Head: Normocephalic and atraumatic. Right Ear: Hearing and external ear normal. Left Ear: Hearing and external ear normal. Eyes: Extraocular Movements: Extraocular movements intact. Pulmonary: Effort: Pulmonary effort is normal. No respiratory distress. Breath sounds: No wheezing (No audible wheezing). Neurological: Mental Status: He is alert and oriented to person, place, and time. Psychiatric: Behavior: Behavior normal. Assessment/Plan Diagnoses and all orders for this visit: Acute non-recurrent sinusitis, unspecified location (Primary) Nasal congestion Other orders - doxycycline (VIBRAMYCIN) 100 mg capsule; Take 1 tablet/capsule (100 mg total) by mouth 2 (two) times a day for 7 days Discussed management options with his mom. Uncertain whether there is still an infection present. Iwill err on the side of caution and treat with a second round of antibiotics. Will treat with doxycycline twice a day for a week. Mom states he has taken this before and tolerated it well. Emphasized using Claritin and Flonase daily to help with the congestion and drainage. Can use nasal saline as needed. Increase fluids, rest and handwashing. No sharing cups or utensils. Good hand [...] understanding and all questions have been answered. MING MACHINE SET UP OPERATOR documented in this encounter Plan of Treatment Not on file documented as of this encounter Visit Diagnoses Diagnosis Acute non-recurrent sinusitis, unspecified location- Primary Nasal congestion Other diseases of nasal cavity and sinuses documented in this encounter Care Teams Fuel System Maintenance Supervisor Relationship Specialty Start Date End Date Unknown, Notinfile PCP - General 01/07/21 06/19/21 Zoraida Franco MD [address] [place] [address] Family Medicine 01/07/21 06/19/21 Clemente Hamm DO [address] [place] [address] Medical Oncologist/It Business Process Architect Hematology and Oncology 01/09/21 06/19/21 documented as of this encounter
--- OUTSIDE RECORDS SUMMARY | 2024-11-30 06:10 | XMS_ITS | Encounter Summary ---
Author Organization [facility] Address [address] [place] [address] Phone Care Team Providers Care Windows Laptop Technician Name Role Phone Unknown, Notinfile Primary Care Provider Unavail able Zoraida Franco MD Unavailable [phone] Clemente Hamm DO Unavailable Encounter Details Date Type Department Care Team (Late st Contact Info) Description 01/22/2021 Documentation [facility] Oncology [address] [facility] [address] [place] [phone] Clemente Hamm DO [address] [facility] [address] [place] [address] Social History Tobacco Use Types [...] on file Legal Sex Male 7:51 PM 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 Diagnostic studies: 1. JACIEL is positive with titers of 1:160 2. Comprehensive in a autoantibody panel shows a detected or positive double- stranded DNA antibody of IgG and an elevated are positive chromatin antibody IgG. 3. Repeat CBC showed a normal white count of 3.9 and normal neutrophil count. 4. LDH is normal 128. 5. SPEP is negative for paraprotein. 6. ESR slightly elevated 21. Impression: 1. 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 2. Intermittent leukopenia neutropenia probably due to underlying autoimmune disorder which is mildin nature. 3. Clinically, he has no symptoms and is asymptomatic. 4. I did not find any evidence of lymphoproliferative disorder or plasma cell dyscrasia. Recommendations: 1. I discuss the findings with the patient's mother over the telephone. 2. I would probably refer him to Rheumatology for further investigation on whether he does have an underlying autoimmune disorder such as lupus versus this being a false positive. 3. I will see him in 1 year with repeat blood work and examination. Patient mother voiced understanding over the telephone. Clemente Hamm D.O. Shooter Helper Division of medical oncology [facility] [employer] ATION DEPARTMENT REGISTRAR documented in this encounter Plan of Treatment Not on file documented as of this encounter Visit Diagnoses Not on filedocumented in this encounter Care Teams Windows Laptop Technician Relationship Specialty Start Date End Date Unknown, Notinfile PCP - General 01/07/21 06/19/21 Zoraida Franco MD [address] [place] [address] Family Medicine 01/07/21 06/19/21 Clemente Hamm DO [address] [place] [address] Medical Oncologist/Police Officer Booking Hematology and Oncology 01/09/21 06/19/21 documented as of this encounter
--- OUTSIDE RECORDS SUMMARY | 2024-11-30 06:10 | XMS_ITS | Encounter Summary ---
Author Organization [facility] Healthcare Address [address] [place] [address] Care Team Providers Care Vegetables Cook Name Role Phone Zoraida Franco MD Primary Care Provi selvin Reason for Referral * Cardiology (Routine) - Closed Specialty Diagnoses / Procedures Referred By Contac t Referred To Contact Diagnoses VSD (ventricular septal defect) Procedures Transthoracic Echo Complete W Doppler/CF Zoraida Franco MD [address] [place] [address] Phone: tel: fax: [address] [address] Referral ID Status Reason Start Date Expiration Date Visits Re quested Visits Authorized [id number] Closed 11/16/2020 12/16/2021 1 1 ETIC SCOUT Encounter Details Date Type Department Care Team (Late st Contact Info) Description 12/14/2020 2:27 PM ATHLETIC SCOUT Hospital Encounter [facility] OP INTERIM Zoraida Franco MD [address] [place] [address] VSD (ventricular septal defect) Social History Tobacco Use Types Packs/Day Years [...] on file Legal Sex Male 7:51 PM ATHLETIC SCOUT Gender Identity Not on file Sexual Orientation [...] 12/14/2020 2 documented as of this encounter Miscellaneous Notes * Result Encounter Note - Zoraida Franco MD - 12/14/2020 2:27 PM CST Pt's echo is overall normal- but the study was limited. Would she want armin to follow up with a administrative services manager? Thank you! ETIC SCOUT documented in this encounter Plan of Treatment Not on file documented as of this encounter Procedures Procedure Name Priority Date/Time Associated Diagnosis Comments TRANSTHORACIC ECHO (TTE) COMPLETE W DOPPLER/CF Routine 12/14/2020 2:52 PM ATHLETIC SCOUT VSD (ventricular septal defect) CARDIOLOGY REPORT 12/14/2020 12: 00 AM ATHLETIC SCOUT documented in this encounter Results * Transthoracic Echo Complete W Doppler/CF (12/14/2020 2:52 PM ATHLETIC SCOUT) Anatomical Region Laterality Modality Ultrasound 12/14/2020 2:52 PM ATHLETIC SCOUT Narrative 12/14/2020 4:52 PM ATHLETIC SCOUT ? Adult Echocardiogram + ----- -+ :Name: ARMIN FERNANDO ?Study Date: 12/14/2020 Status: CLI;MAINMHE ? : : ?Patient Location: [facility]: 62 in ? : : ? Weight: [...] 12/14/2020 Adult Echocardiogram + ----- -+ :Name: ARMIN FERNANDO Study Date: 12/14/2020 Status: CLI;MAINMHE: : Patient Location: [facility]: in: : Weight: 164 lb BP:120/74 mmHg: :: 1975 Gender: Male BSA: 1.7 m2: :Reason For Study: VSD: :Ordering Physician:: :Zoraida Franco: :: :Performed By: Reese Stone,: :CS: + ----- -+ Procedure A two-dimensional transthoracic [...] MD CV ECHO PROCEDURES Final Result * CARDIOLOGY REPORT (12/14/2020 12:00 AM ATHLETIC SCOUT) Anatomical Region Laterality Modality Other Narrative 12/14/2020 12:00 AM ATHLETIC SCOUT Ordered by an unspecified provider. us Historical Provider [facility] CARDIAC SERVICES JEREMY ARCHULETA Final Result documented in this encounter Visit Diagnoses Diagnosis VSD (ventricular septal defect) Ventricular septal defect documented in this encounter Care Teams Vegetables Cook Relationship Specialty Start Date End Date Zoraida Franco MD [facility] [address] [place] [address] PCP - General Family Medicine 09/22/20 01/06/21 documented as of this encounter
--- OUTSIDE RECORDS SUMMARY | 2024-11-30 06:10 | XMS_ITS | Encounter Summary ---
Author Organization [facility] Address [address] [facility] [address] [place] [address] Care Team Providers Care Meat Dresser Name Role Phone Zoraida Franco MD Primary Care Provi selvin Reason for Visit * Reason Onset Date Comments Echo sched 12-05-20 11/17/2020 Encounter Details Date Type Department Care Team (Late st Contact Info) Description 11/17/2020 Telephone [facility] Family Medicine [address] [phone] Zoraida Franco MD [address] [place] [phone] Echo sched 12-05-20 Social History Tobacco Use Types Packs/Day Years [...] on file Legal 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 ER SHIPPER * Telephone Encounter - Penelope Robert - 11/21/2020 10:00 AM CST Case submitted online to [email or web address] for [employer] (ph [phone], fax [phone]). ER SHIPPER * Telephone Encounter - Keren Kruger - 11/17/2020 3:21 PM CST Echo [facility] 12-05-20, 3pm ER SHIPPER documented in this encounter Plan of Treatment Not on file documented as of this encounter Visit Diagnoses Not on filedocumented in this encounter Care Teams Meat Dresser Relationship Specialty Start Date End Date Zoraida Franco MD [address] [place] [address] PCP - General Family Medicine 09/22/20 01/06/21 documented as of this encounter
--- OUTSIDE RECORDS SUMMARY | 2024-11-30 06:10 | XMS_ITS | Encounter Summary ---
Author Organization [facility] Address [address] [place] [address] Phone Care Team Providers Care Laborer Cutting Tool Name Role Phone Zoraida Franco MD Primary Care Provi selvin Unknown, Notinfile Primary Care Provider Unavail able Zoraida Franco MD Unavailable [phone] Lionel Jeffers DO Unavailable [phone] Zoraida Franco MD Primary Care Provi selvin Reason for Visit * Reason Comments Consult * Consultation (Routine) - Closed Specialty Diagnoses / Procedures Referred By Contac t Referred To Contact Hematology / Oncology Diagnoses Leukopenia, unspecified type Zoraida Franco MD [address] [place] [address] Phone: tel: fax: Lionel Jeffers DO [address] [address] Phone: tel: fax: Referral ID Status Reason Start Date Expiration Date V isits Requested Visits Authorized [id number] Closed Specialty Services Required 10/26/2020 11/25/2021 6 6 Encounter Details Date Type Department Care Team ([facility] st Contact Info) Description 12/19/2020 2:30 PM DIRECTOR BIOLOGICS Office Visit [facility] On[facility] [address] [facility] [address] [place] [address] Lionel Jeffers DO [address] [facility] [address] [place] [address] Leukopenia, unspecified type (Primary Dx) Social History [...] file Legal Sex Male 7:51 PM DIRECTOR BIOLOGICS Gender Identity Not on file Sexual Orientation Not on file Occupation Industry Job Start Date Job End Date Disabled Not on file Not on file Not on file documented as of this encounter Last Filed Vital Signs Vital Sign Reading Time Taken Comments Blood Pressure 99/58 12/19/2020 2:50 PM DIRECTOR BIOLOGICS Pulse 76 12/19/2020 2:50 PM DIRECTOR BIOLOGICS Temperature 36.6 ??C (97.9 ??F) 12/19/2020 2 :50 PM DIRECTOR BIOLOGICS Respiratory Rate 14 12/19/2020 2:50 PM DIRECTOR BIOLOGICS Oxygen Saturation 99% 12/19/2020 2:5 0 PM DIRECTOR BIOLOGICS Inhaled Oxygen Concentration - - Weight 76.9 kg (169 lb 9.6 oz) 12/19/19 21 2:50 PM DIRECTOR BIOLOGICS with shoes Height 153.7 cm (5' 0.5 ) 12/19/2020 2: 50 PM DIRECTOR BIOLOGICS Body Mass Index 32.58 12/19/2020 2:50 PM DIRECTOR BIOLOGICS documented in this encounter Progress Notes * Lionel Jeffers DO - 12/19/2020 2:30 PM CST Patient ID: Armin Rico is a 45 y.o. male. 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 1. Leukopenia/neutropenia is not usually seen in individuals with trisomy 21. 2. I will repeat a CBC with a peripheral smear analysis today. I will also order a serum protein electrophoresis, LDH, ESR and JACIEL just in case he has underlying autoimmune disorder or blood disorder. 3. I will contact the mother in the next week to let her know the results and further recommendations. MDM -30 minutes Patient Active Problem List Diagnosis ??? VSD (ventricular septal defect) ??? Leukopenia Diagnoses and all orders for this visit: Leukopenia, unspecified type (Primary) - Ambulatory referral to Hematology - Lab Draw Appt Request Arm Draw or Central Line Draw? Arm; What is your ordering location? IM Onc/Hem/BMT; Where will this patient receive treatment? [facility]; Future - Protein Electrophoresis, With Reflex, Serum; Future - Lactate dehydrogenase (LD); Future - Erythrocyte sedimentation rate; Future - CBC with auto differential; Future - JACIEL W/ HEP-2 SUBSTRATE,IGG BY IFA WITH REFLEX PATTERN SCUP CODE [id number] - Miscellaneous Test; Future - Clinic Appointment Request Follow up; LIONEL JEFFERS Clinic Appointment Location: [place] [address]; Future - Lab Draw Appt Request Arm Draw or Central Line Draw? Arm; What is your ordering location? IM Onc/Hem/BMT; Where will this patient receive treatment? [facility]; Future - CBC with auto differential; Future [...] change in appetite. He denies any lymphadenopathy. Past Medical History: Diagnosis Date ??? COVID-19 [...] 99% BMI 32.58 kg/m?? Physical Exam Vitals signs and nursing [...] Normal range of motion and neck supple. Cardiovascular: Rate and Rhythm: Normal rate and regular rhythm. Heart sounds: Normal heart sounds. No murmur. Pulmonary: Effort: Pulmonary effort is normal. No respiratory distress. Breath sounds: Normal breath sounds. Abdominal: General: Bowel sounds are normal. Palpations: Abdomen is soft. Tenderness: There is no abdominal tenderness. Musculoskeletal: Normal range of motion. Skin: General: Skin is warm and dry. [...] 10/28/2020 17 10 - 40 U/L Final CTOR BIOLOGICS documented in this encounter Miscellaneous Notes * Addendum Note - Janna Valderrama RN - 12/19/2020 2:30 PM CSTAddended by: JANNA VALDERRAMA on: 12/18/2021 10:58 AM Modules accepted: Orders CTOR BIOLOGICS documented in this encounter Plan of Treatment Not on file documented as of this encounter Procedures Procedure Name Priority Date/Time Associated Diagnosis Comments CBC WITH AUTO DIFFERENTIAL Routine 12/19/2020 4:37 PM DIRECTOR BIOLOGICS Leukopenia, unspecified type LACTATE DEHYDROGENASE Routine 12/19/2020 4:37 PM DIRECTOR BIOLOGICS Leukopenia, unspecified type MISCELLANEOUS LAB TEST Routine 4:36 PM DIRECTOR BIOLOGICS Leukopenia, unspecified type PROTEIN ELECTROPHORESIS, WITH REFLEX, SERUM Routine 12/19/2020 4:36 PM DIRECTOR BIOLOGICS Leukopenia, unspecified type ERYTHROCYTE SEDIMENTATION RATE Routine 12/19/2020 4:31 PM DIRECTOR BIOLOGICS Leukopenia, unspecified type documented in this encounter Results * (ABNORMAL) CBC with auto differential (12/19/2020 4:37 PM DIRECTOR BIOLOGICS) WBC 3.9 3.8 - 9.9 X10 3/ul [facility] RBC 5.06 4.30 - 5.80 x10 6/ul [facility] Hemoglobin 16.4 13.0 - 17.5 g/dL [facility] Hct 47.0 38.9 - 50.3 % [facility] MCV 92.9 81.3 - 96.4 [facility] MCH 32.4 27.1 - 33.3 pg [facility] MCHC 34.9 32.3 - 35.7 g/dl [facility] RDW 13.1 11.1 - 14.9 % [facility] Plt Count 257 150 - 400 x10 3/ul [facility] MPV 9.4 9.1 - 12.3 [facility] Neut % 40.3 % [facility] Immature Gran % 0.5 % [facility] Lymph % 43.9 % [facility] Emanuel % 12.0 % [facility] Eos % 1.5 % [facility] AUTO BASO % 1.8 % [facility] NEUTROPHIL ABS # 1.6(L) 1.7 - 6.5 x10 3/ul [facility] Immature Gran # 0.0 0.0 - 0.1 x10 3/ul [facility] Absolute Lymphs (auto) 1.7 0.8 - 3.3 x10 3/ul [facility] Absolute Monos (auto) 0.5 0.2 - 0.8 x10 3/ul [facility] Absolute Eos (auto) 0.1 0.0 - 0.5 x10 3/ul [facility] BASOPHIL ABS # 0.1 0.0 - 0.1 x10 3/ul [facility] Nucleat RBC Rel Count 0.0 #/100WBC [facility] NRBC abs 0.00 0.00 - 0.01 x10 3/ul [facility] Absolute Neutrophils 1,600 200 - 8,000 /ul [facility] Blood specimen (specimen) 12/19/2020 4:37 PM DIRECTOR BIOLOGICS 12/19/2020 4:41 PM DIRECTOR BIOLOGICS Narrative Resulting Agency Comment RCR Lionel Jeffers DO LAB BLOOD ORDERABLES Final R esult Performing Organization Address [facility]/[place] [address] * Lactate dehydrogenase (LD) (12/19/2020 4:37 PM DIRECTOR BIOLOGICS) Lactate Dehydrogenase 128 100 - 250 U/L [facility] Blood specimen (specimen) 12/19/2020 4:37 PM DIRECTOR BIOLOGICS 12/19/2020 4:41 PM DIRECTOR BIOLOGICS Narrative Resulting Agency Comment RCR Lionel Jeffers DO LAB BLOOD ORDERABLES Final R esult Performing Organization Address [facility] de Phone Number [address] [address] * JACIEL W/ HEP-2 SUBSTRATE,IGG BY IFA WITH REFLEX PATTERN [facility] CODE [id number] - Miscellaneous Test (12/19/2020 4:36 PM DIRECTOR BIOLOGICS) Ref Lab Test Name JACIEL W HEP 2 SUBSTRATE, IGG [facility] Comment: Note: Results via Scanned Reports in EMR or by paper report only. Specimen sent to Reference lab. Results usually in 2-7 days. Miscellaneous 12/19/2020 4:3 6 PM DIRECTOR BIOLOGICS 12/19/2020 4:41 PM DIRECTOR BIOLOGICS Narrative [facility] - 01/09/2021 7:16 AM DIRECTOR BIOLOGICS Test Name JACIEL W/ HEP-2 SUBSTRATE,IGG BY IFA WITH REFLEX ?PATTERN [facility] CODE [id number] YEL R S [id number] JACIEL W HEP 2 SUBSTRATE, IGG Resulting Agency Comment RCR Lionel LevyIsabella Hansel DO LAB BLOOD ORDERABLES Final R esult [address] [address] * (ABNORMAL) Protein Electrophoresis, With Reflex, Serum (12/19/2020 4:36 PM DIRECTOR BIOLOGICS) Albumin (PEP) 3.73(A) 3.75 - 5.01 g/dL [facility] Ttdse-5-Fomrnnblq 0.30 0.19 - 0.46 g/dL [facility] Vajuj-7-Brcrwdrns 0.72 0.48 - 1.05 g/dL [facility] Beta Globulins 0.62 0.48 - 1.10 g/dL [facility] Gamma Globulins 0.93 0.62 - 1.51 g/dL [facility] Total protein SPE 6.3 6.3 - 8.2 g/dL [employer] SPE Interp See Note [facility] Comment: Normal SPEP pattern. ??Immunofixation electrophoresis (GILBERTO) is a more sensitive technique for the identification of small M-proteins. SPE EER See Note [facility] Comment: Access [employer] Enhanced Report using the link below: -Direct access: [email or web address] Performed By: [facility] [address] [place] [address] Correction Officer [place] [facility]: Clara Mcmanus MD Blood specimen (specimen) 12/19/2020 4:36 PM DIRECTOR BIOLOGICS 12/19/2020 4:41 PM DIRECTOR BIOLOGICS Narrative Resulting Agency Comment RCR Lionel Iversonnti DO LAB BLOOD ORDERABLES Final R esult [facility] [address] [place] [address], [facility] [phone] * (ABNORMAL) Erythrocyte sedimentation rate (12/19/2020 4:31 PM DIRECTOR BIOLOGICS) ESR 21(H) 1 - 15 mm/hr [facility] Blood specimen (specimen) 12/19/2020 4:31 PM DIRECTOR BIOLOGICS 12/19/2020 4:46 PM DIRECTOR BIOLOGICS Narrative Resulting Agency Comment RCR Lionel Jeffers DO LAB BLOOD ORDERABLES Final R esult [facility] [address] [place] [address], [facility] [phone] documented in this encounter Visit Diagnoses Diagnosis Leukopenia, unspecified type- Primary documented in this encounter Orders Outpatient Referral Count Last Ordered Date Fir st Ordered Date AMB REFERRAL TO HEMATOLOGY 1 12/19/2020 Appointment Requests Count Last Ordered Date Fi rst Ordered Date ONCBCN LAB APPOINTMENT 1 12/19/2020 documented in this encounter Care Teams Laborer Cutting Tool Relationship Specialty Start Date End Date Zoraida Franco MD [address] [place] [address] PCP - General Family Medicine 09/22/20 01/06/21 Unknown, Notinfile PCP - General 01/07/21 06/19/21 Zoraida Franco MD [address] [place] [address] PCP - General Family Medicine 06/20/21 Zoraida Franco MD [address] [place] [address] Family Medicine 01/07/21 06/19/21 Lionel Jeffers DO [address] [address] Medical Oncologist/Loop Sewer Hematology and Oncology 01/09/21 06/19/21 documented as of this encounter
--- OUTSIDE RECORDS SUMMARY | 2024-11-30 06:11 | XMS_ITS | Encounter Summary ---
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 Gender Identity Not on file Sexual Orientation Not on file documented as of this encounter Plan of Treatment Not on file documented as of this encounter Procedures Procedure Name Priority Date/Time Associated Diagnosis Comments US VEIN DUPLEX LOWER EXTREMITY BILATERAL COMPLETE Routine 08/03/2014 2:52 PM CDT documented in this encounter Results * US Vein Duplex Lower Extremity Bilateral Complete (08/03/2014 2:52 PM CDT) Anatomical Region Laterality Modality Vascular Bilateral Ultrasound 08/03/2014 2:52 PM CDT Impressions 08/04/2014 9:04 AM CDT ??No evidence of deep venous thrombosis in either lower extremity. ??Evidence of significant venous valve reflux in both greater saphenous veins with associated varicosities. NTS Job: [id number] Dictated By: Iván Torres MD Dictated For: Iván Torres MD [EOD] Narrative 08/04/2014 9:04 AM CDT DATE OF SERVICE: 08/03/2014 REASON FOR STUDY: ??Varicose veins. ??No thrombus seen in the common femoral, superficial femoral, popliteal, posterior tibial, peroneal veins bilaterally. ??There is evidence of venous valve reflux of both greater saphenous veins with a greater than 3 second refilling time. ??Vein diameters on the right side are 7.8 mm proximally, 6.6 above the knee and 5.8 below the knee. ??On the left side, vein diameters are mm in diameter proximally, 6.3 above the knee and 7.2 mm in diameter below the knee. Procedure Note Provider, MD Deepak - 04/17/2021 DATE OF SERVICE: 08/03/2014 REASON FOR STUDY: Varicose veins. No thrombus seen in the commonfemoral, superficial femoral, popliteal, posterior tibial, peroneal veinsbilaterally. There is evidence of venous valve reflux of both greatersaphenous veins with a greater than 3 second refilling time. Veindiameters on the right side are 7.8 mm proximally, 6.6 above the knee and5.8 below the knee. On the left side, vein diameters are mm indiameter proximally, 6.3 above the knee and 7.2 mm in diameter below theknee. IMPRESSION: No evidence of deep venous thrombosis in either lowerextremity. Evidence of significant venous valve reflux in both greatersaphenous veins with associated varicosities. NTS Job: [id number] Dictated By: Iván Torres MD Dictated For: Iván Torres MD [EOD] Glenna Blank MD [facility] PROCEDURES Final Result documented in this encounter Visit Diagnoses Diagnosis Pain in soft tissues of limb documented in this encounter
--- OUTSIDE RECORDS SUMMARY | 2024-11-30 06:11 | XMS_ITS | Encounter Summary ---
Author Organization [facility] Healthcare Address [address] [place] [address] Care Team Providers Care Moving Van Driver Name Role Phone Unavailable Primary Care Provider Unavailabl e Encounter Details Date Type Department Care Team (Latest Contact Info) Description 11/19/2014 7:23 AM MINES INSPECTOR Hospital Encounter [facility] OP Glenna Blank MD Family history of other specified malignant neoplasm Social History Tobacco Use Types Packs/Day Years Used Date Smoking Tobacco: Never Assessed Sex and Gender Information Value Date Recorded Sex Assigned at Not on file Legal Sex Male 7:51 PM MINES INSPECTOR Gender Identity Not on file Sexual Orientation Not on file documented as of this encounter Plan of Treatment Not on file documented as of this encounter Procedures Procedure Name Priority Date/Time Associated Diagnosis Comments US THYROID Routine 11/19/2014 7:25 AM MINES INSPECTOR documented in this encounter Results * US Thyroid (11/19/2014 7:25 AM MINES INSPECTOR) Anatomical Region Laterality Modality Head and Neck N/A Ultrasound 11/19/2014 7:25 AM MINES INSPECTOR Impressions 11/19/2014 1:48 PM MINES INSPECTOR ??Normal thyroid ultrasound. ??No suspicious thyroid nodules. THIS IS AN ELECTRONICALLY VERIFIED REPORT 11/19/2014 1:44 PM: ??Jean Tompkins M.D. Jean Tompkins M.D. CH:ranjeet 07:59 AM 08:33 AM [facility] [EOD] Narrative 11/19/2014 1:48 PM MINES INSPECTOR EXAMINATION: ??Thyroid ultrasound HISTORY: ??Family history thyroid cancer. ??V 16.8. TECHNIQUE: ??Multiple hilliard-scale and color Doppler images were obtained of the thyroid gland. COMPARISON: ??None. FINDINGS: ??The right thyroid lobe measures 4.8 x 1.6 x 1.6 cm. ??The left thyroid lobe measures 3.9 x 1.4 x 1.5 cm. ??The thyroid isthmus measures 0.2 cm. ??The thyroid gland is homogeneous. ??There are no focal nodules. ??Color Doppler imaging is unremarkable. Procedure Note Provider, MD Deepak - 04/17/2021 EXAMINATION: Thyroid ultrasound HISTORY: Family history thyroid cancer. V 16.8. TECHNIQUE: Multiple hilliard-scale and color Doppler images were obtained ofthe thyroid gland. COMPARISON: None. FINDINGS: The right thyroid lobe measures 4.8 x 1.6 x 1.6 cm. The left thyroid lobe measures 3.9 x 1.4 x 1.5 cm. The thyroid isthmus measures0.2 cm. The thyroid gland is homogeneous. There are no focal nodules. Color Doppler imaging is unremarkable. IMPRESSION: Normal thyroid ultrasound. No suspicious thyroid nodules. THIS IS AN ELECTRONICALLY VERIFIED REPORT 11/19/2014 1:44 PM: Jean Tompkins M.D. Jean Tompkins M.D. CH:ranjeet 07:59 AM 08:33 AM [facility] [EOD] us Glenna Blank MD IM US PROCEDURES Final Result documented in this encounter Visit Diagnoses Diagnosis Family history of other specified malignant neoplasm documented in this encounter
--- OUTSIDE RECORDS SUMMARY | 2024-11-30 06:11 | XMS_ITS | Encounter Summary ---
Author Organization [facility] Healthcare Address [address] [place] [address] Care Team Providers Care Sliver Handler Name Role Phone Unavailable Primary Care Provider Unavailabl e Encounter Details Date Type Department Care Team (Latest Contact Info) Description 11/18/2014 8:21 AM ORCHARD HAND Hospital Encounter [facility] OP Glenna Blank MD Other malaise and fatigue Social History Tobacco Use Types Packs/Day Years Used Date Smoking Tobacco: Never Assessed Sex and Gender Information Value Date Recorded Sex Assigned at Not on file Legal Sex Male 7:51 PM ORCHARD HAND Gender Identity Not on file Sexual Orientation Not on file documented as of this encounter Plan of Treatment Not on file documented as of this encounter Procedures Procedure Name Priority Date/Time Associated Diagnosis Comments THYROID PEROXIDASE ANTIBODY Routine 11/18/2014 8:40 AM [facility] T3, TOTAL Routine 11/18/2014 8:40 AM [facility] HAND TSH Routine 11/18/2014 8:40 AM [facility] T4, FREE Routine 11/18/2014 8:40 AM ORCHARD HAND documented in this encounter Results * Thyroid peroxidase antibody (TPO) (11/18/2014 8:40 AM [facility]CHARD HAND) Thyroglobulin 16.5 1.3 - 31.8 ng/mL 11/25/2014 1:25 AM [facility] HISTORICAL RESULTS Comment: INTERPRETIVE INFORMATION: Thyroglobulin by LC-MS/MS, ?? Serum/Plasma ?? Lower limit of detection for Thyroglobulin by LC-MS/MS is ?? 0.5 ng/mL. ?? Test developed and characteristics determined by [employer] ?? Laboratories. See Compliance Statement B: [employer]/ ?? Performed by [email or web address], ?? [address], [facility] [place] [address] ?? [email or web address].[email or web address], Finn Rao MD, Lab. Director ?? 11/18/2014 8:40 AM ORCHARD HAND 11/18/2014 8:58 AM ORCHARD HAND Glenna Blank MD LAB BLOOD ORDERABLES Final Resu lt Performing Organization Address [facility] de Phone Number [facility] HISTORICAL RESULTS * T3, total (11/18/2014 8:40 AM [facility]CH[facility] HAND) Total T3 1.10 0.80 - 2.00 ng/mL 11/18/2014 1:37 PM [facility] HISTORICAL RESULTS 11/18/2014 8:40 AM [facility]ARD HAND 11/18/2014 8:58 AM [facility] HAND Glenna Blank MD LAB BLOOD ORDERABLES Final Resu lt Performing Organization Address [facility] de Phone Number [facility] HISTORICAL RESULTS * T4, free (11/18/2014 8:40 AM [facility]) Free T4 1.17 0.93 - 1.70 ng/dL 11/18/2014 1:37 PM [facility] HISTORICAL RESULTS 11/18/2014 8:40 AM [facility] 11/18/2014 8:58 AM [facility] Glenna Blank MD LAB BLOOD ORDERABLES Final Resu lt Performing Organization Address [facility] Co de Phone Number [facility] HISTORICAL RESULTS * (ABNORMAL) TSH (11/18/2014 8:40 AM [facility]) TSH 4.76(H) 0.27 - 4.20 uIU/mL 11/18/2014 1:37 PM [facility] HISTORICAL RESULTS 11/18/2014 8:40 AM [facility] HAND 11/18/2014 8:58 AM [facility] HAND us Glenna Blank MD LAB BLOOD ORDERABLES Final Resu lt [facility] HISTORICAL RESULTS documented in this encounter Visit Diagnoses Diagnosis Other malaise and fatigue documented in this encounter
--- OUTSIDE RECORDS SUMMARY | 2024-11-30 06:11 | XMS_ITS | Encounter Summary ---
Author Organization [facility] Healthcare Address [address] [place] [address] Care Team Providers Care Overlock Operator Name Role Phone Unavailable Primary Care Provider Unavailabl e Encounter Details Date Type Department Care Team (Latest Contact Info) Description 12/22/2014 11:36 AM PRODUCTION COOK Hospital Encounter [facility] Zev Patterson MD [address] [facility] [address] [address] Mitral valve disorder Social History Tobacco Use Types Packs/Day Years Used Date Smoking Tobacco: Never Assessed Sex and Gender Information Value Date Recorded Sex Assigned at Not on file Legal Sex Male 7:51 PM PRODUCTION COOK Gender Identity Not on file Sexual Orientation Not on file documented as of this encounter Plan of Treatment Not on file documented as of this encounter Procedures Procedure Name Priority Date/Time Associated Diagnosis Comments TRANSTHORACIC ECHO (TTE) COMPLETE W DOPPLER/CF Routine 12/22/2014 11:00 AM PRODUCTION COOK CARDIOLOGY REPORT 12/22/2014 12: 00 AM PRODUCTION COOK documented in this encounter Results * Transthoracic Echo Complete W Doppler/CF (12/22/2014 11:00 AM PRODUCTION COOK) Anatomical Region Laterality Modality Ultrasound 12/22/2014 11:0 0 AM PRODUCTION COOK Narrative 12/22/2014 2:20 PM PRODUCTION COOK Results viewable in EMR, Cardiovasular [EOD] Procedure Note Provider, MD Deepak - 04/17/2021 Results viewable in EMR, Cardiovasular [EOD] us Zev Campo MD CV ECHO PROCEDURES Final Re sult * CARDIOLOGY REPORT (12/22/2014 12:00 AM PRODUCTION COOK) Anatomical Region Laterality Modality Other Narrative 12/22/2014 12:00 AM PRODUCTION COOK Ordered by an unspecified provider. Historical Provider [facility] JEREMY ARCHULETA Final Result documented in this encounter Visit Diagnoses Diagnosis Mitral valve disorder Mitral valve disorders documented in this encounter
--- OUTSIDE RECORDS SUMMARY | 2024-11-30 06:11 | XMS_ITS | Encounter Summary ---
Author Organization [facility] Healthcare Address [address] [place] [address] Care Team Providers Care Die Finisher Forging Name Role Phone Unavailable Primary Care Provider Unavailabl e Encounter Details Date Type Department Care Team (Latest Contact Info) Description 07/16/2013 9:28 AM CDT Hospital Encounter [facility] OP Glenna Blank MD Routine general medical examination at a health care facility; Vitamin D deficiency Social History Tobacco Use Types Packs/Day Years Used Date Smoking Tobacco: Never Assessed Sex and Gender Information Value Date Recorded Sex Assigned at Not on file 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 Gender Identity Not on file Sexual Orientation Not on file documented as of this encounter Plan of Treatment Not on file documented as of this encounter Procedures Procedure Name Priority Date/Time Associated Diagnosis Comments VITAMIN D 25 HYDROXY Routine 07/16/2013 9:45 AM CDT LIPID PANEL Routine 07/16/2013 9:45 AM CDT BASIC METABOLIC PANEL Routine 07/16/2013 9:45 AM CDT documented in this encounter Results * Vitamin D 25 hydroxy (07/16/2013 9:45 AM CDT) 25-OH Vitamin D Total 33 30 - 100 ng/mL 07/17/2013 9:47 AM CDT [facility] [place] HISTORICAL RESULTS Comment: Assay performed using chemiluminescent immunoassay. TEST INFORMATION: Vitamin D, 25 Hydroxy This assay accurately quantifies the sum of vitamin D3, 25-hydroxy and vitamin D2, 25-hydroxy. ?Deficiency: ? < 10 ng/mL ?Insufficiency: ? 10-29 ng/mL ?Optimum level: ?30-100 ng/mL ?Possible toxicity: ?>100 ng/mL No pediatric reference range established. 07/16/2013 9:45 AM CDT 07/16/2013 9:46 AM CDT [employer] [facility] [place]NOTE 2] HISTORICAL RESULTS - 07/17/2013 9:47 AM CDT JPT.FASTING 12HR us Glenna Blank MD LAB BLOOD ORDERABLES Final Resu lt [facility] [place]NOTE 2] HISTORICAL RESULTS * (ABNORMAL) Lipid panel (07/16/2013 9:45 AM CDT) Triglycerides 50 0 - 199 mg/dL 07/16/2013 12:10 PM T [facility] [place]NOTE 2] HISTORICAL RESULTS Comment:12 hr pc highly kate mmended for Triglyceride Cholesterol 177 0 - 199 mg/dL 07/16/2013 12:10 PM T [facility] [place]NOTE 2] HISTORICAL RESULTS Comment: Borderline: ??200-239 High Risk: ?? >239 HDL Cholesterol 77(H) 40 - 60 mg/dL 07/16/2013 12:10 PM T [facility] [place]NOTE 2] HISTORICAL RESULTS Comment: Major Risk ?< 40 mg/dL Moderate Risk ?40-60 mg/dL Negative Risk ?? > 60 mg/dL LDL Cholesterol, Calc 90 0 - 130 mg/dL 07/16/2013 12:10 PM T [facility] [place]NOTE 2] HISTORICAL RESULTS Comment:High Risk > 159 mg/d L 07/16/2013 9:45 AM CDT 07/16/2013 9:46 AM CDT [employer] [facility] [place]NOTE 2] HISTORICAL RESULTS - 07/16/2013 12:10 PM CDT JPT.FASTING 12HR us Glenna Blank MD LAB BLOOD ORDERABLES Final Resu lt [facility] [place]NOTE 2] HISTORICAL RESULTS * Basic metabolic panel (07/16/2013 9:45 AM CDT) Sodium 139 135 - 145 mmol/L 07/16/2013 12:10 PM CDT [facility] [place]] HISTORICAL RESULTS Potassium 5.0 3.3 - 5.1 mmol/L 07/16/2013 12:10 PM CDT [facility] [place] HISTORICAL RESULTS Chloride 103 96 - 108 mmol/L 07/16/2013 12:10 PM T [facility] [place] HISTORICAL RESULTS Carbon Dioxide 31 22 - 32 mmol/L 07/16/2013 12:10 PM T [facility] [place]] HISTORICAL RESULTS Anion Gap 5 07/16/2013 12:10 PM T [facility] [place]] HISTORICAL RESULTS Glucose 95 70 - 110 mg/dL 07/16/2013 12:10 PM T [facility] [place]] HISTORICAL RESULTS BUN 14 6 - 20 mg/dL 07/16/2013 12:10 PM T [facility] [place]] HISTORICAL RESULTS Creatinine 1.0 0.5 - 1.3 mg/dL 07/16/2013 12:10 PM T [facility] [place]] HISTORICAL RESULTS Kidney Disease Stage 90 mL/MIN 07/16/2013 12:10 PM T [facility] [place]NOTE 2] HISTORICAL RESULTS Comment: NOTE; ??The GFR is an estimated [...] ? Kidney failure or on dialysis @ Calcium 2.25 2.15 - 2.55 mmol/L 07/16/2013 12:10 PM CDT [facility] [place] HISTORICAL RESULTS 07/16/2013 9:45 AM CDT 07/16/2013 9:46 AM CDT Narrative [facility] [place]NOTE 2] HISTORICAL RESULTS - 07/16/2013 12:10 PM CDT JPT.FASTING 12HR us Glenna Blank MD LAB BLOOD ORDERABLES Final Resu lt [facility] [place]NOTE 2] HISTORICAL RESULTS documented in this encounter Visit Diagnoses Diagnosis Routine general medical examination at a health care facility Vitamin D deficiency documented in this encounter
--- OUTSIDE RECORDS SUMMARY | 2024-11-30 06:11 | XMS_ITS | Encounter Summary ---
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 Gender Identity Not on file Sexual Orientation Not on file documented as of this encounter Last Filed Vital Signs Vital Sign Reading Time Taken Comments Blood Pressure 117/70 03/01/2015 4:24 AM CDT Pulse 97 03/01/2015 4:24 AM CDT Temperature 37.6 ??C (99.7 ??F) 03/01/2015 4:24 AM CD T Respiratory Rate - - Oxygen Saturation 95% 03/01/2015 4:24 AM CDT Inhaled Oxygen Concentration - - Weight 74.4 kg (164 lb) 03/01/2015 4:24 AM CDT Height 152.4 cm (5') 03/01/2015 4:24 AM CDT Body Mass Index 32.03 03/01/2015 4:24 AM CDT documented in this encounter Plan of Treatment Not on file documented as of this encounter Procedures Procedure Name Priority Date/Time Associated Diagnosis Comments INFLUENZA A/B ANTIGENS, RAPID Routine 03/01/2015 4:35 AM CDT XR CHEST PA LATERAL 2 VIEWS Routine 03/01/2015 12:00 AM CDT documented in this encounter Results * Influenza A/B antigens, rapid (03/01/2015 4:35 AM CDT) Influenza A Ag NEGATIVE NEGATIVE 03/01/2015 5:18 AM CDT [facility] HISTORICAL RESULTS Influenza B Ag NEGATIVE NEGATIVE 03/01/2015 5:18 AM CDT [facility] HISTORICAL RESULTS Comment: A NEGATIVE RESULT DOES NOT ELIMINATE THE POSSIBILITY OF AN ?? INFLUENZA A OR B INFECTION. ??INADEQUATE SPECIMEN COLLECTION ?? OR IMPROPER SAMPLE HANDLING/TRANSPORT, OR LOW LEVELS OF ?? VIRAL SHEDDING MAY YIELD A FALSE NEGATIVE RESULT. 03/01/2015 4:35 AM CDT 03/01/2015 4:55 AM CDT Narrative [facility] HISTORICAL RESULTS - 03/01/2015 5:18 AM CDT Collected By ek Ezequiel Chisholm [facility] MICROBIOLOGY - GENERA L ORDERABLES Final Result [facility] HISTORICAL RESULTS * XR Chest Pa Lateral 2 Views (03/01/2015 12:00 AM CDT) Anatomical Region Laterality Modality Body, Chest N/A Radiographic Ashley ging 03/01/2015 Impressions 03/01/2015 6:40 AM CDT ?? Bilateral pulmonary opacities, indeterminate in etiology. ??Follow-up is recommended. ??Prominence of the central pulmonary vasculature. ??See above. THIS IS AN ELECTRONICALLY VERIFIED REPORT 03/01/2015 6:37 AM: ??Zoraida Pearce M.D. Zoraida Pearce M.D. JS:dilan 06:37 AM 06:37 AM [facility] [EOD] Narrative 03/01/2015 6:40 AM CDT EXAMINATION: ??CHEST HISTORY: ??Sore throat, shortness of breath TECHNIQUE: ??PA and lateral views COMPARISON: ??09/20/2012 FINDINGS: ??Patchy bilateral pulmonary opacities are most prominent at the lung bases. ??There is no jahaira pneumonic consolidation, pleural fluid or pneumothorax. ??The heart is normal in size. ??There is pulmonary vascular prominence. ??There is no superior mediastinal widening. ??The osseous structures are largely intact. Procedure Note Provider, MD Deepak - 04/17/2021 EXAMINATION: CHEST HISTORY: Sore throat, shortness of breath TECHNIQUE: PA and lateral views COMPARISON: 09/20/2012 FINDINGS: Patchy bilateral pulmonary opacities are most prominent at thelung bases. There is no jahaira pneumonic consolidation, pleural fluid or pneumothorax. The heart is normal in size. There is pulmonary vascular prominence. There is no superior mediastinal widening. The osseous structures are largely intact. IMPRESSION: Bilateral pulmonary opacities, indeterminate in etiology. Follow-up is recommended. Prominence of the central pulmonary vasculature. Seeabove. THIS IS AN ELECTRONICALLY VERIFIED REPORT 03/01/2015 6:37 AM: Zoraida Pearce M.D. Zoraida Pearce M.D. JS:dilan 06:37 AM 06:37 AM [facility] [EOD] Ezequiel Chisholm IMG XR PROCEDURES Final R esult documented in this encounter Visit Diagnoses Diagnosis Acute bronchitis documented in this encounter
--- OUTSIDE RECORDS SUMMARY | 2024-11-30 06:11 | XMS_ITS | Encounter Summary ---
Author Organization [facility] Healthcare Address [address] [place] [address] Care Team Providers Care Compressor House Operator Name Role Phone Unavailable Primary Care Provider Unavailabl e Encounter Details Date Type Department Care Team (Latest Contact Info) Description 07/22/2014 8:34 AM CDT Hospital Encounter [facility] OP Glenna Blank MD Encounter for long-term (current) use of other medications Social History Tobacco Use Types Packs/Day Years Used Date Smoking Tobacco: Never Assessed Sex and Gender Information Value Date Recorded Sex Assigned at Not on file Legal 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 Male 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 Gender Identity Not on file Sexual Orientation Not on file documented as of this encounter Plan of Treatment Not on file documented as of this encounter Procedures Procedure Name Priority Date/Time Associated Diagnosis Comments HEPATIC FUNCTION PANEL Routine 07/22/2014 8:39 AM CDT documented in this encounter Results * Hepatic function panel (07/22/2014 8:39 AM CDT) Total Protein 6.8 6.6 - 8.7 g/dL Albumin 4.2 3.5 - 5.2 g/dL Globulin 2.6 2.3 - 3.5 gm/dL Albumin/Globulin Ratio 1.6 1.1 - 1.8 Total Bilirubin 0.3 0.0 - 1.2 mg/dL Direct Bilirubin < 0.20 0.00 - 0.25 mg/dL AST 20 0 - 40 U/L ALT 17 0 - 41 U/L Alkaline Phosphatase 81 40 - 129 U/L 07/22/2014 8:39 AM CDT 07/22/2014 9:12 AM CDT us Glenna Blank MD LAB BLOOD ORDERABLES Final Resu lt [facility] HISTORICAL RESULTS documented in this encounter Visit Diagnoses Diagnosis Encounter for long-term (current) use of other medications documented in this encounter
--- OUTSIDE RECORDS SUMMARY | 2024-11-30 06:11 | XMS_ITS | Encounter Summary ---
Author Organization [facility] Healthcare Address [address] [place] [address] Care Team Providers Care Merchandise Distributor Name Role Phone Unavailable Primary Care Provider Unavailabl e Encounter Details Date Type Department Care Team (Latest Contact Info) Description 08/30/2013 10:29 PM CDT - 08/31/2013 12:46 AM CDT Hospital Encounter [facility] Deanna Godoy MD [address] [facility] [place] [address] Superficial foreign body of trunk without major open wound; Accident caused by other specified cutting and piercing instruments or objects Social History Tobacco Use Types Packs/Day Years Used Date Smoking Tobacco: Never Assessed Sex and Gender Information Value Date Recorded Sex Assigned at Not on file Legal 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 Gender Identity Not on file Sexual Orientation Not on file documented as of this encounter Last Filed Vital Signs Vital Sign Reading Time Taken Comments Blood Pressure 126/67 08/30/2013 10:30 PM CDT Pulse 90 08/30/2013 10:30 PM CDT Temperature 37 ??C (98.6 ??F) 08/30/2013 10:30 PM CDT Respiratory Rate - - Oxygen Saturation 97% 08/30/2013 10:30 PM CDT Inhaled Oxygen Concentration - - Weight 74.4 kg (164 lb) 08/30/2013 10:30 PM CDT Height 154.9 cm (5' 1 ) 08/30/2013 10:30 PM CDT Body Mass Index 30.99 08/30/2013 10:30 PM CDT documented in this encounter Plan of Treatment Not on file documented as of this encounter Visit Diagnoses Diagnosis Superficial foreign body of trunk without major open wound Accident caused by other specified cutting and piercing instruments or objects documented in this encounter
--- OUTSIDE RECORDS SUMMARY | 2024-11-30 06:12 | XMS_ITS | Encounter Summary ---
Author Organization [facility] Address [address] [place] [address] Care Team Providers Care Senior Product Engineer Name Role Phone Zoraida Franco MD Primary Care Provider [phone] Reason for Visit * Reason Comments Lazy Eye Armin Rico is a 47 y.o. male presenting with mom for strabismus OD crossing inwards constantly. He had surgery for it when he was about 7 years old, and had cataracts surgery in 2000 OU. Has procedure planned for October 23 OD. Pt has prescription for reading glasses but did not get any. Patient complains that OD does not go where he wants it to go.History provided by patient and mom. Encounter Details Date Type Department Care Team (Late st Contact Info) Description 09/28/2022 9:40 AM CDT Office Visit [facility] [address] [place] [phone] Joe Connell MD [address] [facility] [place] [address] Esotropia, alternating (Primary Dx); Keratoconus of both eyes; Pseudophakia of both eyes; Trisomy 21 Social History Tobacco Use Types Packs/Day Years Used Date Smoking Tobacco: Never Passive Smoke Exposure: Never Smokeless Tobacco: Never Tobacco Cessation:Counseling Given: Not Answered Alcohol Use Standard Drinks/Week Comments Never 0 (1 standard drink = 0.6 oz pur e alcohol) Sex and Gender Information Value Date Recorded Sex Assigned at Not on file Gender Identity Not on file Sexual Orientation Not on file COVID-19 Exposure Response Date Recorded In the last 10 days, have yo u been in contact with someone who was confirmed or suspected to have Coronavirus/COVID-19? No / Unsure 09/28/2022 9:05 AM CDT documented as of this encounter Progress Notes * Joe Connell MD - 09/28/2022 10:01 AM CDT Images from the original note were not included. PATIENT NAME: Armin Rico : 1975 47 y.o. EXAM DATE: 09/28/2022 Referring Provider: No ref. provider found Chief Complaint: Chief Complaint Patient presents with Lazy Eye Armin Rico is a 47 y.o. male presenting with mom for strabismus OD crossing inwards constantly. Hehad surgery for it when he was about 7 years old, and had cataracts surgery in 2000 OU. Has procedure planned for October 23 OD. Pt has prescription for reading glasses but did not get any. Patient complains that OD does not go where he wants it to go. History provided by patient and mom. History of Present Illness: HPI Lazy Eye In right eye. Associated symptoms include strabismus. Treaments tried: Strabismus surgery around 7 years of age. Additional comments: Armin Rico is a 47 y.o. male presenting with mom for strabismus OD crossing inwards constantly. He had surgery for it when he was about 7 years old, and had cataracts surgery in 2000 OU. Has procedure planned for October 23 OD. Pt has prescription for reading glasses but did not get any. Patient complains that OD does not go where he wants it to go. History provided by patient and mom. Last edited by Yas Macias on 09/28/2022 9:30 AM. Review of Systems: ROS Positive for: Cardiovascular, Eyes Negative for: Constitutional, Gastrointestinal, Neurological, Skin, Genitourinary, Musculoskeletal,HENT, Endocrine, Respiratory, Psychiatric, Allergic/Imm, Heme/Lymph Last edited by Yas Macias on 09/28/2022 9:37 AM. Past Medical History: Past Medical History: Diagnosis Date Down's syndrome Strabismus Past Surgical History: Past Surgical History: Procedure Laterality Date CATARACT EXTRACTION HX STRABISMUS SURGERY Medications: Current Outpatient Medications on File Prior to Visit Medication Sig Dispense Refill vitamin E, dl,tocopheryl acet, (VITAMIN E, DL, ACETATE, ORAL) Take by mouth. fluticasone propionate (FLONASE) 50 mcg/spray [place], Suspension nasal inhaler Administer 2 Sprays in each nostril daily. No current facility-administered medications on file prior to visit. Allergies: Allergies Allergen Reactions Atropine Unknown Was told not to have by sheriff's sergeant Meperidine Other (See Comments) Passes out Morphine Other (See Comments) Passes out Family History: Family History Problem Relation Name Age of Onset Thyroid Disease Mother Cataract Mother Strabismus Maternal Aunt Seizures Maternal Aunt Hypertension Maternal Grandmother Cataract Maternal Grandmother Diabetes Maternal Grandfather Cataract Maternal Grandfather Social History: *Could not get AR Sent by Dr. Hines Presents with mom FT 1/ Biological sisters, 12/06 including adopted sisters Ophthalmology Exam Base Eye Exam Visual Acuity (Snellen - Linear) Right Left Dist cc 20/125 20/70 -2 20/60 OU Tonometry Unable to assess: Yes Pupils Pupils Right PERRL Left PERRL Extraocular Movement Right Left Abnormal -- -- -- -1 -- -- -- -- 0 0 0 0 0 0 0 0 OD not full Neuro/Psych Oriented x3: Yes Mood/Affect: Normal Edited by: Yas Macias; Joe Connell MD Additional Tests Color Right Left Ishihara 8/8 8/8 Stereo Lan/3 Edited by: Yas Macias Strabismus Exam Method: Krimsky Distance Near Near +3DS N Bifocals - - - - - - 0 0 0 RET 55 -1 - - RET 50 0 0 RET 50 - - - - - - 0 0 0 Edited by: Joe Connell MD Slit Lamp and Fundus Exam External Exam Right Left External Normal Normal Slit Lamp Exam Right Left Lids/Lashes 1+ Lid thickening 1+ Lid thickening Conjunctiva/Sclera Trace Injection Trace Injection Cornea Opacity: Peripheral Clear Anterior Chamber Deep and quiet Deep and quiet Iris Round and reactive Round and reactive Lens Posterior chamber intraocular lens, 3+ Posterior capsular opacification Posterior chamber intraocular lens Vitreous Normal Normal Fundus Exam Right Left Disc Normal Normal Macula Normal Normal Vessels Normal Normal Edited by: Joe Connell MD Refraction Manifest Refraction Could not get AR Edited by: Yas Macias Testing/Data: ASSESSMENT and PLAN: ICD-10-CM ICD-9-CM 1. Esotropia, alternating H50.05 378.05 2. Keratoconus of both eyes H18.603 371.60 3. Pseudophakia of both eyes Z96.1 V43.1 4. Trisomy 21 Q90.9 758.0 Armin Rico demonstrates a visually significant strabismus with a history of eye muscle surgery during childhood. I did not recommend further diagnostic testing. We discussed anticipated outcomes andsurgical approach. As I understand, he will undergo YAG capsulotomy in his right eye soon. Of concern as well is progressive keratoconus. In any case, further eye muscle surgery would improve his ocular alignment if not his binocular vision. This procedure could be arranged at [facility]. CPT 47607 OU 58576 OU Joe Connell MD Commissary Worker [facility] [address] [place] [address], [address] [place] [address] Office: [phone] E-mail: [email or web address] This medical record reflects the history of present illness as obtained by myself in discussion with the patient. documented in this encounter Plan of Treatment Not on file documented as of this encounter Visit Diagnoses Diagnosis Esotropia, alternating- Primary Alternating esotropia Keratoconus of both eyes Keratoconus, unspecified Pseudophakia of both eyes Lens replaced by other means Trisomy 21 Down's syndrome documented in this encounter Care Teams Senior Product Engineer Relationship Specialty Start Date End Date Zoraida Franco MD [address] [place] [phone] PCP - General Family Practice 09/28/22 documented as of this encounter
--- OUTSIDE RECORDS SUMMARY | 2024-11-30 06:12 | XMS_ITS | Encounter Summary ---
Author Organization [facility] Address [address] [place] [address] Care Team Providers Care Diamond Assorter Name Role Phone Zoraida Franco MD Primary Care Provider [phone] Encounter Details Date Type Department Care Team (Late st Contact Info) Description 01/20/2024 External Device Data [place] ABSTRACTION Provider, Abstract NO ADDRESS ON FILE Social History Tobacco Use Types Packs/Day Years Used Date Smoking Tobacco: Never Passive Smoke Exposure: Never Smokeless Tobacco: Never Alcohol Use Standard Drinks/Week Comments Never 0 [...] on filedocumented in this encounter Care Teams Diamond Assorter Relationship Specialty Start Date End Date Zoraida Franco MD [address] [place] [phone] PCP - General Family Practice 09/28/22 documented as of this encounter
--- OUTSIDE RECORDS SUMMARY | 2024-11-30 06:12 | XMS_ITS | Clinical Summary ---
Author Organization [facility] Address [address] [place] [address] Phone Care Team Providers Care Rn Relief Charge Name Role Phone Zoraida Franco MD Primary Care Provider [phone] Allergies Active Allergy Reactions Criticality Noted Date Comments Atropine Unknown 09/28/2022 Was told not to have by restorer lace and textiles Meperidine Other (See Comments) 09/28/2022 Passes out Morphine Other (See Comments) 09/28/2022 Passes out Medications Medication Sig Dispensed Refills Start Date End Date Status vitamin E, dl,tocopheryl acet, (VITAMIN E, DL, ACETATE, ORAL) Take by mouth. Active fluticasone propionate (FLONASE) 50 mcg/spray [place], Suspension nasal inhaler Administer 2 Sprays in each nostril daily. Active Active Problems No known active problems Family History Medical History Relation Name Comments Seizures Maternal Aunt Strabismus Maternal Aunt Cataract Maternal Grandfather Diabetes Maternal Grandfather Cataract Maternal Grandmother Hypertension Maternal Grandmother Cataract Mother Thyroid Disease Mother Relation Name Status Comments Maternal Aunt Maternal Grandfather Maternal Grandmother Mother Social History Tobacco Use Types Packs/Day Years [...] Health Maintenance Due Date Last Done Comments DTAP/TDAP/TD VACCINES (1 - Tdap) 1996 HEPATITIS B VACCINES (1 of 3 - 19+ 3-dose series) 1996 COLORECTAL SCREENING 2022 Colorectal Cancer Screening 2022 FIT-DNA Q 3 years 2022 FIT/FOBT Q 1 year 2022 Flex Sig/CT Colonography Q 5 years 2022 INFLUENZA VACCINE (#1) 2024 , 09/22/2020, 10/09/2019, Additional history exists COVID-19 Vaccine (2023- season) 2024 02/06/2021, 01/10/2021 PNEUMOCOCCAL VACCINE 0-64 YEARS Aged Out 02/27/2022 No longer eligible based on patient's age to complete this topic Care Teams Rn Relief Charge Relationship Specialty Start Date End Date Zoraida Franco MD [address] [facility] [place] [address] PCP - General Family Practice 09/28/22
--- OUTSIDE RECORDS SUMMARY | 2024-11-30 06:12 | XMS_ITS | Encounter Summary ---
Author Organization [facility] Address [address] [place] [address] Care Team Providers Care Marketing Production Specialist Name Role Phone Zoriada Franco MD Primary Care Provider [phone] Encounter Details Date Type Department Care Team (Late st Contact Info) Description 10/03/2022 Orders Only [facility] [place] [facility] [address] [facility] [address] [place] [address] Joe Connell MD [address] [facility] [address] [address] Social History Tobacco Use Types Packs/Day Years [...] AM CDT documented as of this encounter Plan of Treatment Not on file documented as of this encounter Visit Diagnoses Not on filedocumented in this encounter Care Teams Marketing Production Specialist Relationship Specialty Start Date End Date Zoraida Franco MD [address] [place] [address] PCP - General Family Practice 09/28/22 documented as of this encounter
--- OUTSIDE RECORDS SUMMARY | 2024-11-30 06:12 | XMS_ITS | Encounter Summary ---
Author Organization [facility] Address [address] [place] [address] Care Team Providers Care Block And Case Maker Name Role Phone Zoraida Franco MD Primary Care Provider [phone] Encounter Details Date Type Department Care Team (Late st Contact Info) Description 10/04/2022 Prep for Surgery [facility] Net [facility] Developer [facility] [place] [facility] [address] [facility] [address] [place] [address] Joe Connell MD [address] [facility] [address] [address] Esotropia (Primary Dx) Social History Tobacco Use Types [...] as of this encounter Visit Diagnoses Diagnosis Esotropia- Primary Esotropia, unspecified documented in this encounter Care Teams Block And Case Maker Relationship Specialty Start Date End Date Zoraida Franco MD [address] [place] [phone] PCP - General Family Practice 09/28/22 documented as of this encounter
--- OUTSIDE RECORDS SUMMARY | 2024-11-30 06:12 | XMS_ITS | Encounter Summary ---
Author Organization [facility] Address [address] [place] [address] Care Team Providers Care Vice President Investor Relations Name Role Phone Zoraida Franco MD Primary Care Provider [phone] Encounter Details Date Type Department Care Team (Late st Contact Info) Description 10/17/2023 External Device Data [facility] ABSTRACTION Provider, Abstract [...] on filedocumented in this encounter Care Teams Vice President Investor Relations Relationship Specialty Start Date End Date Zoraida Franco MD [address] [place] [phone] PCP - General Family Practice 09/28/22 documented as of this encounter
--- OUTSIDE RECORDS SUMMARY | 2024-11-30 06:12 | XMS_ITS | Encounter Summary ---
Author Organization [facility] Address [address] [place] [address] Care Team Providers Care Tobacco Wetter Name Role Phone Zoraida Franco MD Primary Care Provider [phone] [phone] Encounter Details Date Type Department Care Team (Late st Contact Info) Description 01/01/2024 External Device Data [facility] ABSTRACTION Provider, Abstract [...] on filedocumented in this encounter Care Teams Tobacco Wetter Relationship Specialty Start Date End Date Zoraida Franco MD [address] [place] [phone] PCP - General Family Practice 09/28/22 documented as of this encounter
--- OUTSIDE RECORDS SUMMARY | 2024-11-30 06:12 | XMS_ITS | Encounter Summary ---
Author Organization [facility] Address [address] [place] [address] Care Team Providers Care Burnisher Name Role Phone Zoraida Franco MD Primary Care Provider [phone] Encounter Details Date Type Department Care Team (Late st Contact Info) Description 01/03/2024 External Device Data [facility] ABSTRACTION Provider, Abstract [...] on filedocumented in this encounter Care Teams Burnisher Relationship Specialty Start Date End Date Zoraida Franco MD [address] [place] [phone] PCP - General Family Practice 09/28/22 documented as of this encounter
--- OUTSIDE RECORDS SUMMARY | 2024-11-30 06:12 | XMS_ITS | Encounter Summary ---
Author Organization [facility] Address [address] [facility] Attn: Epic Prelude ADT [place] [address] Care Team Providers Care Senior Policy Advisor Name Role Phone Zoraida Franco MD Primary Care Provider [phone] Encounter Details Date Type Department Care Team (Latest Contact Info) Description 09/28/2022 Travel Social History Tobacco Use Types Packs/Day Years [...] filedocumented in this encounter Care Teams Senior Policy Advisor Relationship Specialty Start Date End Date Zoraida Franco MD [address] [place] [address] PCP - General Family Practice 09/28/22 documented as of this encounter
--- OUTSIDE RECORDS SUMMARY | 2024-11-30 06:21 | XMS_ITS | Continuity of Care Document ---
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 Demerol Assertion Drug allergy Active [facility] Encounters Location Location Details Encounter Type Encounter Number Reason For Visit Attending Provider ADM Date DC Date Status Source [id number] Outpatient [id number] 23:59 :59 Discharge d [facility] Outpatient [id number] See Comments [facility] MSC MSC OUTPATIENT [id number] CHRONIC NEUTROPEN IA/RECS IMAG 10/15 Leonardo Goldberg [facility] Outpatient [id number] Brandinmeron [facility] Pulmonol ogy LRLO LRLO Outpatient [id number] See Comments Penelope Wray [facility] LR[facility] Outpatient [id number] Brandina Nnamdi [facility] Pulmonol ogy Procedures Procedure Code Date Perfomer Comments Source Cataract extraction [id number] [facility] Cholecystectomy [id number] [facility] ear tubes [facility] T and A (tonsillectomy and adenoidectomy) postoperative education [id number] [facility]
== END 2024-11-23 07:27 | disposition home or self-care (01) ==
PROVIDERS: Emergency Provider Emergency Medicine; PCP Family Medicine
DX: R10.9 Unspecified abdominal pain (principal); R11.2 Nausea with vomiting, unspecified; Q90.9 Down syndrome, unspecified
CPT/HCPCS: 36415; 74177; 80053; 81003; 83690; 85025; 96361; 96374; 96375; 99284; J2405; J7030; Q9967

== ENCOUNTER 2024-11-23 12:48 | Emergency (ER) | payer MEDICARE, OTHER, SELFPAY ==
[2024-11-23 12:57] VITALS: BP 95/61; PULSE 104; RESP 16; TEMP 36.2; O2SAT 100
--- NOTE | 2024-11-23 13:40 | ED.NAVMDI ---
HPI - Nausea/Vomiting/Diarrhea General Chief complaint: Nausea/Vomiting/Diarrhea <Jen Watson APRN - Last Filed: 11/23/24 13:42> Stated complaint: n/v/d <Jen Watson APRN - Last Filed: 11/23/24 13:42> Time Seen by Provider: 11/23/24 13:30 <Jen Watson APRN - Last Filed: 11/23/24 13:42> Focused HPI: Patient is a 49-year-old male who presents to the ER with abdominal pain, vomiting, diarrhea. His mother reports his symptoms started this morning around 4:00 a.m.. Patient was brought to the ER, given Zofran and IV fluids. His mother reports he had abdominal CT scan which was unremarkable. Patient's mother reports he was feeling better so he was discharged home but the vomiting abdominal pain restarted. His mother reports she gave him meclizine at home. Patient endorses abdominal pain and reports he is weak. Pt denies any chest pain, shortness of breath, sore throat, respiratory issues. GENERAL: Well-appearing, well-nourished, and in no acute distress. HEAD: Normocephalic, atraumatic. CHEST: Clear to auscultation. ?No respiratory distress. HEART: Tachycardia NEURO: ?Alert and oriented x3. Patient screened in triage and initial orders placed.? ?Additional care and disposition to be based upon?diagnostic testing and treatment. <Jen Watson APRN - Last Filed: 11/23/24 13:42> History of Present Illness HPI Narrative: agree with above <Kandice Bell MD - Last Filed: 11/23/24 21:25> Related Data Home medications: Home Medications ?Medication ?Instructions ?Recorded ?Confirmed ?Last Taken ?Type loratadine 10 mg tablet 10 mg PO DAILY 09/18/22 11/02/23 Unknown History aspirin 81 mg capsule 81 mg PO DAILY 03/11/23 11/02/23 Unknown History fluticasone propionate 50 2 spray intranasal DAILY PRN 03/12/23 11/02/23 Unknown History mcg/actuation nasal Allergy Symptoms spray,suspension (Flonase Allergy Relief) albuterol sulfate 90 mcg/actuation 2 puff inhalation PRN PRN 11/02/23 11/02/23 Unknown History aerosol inhaler Shortness Of Breath Or Wheezing prednisone 20 mg tablet 40 mg PO DAILY 11/02/23 11/02/23 Unknown History <Jen Watson APRN - Last Filed: 11/23/24 13:42> Allergies/Adverse reactions: Allergies Allergy/AdvReac Type Severity Reaction Status Date / Time morphine Allergy Severe Anaphylaxis Verified 11/02/23 15:11 meperidine (From Demerol) AdvReac Intermediate Fainting Verified 11/02/23 15:11 <Jen Watson APRN - Last Filed: 11/23/24 13:42> Review of Systems Review of Systems: All systems reviewed & are unremarkable except as noted in HPI and below <Kandice Bell MD - Last Filed: 11/23/24 21:25> [facility] Past Medical History Medical History: Medical History Down syndrome Regurgitation and rechewing Dysphagia VSD (ventricular septal defect) COVID-19 07/2020 Acute sinus infection Down syndrome <Jen Watson APRN - Last Filed: 11/23/24 13:42> Surgical History Surgical History: Surgical History History of hand surgery extra digit removed from right hand History of adenoidectomy History of tonsillectomy History of tympanostomy History of cholecystectomy <Jen Watson APRN - Last Filed: 11/23/24 13:42> Family History Family History: Family History Father , related to COVID-19 per spouse Heart disease COVID-19 Mother COVID-19 <Jen Watson APRN - Last Filed: 11/23/24 13:42> Social History Social History: Social History Social History: Mother denies smoke expsoure Smoking status: Never smoker Tobacco type: cigarettes Second hand tobacco smoke exposure: No Alcohol intake: never Substance use: never Substance use type: does not use Living arrangements: with family Occupation/Education: other Additional occupation/education comments: disable Gender identity (if verbalized by the patient): Male Spiritual care concerns: No <Jen Watson APRN - Last Filed: 11/23/24 13:42> Exam Narrative: GENERAL: nontoxic, no acute distress, resting in bed quietly HEAD: Normocephalic, atraumatic. EYES: PERRLA and EOMI. ENT: Mucous membranes tacky. NECK: Supple. CHEST: No respiratory distress. HEART: Regular rate and rhythm ABDOMEN: Soft, nontender, nondistended. EXTREMITIES: Normal range of motion. SKIN: Warm, dry, no rash. NEURO: Alert and oriented x3. PSYCH: Normal mood and affect. <Kandice Bell MD - Last Filed: 11/23/24 21:25> Course Vital Signs Vital signs: Vital Signs Temperature 97.1 F L 11/23/24 12:57 Pulse Rate 104 H 11/23/24 12:57 Respiratory Rate 16 11/23/24 12:57 Blood Pressure 95/61 L 11/23/24 12:57 Pulse Oximetry 100 11/23/24 12:57 Temperature 97.1 F L 11/23/24 12:57 Pulse Rate 104 H 11/23/24 12:57 Respiratory Rate 16 11/23/24 12:57 Blood Pressure 95/61 L 11/23/24 12:57 Pulse Oximetry 100 11/23/24 12:57 <Jen Watson APRN - Last Filed: 11/23/24 13:42> Vital Signs Temperature 97.1 F L 11/23/24 12:57 Pulse Rate 104 H 11/23/24 12:57 Respiratory Rate 16 11/23/24 12:57 Blood Pressure 95/61 L 11/23/24 12:57 Pulse Oximetry 100 11/23/24 12:57 Temperature 97.1 F L 11/23/24 12:57 Pulse Rate 104 H 11/23/24 12:57 Respiratory Rate 16 11/23/24 12:57 Blood Pressure 95/61 L 11/23/24 12:57 Pulse Oximetry 100 11/23/24 12:57 <Kandice Bell MD - Last Filed: 11/23/24 21:25> MDM - Nausea/Vomiting/Diarrhea MDM Narrative Medical decision making narrative: 49-year-old male presenting with vomiting, diarrhea. Patient a bit tachycardic on arrival. Otherwise vitals are within normal limits. Exam remarkable for the above. His abdomen is soft and benign. Do not feel repeated imaging is warranted. Blood work without significant abnormalities. Negative for COVID-19. Patient with improvement in his nausea and is now tolerating p.o. intake. Feel he is safe for outpatient management. Recommend PCP follow-up. Already has Zofran waiting at his pharmacy. Patient's mom is agreeable with this plan. Discharged in stable condition. <Kandice Bell MD - Last Filed: 11/23/24 21:25> Differential Diagnosis Differential diagnosis: Likely food poisoning, gastroenteritis and dehydration <Kandice Bell MD - Last Filed: 11/23/24 21:25> Medical Records Attestation: I reviewed the patient's medical records. <Kandice Bell MD - Last Filed: 11/23/24 21:25> Lab Data Attestation: I reviewed the patient's lab results. <Kandice Bell MD - Last Filed: 11/23/24 21:25> Result diagrams: 11/23/24 13:57 11/23/24 13:57 <Jen Watson APRN - Last Filed: 11/23/24 13:42> Labs: Lab Results 11/23/24 Range/Units 13:57 WBC 8.2 (4.5-10.0) K/mm3 RBC 5.23 (4.6-6.20) M/mm3 Hgb 17.2 (14.0-18.0) g/dL Hct 50.5 (42.0-52.0) % MCV 96.6 (80-100) fl MCH 32.9 (26-34) pg MCHC 34.1 (32-36) g/dl RDW 13.7 (11.5-14.5) % Plt Count 213 (150-375) k/mm3 MPV 9.5 (7.4-10.4) fl Immature Gran % (Auto) 0.4 (0-0.5) % Neut % (Auto) 90.0 H (45.5-73.1) % Lymph % (Auto) 5.0 L (18.3-44.2) % Christian % (Auto) 4.0 (2.6-8.5) % Eos % (Auto) 0.0 (0-4.4) % Baso % (Auto) 0.6 (0.2-1.2) % Lymph # (Auto) 0.41 L (0.9-3.2) K/mm3 Christian # (Auto) 0.3 (0.1-0.6) K/mm3 Eos # (Auto) 0.0 (0-0.3) K/mm3 Baso # (Auto) 0.1 (0.0-0.1) K/mm3 Abs Immat Gran (auto) 0.03 (0.00-0.031) K/mm3 Absolute Neuts (auto) 7.4 H (1.3-6.7) K/mm3 Absolute Nucleated RBC 0.000 (0.0-0.012) K/mm3 Nucleated RBC % 0.0 (0.0-0.2) % Sodium 139 (137-145) mmol/L Potassium 4.4 (3.4-5.0) mmol/L Chloride 110 H (98-107) mmol/L Carbon Dioxide 24 (22-30) mmol/L Anion Gap 5 (4-12) mmol/L BUN 20 (9-20) mg/dL Creatinine 1.20 (0.7-1.3) mg/dL Estim Creat Clear Calc Not Reportable Estimated GFR > 60 (59 - ) Glucose 131 H (65-110) mg/dL Lactic Acid 1.9 (0.7-2.0) mmol/L Calcium 8.4 (8.4-10.2) mg/dL Total Bilirubin 0.8 (0.2-1.3) mg/dL AST 27 (17-59) U/L ALT 22 (6-50) U/L Alkaline Phosphatase 72 (38-126) U/L Total Protein 7.0 (6.3-8.2) g/dL Albumin 3.9 (3.5-5.1) g/dL Lipase 52 (23-300) U/L Influenza A (RT-PCR) Negative (Negative) Influenza B (RT-PCR) Negative (Negative) RSV (RT-PCR) Negative (Negative) SARS-CoV-2 RNA (RT-PCR) Negative (Negative) <Jen LevyIsabella aWtson, EXTENSION CLERK - Last Filed: 11/23/24 13:42> Lab Results 11/23/24 Range/Units 13:57 WBC 8.2 (4.5-10.0) K/mm3 RBC 5.23 (4.6-6.20) M/mm3 Hgb 17.2 (14.0-18.0) g/dL Hct 50.5 (42.0-52.0) % MCV 96.6 (80-100) fl MCH 32.9 (26-34) pg MCHC 34.1 (32-36) g/dl RDW 13.7 (11.5-14.5) % Plt Count 213 (150-375) k/mm3 MPV 9.5 (7.4-10.4) fl Immature Gran % (Auto) 0.4 (0-0.5) % Neut % (Auto) 90.0 H (45.5-73.1) % Lymph % (Auto) 5.0 L (18.3-44.2) % Christian % (Auto) 4.0 (2.6-8.5) % Eos % (Auto) 0.0 (0-4.4) % Baso % (Auto) 0.6 (0.2-1.2) % Lymph # (Auto) 0.41 L (0.9-3.2) K/mm3 Christian # (Auto) 0.3 (0.1-0.6) K/mm3 Eos # (Auto) 0.0 (0-0.3) K/mm3 Baso # (Auto) 0.1 (0.0-0.1) K/mm3 Abs Immat Gran (auto) 0.03 (0.00-0.031) K/mm3 Absolute Neuts (auto) 7.4 H (1.3-6.7) K/mm3 Absolute Nucleated RBC 0.000 (0.0-0.012) K/mm3 Nucleated RBC % 0.0 (0.0-0.2) % Sodium 139 (137-145) mmol/L Potassium 4.4 (3.4-5.0) mmol/L Chloride 110 H (98-107) mmol/L Carbon Dioxide 24 (22-30) mmol/L Anion Gap 5 (4-12) mmol/L BUN 20 (9-20) mg/dL Creatinine 1.20 (0.7-1.3) mg/dL Estim Creat Clear Calc Not Reportable Estimated GFR > 60 (59 - ) Glucose 131 H (65-110) mg/dL Lactic Acid 1.9 (0.7-2.0) mmol/L Calcium 8.4 (8.4-10.2) mg/dL Total Bilirubin 0.8 (0.2-1.3) mg/dL AST 27 (17-59) U/L ALT 22 (6-50) U/L Alkaline Phosphatase 72 (38-126) U/L Total Protein 7.0 (6.3-8.2) g/dL Albumin 3.9 (3.5-5.1) g/dL Lipase 52 (23-300) U/L Influenza A (RT-PCR) Negative (Negative) Influenza B (RT-PCR) Negative (Negative) RSV (RT-PCR) Negative (Negative) SARS-CoV-2 RNA (RT-PCR) Negative (Negative) <Kandice Bell MD - Last Filed: 11/23/24 21:25> Critical Care Time Critical Care Time Critical Care Time: No <Kandice Bell MD - Last Filed: 11/23/24 21:25> Discharge Plan Discharge Clinical Impression: Nausea & vomiting Qualifiers: Vomiting type: unspecified Qualified Code(s): R11.2 - Nausea with vomiting, unspecified Diarrhea Qualifiers: Diarrhea type: unspecified type Qualified Code(s): R19.7 - Diarrhea, unspecified <Jen Watson APRN - Last Filed: 11/23/24 13:42> Patient Disposition: Home, Self-Care <Jen Watson APRN - Last Filed: 11/23/24 13:42> Condition: Stable <Jen Watson APRN - Last Filed: 11/23/24 13:42> Instructions: Antibiotic Form, Acute Nausea and Vomiting (ED), Acute Diarrhea (ED) <Jen Watson APRN - Last Filed: 11/23/24 13:42> Additional Instructions: Please use the Zofran as prescribed. Please stick to boring and bland foods. Drink Gatorade, Powerade, water for hydration. Follow-up closely with your PCP. If your symptoms worsen or other concerning symptoms arise, please return to the ER. <Jen Watson APRN - Last Filed: 11/23/24 13:42> Patient Language: Upper Sorbian <Jen Watson APRN - Last Filed: 11/23/24 13:42> Prescriptions: No Action loratadine 10 mg tablet 10 mg PO DAILY aspirin 81 mg Capsule 81 mg PO DAILY prednisone 20 mg tablet 40 mg PO DAILY albuterol sulfate 90 mcg/actuation HFA aerosol inhaler 2 puff INHALATION PRN PRN (Reason: Shortness Of Breath Or Wheezing) pantoprazole 40 mg tablet,delayed release (DR/EC) 40 mg PO QAM Qty: 30 3RF ondansetron 4 mg tablet,disintegrating 4 mg PO Q8H PRN (Reason: nausea and vomiting) Qty: 10 0RF fluticasone propionate [Flonase Allergy Relief] 50 mcg/actuation spray,suspension 2 spray intranasal DAILY PRN (Reason: Allergy Symptoms) Rx Instructions: administer into each nostril <Jen Watson APRN - Last Filed: 11/23/24 13:42> Follow-up/Referrals: Salvador,MD Zoraida [Primary Care Provider] - <Jen Watson APRN - Last Filed: 11/23/24 13:42>
[2024-11-23 14:06] LABS: Basophils Absolute Auto 0.1 K/mm3 (0.0-0.1); Basophils Percent Auto 0.6 % (0.2-1.2); Hematocrit 50.5 % (42.0-52.0); Hemoglobin 17.2 g/dL (14.0-18.0); Immature Granulocyte Absolute 0.03 K/mm3 (0.00-0.031); Immature Granulocyte Percent A 0.4 % (0-0.5); Lymphocytes Absolute Auto 0.41 K/mm3 (0.9-3.2); Mean Corpuscular HGB Conc 34.1 g/dl (32-36); Mean Corpuscular Hemoglobin 32.9 pg (26-34); Mean Corpuscular Volume 96.6 fl (80-100); Mean Platelet Volume 9.5 fl (7.4-10.4); Monocytes Absolute Auto 0.3 K/mm3 (0.1-0.6); Neutrophils Absolute Auto 7.4 K/mm3 (1.3-6.7); Platelet Count Result 213 k/mm3 (150-375); Red Blood Count 5.23 M/mm3 (4.6-6.20); Red Cell Distribution Width 13.7 % (11.5-14.5); White Blood Count 8.2 K/mm3 (4.5-10.0)
[2024-11-23 14:16] LABS: Lactic Acid Reflex 1.9 mmol/L (0.7-2.0)
[2024-11-23 14:20] LABS: Alanine Aminotransferase 22 U/L (6-50); Albumin Level 3.9 g/dL (3.5-5.1); Alkaline Phosphatase 72 U/L (38-126); Anion Gap 5 mmol/L (4-12); Aspartate Amino Transferase 27 U/L (17-59); Bilirubin,Total 0.8 mg/dL (0.2-1.3); Blood Urea Nitrogen 20 mg/dL (9-20); Calcium 8.4 mg/dL (8.4-10.2); Carbon Dioxide 24 mmol/L (22-30); Chloride 110 mmol/L (98-107); Estimated Glomerular Filt Rate > 60; Glucose 131 mg/dL (65-110); Potassium 4.4 mmol/L (3.4-5.0); Sodium 139 mmol/L (137-145)
[2024-11-23 14:41] LABS: Influenza A QL RT-PCR Negative (Negative); Influenza B QL RT-PCR Negative (Negative); RSV RNA, RT-PCR Negative (Negative); SARS-CoV-2 RNA PCR Negative (Negative)
[2024-11-23] MEDS: FAMOTIDINE 20 MG/2 ML VIAL IV PUSH (14:49)
[2024-11-23] MEDS: METOCLOPRAMIDE HCL INJ 10 MG/2 ML VIAL IV PUSH (14:49)
[2024-11-23] MEDS: SODIUM CHLORIDE 0.9% IV 1,000 ML 999 ML IV CONT (14:49)
--- NOTE | 2024-11-23 16:07 | PC.NURSE ---
pt tolerating ice chips at this time. Will continue to assess PO status
[2024-11-23 16:45] LABS: Lipase 52 U/L (23-300)
== END 2024-11-23 17:58 | disposition home or self-care (01) ==
PROVIDERS: Registered Nurse; Emergency Provider Emergency Medicine; PCP Family Medicine
DX: R11.2 Nausea with vomiting, unspecified (principal); R19.7 Diarrhea, unspecified; Q90.9 Down syndrome, unspecified; Z20.822 Contact with and (suspected) exposure to COVID-19
CPT/HCPCS: 36415; 80053; 83605; 83690; 85025; 87637; 96361; 96374; 96375; 99284; J2765; J7030

== ENCOUNTER 2024-11-24 20:18 | Emergency (ER) | payer MEDICARE, OTHER, SELFPAY ==
[2024-11-24 20:20] VITALS: BP 92/53; PULSE 114; RESP 16; TEMP 36.4; O2SAT 95
--- NOTE | 2024-11-24 20:57 | PC.NURSE ---
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 If he needs to be seen I will bring him back.
== END 2024-11-24 21:21 | disposition left against medical advice (07) ==
LOC: ANHED 21:06
PROVIDERS: PCP Family Medicine
DX: R11.2 Nausea with vomiting, unspecified (principal)
CPT/HCPCS: 99199

== ENCOUNTER 2025-01-30 08:33 | Emergency (ER) | payer MEDICARE, OTHER, SELFPAY ==
--- NOTE | 2025-01-30 08:38 | ED.URI ---
HPI - URI/Sore Throat General Chief Complaint: Upper Respiratory Infection Stated Complaint: cough/congestion Source: patient and RN notes reviewed Mode of arrival: ambulatory Limitations: other (Down's syndrome) History of Present Illness HPI Narrative: 49-year-old male history of Down syndrome presented for complaint of cough and nasal congestion. Onset 4 days. Mother has a family event today and wants to see if he has flu, covid or RSV. Denies shortness of breath, wheezing nausea vomiting diarrhea or lethargy. Taking mucinex. MD elicited complaint: cough Related Data Home Medications ?Medication ?Instructions ?Recorded ?Confirmed ?Last Taken ?Type cholecalciferol (vitamin D3) 25 1,000 unit PO ONCE 01/30/25 01/30/25 Unknown History mcg (1,000 unit) capsule (Vitamin D3) Allergies Allergy/AdvReac Type Severity Reaction Status Date / Time morphine Allergy Severe Anaphylaxis Verified 01/30/25 08:46 meperidine (From Demerol) AdvReac Intermediate Fainting Verified 01/30/25 08:46 Review of Systems Review of Systems: per HPI [facility] Past Medical History Medical History Down syndrome Regurgitation and rechewing Dysphagia VSD (ventricular septal defect) COVID-19 07/2020 Acute sinus infection Down syndrome Surgical History Surgical History History of hand surgery extra digit removed from right hand History of adenoidectomy History of tonsillectomy History of tympanostomy History of cholecystectomy Family History Family History Father , related to COVID-19 per spouse Heart disease COVID-19 Mother COVID-19 Social History Social History Social History: Mother denies smoke expsoure Smoking status: Never smoker Tobacco type: cigarettes Second hand tobacco smoke exposure: No Alcohol intake: never Substance use: never Substance use type: does not use Living arrangements: with family Occupation/Education: other Additional occupation/education comments: disable Gender identity (if verbalized by the patient): Male Spiritual care concerns: No Exam Narrative: GENERAL: well-appearing. Down's syndrome. EYES: conjunctivae clear ENT: Mucous membranes moist. TM pearly hilliard with dull light reflex bilaterally; no tragal tenderness. Oropharynx not erythematous without lesions or exudate, no drooling, no hoarseness, no trismus, uvula midline. No tripod positioning, muffled voice, soft palate or pharyngeal wall bulging NECK: Supple. No lymphadenopathy CHEST: Clear to auscultation, breath sounds equal. HEART: Regular rate and rhythm. SKIN: Warm, dry NEURO: Alert Course Course Emergency Course: Patient is aware of diagnosis, understands and agrees to treatment plan. Anticipatory guidance given. Patient agrees to follow-up as directed and is aware of reasons to seek care at the emergency department. Portions of this record may have been created with voice recognition software Level of Care: Express Care Visit Vital Signs Vital signs: Vital Signs Temperature 97.2 F L 01/30/25 08:44 Pulse Rate 71 01/30/25 08:44 Respiratory Rate 18 01/30/25 08:44 Blood Pressure 107/58 L 01/30/25 08:44 Pulse Oximetry 100 01/30/25 08:44 Oxygen Delivery Room Air 01/30/25 08:44 Temperature 97.2 F L 01/30/25 08:44 Pulse Rate 71 01/30/25 08:44 Respiratory Rate 18 01/30/25 08:44 Blood Pressure 107/58 L 01/30/25 08:44 Pulse Oximetry 100 01/30/25 08:44 Oxygen Delivery Room Air 01/30/25 08:44 reviewed MDM - URI/Sore Throat MDM Narrative Medical decision making narrative: Neg Flu, COVID, strep. Discussed physical exam findings. Advised supportive measures and signs/symptoms to go to the ER. Pt is appropriate for outpt treatment and f/u. Differential Diagnosis Differential diagnosis: Likely upper respiratory infection, sinusitis and viral infection Discharge Plan Discharge Clinical Impression: Upper respiratory infection Patient Disposition: Home, Self-Care Condition: Stable Instructions: Upper Respiratory Infection (ED) Additional Instructions: Negative flu and COVID. Rapid strep swab was negative today You will be notified in a few days if the culture comes back positive for strep, and appropriate antibiotics will be called in at that time. if symptoms are due to a viral illness, it is not treated with antibiotics. Viral symptoms can be present for up to 10-14 days. Recommendations for symptoms: Flonase spray and Zyrtec for sinus congestion Cough syrup may cause drowsiness Tylenol every 8 hours as needed for pain/fever Soft foods, cool liquids, warm tea. Gargle with warm saltwater twice a day. Chloraseptic spray and throat lozenges. Rest and stay hydrated. --Follow up with your PCP --Go to the ER immediately if you cannot swallow your saliva, trouble breathing/wheezing, throat swelling, pain is persistent and severe Patient Language: Macanese Prescriptions: No Action cholecalciferol (vitamin D3) [Vitamin D3] 25 mcg (1,000 unit) capsule 1,000 unit PO ONCE Follow-up/Referrals: Salvador,MD Zoraida [Primary Care Provider] -
[2025-01-30 08:44] VITALS: BP 107/58; PULSE 71; RESP 18; TEMP 36.2; O2SAT 100
[2025-01-30 09:13] LABS: EDCOVIDSCREEN Negative (Negative); EDINFLUASCREEN Negative (Negative); EDINFLUBSCREEN Negative (Negative); EDSTREPNEGPOS1 Negative (Negative)
== END 2025-01-30 09:13 | disposition home or self-care (01) ==
PROVIDERS: Emergency Provider Nurse Practitioner Family; PCP Family Medicine
DX: J06.9 Acute upper respiratory infection, unspecified (principal); Z20.822 Contact with and (suspected) exposure to COVID-19; Q90.9 Down syndrome, unspecified; Z86.16 Personal history of COVID-19
CPT/HCPCS: 87081; 87426; 87804; 87880; 99213; G0463

== ENCOUNTER 2025-02-06 08:59 | Emergency (ER) | payer MEDICARE, OTHER, SELFPAY ==
--- OUTSIDE RECORDS SUMMARY | 2025-02-06 09:01 | XMS_ITS | Referral Summary ---
Author Organization [address] Address [address] [address] Care Team Providers Care Sliding Joint Maker Name Role Phone Zoraida Franco MD Primary Care Provi selvin Clemente Hamm DO Unavailable [phone] Encounters Date Type Department Care Team Description 01/19/2025 Results Follow-Up [facility] Family Medicine [address] [place] [phone] Zoraida Franco MD 01/15/2025 9:35 AM DETECTOR CAR OPERATOR - 01/15/2025 11:59 PM DETECTOR CAR OPERATOR Hospital Encounter [facility] Diagnostic Imaging [address] [place] [address] Pill dysphagia; Bilateral hip pain Discharge Disposition: Discharge to home or self care 01/15/2025 8:45 AM DETECTOR CAR OPERATOR Office Visit [facility] Family Medicine [address] [place] [phone] Zoraida Franco MD Onychomycosis (Primary Dx); Bilateral hip pain; Tinea pedis of both feet; Dry skin dermatitis; Pill dysphagia 12/23/2024 11:15 AM DETECTOR CAR OPERATOR Office Visit [facility] Oncology [address] [place] [phone] Clemente Hamm, Other decreased white blood cell (WBC) count (Primary Dx) 12/23/2024 10:45 AM DETECTOR CAR OPERATOR Lab [facility] [address] [place] [address] Other decreased white blood cell (WBC) count 12/04/2024 Telephone [facility] Family Medicine [address] [phone] Zoraida Franco MD 11/17/2024 1:30 PM DETECTOR CAR OPERATOR - 11/17/2024 11:59 PM DETECTOR CAR OPERATOR Hospital Encounter [facility] Cardiac Testing [address], [place] [phone] VSD (ventricular septal defect) Discharge Disposition: Discharge to home or self care from Last 3 Months Allergies Active Allergy Reactions Criticality Noted Date Comments Atropine Hives Medium 09/28/2022 Was told not to have by weight reducing technician Meperidine Unknown 10/26/2020 Morphine Sulfate Unknown 10/26/2020 Medications cholecalciferol, vitamin D3, (VITAMIN D3 ORAL) Take 2,000 Units by mouth daily Active ipratropium (ATROVENT) 21 mcg (0.03 %) nasal spray Administer 2 sprays into each nostril 2 (two) times a day 4 Active ondansetron ODT (ZOFRAN-ODT) 4 mg disintegrating tablet DISSOLVE 1 TABLET ON THE TONGUE EVERY 8 HOURS NEEDED FOR NAUSEA OR VOMITING 4 Active clotrimazole 1 % creamIndications:T inea pedis of both feet Apply topically 2 (two) times a day 30 g 1 5 Active terbinafine (LamiSIL) 250 mg tabletIndications: Onychomycosis Take 1 tablet (250 mg total) by mouth daily 30 tablet 5 Active Active Problems Problem Noted Date Diagnosed Date Vasomotor rhinitis 08/23/2022 Assessment & Plan (10/15/2023 3:12 PM DETECTOR CAR OPERATOR): Chronic, stable Continue Flonase as needed Assessment & Plan (08/23/2022 10:02 AM CDT): Chronic stable Continue current regimen Class 1 obesity due to exces s calories without serious comorbidity with body mass index (BMI) of 31.0 to 31.9 in adult 08/23/2022 Assessment & Plan (10/15/2024 7:50 AM DETECTOR CAR OPERATOR): Chronic, slight progression BMI Follow-up includes: nutrition counseling and exercise counseling. Assessment & Plan (10/15/2023 3:13 PM DETECTOR CAR OPERATOR): Chronic, stable BMI Follow-up includes: nutrition counseling. Assessment & Plan (08/23/2022 10:26 AM CDT): BMI Follow-up includes: nutrition counseling. Down syndrome 07/21/2021 Assessment & Plan (10/15/2023 3:11 PM DETECTOR CAR OPERATOR): Chronic stable Continue to monitor Update me [...] encouraged Assessment & Plan (10/15/2024 7:45 AM DETECTOR CAR OPERATOR): Encouraged healthy habits He has a guardianship, but reviewed POA/living will PMH updated: Last colonoscopy/cologuard:cologuard 08/23- Neg Last PSA: 08/24- WNL Last Tdap: encouraged Last Flu: up to date Last COVID: encouraged Assessment & Plan (10/15/2023 3:52 PM DETECTOR CAR OPERATOR): Encouraged healthy habits He has a guardianship [...] 03/07/2021 Assessment & Plan (10/15/2023 3:12 PM DETECTOR CAR OPERATOR): Chronic, stable Continue to monitor symptoms Assessment & Plan (08/23/2022 10:00 AM CDT): Chronic, stable Continue to monitor Assessment & Plan (07/20/2021 2:40 PM CDT): Doing well Will recheck labs Assessment & Plan (03/07/2021 2:08 PM CDT): I did order an iron and ferritin level. NILA (obstructive sleep apnea) 03/07/2021 Assessment & Plan (10/15/2023 3:12 PM DETECTOR CAR OPERATOR): Chronic, stable Unable to tolerate CPAP Reviewed [...] disorder) Assessment & Plan (10/15/2023 3:13 PM DETECTOR CAR OPERATOR): Chronic, stable Currently not on medication Consider [...] 10/26/2020 Assessment & Plan (10/15/2023 3:53 PM DETECTOR CAR OPERATOR): Chronic, stable Will be due repeat echo in 2023 Update me with any concerns Assessment & Plan (08/23/2022 10:01 AM CDT): Chronic, stable Continue to monitor Assessment & Plan (07/20/2021 2:42 PM CDT): Echo reviewed Assessment & Plan (10/26/2020 1:29 PM DETECTOR CAR OPERATOR): Will refer to cardiology- Dr Campo Will be due for an echo Continue aspirin Update me with any changes Call for questions or concerns Leukopenia 10/26/2020 Assessment & Plan (10/15/2023 3:12 PM DETECTOR CAR OPERATOR): Chronic, stable Managed by Hematology Update me with any changes or concerns Assessment & Plan (08/23/2022 10:00 AM CDT): Chronic, stable Continue to follow with heme Assessment & Plan (07/20/2021 2:40 PM CDT): Will check labs Assessment & Plan (10/26/2020 1:33 PM DETECTOR CAR OPERATOR): Referral placed to heme Will consider labs for further guidance Update me after the visit Call for questions or concerns Resolved Problems Problem Noted Date Diagnosed Date Resolved Date Other acute sinusitis 09/03/20232022 Assessment & Plan (10/15/2023 3:12 PM DETECTOR CAR OPERATOR): Acute, resolved Update me if symptoms reoccur [...] to the ER for anything emergent Immunizations Immunization Administration Dates Next Due Influenza, Quadrivalent, Yumi [...] you have a drink containing alcohol? Never 01/15/2025 Q2: How many drinks containi ng alcohol do you have on a typical day when you are drinking? Patient does not drink Q3: How often do you have si x or more drinks on one occasion? Never 01/15/2025 PHQ-2 Answer Date Recorded PHQ-2 Total Score (If total score is 3 or more points, staff should administer the PHQ-9) 0 01/15/2025 Sex and Gender Information Value Date Recorded Sex Assigned at Not on file Legal Sex Male 7:51 PM DETECTOR CAR OPERATOR Gender Identity Not on file Sexual Orientation Not on file Occupation Industry Job Start Date Job End Date Disabled Not on file Not on file Not on file Last Filed Vital Signs Vital Sign Reading Time Taken Comments Blood Pressure 100/60 01/15/2025 8:40 AM DETECTOR CAR OPERATOR Pulse 62 01/15/2025 8:40 AM DETECTOR CAR OPERATOR Temperature 35.9 C (96.7 F) 01/15/2025 8:40 AM DETECTOR CAR OPERATOR Respiratory Rate 12 01/15/2025 8:40 AM DETECTOR CAR OPERATOR Oxygen Saturation 98% 01/15/2025 8:40 AM DETECTOR CAR OPERATOR Inhaled Oxygen Concentration - - Weight 69.6 kg (153 lb 8 oz) 01/15/2025 8:40 AM DETECTOR CAR OPERATOR Height 153.7 cm (5' 0.5 ) 01/15/2025 8:40 AM DETECTOR CAR OPERATOR Body Mass Index 29.48 01/15/2025 8:40 AM DETECTOR CAR OPERATOR Plan of Treatment Not on file Procedures Procedure Name Priority Date/Time Associated Diagnosis Comments XR HIPS BILATERAL W PELVIS 2 VIEW Schedule Routine, Read Routine (OP Routine) 01/15/2025 9:50 AM DETECTOR CAR OPERATOR Bilateral hip pain XR CHEST PA LATERAL 2 VIEWS Schedule Routine, Read Routine (OP Routine) 01/15/2025 9:50 AM DETECTOR CAR OPERATOR Pill dysphagia DIFFERENTIAL AUTO Routine 12/23/2024 10: 50 AM DETECTOR CAR OPERATOR Other decreased white blood cell (WBC) count CBC WITH AUTO DIFFERENTIAL Routine 12/23/2024 10:50 AM DETECTOR CAR OPERATOR Other decreased white blood cell (WBC) count TRANSTHORACIC ECHO (TTE) LIMITED/FOLLOW UP W LTD DOPPLER/CF WO CONTRAST Routine 11/17/2024 2:31 PM DETECTOR CAR OPERATOR VSD (ventricular septal defect) HEPATITIS C ANTIBODY Routine 10/15/2024 8:46 AM DETECTOR CAR OPERATOR Need for hepatitis C screening test STOOL DNA COLOGUARD Routine 08/30/2022 12:55 PM CDT Colon cancer screening from Last 3 Months or Most Recently Relevant to Health Maintenance Results * XR Hips Bilateral W Pelvis 2 View (01/15/2025 9:50 AM DETECTOR CAR OPERATOR) Anatomical Region Laterality Modality Lower Extremities, Hip, Pelvis Bilateral C omputed Radiography 01/18/2025 1:43 PM DETECTOR CAR OPERATOR Narrative 01/18/2025 1:44 PM DETECTOR CAR OPERATOR EXAM DESCRIPTION: XR HIPS BILATERAL 2 VIEWS W PELVIS REASON FOR STUDY: bilateral hip pain Bilateral hip pain x 1 year TECHNIQUE: AP and frog-leg view bilateral hips. COMPARISON: None. FINDINGS: BONES/JOINTS: There is no acute fracture, malalignment or osseous abnormality. The joint spaces are normal. There are synovial pits noted of the femoral head neck junction bilaterally. SOFT TISSUES: Within normal limits. IMPRESSION: No acute osseous abnormality. THIS IS AN ELECTRONICALLY VERIFIED FINAL REPORT 01/18/2025 1:44 PM - Electronically signed by Jean Tompkins M.D. CH: TIESHA Report ID: [id number] Reading Location: [id number] Procedure Note Jean Tompkins Jr., MD - 01/18/2025 EXAM DESCRIPTION: XR HIPS BILATERAL 2 VIEWS W PELVIS REASON FOR STUDY: bilateral hip pain Bilateral hip pain x 1 year TECHNIQUE: AP and frog-leg view bilateral hips. COMPARISON: None. FINDINGS: BONES/JOINTS: There is no acute fracture, malalignment orosseous abnormality. The joint spaces are normal. There are synovial pits notedof the femoral head neck junction bilaterally. SOFT TISSUES: Within normal limits. IMPRESSION: No acute osseous abnormality. THIS IS AN ELECTRONICALLY VERIFIED FINAL REPORT 01/18/2025 1:44 PM - Electronically signed by Jean Tompkins M.D. CH: Report ID: [id number] Reading Location: [id number] Zoraida Franco MD IMG XR PROCEDURES F inal Result * XR Chest PA Lateral 2 Views (01/15/2025 9:50 AM DETECTOR CAR OPERATOR) Anatomical Region Laterality Modality Body, Chest N/A Computed Radiogr aphy 01/19/2025 8:12 AM DETECTOR CAR OPERATOR Narrative 01/19/2025 8:14 AM DETECTOR CAR OPERATOR EXAM DESCRIPTION: XR CHEST PA LATERAL 2 VIEWS REASON FOR STUDY: Difficulty swallowing pills and cough x 1 day TECHNIQUE: 2 radiographic view(s) of the chest. COMPARISON: 07/20/2021 FINDINGS: No consolidation, pulmonary edema, pleural effusion or pneumothorax. Heart size and mediastinal contours are normal. IMPRESSION: No acute cardiopulmonary abnormality. THIS IS AN ELECTRONICALLY VERIFIED FINAL REPORT 01/19/2025 8:14 AM - Electronically signed by Julius Payton M.D. AG: JENNIFER Report ID: [id number] Reading Location: [id number] Procedure Note Julius Payton MD - 01/19/2025 EXAM DESCRIPTION: XR CHEST PA LATERAL 2 VIEWS REASON FOR STUDY: Difficulty swallowing pills and cough x 1 day TECHNIQUE: 2 radiographic view(s) of the chest. COMPARISON: 07/20/2021 FINDINGS: No consolidation, pulmonary edema, pleural effusion orpneumothorax. Heart size and mediastinal contours are normal. IMPRESSION: No acute cardiopulmonary abnormality. THIS IS AN ELECTRONICALLY VERIFIED FINAL REPORT 01/19/2025 8:14 AM - Electronically signed by Julius Payton M.D. AG: JENNIFER Report ID: [id number] Reading Location: [place] [address] us Zoraida Franco MD IMG XR PROCEDURES F inal Result * (ABNORMAL) Differential, auto (12/23/2024 10:50 AM DETECTOR CAR OPERATOR) Neutrophil abs 1.3(L) 1.5 - 6.5 K/cumm Comment:Testing performed by : [address] [address] Imm gran abs 0.0 0.0 - 0.1 K/cumm ANALIA Comment:Testing performed by : [address] [address] Lymphocyte abs 1.8 0.8 - 3.3 K/cumm ANALIA Comment:Testing performed by : [address] [address] Monocyte abs 0.5 0.2 - 0.8 K/cumm ANALIA Comment:Testing performed by : [address] [address] Eosinophil abs 0.1 0.0 - 0.5 K/cumm ANALIA Comment:Testing performed by : [address] [address] Basophil abs 0.1 0.0 - 0.1 K/cumm ANALIA Comment:Testing performed by : [address] [address] Neutrophil pct 33.3 % ANALIA Comment: Interpretive Data Percent cell count reference ranges are not reported, since discordance with absolute values may lead to misinterpretation of CBC data. Current Interpretive Data was last revised on 2018. Testing performed by: [address] [address] Imm gran pct 0.3 % ANALIA Comment: Interpretive Data Percent cell count reference ranges are not reported, since discordance with absolute values may lead to misinterpretation of CBC data. Current Interpretive Data was last revised on 2018. Testing performed by: [address] [address] Lymphocyte pct 48.4 % A[facility]IA Comment: Interpretive Data Percent cell count reference ranges are not reported, since discordance with absolute values may lead to misinterpretation of CBC data. Current Interpretive Data was last revised on 2018. Testing performed by: [address] [address] Monocyte pct 14.3 % [facility] Comment: Interpretive Data Percent cell count reference ranges are not reported, since discordance with absolute values may lead to misinterpretation of CBC data. Current Interpretive Data was last revised on 2018. Testing performed by: [address] [address] Eosinophil pct 1.6 % ANALIA Comment: Interpretive Data Percent cell count reference ranges are not reported, since discordance with absolute values may lead to misinterpretation of CBC data. Current Interpretive Data was last revised on 2018. Testing performed by: [address] [address] Basophil pct 2.1 % [facility]IA Comment: Interpretive Data Percent cell count reference ranges are not reported, since discordance with absolute values may lead to misinterpretation of CBC data. Current Interpretive Data was last revised on 2018. Testing performed by: [address] [address] Blood 12/23/2024 10:5 0 AM DETECTOR CAR OPERATOR 12/23/2024 10:51 AM DETECTOR CAR OPERATOR us Clemente Hamm DO LAB BLOOD ORDERABLES Final R esult ANALIA [address] [facility] Department [place] [address] * CBC with auto differential (12/23/2024 10:50 AM DETECTOR CAR OPERATOR) [facility] WBC 3.8 3.8 - 9.9 K/cumm Comment:Testing performed by : [address] [address] Hgb 16.6 13.0 - 17.5 g/dL ANALIA Comment:Testing performed by : [address] [address] Hct 47.7 38.9 - 50.3 % ANALIA Comment:Testing performed by : [address] [address] Plt 223 150 - 400 K/cumm ANALIA Comment:Testing performed by : [address] [address] MPV 9.2 9.1 - 12.3 fL ANALIA Comment:Testing performed by : [address] [address] RBC 5.13 4.30 - 5.80 M/cumm ANALIA Comment:Testing performed by : [address] [address] MCV 93.0 81.3 - 96.4 fL ANALIA Comment:Testing performed by : [address] [address] MCH 32.4 27.1 - 33.3 pg ANALIA Comment:Testing performed by : [address] [address] MCHC 34.8 32.3 - 35.7 g/dL ANALIA Comment:Testing performed by : [address] [address] RDW CV 13.5 11.1 - 14.9 % ANALIA Comment:Testing performed by : [address] [address] RDW SD 46.4 35.7 - 48.1 fL ANALIA Comment:Testing performed by : [address] [address] NRBC abs 0.00 0.00 - 0.01 K/cumm ANALIA Comment:Testing performed by : [facility], [address] [place] [address], [place]., [address] Blood 12/23/2024 10:5 0 AM DETECTOR CAR OPERATOR 12/23/2024 10:51 AM DETECTOR CAR OPERATOR Clemente Hamm DO LAB BLOOD ORDERABLES Final R esult ANALIA [address] [facility] Department of Laboratories [place], [place] [id number] * TRANSTHORACIC ECHO (TTE) LIMITED/FOLLOW UP W LTD DOPPLER/CF WO CONTRAST (11/17/2024 2:31 PM DETECTOR CAR OPERATOR) Anatomical Region Laterality Modality Ultrasound 11/17/2024 2:00 PM DETECTOR CAR OPERATOR Narrative 11/23/2024 8:17 AM DETECTOR CAR OPERATOR Adult Echocardiogram + ----- ---+ :Name: HAL FERNANDO Study Date: 11/17/2024 Status: E : : Patient Location: [facility]^^^EHeit: 60 in : : Weight: 158 lbBP: 118/72 mmHg: :: 1975 Gender: Male BSA: 1.7 m2 : :Reason For Study: Ventricular Septal Defect : :Ordering Physician: : :ZORAIDA FRANCO : :Referring Physician: : :ZORAIDA FRANCO : :Performed By: Tena : :MANE Carlin : + ----- ---+ Procedure A two-dimensional [...] defect visualized. + + :Measurements with Normals : :IVSd: (0.6-1.2 LVIDd: (3.5-5.7 : :0.72 cm cm) 4.4 cm cm) : :LVPWd: (0.6-1.1 LVIDs: (3.1-4.6 LA dimension: (1.9-4.0 : :0.77 cm cm) 2.6 cm cm) 2.9 cm cm) : + + MMode/2D Measurements & Calculations RVDd: 1.7 cm FS: 40.3 % LVOT diam: 2.1 cm EDV(Teich): 88.6 ml ESV(Teich): 25.6 ml LVOT area: 3.5 cm2 Doppler Measurements & Calculations Ao V2 max: LV V1 max PG: SV(LVOT): TR max castillo: 97.4 cm/sec 2.2 mmHg 47.8 ml 250.0 cm/sec Ao max P.8 mmHg LV V1 mean PG: TR max P.0 mmHg Ao V2 mean: 1.0 mmHg RVSP(TR): 28.0 mmHg 73.0 cm/sec LV V1 max: Ao mean [...] :Name: HAL FERNANDO Study Date: 11/17/2024 Status: [facility]: : Patient Location: [facility]^^^EHeight: 60 in: : Weight: 158lbBP: 118/72 mmHg: [...] MD CV ECHO PROCEDURES Final Result * Hepatitis C antibody Blood (10/15/2024 8:46 AM DETECTOR CAR OPERATOR) Hep C Ab Nonreactive Nonreactive Comment: [...] in accordance with current CDC screening recommendations. Reactive: Positive for HCV antibodies. This may represent current or past HCV infection. Supplemental molecular testing will be automatically performed to determine current infection status in accordance with current CDC screening recommendations. Interpretive data was last revised on 2020. Blood 10/15/2024 8:46 AM DETECTOR CAR OPERATOR 10/15/2024 2:28 PM DETECTOR CAR OPERATOR us Zoraida Franco MD LAB MICROBIOLOGY - GENERAL ORDERABLES Final Result [facility] [address] [facility] Department [place] [address] * Stool DNA - Cologuard (08/30/2022 12:55 PM CDT) Stool DNA - Cologuard Negative Negative [facility] (CLIA #:[id number]) Comment: NEGATIVE TEST RESULT. A negative Cologuard result indicates a low likelihood that a colorectal cancer (CRC) or advanced adenoma (adenomatous polyps with more advanced pre-malignant features) is present. The chance that a person with a negative Cologuard test has a colorectal cancer is less than 1 in 1500 (negative predictive value >99.9%) or has an advanced adenoma is less than 5.3% (negative predictive value 94.7%). These data are based on a prospective cross-sectional study of 10,000 individuals at average risk for colorectal cancer who were screened with both Cologuard and colonoscopy. (Ignacia Morales al, N Engl J Med 2014;370(14):2131-3268) The normal value (reference range) for this assay is negative. COLOGUARD RE-SCREENING RECOMMENDATION: Periodic colorectal cancer screening is an important part of preventive healthcare for asymptomatic individuals at average risk for colorectal cancer. Following a negative Cologuard result, the [place] [employer] and U.S. Multi-Society Task Force screening guidelines recommend a Cologuard re-screening interval of 3 years. References: [place] [employer] Guideline for Colorectal Cancer Screening: https://www.cancer.org/cancer/ltwsf-ijfree-muvrik/rspfneequ-oaovyfygh-mtcmhxs/ac s-rec ommendations.html.; Nicolas DK, Kylah CR, Madhu TerrazasK, Colorectal Cancer Screening: Recommendations for Physicians and Patients from the U.S. Multi-Society Task Force on Colorectal Cancer Screening , Am J Gastroenterology 2017; 112:8357-5776. TEST DESCRIPTION: Composite algorithmic analysis of stool DNA-biomarkers with hemoglobin immunoassay. Quantitative values of individual biomarkers are not [...] (Ignacia Morales al, N Engl J Med 2014;370(14):7495-7805.) Cologuard may produce a false negative or false positive result (no colorectal cancer or precancerous polyp present at colonoscopy follow up). A negative Cologuard test result does not guarantee the absence of CRC or advanced adenoma (pre-cancer). The current Cologuard screening interval is every 3 years. ([place] [employer] and U.S. Multi-Society Task Force). Cologuard performance data in a 10,000 patient pivotal study using colonoscopy as the reference method can be accessed at the following location: www.[employer]/results. Additional description of the Cologuard test process, warnings and precautions can be found at www.cologuard.com. Stool 08/30/2022 12:5 5 PM CDT 08/31/2022 12:25 PM CDT Zoraida Franco MD LAB BODY FLUIDS AND STOOLS ORDERABLES Final Result [facility] (CLIA #:[id number]) [address] [address] from Last 3 Months or Most Recently Relevant to Health Maintenance Insurance MEDICARE [facility] MEDICARE [facility] MEDICARE [facility] Care Teams Sliding Joint Maker Relationship Specialty Start Date End Date Zoraida Franco MD [facility] [address] [place] [address] PCP - General Family Medicine 06/20/21 Clemente Hamm DO [address] [place] [address] MEDICAL ONCOLOGY, [facility] [address] [place] [address] Medical Oncologist/Manufacturer'S Service Representative Hematology and Oncology 12/23/24
--- OUTSIDE RECORDS SUMMARY | 2025-02-06 09:01 | XMS_ITS | Clinical Summary ---
Author Organization [facility] Address [address] [place] [address] Phone Care Team Providers Care Rug Cleaner Helper Name Role Phone Zoraida Franco MD Primary Care Provider [phone] Allergies Active Allergy Reactions Criticality Noted Date Comments Atropine Unknown 09/28/2022 Was told not to have by yard loader operator Meperidine Other (See Comments) 09/28/2022 Passes out Morphine Other (See Comments) 09/28/2022 Passes out Medications vitamin E, dl,tocopheryl acet, (VITAMIN E, DL, ACETATE, ORAL) Take by mouth. Activ e fluticasone propionate (FLONASE) 50 mcg/spray [place], Suspension nasal inhaler Administer 2 Sprays in [...] at Not on file Legal Sex Male 9:20 AM CDT Gender Identity Not on file Sexual Orientation [...] 09/22/2020, 10/09/2019, Additional history exists COVID-19 Vaccine (3 - 2023-2 5 season) 2024 02/06/2021, 01/10/2021 Insurance [employer] [facility] MEDICARE PART A AND B Care Teams Rug Cleaner Helper Relationship Specialty Start Date End Date Zoraida Franco MD [address] [place] [address] PCP - General Family Practice 09/28/22
--- OUTSIDE RECORDS SUMMARY | 2025-02-06 09:01 | XMS_ITS | Encounter Summary ---
Author Organization [facility] Address [address] [place] [address] Care Team Providers Care Seismic Observer Name Role Phone Zoraida Franco MD Primary Care Provi selvin Clemente Hamm DO Unavailable [phone] Encounter Details Date Type Department Care Team (Late st Contact Info) Description 01/19/2025 Results Follow-Up [facility] Family Medicine [address] [address] Zoraida Franco MD [address] [place] [address] Social History Tobacco Use Types Packs/Day [...] on file Legal Sex Male 7:51 PM CLINICAL RECRUITER Gender Identity Not on file Sexual Orientation Not on file Occupation Industry Job Start Date Job End Date Disabled Not on file Not on file Not on file documented as of this encounter Plan of Treatment Not on file documented as of this encounter Visit Diagnoses Not on filedocumented in this encounter Care Teams Seismic Observer Relationship Specialty Start Date End Date Zoraida Franco MD [address] [place], [place] [id number] PCP - General Family Medicine 06/20/21 Clemente Hamm DO [address] [place] [address] [facility] [address] [place] [address] Medical Oncologist/Sr. Logistics Analyst Hematology and Oncology 12/23/24 documented as of this encounter
--- OUTSIDE RECORDS SUMMARY | 2025-02-06 09:01 | XMS_ITS | Clinical Summary ---
Author Organization [address] Address [address] [address] Care Team Providers Care Rn Liaison Name Role Phone Zoraida Franco MD Primary Care Provi selvin Clemente Hamm DO Unavailable [phone] Allergies Active Allergy Reactions Criticality Noted Date Comments Atropine Hives Medium 09/28/2022 Was told not to have by pastry finisher Meperidine Unknown 10/26/2020 Morphine Sulfate Unknown 10/26/2020 [...] 08/23/2022 Assessment & Plan (10/15/2023 3:12 PM TRANSFORMATION COACH): Chronic stable Continue Flonase as needed Assessment & Plan (08/23/2022 10:02 AM CDT): Chronic stable Continue current regimen Class 1 obesity due to exces s calories without serious comorbidity with body mass index (BMI) of 31.0 to 31.9 in adult 08/23/2022 Assessment & Plan (10/15/2024 7:50 AM TRANSFORMATION COACH): Chronic, slight progression BMI Follow-up includes: nutrition counseling and exercise counseling. Assessment & Plan (10/15/2023 3:13 PM TRANSFORMATION COACH): Chronic, stable BMI Follow-up includes: nutrition counseling. Assessment & Plan (08/23/2022 10:26 AM CDT): BMI Follow-up includes: nutrition counseling. Down syndrome 07/21/2021 Assessment & Plan (10/15/2023 3:11 PM TRANSFORMATION COACH): lora Rodriguez Continue to monitor Update me with any changes in his behavior or health Assessment & Plan (08/23/2022 9:59 AM CDT): Jennifer stable Continue to monitor Encounter for Medicare annual wellness exam 07/02 Overview (10/15/2024): Encouraged healthy habits He has a guardianship, but reviewed POA/living will PMH updated: Last colonoscopy/cologuard:cologuard 08/23- Neg Last PSA: 08/24- WNL Last Tdap: encouraged Last Flu: up to date Last COVID: encouraged Assessment & Plan (10/15/2024 7:45 AM TRANSFORMATION COACH): Encouraged healthy habits He has a guardianship, but reviewed POA/living will PMH updated: Last colonoscopy/cologuard:cologuard 08/23- Neg Last PSA: 08/24- WNL Last Tdap: encouraged Last Flu: up to date Last COVID: encouraged Assessment & Plan (10/15/2023 3:52 PM TRANSFORMATION COACH): Encouraged healthy habits He has a guardianship [...] 03/07/2021 Assessment & Plan (10/15/2023 3:12 PM TRANSFORMATION COACH): Chronic, stable Continue to monitor symptoms Assessment & Plan (08/23/2022 10:00 AM CDT): Chronic, stable Continue to monitor Assessment & Plan (07/20/2021 2:40 PM CDT): Doing well Will recheck labs Assessment & Plan (03/07/2021 2:08 PM CDT): I did order an iron and ferritin level. NILA (obstructive sleep apnea) 03/07/2021 Assessment & Plan (10/15/2023 3:12 PM TRANSFORMATION COACH): Chronic, stable Unable to tolerate CPAP Reviewed [...] disorder) Assessment & Plan (10/15/2023 3:13 PM TRANSFORMATION COACH): Chronic, stable Currently not on medication Consider [...] 10/26/2020 Assessment & Plan (10/15/2023 3:53 PM TRANSFORMATION COACH): Chronic, stable Will be due repeat echo in 2023 Update me with any concerns Assessment & Plan (08/23/2022 10:01 AM CDT): Chronic, stable Continue to monitor Assessment & Plan (07/20/2021 2:42 PM CDT): Echo reviewed Assessment & Plan (10/26/2020 1:29 PM TRANSFORMATION COACH): Will refer to cardiology- Dr Campo Will be due for an echo Continue aspirin Update me with any changes Call for questions or concerns Leukopenia 10/26/2020 Assessment & Plan (10/15/2023 3:12 PM TRANSFORMATION COACH): Chronic, stable Managed by Hematology Update me with any changes or concerns Assessment & Plan (08/23/2022 10:00 AM CDT): Chronic, stable Continue to follow with heme Assessment & Plan (07/20/2021 2:40 PM CDT): Will check labs Assessment & Plan (10/26/2020 1:33 PM TRANSFORMATION COACH): Referral placed to heme Will consider labs for further guidance Update me after the visit Call for questions or concerns Resolved Problems Problem Noted Date Diagnosed Date Resolved Date Other acute sinusitis 09/03/20232022 Assessment & Plan (10/15/2023 3:12 PM TRANSFORMATION COACH): Acute, resolved Update me if symptoms reoccur [...] Department Care Team Description 01/19/2025 Results Follow-Up [facility] Family Medicine [address] [address] Zoraida Franco MD 01/15/2025 9:35 AM TRANSFORMATION COACH - 01/15/2025 11:59 PM TRANSFORMATION COACH Hospital Encounter [facility] Diagnostic Imaging [address] [place] [address] Pill dysphagia; Bilateral hip pain Discharge Disposition: Discharge to home or self care 01/15/2025 8:45 AM TRANSFORMATION COACH Office Visit [facility] Medicine [address] [address] Zoraida Franco MD Onychomycosis (Primary Dx); Bilateral hip pain; Tinea pedis of both feet; Dry skin dermatitis; Pill dysphagia 12/23/2024 11:15 AM TRANSFORMATION COACH Office Visit [facility] Oncology [address] [place] [address] [address] [place] [address] Clemente Hamm DO Other decreased white blood cell (WBC) count (Primary Dx) 12/23/2024 10:45 AM TRANSFORMATION COACH Lab [facility] at [address] [address] Other decreased white blood cell (WBC) count 12/04/2024 Telephone [facility] [address] [address] Zoraida Franco MD 11/17/2024 1:30 PM TRANSFORMATION COACH - 11/17/2024 11:59 PM TRANSFORMATION COACH Hospital Encounter [facility] Cardiac Testing [address] [place], [place] [id number] VSD (ventricular septal defect) Discharge Disposition: Discharge to home or self care from Last 3 Months Immunizations Immunization Administration Dates Next Due Influenza, [...] on file Legal Sex Male 7:51 PM TRANSFORMATION COACH Gender Identity Not on file Sexual Orientation Not on file Occupation Industry Job Start Date Job End Date Disabled Not on file Not on file Not on file Obstetrics History Last Filed Vital Signs Vital Sign Reading Time Taken Comments Blood Pressure 100/60 01/15/2025 8:40 AM TRANSFORMATION COACH Pulse 62 01/15/2025 8:40 AM TRANSFORMATION COACH Temperature 35.9 C (96.7 F) 01/15/2025 8:40 AM TRANSFORMATION COACH Respiratory Rate 12 01/15/2025 8:40 AM TRANSFORMATION COACH Oxygen Saturation 98% 01/15/2025 8:40 AM TRANSFORMATION COACH Inhaled Oxygen Concentration - - Weight 69.6 kg (153 lb 8 oz) 01/15/2025 8:40 AM TRANSFORMATION COACH Height 153.7 cm (5' 0.5 ) 01/15/2025 8:40 AM TRANSFORMATION COACH Body Mass Index 29.48 01/15/2025 8:40 AM TRANSFORMATION COACH Plan of Treatment Health Maintenance Due Date Last Done Comments Hepatitis B Screening 1993 Covid-19 Vaccine ( season) 2024 12/09/2023, 02/06/2021, 01/10/2021 Colon Cancer Screening-DNA Stool 08/30/2025 08/30/2022 Regular Well Visit/Exam 18-64 10/15/2025 10/15/2024, 10/15/2023, 10/15/2023, Additional history exists Depression Screening 01/15/2026 01/15/2025, 10/15/2024, 10/15/2024, Additional history exists DTaP/Tdap/Td Vaccine (1 - Tdap) 11/27/2032 11/27/2023 Postponed from 11/28/2023 (Provider's clinical decision) Pneumococcal vaccine <65 Aged Out 02/27/2022 No longer eligible based on patient's age to complete this topic Influenza Vaccine Completed 09/11/2024, , 08/27/2022, Additional history exists Hepatitis C Screening Completed 10/15/2024 Procedures Procedure Name Priority Date/Time Associated Diagnosis Comments XR HIPS BILATERAL W PELVIS 2 VIEW Schedule Routine, Read Routine (OP Routine) 01/15/2025 9:50 AM TRANSFORMATION COACH Bilateral hip pain XR CHEST PA LATERAL 2 VIEWS Schedule Routine, Read Routine (OP Routine) 01/15/2025 9:50 AM TRANSFORMATION COACH Pill dysphagia DIFFERENTIAL AUTO Routine 12/23/2024 10: 50 AM TRANSFORMATION COACH Other decreased white blood cell (WBC) count CBC WITH AUTO DIFFERENTIAL Routine 12/23/2024 10:50 AM TRANSFORMATION COACH Other decreased white blood cell (WBC) count TRANSTHORACIC ECHO (TTE) LIMITED/FOLLOW UP W LTD DOPPLER/CF WO CONTRAST Routine 11/17/2024 2:31 PM TRANSFORMATION COACH VSD (ventricular septal defect) HEPATITIS C ANTIBODY Routine 10/15/2024 8:46 AM TRANSFORMATION COACH Need for hepatitis C screening test STOOL DNA COLOGUARD Routine 08/30/2022 12:55 PM CDT Colon cancer screening from Last 3 Months or Most Recently Relevant to Health Maintenance Results * XR Hips Bilateral W Pelvis 2 View (01/15/2025 9:50 AM TRANSFORMATION COACH) Anatomical Region Laterality Modality Lower Extremities, Hip, Pelvis Bilateral C omputed Radiography 01/18/2025 1:43 PM TRANSFORMATION COACH Narrative 01/18/2025 1:44 PM TRANSFORMATION COACH EXAM DESCRIPTION: XR HIPS BILATERAL 2 VIEWS [...] by Jean Tompkins M.D. CH: Report ID: [id number] Reading Location: [id number] Procedure Note Jean Tompkins Jr., MD - [...] Jean Tompkins M.D. CH: TIESHA Report ID: [id number] Reading Location: [id number] Zoraida Franco MD IMG XR PROCEDURES F inal Result * XR Chest PA Lateral 2 Views (01/15/2025 9:50 AM TRANSFORMATION COACH) Anatomical Region Laterality Modality Body, Chest N/A Computed Radiogr aphy 01/19/2025 8:12 AM TRANSFORMATION COACH Narrative 01/19/2025 8:14 AM TRANSFORMATION COACH EXAM DESCRIPTION: XR CHEST PA LATERAL 2 [...] Electronically signed by Julius Payton M.D. AG: AG Report ID: [id number] Reading Location: [id number] Procedure Note Julius Payton MD - 01/19/2025 [...] Electronically signed by Julius Payton M.D. AG: AG Report ID: [id number] Reading Location: [id number] Zoraida Franco MD IMG XR PROCEDURES F inal Result * (ABNORMAL) Differential, auto (12/23/2024 10:50 AM TRANSFORMATION COACH) Neutrophil abs 1.3(L) 1.5 - 6.5 K/cumm Comment:Testing performed by : [address] [address] Imm gran abs 0.0 0.0 - 0.1 K/cumm [facility] Comment:Testing performed by : [address], [place]., [address] Lymphocyte abs 1.8 0.8 - 3.3 K/cumm [facility] Comment:Testing performed by : [address] [address] Monocyte abs 0.5 0.2 - 0.8 K/cumm [facility] Comment:Testing performed by : [address] [address] Eosinophil abs 0.1 0.0 - 0.5 K/cumm [facility] Comment:Testing performed by : [address] [address] Basophil abs 0.1 0.0 - 0.1 K/cumm [facility] Comment:Testing performed by : [address] [address] Neutrophil pct 33.3 % [facility] Comment: Interpretive Data Percent cell count reference ranges are not reported, since discordance with absolute values may lead to misinterpretation of CBC data. Current Interpretive Data was last revised on 2018. Testing performed by: [address] [address] Imm gran pct 0.3 % [facility] Comment: Interpretive Data Percent cell count reference ranges are not reported, since discordance with absolute values may lead to misinterpretation of CBC data. Current Interpretive Data was last revised on 2018. Testing performed by: [address] [address] Lymphocyte pct 48.4 % [facility] Comment: Interpretive Data Percent cell count reference ranges are not reported, since discordance with absolute values may lead to misinterpretation of CBC data. Current Interpretive Data was last revised on 2018. Testing performed by: [address] [address] Monocyte pct 14.3 % [facility] Comment: Interpretive Data Percent cell count reference ranges are not reported, since discordance with absolute values may lead to misinterpretation of CBC data. Current Interpretive Data was last revised on 2018. Testing performed by: [address] [address] Eosinophil pct 1.6 % [facility] Comment: Interpretive Data Percent cell count reference ranges are not reported, since discordance with absolute values may lead to misinterpretation of CBC data. Current Interpretive Data was last revised on 2018. Testing performed by: [address] [address] Basophil pct 2.1 % [facility] Comment: Interpretive Data Percent cell count reference ranges are not reported, since discordance with absolute values may lead to misinterpretation of CBC data. Current Interpretive Data was last revised on 2018. Testing performed by: [address] [address] Blood 12/23/2024 10:5 0 AM TRANSFORMATION COACH 12/23/2024 10:51 AM TRANSFORMATION COACH us Clemente Hamm DO LAB BLOOD ORDERABLES Final R esult [facility] [address] [facility] Department [place] [address] * CBC with auto differential (12/23/2024 10:50 AM TRANSFORMATION COACH) WBC 3.8 3.8 - 9.9 K/cumm Comment:Testing performed by : [address] [address] Hgb 16.6 13.0 - 17.5 g/dL [facility] Comment:Testing performed by : [address] [address] Hct 47.7 38.9 - 50.3 % [facility] Comment:Testing performed by : [address] [address] Plt 223 150 - 400 K/cumm [facility] Comment:Testing performed by : [address] [address] MPV 9.2 9.1 - 12.3 fL [facility] Comment:Testing performed by : [address] [address] RBC 5.13 4.30 - 5.80 M/cumm [facility] Comment:Testing performed by : [address] [address] MCV 93.0 81.3 - 96.4 fL [facility] Comment:Testing performed by : [address] [address] MCH 32.4 27.1 - 33.3 pg [facility] Comment:Testing performed by : [address] [address] MCHC 34.8 32.3 - 35.7 g/dL [facility] Comment:Testing performed by : [address] [address] RDW CV 13.5 11.1 - 14.9 % [facility] Comment:Testing performed by : [address], [address] RDW SD 46.4 35.7 - 48.1 fL [facility] Comment:Testing performed by : [address] [address] NRBC abs 0.00 0.00 - 0.01 K/cumm [facility] Comment:Testing performed by : [address] [address] Blood 12/23/2024 10:5 0 AM TRANSFORMATION COACH 12/23/2024 10:51 AM TRANSFORMATION COACH us Clemente Hamm DO LAB BLOOD ORDERABLES Final R esult [facility] [address] [facility] Department [place] [address] * TRANSTHORACIC ECHO (TTE) LIMITED/FOLLOW UP W SEEMA DOPPLER/CF WO CONTRAST (11/17/2024 2:31 PM TRANSFORMATION COACH) Anatomical Region Laterality Modality Ultrasound 11/17/2024 2:00 PM TRANSFORMATION COACH Narrative 11/23/2024 8:17 AM TRANSFORMATION COACH Adult Echocardiogram + ----- ---+ :Name: HAL RICO Study Date: 11/17/2024 Status: MHE : : Patient Location: [facility]^^^EHeight: 60 in : : Weight: 158 lbBP: [...] Adult Echocardiogram + ----- ---+ :Name: HAL RICO Study Date: 11/17/2024 Status: MHE: : Patient Location: [facility]^^^MHEHeight: 60 in: : Weight: 158lbBP: 118/72 [...] Hepatitis C antibody Blood (10/15/2024 8:46 AM TRANSFORMATION COACH) Pathologist [facility] Hep C Ab Nonreactive Nonreactive Comment: Antibodies [...] revised on 2020. Blood 10/15/2024 8:46 AM TRANSFORMATION COACH 10/15/2024 2:28 PM TRANSFORMATION COACH Zoraida Franco MD LAB MICROBIOLOGY - GENERAL ORDERABLES Final Result [facility] [address] [facility] Department [place] [address] * Stool DNA - Cologuard (08/30/2022 12:55 PM CDT) [facility] Stool DNA - Cologuard Negative Negative [facility] (CLIA #:[id number]) Comment: NEGATIVE TEST RESULT. A negative Cologuard [...] (Ignacia Morales al, N Engl J Med 2014;370(14):2821-7697) The normal value (reference range) for this assay is negative. COLOGUARD RE-SCREENING RECOMMENDATION: Periodic colorectal cancer screening is an important part of preventive healthcare for asymptomatic individuals at average risk for colorectal cancer. Following a negative Cologuard result, the [place] Cancer Society and U.S. Multi-Society Task Force screening guidelines recommend a Cologuard re-screening interval of 3 years. References: [place] [employer] Guideline for Colorectal Cancer Screening: https://www.cancer.org/cancer/ggtde-qesfpu-umpxfq/sbqtxrhtc-nosridprp-dbofqbn/ac s-rec ommendations.html.; Nicolas CALDERON, Kylah QUINONEZ, Madhu TerrazasK, Colorectal Cancer Screening: Recommendations for Physicians and Patients from the U.S. Multi-Society Task Force on Colorectal Cancer Screening , Am J Gastroenterology 2017; 112:4276-4736. TEST DESCRIPTION: Composite algorithmic analysis of stool [...] colonoscopy. (Ignacia Nam, N Engl J Med 2014;370(14):5842-1339.) Cologuard may produce a false negative or false positive result (no colorectal cancer or precancerous polyp present at colonoscopy follow up). A negative Cologuard test result does not guarantee the absence of CRC or advanced adenoma (pre-cancer). The current Cologuard screening interval is every 3 years. ([place] Cancer Society and U.S. Multi-Society Task Force). Cologuard performance data in a 10,000 patient pivotal study using colonoscopy as the reference method can be accessed at the following location: www.[employer]/results. Additional description of the Cologuard test process, warnings and precautions can be found at www.cologuard.com. Stool 08/30/2022 12:5 5 PM CDT 08/31/2022 12:25 PM CDT us Zoraida Franco MD LAB BODY FLUIDS AND STOOLS ORDERABLES Final Result [facility] [facility] (CLIA #:[id number]) [address] [place] [address] from Last 3 Months or Most Recently Relevant to Health Maintenance [place] [address] [facility] MEDICARE [employer] MEDICARE [place] [address] Care Teams Rn Liaison Relationship Specialty Start Date End Date Zoraida Franco MD [address] [place] [address] PCP - General Family Medicine 06/20/21 Clemente Hamm DO [address] [place] [address] MEDICAL ONCOLOGY, [facility] [address] [place] [address] Medical Oncologist/Refrigeration Operator Hematology and Oncology 12/23/24
--- OUTSIDE RECORDS SUMMARY | 2025-02-06 09:01 | XMS_ITS | Continuity of Care Document ---
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 Atrial septal defect (disorder) Active Condition Leukopenia (disorder) Active Condition followed by Dr Cassidy Allergies, Adverse Reactions, Alerts Substance Category Reaction Severity Reaction type Status Date Reported Comments Source morphine Assertion Drug allergy Active [facility] Demerol Assertion Drug allergy Active [facility] Encounters Location Location Details Encounter Type Encounter Number Reason For Visit Attending Provider ADM Date DC Date Status Source PL10 PL10 Outpatient [id number] 23:59 :59 Discharge d [facility] Outpatient [id number] See Comments [facility] MSC MSC OUTPATIENT [id number] CHRONIC NEUTROPEN IA/RECS IMAG 10/15 Leonardo Goldberg [facility]ancel [facility] Outpatient [id number] Brandinmeron [facility] Pulmonol ogy LRLO LRLO Outpatient [id number] See Comments [facility] [id number] [facility] Procedures Procedure Code Date Perfomer Comments Source Cataract extraction [id number] [facility] Cholecystectomy [id number] [facility] ear tubes [facility] T and A (tonsillectomy and adenoidectomy) postoperative education [id number] [facility]
--- OUTSIDE RECORDS SUMMARY | 2025-02-06 09:01 | XMS_ITS | Clinical Summary ---
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 Gender Identity Not on file Sexual Orientation Not on file Plan of Treatment Health Maintenance Due Date Last Done Comments Hepatitis C Virus (HCV) Screening 1977 TdaP Immunization 1977 Hepatitis B Immunization (1 of 3 - 19+ 3-dose series) 1996 Colonoscopy 2022 Colorectal Cancer Screening 2022 Influenza Immunization (#1) 08/02/202409/01, 09/22/2020, 11/03/2014 SARS-COV-2 Immunization ( season) 2024 02/06/2021, 01/14/2021 Respiratory Syncytial Virus (RSV) Immunization (Adult) (1 - 1-dose 75+ series) 2052 Meningococcal Immunization (ACWY) Aged Out No longer eligible b ased on patient's age to complete this topic Pneumococcal Immunization Combined Aged Out No longer eligible b ased on patient's age to complete this topic Rotavirus Immunization Aged Out No lo nger eligible based on patient's age to complete this topic
--- OUTSIDE RECORDS SUMMARY | 2025-02-06 09:05 | XMS_ITS | Continuity of Care Document ---
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 Atrial septal defect (disorder) Active Condition Leukopenia (disorder) Active Condition followed by Dr Cassidy Allergies, Adverse Reactions, Alerts Substance Category Reaction Severity Reaction type Status Date Reported Comments Source morphine Assertion Drug allergy Active [facility] Demerol Assertion Drug allergy Active [facility] Encounters Location Location Details Encounter Type Encounter Number Reason For Visit Attending Provider ADM Date DC Date Status Source PL10 PL10 Outpatient [id number] 23:59 :59 Discharge d [facility]O LRLO Outpatient [id number] See Comments [facility] MSC MSC OUTPATIENT [id number] CHRONIC NEUTROPEN IA/RECS IMAG 10/15 Leonardo Goldberg Cancel [facility] Outpatient [id number] Brandinmeron [facility] Pulmonol ogy LRLO LRLO Outpatient [id number] See Comments [facility] Out[facility] [id number] [facility] Pul[facility] Procedures Procedure Code Date Perfomer Comments Source Cataract extraction [id number] [facility] Cholecystectomy [id number] [facility] ear tubes [facility] T and A (tonsillectomy and adenoidectomy) postoperative education [id number] [facility]
[2025-02-06 09:30] VITALS: BP 111/58; PULSE 68; RESP 16; TEMP 36.1; O2SAT 98
--- NOTE | 2025-02-06 09:52 | ED.URI ---
HPI - URI/Sore Throat General Chief Complaint: Upper Respiratory Infection Stated Complaint: cold like Source: patient and family (Mother) Mode of arrival: ambulatory Limitations: other (History of Down syndrome) History of Present Illness HPI Narrative: 49-year-old male presents to [facility] accompanied by his mother for complaints of 11 day history of productive cough, nasal congestion, runny nose. Patient has history of Down syndrome. Patient was evaluated here on January 30, had negative COVID and influenza tests and was diagnosed with a viral illness at that time. Mother reports the patient has been taking [id number] Mucinex, Flonase and Tessalon with little relief. Patient is a nonsmoker. Patient denies sick contacts. Patient denies recent travel. MD elicited complaint: cough, rhinorrhea and nasal congestion Onset (ago): day(s) () Able to tolerate fluids by mouth: Yes Treatments prior to arrival: cold medicine Related Data Home Medications ?Medication ?Instructions ?Recorded ?Confirmed ?Last Taken ?Type cholecalciferol (vitamin D3) 25 1,000 unit PO ONCE 01/30/25 01/30/25 Unknown History mcg (1,000 unit) capsule (Vitamin D3) Allergies Allergy/AdvReac Type Severity Reaction Status Date / Time morphine Allergy Severe Anaphylaxis Verified 02/06/25 09:12 meperidine (From Demerol) AdvReac Intermediate Fainting Verified 02/06/25 09:12 Review of Systems Constitutional: Constitutional: Denies chills, Denies fatigue, Denies fever(s) and Denies weakness ENT: Denies vertigo, Denies dizziness, Denies epistaxis, Reports nasal congestion and Denies sore throat Respiratory: Respiratory: Reports chest congestion, Reports cough, Denies dyspnea and Denies wheezing Gastrointestinal: Gastrointestinal: Denies diarrhea, Denies nausea and Denies vomiting Integumentary/Breasts: Skin/Breast: Denies pruritus, Denies erythema and Denies rash Neurologic: Denies dizziness, Denies syncope and Denies headache(s) [facility] Past Medical History Medical History Down syndrome Regurgitation and rechewing Dysphagia VSD (ventricular septal defect) COVID-19 07/2020 Acute sinus infection Down syndrome Surgical History Surgical History History of hand surgery extra digit removed from right hand History of adenoidectomy History of tonsillectomy History of tympanostomy History of cholecystectomy Family History Family History Father , related to COVID-19 per spouse Heart disease COVID-19 Mother COVID-19 Social History Social History Social History: Mother denies smoke expsoure Smoking status: Never smoker Tobacco type: cigarettes Second hand tobacco smoke exposure: No Alcohol intake: never Substance use: never Substance use type: does not use Living arrangements: with family Occupation/Education: other Additional occupation/education comments: disable Gender identity (if verbalized by the patient): Male Spiritual care concerns: No Comments At time of signature, I agree with nursing past medical, surgical, social and family history. There is no relevant family history pertinent to the presenting complaint. Exam Const: General: healthy appearing and no acute distress Nutritional Appearance: well nourished Orientation/consciousness: patient oriented x3 Limitations: other limitations (History of Down syndrome) HENMT: Head: normal to inspection Ears: external ears normal, TM's normal bilaterally and EAC's normal Face and sinus: sinuses nontender Mouth: Yes moist mucous membranes Throat: posterior oropharynx normal and uvula midline Other: Moderate nasal congestion noted Eyes: Conjunctivae: conjunctivae normal Neck: Neck: normal visual inspection Resp: Effort & Inspection: normal respiratory effort Auscultation: clear to auscultation bilaterally, no crackles, no rales, no rhonchi and no wheezes Cardio: Rate: regular rate Rhythm: regular rhythm Heart sounds: no murmurs Skin: General skin exam: normal color Rashes: no rashes Neuro: General: patient oriented x3 and moves all extremities Speech: normal speech Gait exam (Neuro): Normal gait present Extrem: General: normal to inspection Psych: Affect: normal affect Attitude: cooperative Course Course Level of Care: Express Care Visit Vital Signs Vital signs: Vital Signs Temperature 36.1 C L 02/06/25 09:30 Pulse Rate 68 02/06/25 09:30 Respiratory Rate 16 02/06/25 09:30 Blood Pressure 111/58 L 02/06/25 09:30 Pulse Oximetry 98 02/06/25 09:30 Oxygen Delivery Room Air 02/06/25 09:30 Temperature 36.1 C L 02/06/25 09:30 Pulse Rate 68 02/06/25 09:30 Respiratory Rate 16 02/06/25 09:30 Blood Pressure 111/58 L 02/06/25 09:30 Pulse Oximetry 98 02/06/25 09:30 Oxygen Delivery Room Air 02/06/25 09:30 MDM - URI/Sore Throat MDM Narrative Medical decision making narrative: Mother is requesting liquid antibiotic for patient. Mother agrees to continue mceg-xgm-[id number] medications as needed for symptom relief. Mother agrees to follow-up with primary care provider if symptoms not improve Differential Diagnosis Differential diagnosis: Likely otitis media, sinusitis and viral infection Critical Care Time Critical Care Time Critical Care Time: No Discharge Plan Discharge Clinical Impression: Upper respiratory infection Qualifiers: URI type: unspecified URI Qualified Code(s): J06.9 - Acute upper respiratory infection, unspecified Patient Disposition: Home, Self-Care Condition: Stable Instructions: Antibiotic Form, Upper Respiratory Infection (ED) Additional Instructions: Take antibiotic as prescribed Take cough medication as needed Follow-up with primary care provider if symptoms not improved Proceed to the emergency room symptoms worsen Patient Language: Sri Lankan Prescriptions: New amoxicillin 400 mg/5 mL suspension for reconstitution 800 mg PO BID 10 Days Qty: 200 0RF benzonatate 100 mg capsule 100 mg PO BID PRN (Reason: cough) Qty: 20 0RF No Action cholecalciferol (vitamin D3) [Vitamin D3] 25 mcg (1,000 unit) capsule 1,000 unit PO ONCE Follow-up/Referrals: Salvador,MD Zoraida [Primary Care Provider] - Time of Disposition: 09:56
== END 2025-02-06 09:57 | disposition home or self-care (01) ==
PROVIDERS: Emergency Provider Nurse Practitioner Family; PCP Family Medicine
DX: J06.9 Acute upper respiratory infection, unspecified (principal); Q90.9 Down syndrome, unspecified; Z86.16 Personal history of COVID-19
CPT/HCPCS: 99213; G0463

== ENCOUNTER 2025-02-20 08:16 | Emergency (ER) | payer MEDICARE, OTHER, SELFPAY ==
--- OUTSIDE RECORDS SUMMARY | 2025-02-20 08:18 | XMS_ITS | Clinical Summary ---
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 Gender Identity Not on file Sexual Orientation Not on file Plan of Treatment Health Maintenance Due Date Last Done Comments Hepatitis C Virus (HCV) Screening 1977 TdaP Immunization 1977 Hepatitis B Immunization (1 of 3 - 19+ 3-dose series) 1996 Colonoscopy 2022 Colorectal Cancer Screening 2022 Influenza Immunization (#1) 08/02/202409/01, 09/22/2020, 11/03/2014, Additional history exists SARS-COV-2 Immunization (2023- season) 2024 02/06/2021, 01/14/2021 Respiratory Syncytial Virus (RSV) Immunization (Adult) (1 - 1-dose 75+ series) 2052 Meningococcal Immunization (ACWY) Aged Out No longer eligible based on patient's age to complete this topic Pneumococcal Immunization Combined Aged Out No longer eligible based on patient's age to complete this topic Rotavirus Immunization Aged Out No lo nger eligible based on patient's age to complete this topic
--- OUTSIDE RECORDS SUMMARY | 2025-02-20 08:18 | XMS_ITS | Referral Summary ---
Author Organization [address] Address [address] [phone] Care Team Providers Care Enrober Tender Name Role Phone Zoraida Franco MD Primary Care Provi selvin Clemente Hamm DO Unavailable [phone] Encounters Date Type Department Care Team Description 01/19/2025 Results Follow-Up [facility] Family Medicine [address] [place] [phone] Zoraida Franco MD 01/15/2025 9:35 AM COPY CUTTER - 01/15/2025 11:59 PM COPY CUTTER Hospital Encounter [facility] Diagnostic Imaging [address] [place] [address] Pill dysphagia; Bilateral hip pain Discharge Disposition: Discharge to home or self care 01/15/2025 8:45 AM COPY CUTTER Office Visit [facility] [address] [place] [phone] Zoraida Franco MD Onychomycosis (Primary Dx); Bilateral hip pain; Tinea pedis of both feet; Dry skin dermatitis; Pill dysphagia 12/23/2024 11:15 AM COPY CUTTER Office Visit [facility] Oncology [address] [facility] [address] [place] [phone] Clemente Hamm, Other decreased white blood cell (WBC) count (Primary Dx) 12/23/2024 10:45 AM COPY CUTTER Lab [facility] at [address] [address] Other decreased white blood cell (WBC) count 12/04/2024 Telephone [facility] [address] [phone] Zoraida Franco MD from Last 3 Months Allergies Active Allergy Reactions Criticality Noted Date Comments Atropine Hives Medium 09/28/2022 Was told not to have by energy consultant Meperidine Unknown 10/26/2020 Morphine Sulfate Unknown 10/26/2020 [...] 08/23/2022 Assessment & Plan (10/15/2023 3:12 PM COPY CUTTER): Chronic, stable Continue Flonase as needed Assessment & Plan (08/23/2022 10:02 AM CDT): Chronic, stable Continue current regimen Class 1 obesity due to exces s calories without serious comorbidity with body mass index (BMI) of 31.0 to 31.9 in adult 08/23/2022 Assessment & Plan (10/15/2024 7:50 AM COPY CUTTER): Chronic, slight progression BMI Follow-up includes: nutrition counseling and exercise counseling. Assessment & Plan (10/15/2023 3:13 PM COPY CUTTER): Chronic, stable BMI Follow-up includes: nutrition counseling. Assessment & Plan (08/23/2022 10:26 AM CDT): BMI Follow-up includes: nutrition counseling. Down syndrome 07/21/2021 Assessment & Plan (10/15/2023 3:11 PM COPY CUTTER): Chronic, stable Continue to monitor Update me [...] encouraged Assessment & Plan (10/15/2024 7:45 AM COPY CUTTER): Encouraged healthy habits He has a guardianship, but reviewed POA/living will PMH updated: Last colonoscopy/cologuard:cologuard 08/23- Neg Last PSA: 08/24- WNL Last Tdap: encouraged Last Flu: up to date Last COVID: encouraged Assessment & Plan (10/15/2023 3:52 PM COPY CUTTER): Encouraged healthy habits He has a guardianship [...] 03/07/2021 Assessment & Plan (10/15/2023 3:12 PM COPY CUTTER): Chronic, stable Continue to monitor symptoms Assessment & Plan (08/23/2022 10:00 AM CDT): Chronic, stable Continue to monitor Assessment & Plan (07/20/2021 2:40 PM CDT): Doing well Will recheck labs Assessment & Plan (03/07/2021 2:08 PM CDT): I did order an iron and ferritin level. NILA (obstructive sleep apnea) 03/07/2021 Assessment & Plan (10/15/2023 3:12 PM COPY CUTTER): Chronic, stable Unable to tolerate CPAP Reviewed [...] disorder) Assessment & Plan (10/15/2023 3:13 PM COPY CUTTER): Chronic, stable Currently not on medication Consider [...] 10/26/2020 Assessment & Plan (10/15/2023 3:53 PM COPY CUTTER): Chronic, stable Will be due repeat echo in 2023 Update me with any concerns Assessment & Plan (08/23/2022 10:01 AM CDT): Chronic, stable Continue to monitor Assessment & Plan (07/20/2021 2:42 PM CDT): Echo reviewed Assessment & Plan (10/26/2020 1:29 PM COPY CUTTER): Will refer to cardiology- Dr Campo Will be due for an echo Continue aspirin Update me with any changes Call for questions or concerns Leukopenia 10/26/2020 Assessment & Plan (10/15/2023 3:12 PM COPY CUTTER): Chronic, stable Managed by Hematology Update me with any changes or concerns Assessment & Plan (08/23/2022 10:00 AM CDT): Chronic, stable Continue to follow with heme Assessment & Plan (07/20/2021 2:40 PM CDT): Will check labs Assessment & Plan (10/26/2020 1:33 PM COPY CUTTER): Referral placed to [facility] Will consider labs for further guidance Update me after the visit Call for questions or concerns Resolved Problems Problem Noted Date Diagnosed Date Resolved Date Other acute sinusitis 09/03/20232022 Assessment & Plan (10/15/2023 3:12 PM COPY CUTTER): Acute, resolved Update me if symptoms reoccur [...] staff should administer the PHQ-9) 0 01/15/2025 PHQ-9 Answer Date Recorded PHQ-9 Total Score 0 10/15/2024 Sex and Gender Information Value Date Recorded Sex Assigned at Not on file Legal Sex Male 7:51 PM COPY CUTTER Gender Identity Not on file Sexual Orientation Not on file Occupation Industry Job Start Date Job End Date Disabled Not on file Not on file Not on file Last Filed Vital Signs Vital Sign Reading Time Taken Comments Blood Pressure 100/60 01/15/2025 8:40 AM COPY CUTTER Pulse 62 01/15/2025 8:40 AM COPY CUTTER Temperature 35.9 C (96.7 F) 01/15/2025 8:40 AM COPY CUTTER Respiratory Rate 12 01/15/2025 8:40 AM COPY CUTTER Oxygen Saturation 98% 01/15/2025 8:40 AM COPY CUTTER Inhaled Oxygen Concentration - - Weight 69.6 kg (153 lb 8 oz) 01/15/2025 8:40 AM COPY CUTTER Height 153.7 cm (5' 0.5 ) 01/15/2025 8:40 AM COPY CUTTER Body Mass Index 29.48 01/15/2025 8:40 AM COPY CUTTER Plan of Treatment Not on file Procedures Procedure Name Priority Date/Time Associated Diagnosis Comments XR HIPS BILATERAL W PELVIS 2 VIEW Schedule Routine, Read Routine (OP Routine) 01/15/2025 9:50 AM COPY CUTTER Bilateral hip pain XR CHEST PA LATERAL 2 VIEWS Schedule Routine, Read Routine (OP Routine) 01/15/2025 9:50 AM COPY CUTTER Pill dysphagia DIFFERENTIAL AUTO Routine 12/23/2024 10: 50 AM COPY CUTTER Other decreased white blood cell (WBC) count CBC WITH AUTO DIFFERENTIAL Routine 12/23/2024 10:50 AM COPY CUTTER Other decreased white blood cell (WBC) count HEPATITIS C ANTIBODY Routine 10/15/2024 8:46 AM COPY CUTTER Need for hepatitis C screening test STOOL DNA COLOGUARD Routine 08/30/2022 12:55 PM CDT Colon cancer screening from Last 3 Months or Most Recently Relevant to Health Maintenance Results * XR Hips Bilateral W Pelvis 2 View (01/15/2025 9:50 AM COPY CUTTER) Anatomical Region Laterality Modality Lower Extremities, Hip, Pelvis Bilateral C omputed Radiography 01/18/2025 1:43 PM COPY CUTTER Narrative 01/18/2025 1:44 PM COPY CUTTER EXAM DESCRIPTION: XR HIPS BILATERAL 2 VIEWS [...] by Jean Tompkins M.D. CH: Report ID: [id number] Reading Location: [id number] Procedure Note Jean Tompkins Jr., MD - [...] Jean Tompkins M.D. CH: TIESHA Report ID: [id number] Reading Location: [id number] us Zoraida Franco MD IMG XR PROCEDURES F inal Result * XR Chest PA Lateral 2 Views (01/15/2025 9:50 AM COPY CUTTER) Anatomical Region Laterality Modality Body, Chest N/A Computed Radiogr aphy 01/19/2025 8:12 AM COPY CUTTER Narrative 01/19/2025 8:14 AM COPY CUTTER EXAM DESCRIPTION: XR CHEST PA LATERAL 2 [...] Julius Payton M.D. AG: JENNIFER Report ID: [id number] Reading Location: [id number] Procedure Note Julius Payton MD - 01/19/2025 [...] Julius Payton M.D. AG: JENNIFER Report ID: [id number] Reading Location: [id number] Zoraida Franco MD IMG XR PROCEDURES F inal Result * (ABNORMAL) Differential, auto (12/23/2024 10:50 AM COPY CUTTER) Neutrophil abs 1.3(L) 1.5 - 6.5 K/cumm Comment:Testing performed by : [address] [address] Imm gran abs 0.0 0.0 - 0.1 K/cumm [facility] Comment:Testing performed by : [address] [address] Lymphocyte abs 1.8 0.8 - 3.3 K/cumm [facility] Comment:Testing performed by : [address] [address] Monocyte abs 0.5 0.2 - 0.8 K/cumm [facility] Comment:Testing performed by : [address] [address] Eosinophil abs 0.1 0.0 - 0.5 K/cumm [facility] Comment:Testing performed by : [address] [address] Basophil abs 0.1 0.0 - 0.1 K/cumm [facility] Comment:Testing performed by : [address] [address] Neutrophil pct 33.3 % [facility] Comment: Interpretive Data Percent cell count reference ranges are not reported, since discordance with absolute values may lead to misinterpretation of CBC data. Current Interpretive Data was last revised on 2018. Testing performed by: [address] [address] Imm gran pct 0.3 % [facility] Comment: Interpretive Data Percent cell count reference ranges are not reported, since discordance with absolute values may lead to misinterpretation of CBC data. Current Interpretive Data was last revised on 2018. Testing performed by: [address] [address] Lymphocyte pct 48.4 % [facility] Comment: Interpretive Data Percent cell count reference ranges are not reported, since discordance with absolute values may lead to misinterpretation of CBC data. Current Interpretive Data was last revised on 2018. Testing performed by: [address] [address] Monocyte pct 14.3 % [facility] Comment: Interpretive Data Percent cell count reference ranges are not reported, since discordance with absolute values may lead to misinterpretation of CBC data. Current Interpretive Data was last revised on 2018. Testing performed by: [address] [address] Eosinophil pct 1.6 % [facility] Comment: Interpretive Data Percent cell count reference ranges are not reported, since discordance with absolute values may lead to misinterpretation of CBC data. Current Interpretive Data was last revised on 2018. Testing performed by: [address] [address] Basophil pct 2.1 % [facility] Comment: Interpretive Data Percent cell count reference ranges are not reported, since discordance with absolute values may lead to misinterpretation of CBC data. Current Interpretive Data was last revised on 2018. Testing performed by: [address] [address] Blood 12/23/2024 10:5 0 AM COPY CUTTER 12/23/2024 10:51 AM COPY CUTTER us Clemente Hamm DO LAB BLOOD ORDERABLES Final R esult [facility] [address] [facility] [place] [address] * CBC with auto differential (12/23/2024 10:50 AM COPY CUTTER) WBC 3.8 3.8 - 9.9 K/cumm Comment:Testing performed by : [address] [address] Hgb 16.6 13.0 - 17.5 g/dL [facility] Comment:Testing performed by : [address] [address] Hct 47.7 38.9 - 50.3 % [facility] Comment:Testing performed by : [address] [address] Plt 223 150 - 400 K/cumm [facility] Comment:Testing performed by : [address] [address] MPV 9.2 9.1 - 12.3 fL [facility] Comment:Testing performed by : [address], [address] RBC 5.13 4.30 - 5.80 M/cumm [facility] Comment:Testing performed by : [address], [address] MCV 93.0 81.3 - 96.4 fL [facility] Comment:Testing performed by : [address] [address] MCH 32.4 27.1 - 33.3 pg [facility] Comment:Testing performed by : [address], [address] MCHC 34.8 32.3 - 35.7 g/dL [facility] Comment:Testing performed by : [address], [address] RDW CV 13.5 11.1 - 14.9 % [facility] Comment:Testing performed by : [address], [address] RDW SD 46.4 35.7 - 48.1 fL [facility] Comment:Testing performed by : [address], [address] NRBC abs 0.00 0.00 - 0.01 K/cumm [facility] Comment:Testing performed by : [address] [address] Blood 12/23/2024 10:5 0 AM COPY CUTTER 12/23/2024 10:51 AM COPY CUTTER us Clemente Hamm DO LAB BLOOD ORDERABLES Final R esult Performing Organization Address City/[facility]/ZIP Co de Phone Number [facility] [address] [address] * Hepatitis C antibody Blood (10/15/2024 8:46 AM COPY CUTTER) [facility] Hep C Ab Nonreactive Nonreactive Comment: Antibodies [...] revised on 2020. Blood 10/15/2024 8:46 AM COPY CUTTER 10/15/2024 2:28 PM COPY CUTTER Zoraida Franco MD LAB MICROBIOLOGY - GENERAL ORDERABLES Final Result Performing Organization Address [facility] Co de Phone Number [facility] [place] [address] * Stool DNA - Cologuard (08/30/2022 12:55 PM CDT) [facility] Stool DNA - Cologuard Negative Negative [facility] [employer] (CLIA #:[id number]) Comment: NEGATIVE TEST RESULT. A negative Cologuard [...] (Ignacia Morales al, N Engl J Med 2014;370(14):0654-1517) The normal value (reference range) for this assay is negative. COLOGUARD RE-SCREENING RECOMMENDATION: Periodic colorectal cancer screening is an important part of preventive healthcare for asymptomatic individuals at average risk for colorectal cancer. Following a negative Cologuard result, the [place] [employer] and U.S. Multi-Society Task Force screening guidelines recommend a Cologuard re-screening interval of 3 years. References: [place] [employer] Guideline for Colorectal Cancer Screening: https://www.cancer.org/cancer/hcphg-lxfzia-xlream/qswbngieh-kfcxrsfxt-tgadegz/ac s-rec ommendations.html.; Nicolas DK, Kylah QUINONEZ, Madhu TerrazasK, Colorectal Cancer Screening: Recommendations for Physicians and Patients from the U.S. Multi-Society Task Force on Colorectal Cancer Screening , Am J Gastroenterology 2017; 112:9987-4855. TEST DESCRIPTION: Composite algorithmic analysis of stool [...] colonoscopy. (Ignacia Nam, N Engl J Med 2014;370(14):1363-3512.) Cologuard may produce a false negative or false positive result (no colorectal cancer or precancerous polyp present at colonoscopy follow up). A negative Cologuard test result does not guarantee the absence of CRC or advanced adenoma (pre-cancer). The current Cologuard screening interval is every 3 years. ([place] [employer] and U.S. Multi-Society Task Force). Cologuard performance data in a 10,000 patient pivotal study using colonoscopy as the reference method can be accessed at the following location: www.[employer]/results. Additional description of the Cologuard test process, warnings and precautions can be found at www.cologuard.com. Stool 08/30/2022 12:5 5 PM CDT 08/31/2022 12:25 PM CDT us Zoraida Franco MD LAB BODY FLUIDS AND STOOLS ORDERABLES Final Result [employer] (CLIA #:[id number]) [address] [place] [address] from Last 3 Months or Most Recently Relevant to Health Maintenance Insurance MEDICARE [facility] MEDICARE [employer] [facility] MEDICARE [facility] [place] [address] Care Teams Enrober Tender Relationship Specialty Start Date End Date Zoraida Franco MD [address] [place] [address] PCP - General Family Medicine 06/20/21 Clemente Hamm DO [address] [place] [address] MEDICAL ONCOLOGY, [facility] [address] [place] [address] Medical Oncologist/Geothermal Production Manager Hematology and Oncology 12/23/24
--- OUTSIDE RECORDS SUMMARY | 2025-02-20 08:18 | XMS_ITS | Clinical Summary ---
Author Organization [address] Address [address] [address] Care Team Providers Care Chimney Builder Helper Name Role Phone Zoraida Franco MD Primary Care Provi selvin Clemente Hamm DO Unavailable [phone] Allergies Active Allergy Reactions Criticality Noted Date Comments Atropine Hives Medium 09/28/2022 Was told not to have by plant changer Meperidine Unknown 10/26/2020 Morphine Sulfate Unknown 10/26/2020 [...] 08/23/2022 Assessment & Plan (10/15/2023 3:12 PM MEDICAL INFORMATION OFFICER): Chronic stable Continue Flonase as needed Assessment & Plan (08/23/2022 10:02 AM CDT): Chronic stable Continue current regimen Class 1 obesity due to exces s calories without serious comorbidity with body mass index (BMI) of 31.0 to 31.9 in adult 08/23/2022 Assessment & Plan (10/15/2024 7:50 AM MEDICAL INFORMATION OFFICER): Chronic, slight progression BMI Follow-up includes: nutrition counseling and exercise counseling. Assessment & Plan (10/15/2023 3:13 PM MEDICAL INFORMATION OFFICER): Chronic, stable BMI Follow-up includes: nutrition counseling. Assessment & Plan (08/23/2022 10:26 AM CDT): BMI Follow-up includes: nutrition counseling. Down syndrome 07/21/2021 Assessment & Plan (10/15/2023 3:11 PM MEDICAL INFORMATION OFFICER): lora Rodriguez Continue to monitor Update me [...] encouraged Assessment & Plan (10/15/2024 7:45 AM MEDICAL INFORMATION OFFICER): Encouraged healthy habits He has a guardianship, but reviewed POA/living will PMH updated: Last colonoscopy/cologuard:cologuard 08/23- Neg Last PSA: 08/24- WNL Last Tdap: encouraged Last Flu: up to date Last COVID: encouraged Assessment & Plan (10/15/2023 3:52 PM MEDICAL INFORMATION OFFICER): Encouraged healthy habits He has a guardianship [...] 03/07/2021 Assessment & Plan (10/15/2023 3:12 PM MEDICAL INFORMATION OFFICER): Chronic, stable Continue to monitor symptoms Assessment & Plan (08/23/2022 10:00 AM CDT): Chronic, stable Continue to monitor Assessment & Plan (07/20/2021 2:40 PM CDT): Doing well Will recheck labs Assessment & Plan (03/07/2021 2:08 PM CDT): I did order an iron and ferritin level. NILA (obstructive sleep apnea) 03/07/2021 Assessment & Plan (10/15/2023 3:12 PM MEDICAL INFORMATION OFFICER): Chronic, stable Unable to tolerate CPAP Reviewed [...] disorder) Assessment & Plan (10/15/2023 3:13 PM MEDICAL INFORMATION OFFICER): Chronic, stable Currently not on medication Consider [...] 10/26/2020 Assessment & Plan (10/15/2023 3:53 PM MEDICAL INFORMATION OFFICER): Chronic, stable Will be due repeat echo in 2023 Update me with any concerns Assessment & Plan (08/23/2022 10:01 AM CDT): Chronic, stable Continue to monitor Assessment & Plan (07/20/2021 2:42 PM CDT): Echo reviewed Assessment & Plan (10/26/2020 1:29 PM MEDICAL INFORMATION OFFICER): Will refer to cardiology- Dr Campo Will be due for an echo Continue aspirin Update me with any changes Call for questions or concerns Leukopenia 10/26/2020 Assessment & Plan (10/15/2023 3:12 PM MEDICAL INFORMATION OFFICER): Chronic, stable Managed by Hematology Update me with any changes or concerns Assessment & Plan (08/23/2022 10:00 AM CDT): Chronic, stable Continue to follow with heme Assessment & Plan (07/20/2021 2:40 PM CDT): Will check labs Assessment & Plan (10/26/2020 1:33 PM MEDICAL INFORMATION OFFICER): Referral placed to heme Will consider labs for further guidance Update me after the visit Call for questions or concerns Resolved Problems Problem Noted Date Diagnosed Date Resolved Date Other acute sinusitis 09/03/20232022 Assessment & Plan (10/15/2023 3:12 PM MEDICAL INFORMATION OFFICER): Acute, resolved Update me if symptoms reoccur [...] Department Care Team Description 01/19/2025 Results Follow-Up [facility] Family Medicine [address] [address] Zoraida Franco MD 01/15/2025 9:35 AM MEDICAL INFORMATION OFFICER - 01/15/2025 11:59 PM MEDICAL INFORMATION OFFICER Hospital Encounter [facility] Diagnostic Imaging [address] [place] [address] Pill dysphagia; Bilateral hip pain Discharge Disposition: Discharge to home or self care 01/15/2025 8:45 AM MEDICAL INFORMATION OFFICER Office Visit [facility] [address] [address] Zoraida Franco MD Onychomycosis (Primary Dx); Bilateral hip pain; Tinea pedis of both feet; Dry skin dermatitis; Pill dysphagia 12/23/2024 11:15 AM MEDICAL INFORMATION OFFICER Office Visit [facility] Oncology [address] [place] [address] [address] [place] [address] Clemente Hamm DO Other decreased white blood cell (WBC) count (Primary Dx) 12/23/2024 10:45 AM MEDICAL INFORMATION OFFICER Lab [facility] [address] [place] [address] Other decreased white blood cell (WBC) count 12/04/2024 Telephone [facility] [address] [address] Zoraida Franco MD from Last 3 Months Immunizations Immunization Administration [...] file Legal Sex Male 7:51 PM MEDICAL INFORMATION OFFICER Gender Identity Not on file Sexual Orientation Not on file Occupation Industry Job Start Date Job End Date Disabled Not on file Not on file Not on file Obstetrics History Last Filed Vital Signs Vital Sign Reading Time Taken Comments Blood Pressure 100/60 01/15/2025 8:40 AM MEDICAL INFORMATION OFFICER Pulse 62 01/15/2025 8:40 AM MEDICAL INFORMATION OFFICER Temperature 35.9 C (96.7 F) 01/15/2025 8:40 AM MEDICAL INFORMATION OFFICER Respiratory Rate 12 01/15/2025 8:40 AM MEDICAL INFORMATION OFFICER Oxygen Saturation 98% 01/15/2025 8:40 AM MEDICAL INFORMATION OFFICER Inhaled Oxygen Concentration - - Weight 69.6 kg (153 lb 8 oz) 01/15/2025 8:40 AM MEDICAL INFORMATION OFFICER Height 153.7 cm (5' 0.5 ) 01/15/2025 8:40 AM MEDICAL INFORMATION OFFICER Body Mass Index 29.48 01/15/2025 8:40 AM MEDICAL INFORMATION OFFICER Plan of Treatment Health Maintenance Due Date [...] Read Routine (OP Routine) 01/15/2025 9:50 AM MEDICAL INFORMATION OFFICER Bilateral hip pain XR CHEST PA LATERAL 2 VIEWS Schedule Routine, Read Routine (OP Routine) 01/15/2025 9:50 AM MEDICAL INFORMATION OFFICER Pill dysphagia DIFFERENTIAL AUTO Routine 12/23/2024 10: 50 AM MEDICAL INFORMATION OFFICER Other decreased white blood cell (WBC) count CBC WITH AUTO DIFFERENTIAL Routine 12/23/2024 10:50 AM MEDICAL INFORMATION OFFICER Other decreased white blood cell (WBC) count HEPATITIS C ANTIBODY Routine 10/15/2024 8:46 AM MEDICAL INFORMATION OFFICER Need for hepatitis C screening test STOOL DNA COLOGUARD Routine 08/30/2022 12:55 PM CDT Colon cancer screening from Last 3 Months or Most Recently Relevant to Health Maintenance Results * XR Hips Bilateral W Pelvis 2 View (01/15/2025 9:50 AM MEDICAL INFORMATION OFFICER) Anatomical Region Laterality Modality Lower Extremities, Hip, Pelvis Bilateral C omputed Radiography 01/18/2025 1:43 PM MEDICAL INFORMATION OFFICER Narrative 01/18/2025 1:44 PM MEDICAL INFORMATION OFFICER EXAM DESCRIPTION: XR HIPS BILATERAL 2 VIEWS [...] by Jean Tompkins M.D. CH: Report ID: [id number] Reading Location: [id number] Procedure Note Jean Tompkins Jr., MD - [...] by Jean Tompkins M.D. CH: Report ID: [id number] Reading Location: [id number] Zoraida Franco MD IMG XR PROCEDURES F inal Result * XR Chest PA Lateral 2 Views (01/15/2025 9:50 AM MEDICAL INFORMATION OFFICER) Anatomical Region Laterality Modality Body, Chest N/A Computed Radiogr aphy 01/19/2025 8:12 AM MEDICAL INFORMATION OFFICER Narrative 01/19/2025 8:14 AM MEDICAL INFORMATION OFFICER EXAM DESCRIPTION: XR CHEST PA LATERAL 2 [...] Julius Payton M.D. AG: JENNIFER Report ID: [id number] Reading Location: [id number] Procedure Note Julius Payton MD - 01/19/2025 [...] Julius Payton M.D. AG: JENNIFER Report ID: [id number] Reading Location: [id number] us Zoraida Franco MD IMG XR PROCEDURES F inal Result * (ABNORMAL) Differential, auto (12/23/2024 10:50 AM MEDICAL INFORMATION OFFICER) Neutrophil abs 1.3(L) 1.5 - 6.5 K/cumm Comment:Testing performed by : [facility], [address] [place]., [address] Imm gran abs 0.0 0.0 - 0.1 K/cumm CERNER Comment:Testing performed by : [address] [address] Lymphocyte abs 1.8 0.8 - 3.3 K/cumm CERNER Comment:Testing performed by : [address] [address] Monocyte abs 0.5 0.2 - 0.8 K/cumm CERNER Comment:Testing performed by : [address], [place]., [address] Eosinophil abs 0.1 0.0 - 0.5 K/cumm CERNER Comment:Testing performed by : [address] [address] Basophil abs 0.1 0.0 - 0.1 K/cumm [facility] Comment:Testing performed by : [address] [address] Neutrophil pct 33.3 % CERNER Comment: Interpretive Data Percent cell count reference ranges are not reported, since discordance with absolute values may lead to misinterpretation of CBC data. Current Interpretive Data was last revised on 2018. Testing performed by: [address] [address] Imm gran pct 0.3 % CERNER Comment: Interpretive Data Percent cell count reference ranges are not reported, since discordance with absolute values may lead to misinterpretation of CBC data. Current Interpretive Data was last revised on 2018. Testing performed by: [address] [address] Lymphocyte pct 48.4 % CERNER Comment: Interpretive Data Percent cell count reference ranges are not reported, since discordance with absolute values may lead to misinterpretation of CBC data. Current Interpretive Data was last revised on 2018. Testing performed by: [address] [address] Monocyte pct 14.3 % CERNER Comment: Interpretive Data Percent cell count reference ranges are not reported, since discordance with absolute values may lead to misinterpretation of CBC data. Current Interpretive Data was last revised on 2018. Testing performed by: [address] [address] Eosinophil pct 1.6 % ANALIA DODD Comment: Interpretive Data Percent cell count reference ranges are not reported, since discordance with absolute values may lead to misinterpretation of CBC data. Current Interpretive Data was last revised on 2018. Testing performed by: [address] [address] Basophil pct 2.1 % ANALIA DODD Comment: Interpretive Data Percent cell count reference ranges are not reported, since discordance with absolute values may lead to misinterpretation of CBC data. Current Interpretive Data was last revised on 2018. Testing performed by: [address] [address] Blood 12/23/2024 10:5 0 AM MEDICAL INFORMATION OFFICER 12/23/2024 10:51 AM MEDICAL INFORMATION OFFICER Clemente Hamm DO LAB BLOOD ORDERABLES Final R esult ANALIA [address] [facility] Department of Laboratories [place], [place] [id number] * CBC with auto differential (12/23/2024 10:50 AM MEDICAL INFORMATION OFFICER) WBC 3.8 3.8 - 9.9 K/cumm Comment:Testing performed by : [address] [address] Hgb 16.6 13.0 - 17.5 g/dL ANALIA DODD Comment:Testing performed by : [address] [address] Hct 47.7 38.9 - 50.3 % ANALIA DODD Comment:Testing performed by : [address] [address] Plt 223 150 - 400 K/cumm ANALIA DODD Comment:Testing performed by : [address] [address] MPV 9.2 9.1 - 12.3 fL ANALIA DODD Comment:Testing performed by : [address] [place]., [address] RBC 5.13 4.30 - 5.80 M/cumm ANALIA Comment:Testing performed by : [address] [address] MCV 93.0 81.3 - 96.4 fL ANALIA Comment:Testing performed by : [address] [address] MCH 32.4 27.1 - 33.3 pg ANALIA Comment:Testing performed by : [address], [address] MCHC 34.8 32.3 - 35.7 g/dL ANALIA Comment:Testing performed by : [address], [address] RDW CV 13.5 11.1 - 14.9 % ANALIA Comment:Testing performed by : [address], [address] RDW SD 46.4 35.7 - 48.1 fL ANALIA Comment:Testing performed by : [address] [address] NRBC abs 0.00 0.00 - 0.01 K/cumm ANALIA Comment:Testing performed by : [address], [address] Blood 12/23/2024 10:5 0 AM MEDICAL INFORMATION OFFICER 12/23/2024 10:51 AM MEDICAL INFORMATION OFFICER Clemente Hamm DO LAB BLOOD ORDERABLES Final R esult ANALIA [address] [facility] Department of Laboratories [place], [place] [id number] * Hepatitis C antibody Blood (10/15/2024 8:46 AM MEDICAL INFORMATION OFFICER) Hep C Ab Nonreactive Nonreactive Comment: Antibodies [...] revised on 2020. Blood 10/15/2024 8:46 AM MEDICAL INFORMATION OFFICER 10/15/2024 2:28 PM MEDICAL INFORMATION OFFICER us Zoraida Franco MD LAB MICROBIOLOGY - GENERAL ORDERABLES Final Result [facility] [address] [facility] Department [place] [address] * Stool DNA - Cologuard (08/30/2022 12:55 PM CDT) Stool DNA - Cologuard Negative Negative [employer] (CLIA #:[id number]) Comment: NEGATIVE TEST RESULT. A negative Cologuard [...] (Ignacia Morales al, N Engl J Med 2014;370(14):9269-3683) The normal value (reference range) for this assay is negative. COLOGUARD RE-SCREENING RECOMMENDATION: Periodic colorectal cancer screening is an important part of preventive healthcare for asymptomatic individuals at average risk for colorectal cancer. Following a negative Cologuard result, the [employer] Society and U.S. Multi-Society Task Force screening guidelines recommend a Cologuard re-screening interval of 3 years. References: [employer] Guideline for Colorectal Cancer Screening: https://www.cancer.org/cancer/onhql-sorbse-dyybuk/fzfylhfeh-rdeeciqbn-hxidqoy/ac s-rec ommendations.html.; Nicolas DK, Kylah CR, Madhu TerrazasK, Colorectal Cancer Screening: Recommendations for Physicians and Patients from the U.S. Multi-Society Task Force on Colorectal Cancer Screening , Am J Gastroenterology 2017; 112:1971-9585. TEST DESCRIPTION: Composite algorithmic analysis of stool [...] (Ignacia Morales al, N Engl J Med 2014;370(14):2157-4449.) Cologuard may produce a false negative or false positive result (no colorectal cancer or precancerous polyp present at colonoscopy follow up). A negative Cologuard test result does not guarantee the absence of CRC or advanced adenoma (pre-cancer). The current Cologuard screening interval is every 3 years. ([employer] Society and U.S. Multi-Society Task Force). Cologuard performance data in a 10,000 patient pivotal study using colonoscopy as the reference method can be accessed at the following location: www.[employer]/results. Additional description of the Cologuard test process, warnings and precautions can be found at www.NTQ-Datard.com. Stool 08/30/2022 12:5 5 PM CDT 08/31/2022 12:25 PM CDT us Zoraida Franco MD LAB BODY FLUIDS AND STOOLS ORDERABLES Final Result [employer] [facility] (CLIA #:[id number]) [address] [place] [address] from Last 3 Months or Most Recently Relevant to Health Maintenance Insurance MEDICARE [facility] MEDICARE [employer] MEDICARE [employer] Care Teams Chimney Builder Helper Relationship Specialty Start Date End Date Zoraida Franco MD [address] [place] [address] PCP - General Family Medicine 06/20/21 Clemente Hamm DO [address] [place] [address] MEDICAL ONCOLOGY, [address] [place] [address] Medical Oncologist/Personal Financial Planner Hematology and Oncology 12/23/24
--- OUTSIDE RECORDS SUMMARY | 2025-02-20 08:18 | XMS_ITS | Encounter Summary ---
Author Organization [facility] Healthcare Address [address] [place] [address] Care Team Providers Care Cargo Mate Name Role Phone Zoraida Franco MD Primary Care Provi selvin Clemente Hamm DO Unavailable [phone] Encounter Details Date Type Department Care Team (Late st Contact Info) Description 01/19/2025 Results Follow-Up [facility] Medical [facility] Family Medicine [address] [address] Zoraida Franco MD [address] [place] [address] Social History Tobacco Use Types Packs/Day [...] file Legal Sex Male 7:51 PM MANAGER CHEMISTRY Gender Identity Not on file Sexual Orientation Not on file Occupation Industry Job Start Date Job End Date Disabled Not on file Not on file Not on file documented as of this encounter Plan of Treatment Not on file documented as of this encounter Visit Diagnoses Not on filedocumented in this encounter Care Teams Cargo Mate Relationship Specialty Start Date End Date Zoraida Franco MD [address] [place] [address] PCP - General Family Medicine 06/20/21 Clemente Hamm DO [address] [place] [address] MEDICAL ONCOLOGY, [facility] [address] [place] [address] Medical Oncologist/Stripping And Booking Machine Operator Hematology and Oncology 12/23/24 documented as of this encounter
--- OUTSIDE RECORDS SUMMARY | 2025-02-20 08:18 | XMS_ITS | Continuity of Care Document ---
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 Atrial septal defect (disorder) Active Condition Leukopenia (disorder) Active Condition followed by Dr Cassidy Allergies, Adverse Reactions, Alerts Substance Category Reaction Severity Reaction type Status Date Reported Comments Source morphine Assertion Drug allergy Active [facility] Demerol Assertion Drug allergy Active [facility] Encounters Location Location Details Encounter Type Encounter Number Reason For Visit Attending Provider ADM Date DC Date Status Source PL10 PL10 Outpatient [id number] 23:59 :59 Discharge d [facility] Oncology Clinic [facility] Outpatient [id number] See Comments [facility] MSC MSC OUTPATIENT [id number] CHRONIC NEUTROPEN [place]/RECS IMAG 10/15 Leonardo Goldberg Cancel [facility] Outpatient [id number] [facility] Pulmonol ogy [facility]O [facility]RLO Outpatient [id number] See Comments [facility] Out[facility] [id number] [facility] Pulmonol ogy Procedures Procedure Code Date Perfomer Comments Source Cataract extraction [id number] [facility] Cholecystectomy [id number] [facility] ear tubes [facility] T and A (tonsillectomy and adenoidectomy) postoperative education [id number] [facility]
--- OUTSIDE RECORDS SUMMARY | 2025-02-20 08:18 | XMS_ITS | Clinical Summary ---
Author Organization [facility] Address [address] [place] [address] Phone Care Team Providers Care Cellars Supervisor Name Role Phone Zoraida Franco MD Primary Care Provider [phone] Allergies Active Allergy Reactions Criticality Noted Date Comments Atropine Unknown 09/28/2022 Was told not to have by bulk tank driver Meperidine Other (See Comments) 09/28/2022 Passes out Morphine Other (See Comments) 09/28/2022 Passes out Medications vitamin E, dl,tocopheryl acet, (VITAMIN E, DL, ACETATE, ORAL) Take by mouth. Activ e fluticasone propionate (FLONASE) 50 mcg/spray [place], Suspension nasal inhaler Administer 2 Sprays in [...] season) 2024 02/06/2021, 01/10/2021 Insurance [employer] [facility] MEDICARE PART A AND B Care Teams Cellars Supervisor Relationship Specialty Start Date End Date Zoraida Franco MD [address] [place] [address] PCP - General Family Practice 09/28/22
--- OUTSIDE RECORDS SUMMARY | 2025-02-20 08:21 | XMS_ITS | Continuity of Care Document ---
Author Name [facility] Address [address] [place] [address] Organization [facility] Care Team Providers Care Volunteer Manager Name Role Phone 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 Atrial septal defect (disorder) Active Condition Leukopenia (disorder) Active Condition followed by Dr Cassidy Allergies, Adverse Reactions, Alerts Substance Category Reaction Severity Reaction type Status Date Reported Comments Source morphine Assertion Drug allergy Active [facility] Demerol Assertion Drug allergy Active [facility] Encounters Location Location Details Encounter Type Encounter Number Reason For Visit Attending Provider ADM Date DC Date Status Source PL10 PL10 Outpatient [id number] 23:59 :59 Discharge d [facility] Oncology Clinic LRLO LRLO Outpatient [id number] See Comments [facility] MSC MSC OUTPATIENT [id number] CHRONIC NEUTROPEN [place]/RECS IMAG 10/15 Leonardo Goldberg Cancel [facility] Outpatient [id number] [facility] Pulmonol ogy LRLO LRLO Outpatient [id number] See Comments Penelope Wray [facility] Outpatient [id number] Brand[facility]di [facility] Pulmonol ogy Procedures Procedure Code Date Perfomer Comments Source Cataract extraction [id number] [facility] Cholecystectomy [id number] [facility] ear tubes [facility] T and A (tonsillectomy and adenoidectomy) postoperative education [id number] [facility]
[2025-02-20 08:25] VITALS: BP 103/67; BP 218/86; PULSE 61; RESP 18; TEMP 36.1; O2SAT 99
[2025-02-20 08:27] VITALS: BP 103/67
--- NOTE | 2025-02-20 08:53 | ED.URI ---
HPI - URI/Sore Throat General Chief Complaint: Upper Respiratory Infection Stated Complaint: congestion Time Seen by Provider: 02/20/25 08:28 Source: patient Mode of arrival: ambulatory Limitations: no limitations History of Present Illness HPI Narrative: Armin is a 49-year-old male patient presenting to the clinic today with complaints of sinus congestion. Mother reports that he just finished amoxicillin for sinus infection on the 16 of February. States that he still has some congestion but he was doing better while on the antibiotics. She has been given him Sudafed for his symptoms. She denies any fevers, chills, body aches. Mother would also like to have his ears cleaned out while he is here in the office today MD elicited complaint: sore throat and nasal congestion Related Data Home Medications ?Medication ?Instructions ?Recorded ?Confirmed ?Last Taken ?Type cholecalciferol (vitamin D3) 25 1,000 unit PO ONCE 01/30/25 01/30/25 Unknown History mcg (1,000 unit) capsule (Vitamin D3) Allergies Allergy/AdvReac Type Severity Reaction Status Date / Time morphine Allergy Severe Anaphylaxis Verified 02/20/25 08:24 meperidine (From Demerol) AdvReac Intermediate Fainting Verified 02/20/25 08:24 Review of Systems Review of Systems: Pertinent positives per HPI. Patient denies any fever, chills, rash, headache, visual changes, dizziness, cough, shortness of breath, chest pain, palpitations, nausea, vomiting, diarrhea, constipation, abdominal pain, or any urinary issues. [facility] Past Medical History Medical History Down syndrome Regurgitation and rechewing Dysphagia VSD (ventricular septal defect) COVID-19 07/2020 Acute sinus infection Down syndrome Surgical History Surgical History History of hand surgery extra digit removed from right hand History of adenoidectomy History of tonsillectomy History of tympanostomy History of cholecystectomy Family History Family History Father , related to COVID-19 per spouse Heart disease COVID-19 Mother COVID-19 Social History Social History Social History: Mother denies smoke expsoure Smoking status: Never smoker Tobacco type: cigarettes Second hand tobacco smoke exposure: No Alcohol intake: never Substance use: never Substance use type: does not use Living arrangements: with family Occupation/Education: other Additional occupation/education comments: disable Gender identity (if verbalized by the patient): Male Spiritual care concerns: No Comments At the time of my signature, I reviewed and agree with the nursing past medical, surgical, social, and family history. There is no relevant family history pertinent to the patient complaint. Exam Narrative: General: Well-developed, well nourished, in no apparent distress Head: Normocephalic, atraumatic Eyes: Pupils equally round and reactive to light bilaterally, EOM intact, sclera and conjunctive clear, no discharge, lids normal Ears: TMs intact and clear, ear canals clear, no drainage, grossly hearing normal. Nose: Nares patent, no discharge, no inflammation, no sinus tenderness. Mouth: Oral pharynx without lesions or masses, good dentition, MMM. Neck: Supple, trachea midline, no enlargement of anterior or posterior cervical nodes, no thyroid masses or goiter palpable. Cardio: Regular rate and rhythm, s1 and s2 normal, no murmur appreciated. Resp: Clear to auscultation bilaterally, no rhonchi, rales, wheezing or rubs Course Course Emergency Course: Portions of this record may have been created with voice recognition software. Level of Care: Express Care Visit Vital Signs Vital signs: Vital Signs Temperature 36.1 C L 02/20/25 08:25 Pulse Rate 61 02/20/25 08:25 Respiratory Rate 18 02/20/25 08:25 Blood Pressure 103/67 02/20/25 08:25 Pulse Oximetry 99 02/20/25 08:25 Oxygen Delivery Room Air 02/20/25 08:25 Temperature 36.1 C L 02/20/25 08:25 Pulse Rate 61 02/20/25 08:25 Respiratory Rate 18 02/20/25 08:25 Blood Pressure 103/67 02/20/25 08:27 Pulse Oximetry 99 02/20/25 08:25 Oxygen Delivery Room Air 02/20/25 08:25 Vital signs reviewed Procedures Ear Wax Removal Both Ears: Ear Wax Removal Date: 02/20/25 Cerumenolytic Used: 5-10% Sodium Bicarb solution Results: Re-examined: some cerumen remains TM Examination: TM(s) intact, normal appearance Ear Canal Exam: atraumatic Patient Tolerated Procedure: well and no complications Complications: no problems Technique: ear canal irrigated and ear canal curetted Additional Comments: Verbal consent obtained for ear lavage. Risk and benefits explained to patient and they voiced understanding. A mixture of half warm water and half peroxide was used to irrigate ear canals. An lighted ear curette was then used to remove the cerumen from the outer external canal of ears. Cerumen was successfully removed from ear canals. Patient tolerated well. MDM - URI/Sore Throat MDM Narrative Medical decision making narrative: At the time of visit patient is resting comfortably on the exam table. Patient appears to be nontoxic. Procedure: 5 drops of Debrox was instilled into bilateral ear canals. Ear irrigation was performed bilaterally and lighted curette was used to remove ear wax from the external ear canal. Patient tolerated well Plan: I suspect patient has sinus congestion. Will send in prescription for prednisone to help alleviate his sinus congestion symptoms. Ear irrigation was performed for cerumen impaction bilaterally and was successful. Supportive measures were discussed with the patient and they voiced understanding discharge instructions and agrees to treatment plan. Return precautions reviewed Differential Diagnosis Differential diagnosis: Likely upper respiratory infection, otitis media, sinusitis, viral infection, bronchitis, influenza, pharyngitis and other (Cerumen impaction) Discharge Plan Discharge Clinical Impression: Bilateral impacted cerumen, Sinus congestion Patient Disposition: Home, Self-Care Condition: Stable Instructions: Antibiotic Form, Sinusitis (ED) Additional Instructions: Take prescription medications only as prescribed-prednisone Increase fluids and stay well hydrated Tylenol/motrin for pain/fever Flonase and OTC antihistamines as directed Vicks vapor rub to open sinuses Sinus rinses for congestion Cepacol spray, cough drops, throat lozenges, warm tea with honey/lemon, gargle salt water to soothe throat BRAT diet for diarrhea Clear liquids x 24 hours then advance as tolerated for nausea/vomiting Go to the ED if you develop a worsening in your condition- high fever not controlled by Tylenol or Motrin, dehydration, weakness, lethargy, shortness of breath, or chest pain. Follow up with your PCP in 3-5 days if symptoms persist. Patient Language: Greenlandic Prescriptions: New prednisone 20 mg tablet 40 mg PO DAILY 5 Days Qty: 10 0RF No Action amoxicillin 400 mg/5 mL suspension for reconstitution 800 mg PO BID 10 Days Qty: 200 0RF benzonatate 100 mg capsule 100 mg PO BID PRN (Reason: cough) Qty: 20 0RF cholecalciferol (vitamin D3) [Vitamin D3] 25 mcg (1,000 unit) capsule 1,000 unit PO ONCE Follow-up/Referrals: Salvador,MD Zoraida [Primary Care Provider] - Time of Disposition: 09:24 Quality NIHSS Nursing Documentation ED NIHSS nursing documentation: reviewed/agree
== END 2025-02-20 09:30 | disposition home or self-care (01) ==
PROVIDERS: Emergency Provider Nurse Practitioner Family; PCP Family Medicine
DX: H61.23 Impacted cerumen, bilateral (principal); R09.81 Nasal congestion; Q90.9 Down syndrome, unspecified
CPT/HCPCS: 69210; 99213; A9270; G0463

== ENCOUNTER 2025-09-28 18:46 | Emergency (ER) | payer MEDICARE, OTHER, SELFPAY ==
--- NOTE | ~2025-09-28 | XR_ITS ---
Examination: XR chest 2V Clinical History: cough, low grade fever Comparison: Chest x-ray 11/02/2023 Technique: PA and Lateral Findings: Cardiomediastinal silhouette normal size and configuration. Lungs clear. No acute bony abnormality. IMPRESSION: 1. No acute cardiopulmonary findings. Reviewed, dictated and finalized at location R.
--- OUTSIDE RECORDS SUMMARY | 2025-09-28 18:48 | XMS_ITS | Clinical Summary ---
Author Organization [facility] Address [address] [place] [address] Phone Care Team Providers Care Human Resources Training Manager Name Role Phone Zoraida Franco MD Primary Care Provider [phone] Allergies Active Allergy Reactions Criticality Noted Date Comments Atropine Unknown 09/28/2022 Was told not to have by terminal worker Meperidine Other (See Comments) 09/28/2022 Passes out Morphine Other (See Comments) 09/28/2022 Passes out Medications vitamin E, dl,tocopheryl acet, (VITAMIN E, DL, ACETATE, ORAL) Take by mouth. Activ e fluticasone propionate (FLONASE) 50 mcg/spray [place], Suspension nasal inhaler Administer 2 Sprays in [...] Q 5 years 2022 INFLUENZA VACCINE (#1) 2025 , 09/22/2020, 10/09/2019, Additional history exists COVID-19 Vaccine (3 - 2024-2 6 season) 2025 02/06/2021, 01/10/2021 Insurance [employer] [facility] MEDICARE PART A AND B Care Teams Human Resources Training Manager Relationship Specialty Start Date End Date Zoraida Franco MD [address] [place] [address] PCP - General Family Practice 09/28/22
--- OUTSIDE RECORDS SUMMARY | 2025-09-28 18:48 | XMS_ITS | Clinical Summary ---
Author Organization [address] Address [address] [address] Care Team Providers Care Tire Spotter Name Role Phone Zoraida Franco MD Primary Care Provi selvin Clemente Hamm DO Unavailable [phone] Allergies Active Allergy Reactions Criticality Noted Date Comments Atropine Hives Medium 09/28/2022 Was told not to have by sheetrock applicator Meperidine Unknown,Syncope High 10/26/2020 Morphine Anaphylaxis High 02/01/2022 Morphine Sulfate Unknown 10/26/2020 Medications cholecalcifero l, vitamin D3, (VITAMIN D3 ORAL) Take 2,000 Units by mouth daily Active fluticasone propionate (FLONASE) 50 mcg/actuation nasal sprayIndicatio ns:Chronic maxillary sinusitis Administer 2 sprays into each nostril 2 (two) times a day for 7 days, THEN 1 spray 2 (two) times a day for 7 days, THEN 1 spray daily for 7 days, THEN 1 spray 2 (two) times a day as needed for rhinitis. 3 each 1 5 025 Active sodium chloride (OCEAN) 0.65 % nasal sprayIndicatio ns:Chronic maxillary sinusitis Administer 1 spray into each nostril as needed for congestion or rhinitis 15 mL 1 5 026 Active famotidine (PEPCID) 20 mg tablet Take 1 tablet (20 mg total) by mouth 2 (two) times a day as needed for heartburn 60 tablet 2 5 025 Active montelukast (SINGULAIR) 10 mg tabletIndicati ons:Chronic maxillary sinusitis Take 1 tablet (10 mg total) by mouth nightly 90 tablet 1 5 026 Active montelukast (SINGULAIR) 10 mg tabletIndicati ons:Chronic maxillary sinusitis Take 1 tablet (10 mg total) by mouth nightly 30 tablet 5 025 Discontinu ed(Reorder ) amoxicillin-cl avulanate (AUGMENTIN) suspension 400-57 mg/5 mLIndications: Chronic maxillary sinusitis Take 10.9 mL (875 mg of amoxicillin total) by mouth 2 (two) times a day for 7 days 154 mL 5 025 Active Problems Problem Noted Date Diagnosed Date Chronic maxillary sinusitis 08/27/2025 Assessment & Plan (09/20/2025 11:08 AM CDT): Orders: montelukast (SINGULAIR) 10 mg tablet; Take 1 tablet (10 mg total) by mouth nightly amoxicillin-clavulanate (AUGMENTIN) suspension 400-57 mg/5 mL; Take 10.9 mL (875 mg of amoxicillin total) by mouth 2 (two) times a day for 7 days Assessment & Plan (08/27/2025 12:46 PM CDT): Orders: fluticasone propionate (FLONASE) 50 mcg/actuation nasal spray; Administer 2 sprays into each nostril 2 (two) times a day for 7 days, THEN 1 spray 2 (two) times a day for 7 days, THEN 1 spray daily for 7 days, THEN 1 spray 2 (two) times a day as needed for rhinitis. 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 Assessment & Plan (10/15/2023 3:13 PM STRATEGIC PLANNING DIRECTOR): Chronic, stable BMI Follow-up includes: nutrition counseling. Assessment & Plan (08/23/2022 10:26 AM CDT): BMI Follow-up includes: nutrition counseling. Down syndrome 07/21/2021 Assessment & Plan (10/15/2023 3:11 PM STRATEGIC PLANNING DIRECTOR): lora Rodriguez Continue to monitor Update me with any changes in his behavior or health Assessment & Plan (08/23/2022 9:59 AM CDT): lora Rodriguez Continue to monitor Encounter for Medicare annual wellness exam 07/02 Overview (10/15/2024): Encouraged healthy habits He has a guardianship, but reviewed POA/living will PMH updated: Last colonoscopy/cologuard:cologuard 08/23- Neg Last PSA: 08/24- WNL Last Tdap: encouraged Last Flu: up to date Last COVID: encouraged Assessment & Plan (10/15/2024 7:45 AM STRATEGIC PLANNING DIRECTOR): Encouraged healthy habits He has a guardianship, but reviewed POA/living will PMH updated: Last colonoscopy/cologuard:cologuard 08/23- Neg Last PSA: 08/24- WNL Last Tdap: encouraged Last Flu: up to date Last COVID: encouraged Assessment & Plan (10/15/2023 3:52 PM STRATEGIC PLANNING DIRECTOR): Encouraged healthy habits He has a guardianship [...] 03/07/2021 Assessment & Plan (10/15/2023 3:12 PM STRATEGIC PLANNING DIRECTOR): Chronic, stable Continue to monitor symptoms Assessment & Plan (08/23/2022 10:00 AM CDT): Chronic, stable Continue to monitor Assessment & Plan (07/20/2021 2:40 PM CDT): Doing well Will recheck labs Assessment & Plan (03/07/2021 2:08 PM CDT): I did order an iron and ferritin level. NILA (obstructive sleep apnea) 03/07/2021 Assessment & Plan (10/15/2023 3:12 PM STRATEGIC PLANNING DIRECTOR): Chronic, stable Unable to tolerate CPAP Reviewed [...] disorder) Assessment & Plan (10/15/2023 3:13 PM STRATEGIC PLANNING DIRECTOR): Chronic, stable Currently not on medication Consider [...] 10/26/2020 Assessment & Plan (10/15/2023 3:53 PM STRATEGIC PLANNING DIRECTOR): Chronic, stable Will be due repeat echo in 2023 Update me with any concerns Assessment & Plan (08/23/2022 10:01 AM CDT): Chronic, stable Continue to monitor Assessment & Plan (07/20/2021 2:42 PM CDT): Echo reviewed Assessment & Plan (10/26/2020 1:29 PM STRATEGIC PLANNING DIRECTOR): Will refer to cardiology- Dr Campo Will be due for an echo Continue aspirin Update me with any changes Call for questions or concerns Leukopenia 10/26/2020 Assessment & Plan (10/15/2023 3:12 PM STRATEGIC PLANNING DIRECTOR): Chronic, stable Managed by Hematology Update me with any changes or concerns Assessment & Plan (08/23/2022 10:00 AM CDT): Chronic, stable Continue to follow with heme Assessment & Plan (07/20/2021 2:40 PM CDT): Will check labs Assessment & Plan (10/26/2020 1:33 PM STRATEGIC PLANNING DIRECTOR): Referral placed to heme Will consider labs for further guidance Update me after the visit Call for questions or concerns Resolved Problems Problem Noted Date Diagnosed Date Resolved Date Other acute sinusitis 09/03/20232022 Assessment & Plan (10/15/2023 3:12 PM STRATEGIC PLANNING DIRECTOR): Acute, resolved Update me if symptoms reoccur [...] Encounters Date Type Department Care Team Description 09/20/2025 10:00 AM CDT Office Visit [facility] Family Medicine [address] [place] [phone] Cordelia Tyler NP Chronic maxillary sinusitis (Primary Dx); Screen for colon cancer; Bilateral impacted cerumen; Screening for prostate cancer 08/27/2025 12:30 PM CDT Office Visit [facility] Family Medicine [address] [phone] Anant Oconnor MD Chronic maxillary sinusitis (Primary Dx) from Last 3 Months Immunizations Immunization Administration Dates Next Due Influenza, Quadrivalent, Yumi l Culture-based MDCK, Preservative Free, Antibiotic Free, Intramuscular 08/27/2022,09/04/2017 Influenza, Quadrivalent, Rec ombinant, Egg Free, Preservative Free, Intramuscular 09/22/2020 Influenza, Quadrivalent, Spl it, Intramuscular 10/09/2019 Influenza, Quadrivalent, Spl it, Preservative Free, Intramuscular 09/16/2023,09/18/2021,09/09/2018 Influenza, Trivalent, Preser vative Free, Intramuscular 08/20/2025,09/11/2024 Influenza, Unspecified 09/03/2023(Deferred: Ashley ent Refused) Moderna [...] drink = 0.6 oz pur e alcohol) PHQ-2 Answer Date Recorded PHQ-2 Total Score (If total score is 3 or more points, staff should administer the PHQ-9) 0 09/20/2025 PHQ-9 Answer Date Recorded PHQ-9 Total Score 0 10/15/2024 AUDIT-C Answer Date Recorded Q1: How often do you have a drink containing alcohol? Never 09/20/2025 Q2: How many drinks containi ng alcohol do you have on a typical day when you are drinking? Patient does not drink Q3: How often do you have si x or more drinks on one occasion? Never 09/20/2025 Sex and Gender Information Value Date Recorded Sex Assigned at Not on file Legal Sex Male 7:51 PM STRATEGIC PLANNING DIRECTOR Gender Identity Not on file Sexual Orientation Not on file Occupation Industry Job Start Date Job End Date Disabled Not on file Not on file Not on file Obstetrics History Last Filed Vital Signs Vital Sign Reading Time Taken Comments Blood Pressure 100/78 09/20/2025 9:58 AM CDT Pulse 83 09/20/2025 9:58 AM CDT Temperature 36.7 C (98 F) 09/20/2025 9:58 AM CDT Respiratory Rate 16 09/20/2025 9:58 AM CDT Oxygen Saturation 97% 09/20/2025 9:58 AM CDT Inhaled Oxygen Concentration - - Weight 71.2 kg (157 lb) 09/20/2025 9:58 AM CDT Height 152.4 cm (5') 09/20/2025 9:58 AM CDT Body Mass Index 30.66 09/20/2025 9:58 AM CDT Plan of Treatment Health Maintenance Due Date Last Done Comments Hepatitis B Screening 1995 Covid-19 Vaccine ( season) 2025 12/09/2023, 02/06/2021, 01/10/2021 Colon Cancer Screening-DNA Stool 08/30/2025 08/30/2022 Regular Well Visit/Exam 18-64 10/15/2025 10/15/2024, 10/15/2023, 10/15/2023, Additional history exists Depression Screening 09/20/2026 09/20/2025, 08/27/2025, 01/15/2025, Additional history exists DTaP/Tdap/Td Vaccine (1 - Tdap) 11/27/2032 11/27/2023 Postponed from 11/28/2023 (Provider's clinical decision) Pneumococcal vaccine <65 Aged Out 02/27/2022 No longer eligible based on patient's age to complete this topic Hepatitis C Screening Completed 10/15/2024 Influenza Vaccine Completed 08/20/2025, , 09/16/2023, Additional history exists Procedures Procedure Name Priority Date/Time Associated Diagnosis Comments HEPATITIS C ANTIBODY Routine 10/15/2024 8:46 AM STRATEGIC PLANNING DIRECTOR Need for hepatitis C screening test STOOL DNA COLOGUARD Routine 08/30/2022 12:55 PM CDT Colon cancer screening from Last 3 Months or Most Recently Relevant to Health Maintenance Results * Hepatitis C antibody Blood (10/15/2024 8:46 AM STRATEGIC PLANNING DIRECTOR) Hep C Ab Nonreactive Nonreactive Comment: Antibodies [...] revised on 2020. Blood 10/15/2024 8:46 AM STRATEGIC PLANNING DIRECTOR 10/15/2024 2:28 PM STRATEGIC PLANNING DIRECTOR us Zoraida Franco MD LAB MICROBIOLOGY - GENERAL ORDERABLES Final Result Performing Organization Address City/State/[facility] [place] Phone Number [facility] [address] [facility] Department [place] [address] * Stool DNA - Cologuard (08/30/2022 12:55 PM CDT) Stool DNA - Cologuard Negative Negative [facility] (CLIA #:[id number]) Comment: NEGATIVE TEST RESULT. A negative Cologuard [...] (Ignacia Morales al, N Engl J Med 2014;370(14):0453-7176) The normal value (reference range) for this assay is negative. COLOGUARD RE-SCREENING RECOMMENDATION: Periodic colorectal cancer screening is an important part of preventive healthcare for asymptomatic individuals at average risk for colorectal cancer. Following a negative Cologuard result, the Australian Cancer Society and U.S. Multi-Society Task Force screening guidelines recommend a Cologuard re-screening interval of 3 years. References: [place] Cancer Society Guideline for Colorectal Cancer Screening: https://www.cancer.org/cancer/czeba-kgtria-anmnlu/xzjkilbvm-vzbzmtgiv-bzvyqbh/ac s-rec ommendations.html.; Nicolas DK, Kylah QUINONEZ, Madhu TerrazasK, Colorectal Cancer Screening: Recommendations for Physicians and Patients from the U.S. Multi-Society Task Force on Colorectal Cancer Screening , Am J Gastroenterology 2017; 112:8532-6777. TEST DESCRIPTION: Composite algorithmic analysis of stool [...] (Ignacia Morales al, N Engl J Med 2014;370(14):3048-2943.) Cologuard may produce a false negative or false positive result (no colorectal cancer or precancerous polyp present at colonoscopy follow up). A negative Cologuard test result does not guarantee the absence of CRC or advanced adenoma (pre-cancer). The current Cologuard screening interval is every 3 years. (Australian Cancer Society and U.S. Multi-Society Task Force). Cologuard performance data in a 10,000 patient pivotal study using colonoscopy as the reference method can be accessed at the following location: www.Nexopia.com/results. Additional description of the Cologuard test process, warnings and precautions can be found at www.cologuard.com. Stool 08/30/2022 12:5 5 PM CDT 08/31/2022 12:25 PM CDT Zoraida Franco MD LAB BODY FLUIDS AND STOOLS ORDERABLES Final Result [facility] (CLIA #:[id number]) [address] [place] [address] from Last 3 Months or Most Recently Relevant to Health Maintenance Insurance MEDICARE [facility] MEDICARE [facility] MEDICARE [facility] Care Teams Tire Spotter Relationship Specialty Start Date End Date Zoraida Franco MD [facility] [address] [place] [address] PCP - General Family Medicine 06/20/21 Clemente Hamm DO [address] [place] [address] MEDICAL ONCOLOGY, [facility] [address] [place] [address] Medical Oncologist/Humane Officer Hematology and Oncology 12/23/24
--- OUTSIDE RECORDS SUMMARY | 2025-09-28 18:49 | XMS_ITS | Clinical Summary ---
Author Organization [facility] Care Team Providers Care Family And Divorce Legal Assistant Name Role Phone Unavailable Primary Care Provider Unavailabl e Social History Tobacco Use Types Packs/Day Years Used Date Smoking Tobacco: Never Assessed Sex and Gender Information Value Date Recorded Sex Assigned at Not on file Legal Sex Male 12:22 PM ELECTRICAL POWER STATION TECHNICIAN Gender Identity Not on file Sexual Orientation Not on file Plan of Treatment Health Maintenance Due Date Last Done Comments Hepatitis C Virus (HCV) Screening 1977 TdaP Immunization 1977 Hepatitis B Immunization (1 of 3 - 19+ 3-dose series) 1996 Cologuard 2022 Colonoscopy 2022 Colorectal Cancer Screening 2022 Immunochemical Fecal Occult Blood 2022 Influenza Immunization (#1) 08/02/202509/01, 09/22/2020, 11/03/2014, Additional history exists SARS-COV-2 Immunization (2024- season) 2025 02/06/2021, 01/14/2021 Respiratory Syncytial Virus (RSV) Immunization (Adult) (1 - 1-dose 75+ series) 2052 Human Papillomavirus (HPV) Immunization Aged Out No longer eligible based on patient's age to complete this topic Meningococcal Immunization (ACWY) Aged Out No longer eligible based on patient's age to complete this topic Pneumococcal Immunization Combined Aged Out No longer eligible based on patient's age to complete this topic Rotavirus Immunization Aged Out No lo nger eligible based on patient's age to complete this topic
--- NOTE | 2025-09-28 18:52 | ED.URI ---
HPI - URI/Sore Throat General Chief Complaint: Upper Respiratory Infection Stated Complaint: Cough / Congestion Time Seen by Provider: 09/28/25 18:50 Source: patient Mode of arrival: ambulatory Limitations: no limitations History of Present Illness HPI Narrative: Patient is a 50-year-old male who presents with cough, sinus drainage, congestion for several weeks. Patient has been seen by PCP twice and is currently on Augmentin. Reports today patient started having headache and chills. Patient negative COVID and flu test at home this morning. Mother's concern for pneumonia as he has had in the past. Has appointment with ENT tomorrow. Related Data Home Medications ?Medication ?Instructions ?Recorded ?Confirmed ?Last Taken ?Type cholecalciferol (vitamin D3) 25 1,000 unit PO ONCE 01/30/25 09/28/25 Unknown History mcg (1,000 unit) capsule (Vitamin D3) Allergies Allergy/AdvReac Type Severity Reaction Status Date / Time morphine Allergy Severe Anaphylaxis Verified 09/28/25 18:52 meperidine (From Demerol) AdvReac Intermediate Fainting Verified 09/28/25 18:52 Review of Systems Review of Systems: All systems reviewed & are unremarkable except as noted in HPI and below Constitutional: Constitutional: Reports chills, Denies fatigue, Denies fever(s), Reports headache(s), Denies malaise and Denies weakness Eyes: Eyes: Denies blurry vision, Denies itchy eyes and Denies loss of vision ENT: Denies otalgia, Reports headache(s), Reports nasal congestion, Denies sinus pain and Denies sore throat Cardiovascular: Cardiovascular: Denies chest pain, Denies irregular heart rhythm and Denies dyspnea Respiratory: Respiratory: Reports cough and Denies dyspnea Gastrointestinal: Gastrointestinal: Denies abdominal pain, Denies diarrhea, Denies nausea and Denies vomiting Musculoskeletal: Musculoskeletal: Denies back pain, Denies myalgias and Denies arthralgias Integumentary/Breasts: Skin/Breast: Denies pruritus and Denies rash Neurologic: Denies headache(s), Denies loss of vision and Denies weakness Psychiatric: Psychiatric: Reports no additional psychiatric complaints Endocrine: Endocrine: Denies fatigue Allergic/Immunologic: Allergic/Immunologic: Denies itchy eyes PMFSH Past Medical History Medical History Down syndrome Regurgitation and rechewing Dysphagia VSD (ventricular septal defect) COVID-19 07/2020 Acute sinus infection Down syndrome Surgical History Surgical History History of hand surgery extra digit removed from right hand History of adenoidectomy History of tonsillectomy History of tympanostomy History of cholecystectomy Family History Family History Father , related to COVID-19 per spouse Heart disease COVID-19 Mother COVID-19 Social History Social History Social History: Mother denies smoke expsoure Smoking status: Never smoker Tobacco type: cigarettes Second hand tobacco smoke exposure: No Alcohol intake: never Substance use: never Substance use type: does not use Living arrangements: with family Occupation/Education: other Additional occupation/education comments: disable Gender identity (if verbalized by the patient): Male Spiritual care concerns: No Comments At time of signature, agree with nursing past medical, surgical, social and family history. There is no relevant family history pertinent to the presenting complaint. Exam Const: General: cooperative, healthy appearing, comfortable, no acute distress and well nourished Nutritional Appearance: well nourished Orientation/consciousness: patient oriented x3 Limitations: no limitations HENMT: Head: normal to inspection, normocephalic and atraumatic Ears: hearing grossly normal bilaterally, external ears normal, TM's normal bilaterally, EAC's normal and no periauricular adenopathy Face/Nose/Sinus: Normal external nose present, Abnormal mucous membranes and turbinates present erythematous bilateral and diffuse, normal facial exam, sinuses nontender and face symmetric Face and sinus: normal facial exam, sinuses nontender and face symmetric Mouth: Yes Normal oral and palatal mucosa present, Yes lip normal, Yes tongue normal, Yes Normal salivary glands and ducts present, Yes oropharynx normal and Yes moist mucous membranes Teeth and gingiva: dentition normal Throat: posterior oropharynx normal, tonsils normal and uvula midline Eyes: General: appearance normal, both eyes and all related structures Alignment and Position: alignment normal and position normal Periorbital: periorbital findings normal Eyelids: eyelids normal Pupils: Equal, round and reactive pupils present Neck: Neck: normal visual inspection, full ROM, no lymphadenopathy and supple Chest: Chest palpation & inspection: normal inspection of the chest and normal palpation of entire chest wall Resp: Effort & Inspection: normal respiratory effort and able to speak in complete sentences Auscultation: clear to auscultation bilaterally, no crackles, no rales, no rhonchi and no wheezes Cardio: Rate: regular rate Rhythm: regular rhythm Heart sounds: S1 normal heart sound present and S2 normal heart sound present GI: Inspection: normal to inspection Skin: General skin exam: normal color and no rashes or lesions noted Neuro: General: patient oriented x3 and moves all extremities Cranial nerves: Yes Equal, round and reactive pupils present Speech: normal speech Gait exam (Neuro): Normal gait present Extrem: General: normal to inspection, full ROM and no edema Psych: Appearance: grossly normal and well kempt Mental Status: mental status grossly normal Speech and movement: Normal speech and movement present Affect: normal affect Attitude: cooperative Thought process: Normal thought process present Course Course Emergency Course: Discharge instructions reviewed with patient, as well as provided in writing per nursing staff. The instructions also include specific and strict return/GO TO THE ER as well as f/u information. All questions have been answered, and the patient deny any further questions with discharge and discharge plan. Portions of this record may have been created with voice recognition software Level of Care: Express Care Visit Vital Signs Vital signs: Vital Signs Temperature 37.2 C 09/28/25 18:53 Pulse Rate 90 09/28/25 18:53 Respiratory Rate 18 09/28/25 18:53 Blood Pressure 117/66 09/28/25 18:53 Pulse Oximetry 100 09/28/25 18:53 Oxygen Delivery Room Air 09/28/25 18:53 Temperature 37.2 C 09/28/25 18:53 Pulse Rate 90 09/28/25 18:53 Respiratory Rate 18 09/28/25 18:53 Blood Pressure 117/66 09/28/25 18:53 Pulse Oximetry 100 09/28/25 18:53 Oxygen Delivery Room Air 09/28/25 18:53 Reviewed MDM - URI/Sore Throat MDM Narrative Medical decision making narrative: Will add steroids and Tessalon Perles for cough. Pt well hydrated appearing, in no respiratory distress, hemodynamically stable. Recommend supportive care. The patient is stable at time of discharge the clinical impression was discussed and the patient was given the opportunity to ask questions, which were addressed as completely as possible given the information available at present. Anticipatory guidance and return to care precautions were discussed and the importance of primary care follow-up was stressed and encouraged. The patient voiced understanding of the plan, indications to return, and the need for follow-up. Exam findings show no acute concerns or changes Patient is appropriate for outpatient treatment and follow-up. Differential diagnosis considered: Lui virus, strep pharyngitis, allergic rhinitis, upper respiratory tract infection, sinusitis, rhinosinusitis, nasopharyngitis. viral pharyngitis, otitis media, otitis externa, otitis effusion, foreign body, cerumen impaction, viral syndrome, and influenza.? Medical Records Attestation: I reviewed the patient's medical records. Lab Data Attestation: I reviewed the patient's lab results. Imaging Data Radiologist's impression: Examination: XR chest 2V Clinical History: cough, low grade fever Comparison: Chest x-ray 11/02/2023 Technique: PA and Lateral Findings: Cardiomediastinal silhouette normal size and configuration. Lungs clear. No acute bony abnormality. IMPRESSION: 1. No acute cardiopulmonary findings. Reviewed, dictated and finalized at location R. Discharge Plan Discharge Clinical Impression: Upper respiratory infection with cough and congestion Patient Disposition: Home Condition: Stable Instructions: Upper Respiratory Infection (ED) Additional Instructions: Continue to take antibiotic as prescribed. Take steroids per package instructions. Use Tessalon Perles as needed for cough. Other symptomatic treatments include: -Alternate Tylenol and Motrin per package directions for fever or pain: Tylenol 650-1000mg by mouth every 4-6 hours. Do not exceed 4000mg in 24 hours. Advil (Ibuprofen) 600 mg by mouth every 6 hours. Do not exceed 2400mg in 24 hours. 8 AM: Tylenol 11 AM: Ibuprofen 2 PM: Tylenol 5 PM: Ibuprofen 8 PM: Tylenol 11 PM: Ibuprofen 2 AM: Tylenol 5 AM: Ibuprofen -Antihistamine medication such as Benadryl at night and Zyrtec/Claritin/Ivanna during the day can help improve symptoms. -Use Flonase twice a day for 5 days then daily to help reduce the inflammation and dry up your sinuses. -You can also use Sudafed or Mucinex. Be sure to drink plenty of water with these medications at least 8 ounces with every dose and it is important to drink 8 to 10 glasses of water per day. Water is a natural decongestant -Eat and drink things that are easy to swallow, like tea or soup, or popsicles. -Oral rinses such as: Salt water gargles and/or may use topical anesthetic (eg. Chloraseptic spray) or lozenges to relieve dryness or throat pain). -Frequent hand washing or hand regional coordinator is one of the best ways to prevent spread of infection. -Using a vaporizer or humidifier at night will also help thin secretions and help with coughing up phlegm. Call your Primary Care Doctor and make a follow-up appointment in 3 days. If your cough worsens, you develop a fever greater than 103, you develop shaking chills, a fast heartbeat, trouble breathing and/or feel you are are breathing much faster than usual, call your Primary Care Doctor or go to the ER. Patient Language: Egyptian Prescriptions: New benzonatate 100 mg capsule 100 mg PO BID PRN (Reason: cough) Qty: 14 0RF methylprednisolone [Medrol (Lew)] 4 mg tablets,dose pack See Rx Instructions .ROUTE .COMPLEX Qty: 21 0RF Rx Instructions: orally per package directions No Action cholecalciferol (vitamin D3) [Vitamin D3] 25 mcg (1,000 unit) capsule 1,000 unit PO ONCE Follow-up/Referrals: Salvador,MD Zoraida [Primary Care Provider, Unknown] - 3 Days Time of Disposition: 19:27
[2025-09-28 18:53] VITALS: BP 117/66; PULSE 90; RESP 18; TEMP 37.2; O2SAT 100
== END 2025-09-28 19:34 | disposition home or self-care (01) ==
PROVIDERS: Emergency Provider Nurse Practitioner Family; PCP Family Medicine
DX: J06.9 Acute upper respiratory infection, unspecified (principal); R05.9 Cough, unspecified; Q90.9 Down syndrome, unspecified; Q21.0 Ventricular septal defect; Z86.16 Personal history of COVID-19
CPT/HCPCS: 71046; 99213; G0463